=== PATIENT | male | born 1950 | race Caucasian/White ===

== ENCOUNTER 2020-02-05 08:37 | Outpatient (REF) | payer MEDICARE, SELFPAY ==
[2020-02-10 14:02] LABS: Testosterone, Free 16.1 pg/mL (35.0-155.0); Testosterone, Total 168 ng/dL (250-1100)
== END 2020-02-05 08:38 | disposition home or self-care (01) ==
LOC: HO.LAB 08:37
PROVIDERS: Visit Provider Internal Medicine
DX: N52.9 Male erectile dysfunction, unspecified (principal)
CPT/HCPCS: 84402; 84403

== ENCOUNTER 2020-12-06 12:52 | Outpatient (REF) | payer MEDICARE, SELFPAY ==
--- NOTE | ~2020-12-06 | US_ITS ---
EXAMINATION: US EXTRACRANIAL CAROTID DUPLEX, BILATERAL CLINICAL INFORMATION: Bilateral carotid artery stenoses. COMPARISON: 10/20/2019 TECHNIQUE: Real-time ultrasound and Doppler techniques (integrating B-mode 2-D vascular images, Doppler spectral analysis and color-flow Doppler imaging) were utilized to interrogate the extracranial carotid arteries, the vertebral arteries and proximal subclavian arteries bilaterally. The degree of stenosis is determined by criteria similar to NASCET. FINDINGS: Right Side: 1. There is a complex heterogeneous atherosclerotic plaque seen in the bifurcation/proximal ICA region. 2. The common carotid artery PSV proximally is 133 cm/s and distally 75 cm/s. 3. The proximal internal carotid artery velocities are 280 cm/s systolic and 59 cm/s diastolic. 4. The proximal external carotid artery PSV is 191 cm/s. 5. The vertebral artery shows antegrade flow. 6. The subclavian artery waveforms are normal. Left Side: 1. There is complex heterogeneous atherosclerotic plaque seen in the bifurcation/proximal ICA region. 2. The common carotid artery PSV proximally is 131 cm/s and distally 100 cm/s. 3. The proximal internal carotid artery velocities are 96 cm/s systolic and 21 cm/s diastolic. 4. The proximal external carotid artery PSV is 273 cm/s. 5. The vertebral artery shows antegrade flow. 6. The subclavian artery waveforms are normal. US/US carotid duplex BI IMPRESSION: 1. RIGHT: Moderate, hemodynamically significant stenosis of the proximal right internal carotid artery corresponding to a 50-79% stenosis by velocity criteria. 2. LEFT: Minimal, non-hemodynamically significant stenosis of the proximal left internal carotid artery corresponding to a 0-49% stenosis by velocity criteria. 3. A left ECA stenosis is present. 4. Compared to the prior study, there has been no significant change in disease categories.
== END 2020-12-06 12:53 | disposition home or self-care (01) ==
LOC: HO.US 12:52
PROVIDERS: PCP Internal Medicine; Visit Provider Surgery Vascular Surgery
DX: I65.23 Occlusion and stenosis of bilateral carotid arteries (principal)
CPT/HCPCS: 93880

== ENCOUNTER → 2020-12-27 09:57 | Outpatient (BNVA) | payer MEDICARE, SELFPAY | PROVIDERS: PCP Internal Medicine; Visit Provider Surgery Vascular Surgery | DX: I65.21 Occlusion and stenosis of right carotid artery (principal) | CPT/HCPCS: 99212 ==

== ENCOUNTER 2021-12-18 09:45 | Outpatient (REF) | payer MEDICARE, SELFPAY ==
--- NOTE | ~2021-12-18 | US_ITS ---
EXAMINATION: US EXTRACRANIAL CAROTID DUPLEX, BILATERAL CLINICAL INFORMATION: Right carotid artery stenosis COMPARISON: 12/06/2020 and 10/12/2019 TECHNIQUE: Real-time ultrasound and Doppler techniques (integrating B-mode 2-D vascular images, Doppler spectral analysis and color-flow Doppler imaging) were utilized to interrogate the extracranial carotid arteries, the vertebral arteries and proximal subclavian arteries bilaterally. The degree of stenosis is determined by criteria similar to NASCET. FINDINGS: Right Side: 1. There is moderate to severe irregular atherosclerotic plaque seen in the bifurcation/proximal ICA region. 2. The common carotid artery PSV proximally is 106 cm/s and distally 96 cm/s. 3. The proximal internal carotid artery velocities are 353 cm/s systolic and 64 cm/s diastolic. 4. The proximal external carotid artery PSV is 276 cm/s. 5. The vertebral artery shows antegrade flow. 6. The subclavian artery waveforms are normal. Left Side: 1. There is mild atherosclerotic plaque seen in the bifurcation/proximal ICA region. 2. The common carotid artery PSV proximally is 143 cm/s and distally 127 cm/s. 3. The proximal internal carotid artery velocities are 109 cm/s systolic and 20 cm/s diastolic. 4. The proximal external carotid artery PSV is 240 cm/s. 5. The vertebral artery shows antegrade flow. 6. The subclavian artery waveforms are normal. US/US carotid duplex BI IMPRESSION: 1. RIGHT: Moderate, hemodynamically significant stenosis of the proximal right internal carotid artery corresponding to a 50-79% stenosis by velocity criteria. 2. LEFT: Minimal, non-hemodynamically significant stenosis of the proximal left internal carotid artery corresponding to a 0-49% stenosis by velocity criteria. 3. There is no change in the category severity of disease when compared to the previous study dated 10/20/2019.
== END 2021-12-18 09:46 | disposition home or self-care (01) ==
LOC: HO.US 09:45
PROVIDERS: Visit Provider Surgery Vascular Surgery
DX: I65.21 Occlusion and stenosis of right carotid artery (principal)
CPT/HCPCS: 93880

== ENCOUNTER → 2021-12-21 10:05 | Outpatient (BNVA) | payer MEDICARE, SELFPAY | PROVIDERS: PCP Internal Medicine; Visit Provider Surgery Vascular Surgery | DX: I65.21 Occlusion and stenosis of right carotid artery (principal) | CPT/HCPCS: 99212 ==

== ENCOUNTER 2022-01-03 10:07 | Outpatient (REF) | payer MEDICARE, SELFPAY ==
[2022-01-03 11:37] LABS: Blood Urea Nitrogen 14 mg/dL (9-16)
== END 2022-01-03 10:08 | disposition home or self-care (01) ==
LOC: HO.WFDLDS 10:07
PROVIDERS: Visit Provider Surgery Vascular Surgery
DX: I65.21 Occlusion and stenosis of right carotid artery (principal)
CPT/HCPCS: 36415; 84520

== ENCOUNTER 2022-01-09 09:42 | Outpatient (REF) | payer OTHER, MEDICARE, SELFPAY ==
--- NOTE | ~2022-01-09 | CT_ITS ---
EXAMINATION: CT ANGIOGRAM NECK CLINICAL INFORMATION: Occlusion and stenosis of right carotid artery. COMPARISON: Ultrasound carotids 12/19/2021. TECHNIQUE: Test bolus series followed by intravenous administration 70 mL of Omnipaque 350. Helical imaging was performed in the axial plane from the mediastinum to the skull vertex. The degree of stenosis is based off NASCET criteria. The data was processed at the senior cytotechnologist workstation for generation of MIP images. Three-dimensional volume rendered reformatted images were also generated at an offline 3-D workstation. This CT examination was performed using dose optimization techniques as appropriate, variously including the following: *Automated exposure control *Adjustment of mA and/or kV according to patient size (this includes techniques or standardized protocols for targeted exams where dose is matched to indication/reason for exam; i.e. extremities or head) *Use of iterative reconstruction technique DLP: 292 mGy-cm. FINDINGS: There is a four-vessel aortic, and the left vertebral artery arises directly from the arch. There are moderate atheromatous calcifications at the origins of the great vessels of the neck. There is moderate stenosis at the origin of the right subclavian artery. The common carotid arteries have bilaterally. There are atheromatous calcifications at the carotid bifurcation bilaterally. On the right, there is approximately 70% stenosis, and on the left there is approximately 50% stenosis. Both internal carotid arteries are patent with relatively uniform caliber. As described above, the left vertebral artery arises directly off the arch. Just distal to the origin there are 2 left sided vertebral arteries, which have a confluence in the left vertebral foramen at C3-C4. The origin of the right vertebral artery appears normal. The distal cervical vertebral arteries are codominant and are patent throughout their cervical course Intracranially there are dense calcifications of the cavernous internal carotid arteries bilaterally without significant stenosis. Internal septations calcifications of the bilateral supraclinoid internal carotid arteries. The bilateral middle and anterior cerebral arteries are patent without evidence of stenosis, vascular malformation. There are 3 A2 segments of the anterior cerebral arteries. In the posterior circulation the left vertebral artery is slightly dominant. The basilar artery is patent. The posterior cerebral arteries are patent bilaterally. Nonvascular: There are emphysematous changes in the visualized upper lung reid bilaterally. There are small subpleural blebs at the lung apices bilaterally. There is a moderately prominent lymph node in the left esophageal region which measures 0.9 cm in short axis axially (image 110/139) and there is also an AP lymph node which measures approximately 1 cm (image 134/139).. The thyroid gland is normal in size. The mastoid air cells are well-aerated. There is mucoperiosteal thickening of the left ethmoid air cells. There is a periapical lucency around the root of the right mandibular 1st premolar tooth. There are severe spondylitic and facet arthropathic changes in the cervical spine. On the available images, there are no intracranial masses or areas of abnormal enhancement. The venous sinuses opacify normally. CT/CT angio neck IMPRESSION: 1. There are atheromatous calcifications at the origins of the great vessels of the neck. There is moderate stenosis at the origin of the right subclavian artery. 2. There is approximately 70% stenosis at the origin of the right internal carotid artery, and there is approximately 50% stenosis at the origin of the left internal carotid artery. 3. There are no intracranial masses or areas of abnormal enhancement. 4. The left vertebral artery arises directly off the aortic arch which is a normal variant, and there are 2 left-sided vertebral arteries which coalesce at the level of the left vertebral foramen at C3-C4. 5. There are mildly prominent nonspecific lymph nodes in the mediastinum. These could be further evaluated with a CT scan of the chest.
[2022-01-09] MEDS: iohexoL 350 MG/ML 100 ML INFUS..BTL IV (10:28)
[2022-01-09 10:47] LABS: Creatinine POC 0.6 mg/dL (0.5-1.4); GFR POC > 60
== END 2022-01-09 09:43 | disposition home or self-care (01) ==
LOC: HO.CT 09:42
PROVIDERS: Visit Provider Surgery Vascular Surgery
DX: I65.21 Occlusion and stenosis of right carotid artery (principal)
CPT/HCPCS: 70498; 82565; Q9967

== ENCOUNTER → 2022-01-15 08:51 | Outpatient (BNVA) | payer OTHER, MEDICARE, SELFPAY | PROVIDERS: PCP Internal Medicine; Visit Provider Surgery Vascular Surgery | DX: I65.21 Occlusion and stenosis of right carotid artery (principal) | CPT/HCPCS: 99212 ==

== ENCOUNTER → 2022-07-31 09:48 | Outpatient (BNVA) | payer OTHER, SELFPAY | PROVIDERS: PCP Internal Medicine; Visit Provider Surgery Vascular Surgery | DX: I65.21 Occlusion and stenosis of right carotid artery (principal) | CPT/HCPCS: 99212 ==

== ENCOUNTER 2022-08-16 09:20 | Outpatient (REF) | payer MEDICARE, OTHER, SELFPAY ==
[2022-08-16 11:15] LABS: MANUAL DIFF FLAG NO
[2022-08-16 11:30] LABS: Basophils Percent Auto 0.5 % (0-2); Eosinophils Absolute Auto 0.3 X10*3/uL (0.0-0.4); Eosinophils Percent Auto 3.4 % (0-4); Hematocrit 43.6 % (42.0-52.0); Hemoglobin 15.8 g/dl (14.0-18.0); Imm Gran Abs Auto 0.04 X10*3/uL (0.00-0.03); Imm Gran Pct Auto 0.5 % (0.0-0.4); Lymphocytes Absolute Auto 1.4 X10*3/uL (1.2-4.9); Lymphocytes Percent Auto 15.8 % (20-40); Mean Corpuscular HGB Conc 36.2 g/dl (31.0-36.0); Mean Corpuscular Hemoglobin 33.4 pg (27.0-33.0); Mean Corpuscular Volume 92.2 fL (80.0-98.0); Mean Platelet Volume 8.8 fL (9.4-12.4); Monocytes Percent Auto 11.8 % (2-11); Platelet Count 285 X10*3/uL (160-400); Red Blood Count 4.73 X10*6/uL (4.60-5.80); Red Cell Distribution Width 11.9 % (11.0-16.0); White Blood Count 8.8 X10*3/uL (4.8-10.8)
[2022-08-16 11:37] LABS: Appearance Urine Clear; Color Urine Yellow; Glucose Urine UA Negative (Negative); Leukocyte Esterase Urine Trace (Negative); Nitrite Urine Negative (Negative); PH 6.5 (5.0-9.0); Specific Gravity - Urine 1.015 (1.005-1.025); UMIC TRIGGER UA YES; Urine Blood Negative (Negative); Urine Ketones Trace mg/dL (Negative); Urine Protein Negative (Neg-Trace)
[2022-08-16 11:46] LABS: Bacteria Urine None Seen (None Seen); Granular Casts Urine Present; RBC Urine 0-2 /HPF (0-2); Squamous Epithelial Cell Urine 0-2 /HPF (0-2); WBC Urine 0-5 /HPF (0-5)
[2022-08-16 12:07] LABS: Alanine Aminotransferase 35 U/L (0-40); Albumin Level 4.4 g/dL (3.5-5.0); Alkaline Phosphatase 96 U/L (39-117); Anion Gap 15 (12-20); Aspartate Amino Transferase 30 U/L (5-37); Bilirubin Total 0.6 mg/dL (0.0-1.0); Blood Urea Nitrogen 17 mg/dL (9-16); Calcium 9.8 mg/dL (8.4-10.2); Carbon Dioxide 23 mmol/L (22-29); Chloride 103 mmol/L (96-108); Cholesterol 142 mg/dL; Estimated Glomerular Filt Rate > 60; Glucose Random 89 mg/dL (60-115); HDL Cholesterol 73 mg/dL; LDL Cholesterol Calculated 61 mg/dl; Potassium 4.5 mmol/L (3.3-5.1); Sodium 136 mmol/L (135-145); Total Protein 7.4 g/dL (6.5-8.0); Triglycerides 44 mg/dL
[2022-08-16 12:16] LABS: Folate 16.4 ng/mL (> or = 4.0); Free T4 (Free Thyroxine) 1.16 ng/dL (0.71-1.85); Prostate Specific Antigen Scr 1.52 ng/mL (<0.05-4.0); Thyroid Stimulating Hormone 0.83 uIU/mL (0.32-4.0); Vitamin B12 651 pg/mL (200-900)
[2022-08-21 21:04] LABS: Lyme Abs Screen <0.90 index
[2022-08-24 12:08] LABS: Testosterone, Total 207 ng/dL (250-1100)
== END 2022-08-16 09:21 | disposition home or self-care (01) ==
LOC: HO.WFDLDS 09:20
PROVIDERS: Visit Provider Internal Medicine
DX: Z12.5 Encounter for screening for malignant neoplasm of prostate (principal); F41.1 Generalized anxiety disorder; R53.83 Other fatigue; E78.00 Pure hypercholesterolemia, unspecified
CPT/HCPCS: 36415; 80053; 80061; 81001; 82607; 82746; 84153; 84403; 84439; 84443; 85025; 86617; 86618

== ENCOUNTER 2022-08-27 05:56 | Inpatient (IN) | payer MEDICARE, SELFPAY ==
[2022-08-21 12:10] VITALS: BP 169/80; PULSE 66; RESP 16; O2SAT 96; BMI 20.4
[2022-08-21 13:56] LABS: Prothrombin Time 11.9 SEC (10.0-13.1)
[2022-08-21 13:59] LABS: Partial Thromboplastin Time 31.9 SEC (26.0-36.4)
--- NOTE | 2022-08-24 12:00 | P.CONAN_ITS ---
Documented by User: Freida Cottrell NP 08/24/22 12:01 HPI - Anesthesia Eval Consult details Narrative: 72yo M for Right Carotid Endarterectomy Cardiac cleared [facility] Active Problems Active Problems: All Active Problems (Updated 08/21/22 @ 11:14 by Ezra Vargas MD) Allergic dermatitis (Acute) Feeling tired (Acute) Fever (Acute) Meralgia paresthetica of left side (Acute) Carpal tunnel syndrome of left wrist (Acute) Actinic keratosis (Acute) Stenosis of right carotid artery (Acute) Generalized anxiety disorder (Acute) Insomnia (Acute) GERD (gastroesophageal reflux disease) (Acute) Hypercholesterolemia (Acute) Hypogonadism (Acute) Erectile dysfunction (Acute) Hypertension (Acute) Past Medical History Medical History Erectile dysfunction GERD (gastroesophageal reflux disease) History of 2019 novel coronavirus disease (COVID-19) Hypercholesterolemia Hypertension Hypogonadism PTSD (post-traumatic stress disorder) Stenosis of right carotid artery Family History Family History Father CVD (cardiovascular disease) Mother Lung cancer Maternal Aunt Colon cancer Surgical History Surgical History History of ankle surgery History of appendectomy History of tonsillectomy Social History Social History Housing: House Are you a primary veterinarian laboratory animal care to a significant other at home: No Do you presently have visiting nurse or other home services: No Alcohol intake: current Alcohol intake frequency: a few times a week Patient Tobacco Use Status: Former Tobacco user Quit Date: 2006 Tobacco use type: Cigarette e-Cigarette/Vaping Use: Never Used Second Hand Smoke Exposure: No Use of substances other than those prescribed or required for medical reasons: No Substance Use Frequency: Occasionally Have you been hit, kicked, punched, or otherwise hurt by someone within the past year? If so, by whom?: No Are you DNR?: No Advance Directives: No Advance Directives Information Provided: Yes Advance Directives on File: No Recently lost weight without trying: Yes How much weight loss: 2-13 pounds Eating poorly because of decreased appetite: No Nutrition screen score: 3 Current occupational status: retired Cognitive needs: No Hearing needs: No Vision needs: Yes Meds Allergies Allergy/AdvReac Type Severity Reaction Status Date / Time lobster Allergy Severe Anaphylaxis Verified 08/21/22 12:09 amoxicillin Allergy Mild Itching Verified 08/21/22 16:00 hazelnut Allergy Unknown Unknown Verified 08/21/22 10:46 Home Medications Medication Instructions Recorded Confirmed Last Taken Type amlodipine 10 mg tablet 10 mg PO BEDTIME 01/26/20 08/21/22 Unknown History aspirin 81 mg tablet,delayed 81 mg PO DAILY 01/26/20 08/21/22 Unknown History release (Adult Aspirin Regimen) cetirizine 10 mg tablet (Zyrtec) 10 mg PO DAILY PRN Allergy Symptoms 08/21/22 08/21/22 Unknown History epinephrine 0.3 mg/0.3 mL 0.3 mg IM Q4H PRN Allergic Reaction 08/21/22 08/21/22 Unknown History injection, auto-injector (EpiPen) rosuvastatin 5 mg tablet 5 mg PO .DAILY@NOON 08/21/22 08/21/22 Unknown History Exam Exam Date and Time: August 24, 2022 1200 Height,Weight and Vital Signs: Height 5 ft 7 in Weight 58.967 kg Last Vital Signs Pulse 66 08/21/22 12:10 Resp 16 08/21/22 12:10 BP 169/80 H 08/21/22 12:10 Pulse Ox 96 08/21/22 12:10 O2 Del Method Room Air 08/21/22 12:10 Pertinent Lab Results Pertinent Lab Results: Laboratory Tests 08/21/22 08/21/22 12:40 12:41 PT 11.9 INR 1.0 APTT 31.9 Blood Type A Negative Antibody Screen NEGATIVE Laboratory Tests 08/16/22 08/16/22 09:20 09:20 WBC 8.8 Hgb 15.8 Hct 43.6 Plt Count 285 Sodium 136 Potassium 4.5 Chloride 103 Carbon Dioxide 23 BUN 17 H Creatinine 0.97 Narrative Narrative: EKG 07/2022 NSR @ 62 Moderate voltage criteria LVH, may be normal variant Assessment and Plan Assessment Anesthesia Assessment: Chart Reviewed Documented by User: Angie Scott MD 08/27/22 07:08 [facility] Past Medical History Medical History Erectile dysfunction GERD (gastroesophageal reflux disease) History of 2019 novel coronavirus disease (COVID-19) Hypercholesterolemia Hypertension Hypogonadism PTSD (post-traumatic stress disorder) Stenosis of right carotid artery Family History Family History Father CVD (cardiovascular disease) Mother Lung cancer Maternal Aunt Colon cancer Family history of problems with anesthesia: No Surgical History Surgical History History of ankle surgery History of appendectomy History of tonsillectomy History of Problems with Anesthesia: No Social History Social History Housing: House Are you a primary veterinarian laboratory animal care to a significant other at home: No Do you presently have visiting nurse or other home services: No Alcohol intake: current Alcohol intake frequency: a few times a week Patient Tobacco Use Status: Former Tobacco user Quit Date: 2006 Tobacco use type: Cigarette e-Cigarette/Vaping Use: Never Used Second Hand Smoke Exposure: No Use of substances other than those prescribed or required for medical reasons: No Substance Use Frequency: Occasionally Have you been hit, kicked, punched, or otherwise hurt by someone within the past year? If so, by whom?: No Are you DNR?: No Advance Directives: No Advance Directives Information Provided: Yes Advance Directives on File: No Recently lost weight without trying: Yes How much weight loss: 2-13 pounds Eating poorly because of decreased appetite: No Nutrition screen score: 3 Current occupational status: retired Cognitive needs: No Hearing needs: No Vision needs: Yes Meds Allergies Allergy/AdvReac Type Severity Reaction Status Date / Time lobster Allergy Severe Anaphylaxis Verified 08/21/22 12:09 amoxicillin Allergy Mild Itching Verified 08/21/22 16:00 hazelnut Allergy Unknown Unknown Verified 08/21/22 10:46 Home Medications Medication Instructions Recorded Confirmed Last Taken Type amlodipine 10 mg tablet 10 mg PO BEDTIME 01/26/20 08/21/22 Unknown History aspirin 81 mg tablet,delayed 81 mg PO DAILY 01/26/20 08/21/22 Unknown History release (Adult Aspirin Regimen) cetirizine 10 mg tablet (Zyrtec) 10 mg PO DAILY PRN Allergy Symptoms 08/21/22 08/21/22 Unknown History epinephrine 0.3 mg/0.3 mL 0.3 mg IM Q4H PRN Allergic Reaction 08/21/22 08/21/22 Unknown History injection, auto-injector (EpiPen) rosuvastatin 5 mg tablet 5 mg PO .DAILY@NOON 08/21/22 08/21/22 Unknown History Exam Airway Mallampati Class: II TM Dist: >3cm Neck ROM: Full Denture: Lower (at home) Heart: rrr Lungs: cta Assessment and Plan Assessment Anesthesia Assessment: Anesthesia Plan Discussed and Chart Reviewed Final Anesthetic Review Family History of Problems with Anesthesia: No History of Problems with Anesthesia: No NPO: Yes ASA Class: III Final Preanesthetic Review: No Changes in Pt Med Stat, Meds/Allgs Chart Reviewed and Consent Obtained/Reviewed Patient Risk: Intermediate Procedure Risk: Intermediate Anesthetic Plan Anesthetic Plan: GA Disposition: Standard PACU
[2022-08-27] VITALS (20 sets, daily range): BP systolic 103–138; BP diastolic 40–70; PULSE 69–95; RESP 11–22; TEMP 36.4–37.3; O2SAT 92–97; BMI 22.4
--- OUTSIDE RECORDS SUMMARY | 2022-08-27 05:58 | XMS_ITS | Continuity of Care Document ---
Author Name Unknown Organization [facility] Address [address] [place] [address]- Care Team Providers Care Information Security Name Role Phone Not on Staff, PCP Primary Care Physician Unavail able [place] [facility] [place]/20 [facility] [address] [place] [address]- Attending Physician: Raudel Parker Admitting Physician: Raudel Parker Referring Physician: AdmtrRaudel Allergies, Adverse Reactions, Alerts Substance Reaction Severity Status Lobster Active Medications Amlodipine By Mouth, Daily, 0 Refills, Maintenance, 02/20/20 12:48:00 EST, Partial fill upon patient request Start Date: 02/20/20 Status: Ordered aspirin 81 mg oral delayed release tablet 81 mg, 1, tablet, By Mouth, Daily, # 30 tablet, Refills 0, Maintenance, 02/20/20 12:44:00 EST, Partial fill upon patient request Start Date: 02/20/20 Status: Ordered Lunesta By Mouth, Daily at bedtime, 0 Refills, Maintenance, 02/20/20 12:43:00 EST, Partial fill upon patient request Start Date: 02/20/20 Status: Ordered
[2022-08-27] MEDS: Lactated Ringers 1,000 ML 100 ML IVCONT (06:32)
[2022-08-27 06:54] LABS: Hematocrit 42.5 % (42.0-52.0); Mean Corpuscular HGB Conc 35.3 g/dl (31.0-36.0); Mean Corpuscular Hemoglobin 32.5 pg (27.0-33.0); Mean Corpuscular Volume 92.2 fL (80.0-98.0); Mean Platelet Volume 8.2 fL (9.4-12.4); Platelet Count 334 X10*3/uL (160-400); Red Blood Count 4.61 X10*6/uL (4.60-5.80); White Blood Count 8.7 X10*3/uL (4.8-10.8)
[2022-08-27 06:59] LABS: Prothrombin Time 10.9 SEC (10.0-13.1)
[2022-08-27 07:02] LABS: Partial Thromboplastin Time 30.2 SEC (26.0-36.4)
--- NOTE | 2022-08-27 07:07 | PHA.MEDREC ---
Pharmacy Consult ? Medication Reconciliation Pharmacy has completed the medication reconciliation. Reviewed med rec done by nursing
[2022-08-27 07:09] LABS: Anion Gap 12 (12-20); Blood Urea Nitrogen 16 mg/dL (9-16); Calcium 9.3 mg/dL (8.4-10.2); Carbon Dioxide 24 mmol/L (22-29); Chloride 107 mmol/L (96-108); Creatinine Clr Calc Pharmacy 66.2; Estimated Glomerular Filt Rate > 60; Glucose Random 92 mg/dL (60-115); Potassium 4.5 mmol/L (3.3-5.1); Sodium 138 mmol/L (135-145)
--- NOTE | 2022-08-27 07:37 | MHC.SHP ---
Pre-Procedural Eval Section A Date of Service: 08/27/22 The patient is an INPATIENT: No Changes since office visit: Yes Patient answered all questions The History & Physical has been completed within 30 days and I have reviewed it.: Yes Section B Chief Complaint: Postop Allergies: Allergies Allergy/AdvReac Type Severity Reaction Status Date / Time lobster Allergy Severe Anaphylaxis Verified 08/21/22 12:09 amoxicillin Allergy Mild Itching Verified 08/21/22 16:00 hazelnut Allergy Unknown Unknown Verified 08/21/22 10:46 Plan I have reviewed the history and physical and performed a pertinent physical examination on my patient. No changes have occurred unless specified. Time Spent With Patient Time: Total time managing care of this patient today ____ minutes.
--- NOTE | 2022-08-27 10:51 | W.PM.OPN ---
Operative Note Operative Note Date of Service: 08/27/22 Narrative: Operative note by [facility] Preoperative diagnosis:1. Right Carotid stenosis Postoperative diagnosis: Same Procedure: Right Carotid endarterectomy with patch angioplasty Surgeon:James Hutton M.D. Disability Hearing Officer: Dr. Aldrich Anesthesia: General Specimens: 1 Drains: None Estimated blood loss: 100 mL Indications: Pleasant 72-year-old gentleman who upon workup was discovered to have right carotid stenosis. This was confirmed on ultrasound and CT angiogram. He now presents for operative intervention. The patient has signed the informed consent after reviewing risks, complications, benefits, and alternatives previously discussed with the patient. The patient was given the opportunity to ask any additional questions or voice any concerns. All questions were answered to the patient's satisfaction. Procedure in detail: Patient was taken to the operating room and placed in a supine position and prepped and draped in sterile manner with ChloraPrep. Longitudinal incision was made along the right anterior border of the sternocleidomastoid carried down through the subcutaneous fat and fascia. Hemostasis was obtained with electrocautery. The platysma muscle was then divided. The carotid sheath was identified in open. The vagus nerve, Ancef cervicalis, and hypoglossal nerves were identified and avoided. The common internal and external carotids were then freed from the surrounding tissue. At this point, 5000 units of heparin was administered and allowed to circulate for 5 minutes time to take effect. The internal, common, external carotids were clamped in that order. Once this was accomplished, we proceeded with the procedure. The carotid bulb was opened with an 11 blade and extended with Myers scissors through the very tight lesion into normal internal carotid artery. This was then extended down into the common carotid artery. We then placed a Olmedo shunt. Then the plaque was sharply excised proximally and an eversion endarterectomy was performed successfully at the external. The plaque tapered nicely on to the internal and no tacking sutures were necessary. Heparinized saline was injected and no evidence of flapping or other debris was noted. The remaining carotid was examined, which showed no debris or flaps present. At this point a XenoSure patch was brought on to the field. This was anastomosed to the artery using a 6 0 Prolene in a running fashion. Once approximately 4/5 of the patch was sewn in the shunt was then removed. Prior to the last stitch the internal carotid was back bled through this. Heparinized saline was instilled into the carotid. The last stitch was tied. Hemostasis was excellent. The internal carotid was gently occluded while while of the external and internal were open in that order. Finally the internal was then opened and flow was restored to the entire system. Hemostasis was achieved with interrupted 7-0 Prolene sutures. The wound was irrigated thoroughly. Deep layer was reapproximated using a 2-0 poly Sorb and finally the superficial layer with a 3-0 Polysorb. The skin was closed in a subcuticular manner. The patient awoke and neurologic status was checked and appeared to be intact. Sponge, needle and instrument counts were correct. The patient tolerated the procedure well. Returned to recovery with stable vitals. This note is constructed using voice recognition software. While every effort has been made to ensure accuracy, piper helper errors may have been included. Thank you for allowing me to participate in the care of your patient. Yours sincerely, James Hutton MD, FACS, R.P.V.I.
[2022-08-27] MEDS: Lactated Ringers 1,000 ML 999 ML IV (12:00)
--- NOTE | 2022-08-27 12:05 | PM.CCHP ---
History of Present Illness Date of Service: 08/27/22 Chief Complaint: Status post elective carotid endarterectomy 72-year-old gentleman with underlying hypertension and peripheral vascular disease now postop day 0 after an elective right carotid endarterectomy being monitored in the intensive care unit. Review of Systems Constitutional: Constitutional: Denies daytime sleepiness, Denies excessive sweating, Denies fatigue, Denies fever(s), Denies lethargy, Denies malaise, Denies night sweats, Denies snoring and Denies weight loss Eyes: Eyes: Denies blurry vision and Denies itchy eyes ENT: Denies nasal congestion, Denies post nasal drip, Denies sinus pain, Denies sinus pressure and Denies other ( Thrush) Cardiovascular: Cardiovascular: Denies chest pain, Denies pedal edema, Denies dyspnea, Denies orthopnea and Denies paroxysmal nocturnal dyspnea Respiratory: Respiratory: Denies cough, Denies hemoptysis, Denies excessive phlegm production, Denies dyspnea, Denies snoring and Denies wheezing Gastrointestinal: Gastrointestinal: Denies abdominal pain and Denies heartburn Musculoskeletal: Musculoskeletal: Denies myalgias, Denies arthralgias and Denies joint swelling Integumentary/Breasts: Skin/Breast: Denies rash Neurologic: Denies memory loss and Denies seizure-like activity Psychiatric: Psychiatric: Denies abnormal sleep pattern, Denies anxiety and Denies memory loss Endocrine: Endocrine: Denies excessive sweating, Denies fatigue and Denies heat intolerance Hematologic/Lymphatic: Hematologic/Lymphatic: Denies easy bruising Allergic/Immunologic: Allergic/Immunologic: Denies itchy eyes, Denies seasonal rhinorrhea and Denies wheezing PMFSH Past Medical History Medical History Erectile dysfunction GERD (gastroesophageal reflux disease) History of 2019 novel coronavirus disease (COVID-19) Hypercholesterolemia Hypertension Hypogonadism PTSD (post-traumatic stress disorder) Stenosis of right carotid artery Family History Family History Father CVD (cardiovascular disease) Mother Lung cancer Maternal Aunt Colon cancer Surgical History Surgical History History of ankle surgery History of appendectomy History of tonsillectomy Social History Social History Housing: House Are you a primary multi care technician to a significant other at home: No Do you presently have visiting nurse or other home services: No Alcohol intake: current Alcohol intake frequency: a few times a week Patient Tobacco Use Status: Former Tobacco user Quit Date: 2006 Tobacco use type: Cigarette e-Cigarette/Vaping Use: Never Used Second Hand Smoke Exposure: No Use of substances other than those prescribed or required for medical reasons: No Substance Use Frequency: Occasionally Have you been hit, kicked, punched, or otherwise hurt by someone within the past year? If so, by whom?: No Are you DNR?: No Advance Directives: No Advance Directives Information Provided: Yes Advance Directives on File: No Recently lost weight without trying: Yes How much weight loss: 2-13 pounds Eating poorly because of decreased appetite: No Nutrition screen score: 3 Current occupational status: retired Cognitive needs: No Hearing needs: No Vision needs: Yes Meds Allergies Allergy/AdvReac Type Severity Reaction Status Date / Time lobster Allergy Severe Anaphylaxis Verified 08/21/22 12:09 amoxicillin Allergy Mild Itching Verified 08/21/22 16:00 hazelnut Allergy Unknown Unknown Verified 08/21/22 10:46 Active Medications: Current Medications Acetaminophen (Acetaminophen 325 Mg Tablet) 650 mg PO Q6H PRN PRN Reason: Pain, Mild (Pain Scale 1-3) Alprazolam (Alprazolam 0.25 Mg Tablet) 0.25 mg PO BEDTIME PRN PRN Reason: anxiety Amlodipine Besylate (Amlodipine Besylate 10 Mg Tablet) 10 mg PO BEDTIME VIOLET; Protocol Aspirin (Aspirin Enteric Coated 81 Mg Tablet.Dr) 81 mg PO DAILY VIOLET Atorvastatin Calcium (Atorvastatin Calcium 20 Mg Tablet) 20 mg PO DAILY@1200 VIOLET Hydroxyzine HCl (Hydroxyzine Hcl 25 Mg Tablet) 25 mg PO BEDTIME VIOLET Lactated Ringer's (Lr) 1,000 mls @ 100 mls/hr IVCONT .Q10H VIOLET Last Admin: 08/27/22 06:32 Dose: 100 mls/hr Sodium Chloride (Ns) 1,000 mls @ 80 mls/hr IVCONT .[id number] [facility] Cefazolin Sodium/Dextrose (Ancef) 2 gm in 50 mls @ 100 mls/hr IV POSTOP ONE Stop: 08/27/22 14:29 Morphine Sulfate (Morphine Sulfate 2 Mg/Ml Cartridge) 2 mg IVPUSH Q4H PRN; Protocol PRN Reason: Pain, Severe (Pain Scale 7-10) Oxycodone HCl (Oxycodone Hcl Immed Release 5 Mg Tablet) 5 mg PO Q4H PRN PRN Reason: Pain, Moderate(Pain Scale 4-6) Sodium Chloride (0.9 % Sodium Chloride Flush 3 Ml Syringe) [address] [facility] Home Medications Medication Instructions Recorded Confirmed Last Taken Type amlodipine 10 mg tablet 10 mg PO BEDTIME 01/26/20 08/21/22 Unknown History aspirin 81 mg tablet,delayed 81 mg PO DAILY 01/26/20 08/21/22 Unknown History release (Adult Aspirin Regimen) cetirizine 10 mg tablet (Zyrtec) 10 mg PO DAILY PRN Allergy Symptoms 08/21/22 08/21/22 Unknown History epinephrine 0.3 mg/0.3 mL 0.3 mg IM Q4H PRN Allergic Reaction 08/21/22 08/21/22 Unknown History injection, auto-injector (EpiPen) rosuvastatin 5 mg tablet 5 mg PO .DAILY@NOON 08/21/22 08/21/22 Unknown History Physical Exam Vital Signs: Vital Signs: Last Vital Signs Temp 99.2 F 08/27/22 11:20 Pulse 86 08/27/22 11:20 Resp 14 08/27/22 11:20 BP 105/44 L 08/27/22 11:20 Pulse Ox 96 08/27/22 11:20 O2 Del Method Nasal Cannula wit h Capnography 08/27/22 11:20 O2 Flow Rate 2 08/27/22 11:20 BMI result Body Mass Index 20.4 Const: General: no acute distress and alert HEENT: Head: Yes atraumatic Eyes: General: appearance normal, both eyes and all related structures Sclerae: sclerae normal EOM: EOMs intact bilaterally Neck: Neck: Yes supple and Yes other (Right carotid endarterectomy surgical site without hematoma) Lymphatic: no lymphadenopathy noted Resp: Effort & Inspection: normal respiratory effort and no use of accessory muscles Auscultation: clear to auscultation bilaterally Cardio: Rate: regular rate Rhythm: regular rhythm Heart sounds: no gallops, no murmurs and no rubs GI: Palpation (GI): Soft to palpation and Other GI palpation findings present ( nontender) Skin: General skin exam: other ( warm) Rashes: no rashes Extrem: General: No clubbing, No cyanosis and No edema Results Labs 08/27/22 06:43 08/27/22 06:43 Labs: Laboratory Results - last 24 hr 08/27/22 08/27/22 08/27/22 06:43 06:43 06:43 MCV 92.2 MCH 32.5 MCHC 35.3 RDW 12.0 Plt Count 334 MPV 8.2 L Absolute Nucleated RBC 0.000 Nucleated RBC % (auto) 0.0 PT 10.9 INR 1.0 APTT 30.2 Anion Gap 12 Estim Creat Clear Calc 66.2 Estimated GFR > 60 Random Glucose 92 Calcium 9.3 Assessment and Plan (1) Stenosis of right carotid artery: Status: Acute (2) Status post carotid endarterectomy: Status: Acute (3) Hypertension: Qualifiers: Hypertension type: essential hypertension Qualified Code(s): I10 - Essential (primary) hypertension Status: Acute Plan Assessment: 72-year-old gentleman postoperative day 0 after an elective right carotid endarterectomy being monitored in the intensive care unit. Plan: Neuro: No acute issues. Cardiac: Status post elective right carotid endarterectomy earlier today. Vascular surgery service care appreciated. Maintain systolic blood pressure under 160. Pulmonary: No acute issues. Renal: No acute issues. Endo: No acute issues. GI: No acute issues. ID: No acute issues Heme/Onc: No acute issues. Psych: No acute issues. Miscellaneous: No acute issues. Prophylaxis: Per vascular surgery Diet: Per vascular surgery Time Spent With Patient Time: Total time managing care of this patient today ____ minutes.
[2022-08-27] MEDS: 0.9 % Sodium Chloride 1,000 ML 80 ML IVCONT ×2 (13:05→23:32)
[2022-08-27] MEDS: Atorvastatin Calcium 20 MG TABLET PO (13:08)
[2022-08-27] MEDS: Acetaminophen 325 MG TABLET 650 MG PO ×2 (13:08→19:26)
[2022-08-27] MEDS: ceFAZolin Sodium/Dextrose,Iso 2 GM/50 ML PIGGYBACK IV (13:12)
[2022-08-27] MEDS: 0.9 % Sodium Chloride Flush 3 ML SYRINGE IVFLUSH ×2 (16:14→21:52)
--- NOTE | 2022-08-27 18:15 | PC.NURSE ---
Addendum entered by David Winn RN 08/27/22 18:39: Upon arrival to ICU, patient's BP was low: 97/38, MAP 57 per Brenda. Had LR at 100 cc/hour order on hold, MD notified, new order for 1 L LR bolus, administered with good effect. No further low blood pressures, now contiuing on NS at 80 cc/hour. Was notified that Covid test from 05:55 had not been collected. MD notified, no need to check covid test post-op at this time in absence of symptoms per MD. Original Note: Assumed care at 11:30. Patient alert and oriented x4, POD #0 s/p right carotid endarterectomy. Neuros unremarkable. Patient endorses drinking 2 beers a day, last drink 08/26. CIWA added to plan of care, scoring 1-2. Patient with left radial brenda, BP correlated with automated BP measurement. Patient declined lunch, had 100% dinner. No BM this shift, declined hygienic care. [facility] for fluid measurement and related to bed rest, 1000 ccs clear yellow urine this shift.
[2022-08-27] MEDS: ALPRAZolam 0.25 MG TABLET PO (21:52)
[2022-08-28] VITALS (13 sets, daily range): BP systolic 116–155; BP diastolic 46–66; PULSE 63–71; RESP 10–20; TEMP 36.4–36.9; O2SAT 92–97; BMI 26.4
[2022-08-28] MEDS: Acetaminophen 325 MG TABLET 650 MG PO (03:15)
[2022-08-28] MEDS: oxyCODONE HCl Immed Release 5 MG TABLET PO (03:15)
[2022-08-28 05:12] LABS: MANUAL DIFF FLAG NO
[2022-08-28 05:13] LABS: Basophils Percent Auto 0.2 % (0-2); Eosinophils Percent Auto 0.1 % (0-4); Hematocrit 36.9 % (42.0-52.0); Hemoglobin 12.8 g/dl (14.0-18.0); Imm Gran Abs Auto 0.06 X10*3/uL (0.00-0.03); Imm Gran Pct Auto 0.6 % (0.0-0.4); Lymphocytes Absolute Auto 1.2 X10*3/uL (1.2-4.9); Lymphocytes Percent Auto 11.5 % (20-40); Mean Corpuscular HGB Conc 34.7 g/dl (31.0-36.0); Mean Corpuscular Hemoglobin 32.5 pg (27.0-33.0); Mean Corpuscular Volume 93.7 fL (80.0-98.0); Mean Platelet Volume 8.4 fL (9.4-12.4); Monocytes Percent Auto 9.4 % (2-11); Neutrophils Absolute Auto 8.1 x10*3/uL (2.0-8.3); Neutrophils Percent Auto 78.2 % (45-73); Platelet Count 302 X10*3/uL (160-400); Red Blood Count 3.94 X10*6/uL (4.60-5.80); White Blood Count 10.3 X10*3/uL (4.8-10.8)
[2022-08-28 05:26] LABS: ABG Base Excess 2.7 mmol/L; ABG HCO3 26 mmol/L (22-26); ABG pCO2 36 mmHg (32-45); ABG pH 7.46 (7.35-7.45); ABG pO2 83 mmHg (83-108)
[2022-08-28 05:29] LABS: ABG Refer to POC result
[2022-08-28 05:33] LABS: Albumin Level 3.6 g/dL (3.5-5.0); Anion Gap 12 (12-20); Blood Urea Nitrogen 10 mg/dL (9-16); Calcium 8.8 mg/dL (8.4-10.2); Carbon Dioxide 23 mmol/L (22-29); Chloride 105 mmol/L (96-108); Creatinine Clr Calc Pharmacy 83.2; Estimated Glomerular Filt Rate > 60; Glucose Random 120 mg/dL (60-115); Phosphorus 3.7 mg/dL (2.7-4.5); Potassium 4.1 mmol/L (3.3-5.1); Sodium 136 mmol/L (135-145)
--- NOTE | 2022-08-28 06:34 | PC.NURSE ---
CARE ASSUMED 23:15...ALERT..ORIENTED X3..SPEECH CLEAR...TONGUE MID-LINE..RIGHT NECK DRESSING DRY/INTACT..RESPIRATIONS EASY ON ROOM AIR...BP STABLE VIA LEFT RADIAL A-LINE..A-LINE CORRELATES WITH RIGHT ARM BP...NSR...ISOLATED NON-SUSTAINED RUN SVT X10 SECONDS...NEUMANN DRAINING LARGE AMOUNTS YELLOW URINE...CONTINUES NS @ 80 CC/HR...TYLENOL AND OXYCODONE X1 FOR C/O SURGICAL SITE PAIN WITH EFFECT...RESTFUL..REPOSITIONS SELF IN BED AD-OFELIA
[2022-08-28] MEDS: Aspirin Enteric Coated 81 MG TABLET.DR PO (08:20)
[2022-08-28] MEDS: 0.9 % Sodium Chloride Flush 3 ML SYRINGE IVFLUSH (08:20)
--- NOTE | 2022-08-28 08:33 | MHC.CM.PN ---
Pt in ICU following vascular surgery: independent at home w/spouse: no services or DME needs: Spouse to transport pt to home: HCP copy at Katelyn Caruso's office: Call placed - requested copy faxed to CM office for EMR. CM to follow for any changes in d/c planning.
[2022-08-28] MEDS: Atorvastatin Calcium 20 MG TABLET PO (12:19)
--- NOTE | 2022-08-28 13:11 | P.DS_ITS ---
DS: Providers Provider Date of Service: 08/28/22 Date of admission: 08/27/22 05:56 Primary care physician: Ezra Vargas MD DS: Diagnosis Discharge Diagnosis (1) Stenosis of right carotid artery: Status: Acute (2) Status post carotid endarterectomy: Status: Acute (3) Hypertension: Status: Acute DS: Summary Hospital Course Hospital Course: Pleasant 72-year-old gentleman status post right carotid endarterectomy. He had undergone right carotid endarterectomy on 07/27/2022. No postoperative issues. He was observed overnight in the ICU. Postop day 1 lines were removed and he wa s tolerating a diet. He was neurologically intact. He was subsequently discharged. Condition upon discharge stable P Status at Discharge Functional status at discharge: independent ambulation Overall status at discharge: patient is back to baseline Time Spent with Patient Time attestation: Total time managing care of this patient today ____ minutes. Discharge coordination time: Greater than 30 minutes Quality: Safe Use of Opioids Does Pt have an Active Cancer Diagnosis on the Problem List?: No Quality: Stroke Does the patient have a stroke diagnosis?: No Physical Exam Vital Signs: Vital Signs: Last Vital Signs Temp 98.5 F 08/28/22 12:00 Pulse 71 08/28/22 12:00 Resp 16 08/28/22 12:00 BP 134/59 L 08/28/22 12:00 Pulse Ox 93 08/28/22 12:00 O2 Del Method Room Air 08/28/22 12:00 O2 Flow Rate 2 08/27/22 11:20 BMI result Body Mass Index 26.4 Const: General: cooperative, healthy appearing and no acute distress Orien tation/consciousness: oriented to person, oriented to place and oriented to time HEENT: Head: Yes normal to inspection Neck: Carotids: no bruits Chest: Chest palpation & inspection: normal inspection of the chest Resp: Effort & Inspection: normal respiratory effort and able to speak in complete sentences Auscultation: clear to auscultation bilaterally Cardio: Rate: regular rate Heart sounds: S1 normal heart sound present and S2 normal heart sound present GI: Inspection: Yes normal to inspection Skin: Other: Neck incision healing well General skin exam: no rashes or lesions noted Wounds: no wounds Neuro: General: oriented to person, oriented to place, oriented to time and CN's II-XI intact bilaterally Extrem: General: Yes normal to inspection, Yes full ROM and Yes no clubbing, cyanosis or edema Psych: Appearance: grossly normal and well kempt Speech and movement: Normal speech and movement present Affect: normal affect DS: Data Data Completed and Pending Pending studies at discharge: Pending at discharge 08/27/22 09:45 Surgical [PTH] Routine Labs on day of discharge: Laboratory Results - last 24 hr 08/28/22 08/28/22 08/28/22 04:55 04:55 05:20 WBC 10.3 RBC 3.94 L Hgb 12.8 L Hct 36.9 L MCV 93.7 MCH 32.5 MCHC 34.7 RDW 12.0 Plt Count 302 MPV 8.4 L Immature Gran % (Auto) 0.6 H Neut % (Auto) 78.2 H Lymph % (Auto) 11.5 L [place] % (Auto) 9.4 Eos % (Auto) 0.1 Baso % (Auto) 0.2 Lymph # (Auto) 1.2 [place] # (Auto) 1.0 Eos # (Auto) 0.0 Baso # (Auto) 0.0 Abs Immat Gran (auto) 0.06 H Absolute Neuts (auto) 8.1 Absolute Nucleated RBC 0.000 Nucleated RBC % (auto) 0.0 O2 Saturation 97.0 ABG pH at Pt Temp 7.46 H ABG pCO2 at Pt Temp 36 ABG pO2 at Pt Temp 83 ABG HCO3 26 ABG Base Excess (Actual) 2.7 Sodium 136 Potassium 4.1 Chloride 105 Carbon Dioxide 23 Anion Gap 12 BUN 10 Creatinine 0.75 Estim Creat Clear Calc 83.2 Estimated GFR > 60 Random Glucose 120 H Calcium 8.8 Phosphorus 3.7 Magnesium 2.0 Albumin 3.6 Discharge Plan Discharge Anticipated Discharge Date/Time: 08/28/22 13:01 Patient Disposition: Home, Self-Care Discharge Diagnosis: Status post right carotid endarterectomy Referrals: Po,Ezra Falcon MD [Primary Care Provider] - 1 Week Discharge Medications: New oxycodone-acetaminophen [Percocet] 5-325 mg tablet 1 tab PO Q8H PRN (Reason: pain) Qty: 10 0RF Rx Instructions: Partial Fill upon patient request. Continued eszopiclone 3 mg tablet 3 mg PO BEDTIME 90 Days Qty: 90 2RF alprazolam 0.25 mg tablet 0.25 mg PO BEDTIME PRN (Reason: anxiety) 90 Days Qty: 60 1RF rosuvastatin 5 mg tablet 5 mg PO .DAILY@NOON epinephrine [EpiPen] 0.3 mg/0.3 mL Auto-Injector 0.3 mg IM Q4H PRN (Reason: Allergic Reaction) amlodipine 10 mg tablet 10 mg PO BEDTIME aspirin [Adult Aspirin Regimen] 81 mg tablet,delayed release (DR/EC) 81 mg PO DAILY hydroxyzine HCl 25 mg tablet 25 mg PO BEDTIME Qty: 30 0RF cetirizine [Zyrtec] 10 mg tablet 10 mg PO DAILY PRN (Reason: Allergy Symptoms) dicyclomine 10 mg capsule 10 mg PO TID PRN (Reason: stomach upset) 90 Days Qty: 90 0RF Discharge Orders: Discharge Order (Routine); Ordered 08/28/22 Ordered By: James Hutton Diet: Advance to usual diet Activity on Discharge: As tolerated Stand Alone Forms: Patient Portal Discharge page Care Plan Goals: Surveillance follow-up of carotid Health Concerns: Carotid stenosis Plan of Treatment: Postop follow-up Assessment: Right carotid stenosis Patient Instructions: [facility]ana Catheter Removal (DC), Pain Management After Surgery (DC)
--- NOTE | 2022-08-28 13:42 | HO.POSTANES ---
Post Anesthesia Evaluation Post Anesthesia Evaluation Date of Service: 08/28/22 Vital Signs: Vital Signs Temp Pulse Resp BP Pulse Ox O2 Del Method 08/28/22 12:00 98.5 F 71 16 134/59 L 93 Room Air 08/28/22 11:00 65 14 119/54 L 94 Room Air 08/28/22 10:00 63 14 137/57 L 92 Room Air 08/28/22 09:00 69 20 148/51 H 95 Room Air 08/28/22 08:00 98.5 F 69 16 155/54 H 93 Room Air 08/28/22 07:00 69 17 153/61 H 95 Room Air 08/28/22 06:00 66 18 143/53 H 95 Room Air 08/28/22 04:00 70 16 126/50 L 94 Room Air 08/28/22 03:00 97.5 F 66 18 148/66 H 97 Room Air 08/28/22 05:00 63 10 L 142/53 H 94 Room Air 08/28/22 04:00 63 13 127/49 L 92 Room Air 08/28/22 01:55 67 15 136/53 L 94 Room Air Anesthesia: General Endotracheal-GETA Mental Status: Awake Pain Control: Satisfactory Nausea/Vomiting: None Hydration: Adequate Anesthesia-Related Issues: No Anes. Related Issues
--- NOTE | 2022-08-28 16:16 | MHC.CM.PN ---
Pt to d/c to home today w/spouse and no DME or additional services.
== END 2022-08-28 14:05 | disposition home or self-care (01) | DRG 39 ==
LOC: HO.SSSA 05:56 → HO.ICU 11:07
PROVIDERS: Anesthesiology; Registered Nurse Community Health; Admitting Provider Surgery Vascular Surgery; PCP Internal Medicine; Visit Provider Internal Medicine Pulmonary Disease
PROC: 037K0ZZ Dilation of Right Internal Carotid Artery, Open Approach (ICD-10-PCS; CPT 35301; principal; 2022-08-27 07:30)
DX: I65.21 Occlusion and stenosis of right carotid artery (principal); E78.00 Pure hypercholesterolemia, unspecified; I10 Essential (primary) hypertension; F43.10 Post-traumatic stress disorder, unspecified; Z87.891 Personal history of nicotine dependence; Z79.82 Long term (current) use of aspirin; Z79.899 Other long term (current) drug therapy
CPT/HCPCS: 36415; 80048; 82040; 82803; 83735; 84100; 85025; 85027; 85610; 85730; 86850; 86900; 86901; 88304; 88311; C1758; C1768; J0690; J1643; J2250; J2370; J2795; J3010

== ENCOUNTER → 2022-09-17 10:57 | Outpatient (BNVA) | payer OTHER, SELFPAY | PROVIDERS: PCP Internal Medicine; Visit Provider Surgery Vascular Surgery | DX: I65.21 Occlusion and stenosis of right carotid artery (principal); Z98.890 Other specified postprocedural states | CPT/HCPCS: 99212 ==

== ENCOUNTER 2022-12-13 09:49 | Outpatient (REF) | payer OTHER, MEDICARE, SELFPAY ==
--- NOTE | ~2022-12-13 | US_ITS ---
EXAMINATION: US EXTRACRANIAL CAROTID DUPLEX, BILATERAL CLINICAL INFORMATION: Endarterectomy right side. Follow-up carotid artery disease. COMPARISON: Carotid ultrasound 12/18/2021. TECHNIQUE: Real-time ultrasound and Doppler techniques (integrating B-mode 2-D vascular images, Doppler spectral analysis and color-flow Doppler imaging) were utilized to interrogate the extracranial carotid arteries, the vertebral arteries and proximal subclavian arteries bilaterally. The degree of stenosis is determined by criteria similar to NASCET. FINDINGS: Right Side: 1. There is mild atherosclerotic plaque seen in the bifurcation/proximal ICA region. 2. The common carotid artery PSV proximally is 99 cm/s and distally 96 cm/s. 3. The proximal internal carotid artery velocities are 69 cm/s systolic and 11 cm/s diastolic. 4. The proximal external carotid artery PSV is 183 cm/s. 5. The vertebral artery shows antegrade flow. 6. The subclavian artery waveforms are normal. Left Side: 1. There is mild atherosclerotic plaque seen in the bifurcation/proximal ICA region. 2. The common carotid artery PSV proximally is 107 cm/s and distally 85 cm/s. 3. The proximal internal carotid artery velocities are 96 cm/s systolic and 19 cm/s diastolic. 4. The proximal external carotid artery PSV is 251 cm/s. 5. The vertebral artery shows antegrade flow. 6. The subclavian artery waveforms are normal. US/US carotid duplex BI IMPRESSION: 1. RIGHT: Minimal, non-hemodynamically significant stenosis of the proximal right internal carotid artery corresponding to a 0-49% stenosis by velocity criteria. 2. LEFT: Minimal, non-hemodynamically significant stenosis of the proximal left internal carotid artery corresponding to a 0-49% stenosis by velocity criteria. 3. Disease category is improved on the right and stable on the left compared to 12/18/2021.
== END 2022-12-13 09:50 | disposition home or self-care (01) ==
LOC: HO.US 09:49
PROVIDERS: PCP Internal Medicine; Visit Provider Surgery Vascular Surgery
DX: I25.10 Atherosclerotic heart disease of native coronary artery without angina pectoris (principal); I65.23 Occlusion and stenosis of bilateral carotid arteries; Z98.890 Other specified postprocedural states
CPT/HCPCS: 93880

== ENCOUNTER 2022-12-19 10:54 | Outpatient (AMB) | payer MEDICARE, SELFPAY ==
[2022-12-19 10:57] VITALS: BP 144/62; PULSE 65; O2SAT 98; BMI 21.3
--- NOTE | 2022-12-19 10:57 | MHC.PC.OV ---
Vital Signs 12/19/22 10:57 Height 5 ft 7 in Weight 136 lb BMI 21.3 BP 144/62 H Blood Pressure Location Lt brachial Position Sitting Pulse 65 Pulse Source Pulse Oximeter Pulse Oximetry (%) 98 Oxygen Delivery Method Room Air Intake Visit Reasons: 4 month f/u (before leaves to [place]) Engineer Technical Staff: Not Required per policy Accompanied by: Self / Same As Patient Allergies lobster Allergy (Severe, Verified 12/19/22 10:58) Anaphylaxis amoxicillin Allergy (Mild, Verified 12/19/22 10:58) Itching Seasonal Allergies Allergy (Mild, Verified 12/19/22 10:58) Itchy Eyes hazelnut Allergy (Unknown, Verified 12/19/22 10:58) Unknown Tobacco use date assessed: 09/12/22 Fall risk assessment: No Falls in past year Last assessed Fall Risk: 12/19/22 Dental Screening Dental Screen Date: 12/19/22 Did you have a dental visit in the last 12 months?: Yes Did you have a dental problem in the last 6 months where you did not have access to dental care?: No Was dental information given to patient?: Patient has dentist HPI 4 month f/u (before leaves to [place]) HPI Details 72-year-old male with GERD hypercholesterolemia hypertension generalized anxiety disorder right carotid stenosis coming in for follow-up. July last seen had carotid endarterectomy on the right 08/27/2022 e procedure . Patient had a repeat carotid ultrasound November 2022 right-sided minimally none him with an amylase agreement stenosis 024 9% left minimally non hemodynamically significant stenosis 0-49% review of the notes patient was seen by computer systems security administrator December 07 for dermatitis and was given steroid cream. dermatology biopsy done - rash on the back and chest- -n was told histamin- and wants endo- - patient has had this for 5months intemttent [facility] Medical History History of 2019 novel coronavirus disease (COVID-19) GERD (gastroesophageal reflux disease) PTSD (post-traumatic stress disorder) Stenosis of right carotid artery Hypercholesterolemia Hypogonadism Erectile dysfunction Hypertension Surgical History History of ankle surgery History of appendectomy History of tonsillectomy Family History Father CVD (cardiovascular disease) Mother Lung cancer Maternal Aunt Colon cancer Social History Household Members: Spouse Housing: Other Housing Other:: [employer] trailer Are you a primary wound care nurse to a significant other at home: No Do you presently have visiting nurse or other home services: No Alcohol intake: current Alcohol intake frequency: a few times a week Patient Tobacco Use Status: Former Tobacco user Quit Date: 2006 Tobacco use type: Cigarette Cigarettes Per Day: 5 Years Smoked: 25 e-Cigarette/Vaping Use: Never Used Second Hand Smoke Exposure: No Substance Use Type: Marijuana and Caffiene Current occupational status: retired Cognitive needs: No Hearing needs: No Vision needs: Yes Questionnaire PHQ-9 Over the last 2 weeks, how often have you been bothered by any of the following problems? 1. Little interest or pleasure in doing things: not at all 2. Feeling down, depressed, or hopeless: not at all 3. Trouble falling or staying asleep, or sleeping too much: not at all 4. Feeling tired or having little energy: not at all 5. Poor appetite or overeating: not at all 6. Feeling bad about yourself - or that you are a failure or have let yourself or your family down: not at all 7. Trouble concentrating on things, such as reading the newspaper or watching television: not at all 8. Moving or speaking so slowly that other people could have noticed. Or the opposite - being so fidgety or restless that you have been moving around a lot more than usual: not at all 9. Thoughts that you would be better off or of hurting yourself in some way: not at all Total score: 0 Depression Screening Interpretation: Negative Source: Developed by Drs. Zacarias Muñoz, Jeannie Peñaloza, Thomas Arizmendi and colleagues, with an educational madyson from [employer]. Thrive Questionnaire Date Thrive assessed: 08/13/22 AUDIT C Alcohol Use Questionnaire (AUDIT-C) 1. How often do you have a drink containing alcohol?: 4 or more times a week 2. How many drinks containing alcohol do you have on a typical day when you are drinking?: 1 or 2 3. How often do you have six or more drinks on one occasion?: Never Total Score: 4 Score Reviewed/Action Taken: Yes FELICIA-7 AMB Questionnaire FELICIA-7 Date FELICIA - 7 assessed: 08/13/22 Source: Developed by Drs. Zacarias Muñoz, Jeannie Peñaloza, Thomas Arizmendi and colleagues, with an educational madyson from [employer]. Physical exam (Primary Care) Vital Signs: Last Vital Signs Pulse 65 12/19/22 10:57 BP 144/62 H 12/19/22 10:57 Pulse Ox 98 12/19/22 10:57 Oxygen Delivery Method Room Air 12/19/22 10:57 BMI result Body Mass Index 21.3 Tobacco/Smoking Status: Tobacco use Status Tobacco use date assessed 09/12/22 12/19/22 10:59 Patient Tobacco Use Status Former Tobacco user 12/19/22 10:59 Tobacco use type Cigarette 12/19/22 10:59 e-Cigarette/Vaping Use Never Used 12/19/22 10:59 PHQ-9: PHQ-9 Score PHQ-9: Total score 0 12/19/22 10:59 Depression Screening Interpretation: Negative Thrive Assessment: Date of Thrive Assessment Date Thrive assessed 08/13/22 12/19/22 10:59 Const General: alert; No acute distress Eyes Conjunctivae: conjunctivae normal Resp Auscultation: clear to auscultation bilaterally Cardio Rate: regular rate Rhythm: regular rhythm GI Inspection: Yes normal to inspection Extrem General: Yes normal to inspection and No edema Assessment and Plan Assessment & Plan (1) Status post carotid endarterectomy: Comment: 08/27/2022 Code(s): Z98.890 - Other specified postprocedural states Plan: Patient is followed up by a vascular surgeon and recent carotid ultrasound non hemodynamically significant stenosis (2) Hypertension: Code(s): I10 - Essential (primary) hypertension Qualifiers: Hypertension type: essential hypertension Qualified Code(s): I10 - Essential (primary) hypertension Plan: Continue with blood pressure medication. Decrease salt intake and exercise patient is on amlodipine 10 mg once a day (3) Hypercholesterolemia: Code(s): E78.00 - Pure hypercholesterolemia, unspecified Plan: Avoid fried foods, chicken skin, eggs, butter margarine, pastries and meat. Be it pork or beef they have a lot of cholesterol LDL goal of less than 130 and triglyceride of less than 150 patient is on rosuvastatin July 2022 last blood work (4) GERD (gastroesophageal reflux disease): Code(s): K21.9 - Gastro-esophageal reflux disease without esophagitis Qualifiers: Esophagitis presence: without esophagitis Qualified Code(s): K21.9 - Gastro-esophageal reflux disease without esophagitis Plan: Avoid the foods that causes that usually spicy foods, tomato products, juices, coffee, soda and foods that your sensitive to. After eating do not lie down, allow 3-4 hours before in lie down. And keep the head of bed above 30 degrees to avoid the acid from going up. (5) Generalized anxiety disorder: Comment: [facility] (11/2021) Code(s): F41.1 - Generalized anxiety disorder Plan: Continue with anxiety medication. (6) Allergic contact dermatitis: Code(s): L23.9 - Allergic contact dermatitis, unspecified cause Plan: seeing [facility] and work begun. discussed about Exegy med - overthe counter Orders: Orders Comprehensive Met. Panel 6 Months K2. - Gastro-esophageal reflux disease without esophagitis Vitamin B12 and Folate 6 Months K21. - Gastro-esophageal reflux disease without esophagitis Complete Blood Count Auto Diff 6 Months K21. - Gastro-esophageal reflux disease without esophagitis Ferritin 6 Months K21. - Gastro-esophageal reflux disease without esophagitis IRON PROFILE 6 Months K21. - Gastro-esophageal reflux disease without esophagitis Reticulocyte Count 6 Months K21. - Gastro-esophageal reflux disease without esophagitis Thyroid Stimulating Hormone 6 Months K21. - Gastro-esophageal reflux disease without esophagitis Free T4 (Free Thyroxine) 6 Months K21.9 - Gastro-esophageal reflux disease without esophagitis Lipid Panel 6 Months E78.00 - Pure hypercholesterolemia, unspecified, K21.9 - Gastro-esophageal reflux disease without esophagitis Medications: Discontinued prednisone Take 4 tablets for 3 days then, Take 3 tablets for 3 days then, Take 2 tablets 3 days then, Take 1 tablet 3 days and stop Discontinued Reason: Ancillary Entered New Order 10 mg PO DAILY 30 tabs 0RF L23.9 - Allergic contact dermatitis, unspecified cause Coding Level of Care Code Est Pt Level 4 (70567) Diagnoses Status post carotid endarterectomy Z98.890 Essential hypertension I10 Hypertension type: essential hypertension Hypercholesterolemia E78.00 Gastroesophageal reflux disease without esophagitis K21.9 Esophagitis presence: without esophagitis Generalized anxiety disorder F41.1 Allergic contact dermatitis L23.9
== END 2022-12-19 11:56 | disposition home or self-care (01) ==
PROVIDERS: Visit Provider Internal Medicine
DX: Z98.890 Other specified postprocedural states (principal); I10 Essential (primary) hypertension; E78.00 Pure hypercholesterolemia, unspecified; K21.9 Gastro-esophageal reflux disease without esophagitis; F41.1 Generalized anxiety disorder; L23.9 Allergic contact dermatitis, unspecified cause
CPT/HCPCS: 99214

== ENCOUNTER 2022-12-25 10:01 | Outpatient (AMB) | payer OTHER, SELFPAY ==
[2022-12-25 10:01] VITALS: BP 138/70; BMI 21.3
--- NOTE | 2022-12-25 10:01 | MHC.OFFVIS ---
Intake Vital Signs 12/25/22 10:01 12/25/22 10:07 Height 5 ft 7 in Weight 136 lb BMI 21.3 BP 138/70 120/70 Blood Pressure Location Rt brachial Lt brachial Position Sitting Sitting Intake Visit Reasons: 3 mo follow up carotid 12/13/22 Intake Note: 3 mo follow up carotid artery US 12/13/22 s/p Right CEA 08/27/22. No blurred vision or loss of balance Accompanied by: Self / Same As Patient Allergies lobster Allergy (Severe, Verified 12/25/22 10:08) Anaphylaxis amoxicillin Allergy (Mild, Verified 12/25/22 10:08) Itching Seasonal Allergies Allergy (Mild, Verified 12/25/22 10:08) Itchy Eyes hazelnut Allergy (Unknown, Verified 12/25/22 10:08) Unknown HPI 3 mo follow up carotid 12/13/22 HPI Details Very pleasant 72-year-old gentleman presents for follow-up regarding right carotid endarterectomy. Has had no interval issues. He had a tooth and extraction which appear to go fairly well. He now presents for routine surveillance follow-up. [facility] Medical History History of 2019 novel coronavirus disease (COVID-19) GERD (gastroesophageal reflux disease) PTSD (post-traumatic stress disorder) Stenosis of right carotid artery Hypercholesterolemia Hypogonadism Erectile dysfunction Hypertension Surgical History (Updated 12/25/22 @ 10:10 by ISAURA Tracey) H/O carotid endarterectomy (08/27/22) History of ankle surgery History of appendectomy History of tonsillectomy Family History Father CVD (cardiovascular disease) Mother Lung cancer Maternal Aunt Colon cancer Social History Household Members: Spouse Housing: Other Housing Other:: [employer] trailer Are you a primary childcare provider to a significant other at home: No Do you presently have visiting nurse or other home services: No Alcohol intake: current Alcohol intake frequency: a few times a week Patient Tobacco Use Status: Former Tobacco user Quit Date: 2006 Tobacco use type: Cigarette Cigarettes Per Day: 5 Years Smoked: 25 e-Cigarette/Vaping Use: Never Used Second Hand Smoke Exposure: No Substance Use Type: Marijuana and Caffiene Current occupational status: retired Cognitive needs: No Hearing needs: No Vision needs: Yes Review of Systems Const All systems reviewed & are unremarkable except as noted in HPI and below Reports no additional complaints ENT Reports Normal hearing present Card Denies chest pain, Denies chest pain at rest, Denies chest pain with activity and Denies pedal edema Resp Denies cough GI Denies abdominal pain Musc Denies abnormal gait, Denies muscle cramps and Denies radiating pain into limb Skin/Breast Denies skin ulcer and Denies wounds Neuro Reports Normal hearing present and Denies abnormal gait Psych Reports no additional complaints Physical Exam Vital Signs: Last Vital Signs BP 120/70 12/25/22 10:07 BMI result Body Mass Index 21.3 Const General: cooperative, healthy appearing and comfortable Orientation/consciousness: oriented to person, oriented to place and oriented to time HEENT Head: Yes normal to inspection Neck Neck: Yes normal visual inspection Carotids: no bruits Chest Chest palpation & inspection: normal inspection of the chest Resp Effort & Inspection: normal respiratory effort and able to speak in complete sentences Auscultation: clear to auscultation bilaterally, no crackles, no rales, no rhonchi and no wheezes Cardio Rate: regular rate Rhythm: regular rhythm Heart sounds: S1 normal heart sound present and S2 normal heart sound present Bruits: no carotid bruits Peripheral pulses: Peripheral pulses 2+ throughout GI Inspection: Yes normal to inspection Skin Wounds: no wounds Hair: normal Neuro General: oriented to person, oriented to place and oriented to time Cranial nerves: Yes CN's II-XII intact bilaterally and Yes Normal hearing present Cognition (Neuro): normal cognition Motor exam (neuro): 5/5 motor strength present throughout Extrem Other: venous exam: No significant superficial varicosities or spider telangiectasias, minimal edema General: No clubbing, No cyanosis and No edema Psych Appearance: grossly normal Mental Status: mental status grossly normal Speech and movement: Normal speech and movement present Results Reviewed Results Reviewed: Carotid ultrasound dated 12/13/2022 demonstrates right-sided 0-49% and left-sided 0-49%. Written report and images were reviewed. Assessment & Plan Assessment & Plan (1) Stenosis of right carotid artery: Comment: 08/27/2022 - right carotid endarterectomy Code(s): I65.21 - Occlusion and stenosis of right carotid artery Plan: In short patient has asymptomatic carotid disease. We have reviewed signs and symptoms of a stroke. We also discussed risk factor modification inclusive a healthy diet low in cholesterol. The patient will follow up with us with surveillance ultrasound of the carotids 6 months. Should there be any changes or signs or symptoms of a stroke we will be happy to see them back sooner. Thank you for allowing us to participate in this patient's care. If there are any questions or concerns please do not hesitate to contact us. Orders: Orders US carotid duplex BI 6 Months I65.21 - Occlusion and stenosis of right carotid artery Coding Level of Care Code Est Pt Level 4 (83508) Diagnoses Stenosis of right carotid artery I65.21
[2022-12-25 10:07] VITALS: BP 120/70
== END 2022-12-25 10:28 | disposition home or self-care (01) ==
PROVIDERS: PCP Internal Medicine; Visit Provider Surgery Vascular Surgery
DX: I65.21 Occlusion and stenosis of right carotid artery (principal); Z98.62 Peripheral vascular angioplasty status
CPT/HCPCS: 99213

== ENCOUNTER → 2022-12-25 10:01 | Outpatient (BNVA) | payer OTHER, SELFPAY | PROVIDERS: PCP Internal Medicine; Visit Provider Surgery Vascular Surgery | DX: I65.21 Occlusion and stenosis of right carotid artery (principal) | CPT/HCPCS: 99212 ==

== ENCOUNTER 2023-08-09 08:41 | Outpatient (REF) | payer OTHER, SELFPAY ==
[2023-08-09 11:40] LABS: MANUAL DIFF FLAG NO
[2023-08-09 12:00] LABS: Basophils Absolute Auto 0.1 X10*3/uL (0.0-0.2); Basophils Percent Auto 0.9 % (0-2); Eosinophils Absolute Auto 0.2 X10*3/uL (0.0-0.4); Eosinophils Percent Auto 3.9 % (0-4); Hematocrit 44.2 % (42.0-52.0); Hemoglobin 15.6 g/dl (14.0-18.0); Imm Gran Abs Auto 0.01 X10*3/uL (0.00-0.03); Imm Gran Pct Auto 0.2 % (0.0-0.4); Immature Retic Fraction 8.6 % (2.3-13.4); Lymphocytes Absolute Auto 1.3 X10*3/uL (1.2-4.9); Lymphocytes Percent Auto 22.3 % (20-40); Mean Corpuscular HGB Conc 35.3 g/dl (31.0-36.0); Mean Corpuscular Hemoglobin 33.3 pg (27.0-33.0); Mean Corpuscular Volume 94.4 fL (80.0-98.0); Mean Platelet Volume 9.2 fL (9.4-12.4); Monocytes Absolute Auto 0.7 X10*3/uL (0.1-1.2); Neutrophils Absolute Auto 3.3 x10*3/uL (2.0-8.3); Neutrophils Percent Auto 59.7 % (45-73); Platelet Count 251 X10*3/uL (160-400); Red Blood Count 4.68 X10*6/uL (4.60-5.80); Red Cell Distribution Width 11.9 % (11.0-16.0); Retic HGB Equivalent 36.4 pg (30.0-35.0); Reticulocytes Absolute 0.045 X10*6/uL (0.026-0.095); White Blood Count 5.6 X10*3/uL (4.8-10.8)
[2023-08-09 12:42] LABS: Alanine Aminotransferase 21 U/L (0-40); Albumin Level 4.7 g/dL (3.5-5.0); Alkaline Phosphatase 76 U/L (39-117); Anion Gap 16 (12-20); Aspartate Amino Transferase 29 U/L (5-37); Bilirubin Total 0.8 mg/dL (0.0-1.0); Blood Urea Nitrogen 17 mg/dL (9-16); Calcium 9.8 mg/dL (8.4-10.2); Carbon Dioxide 21 mmol/L (22-29); Chloride 102 mmol/L (96-108); Cholesterol 145 mg/dL (<200); Estimated Glomerular Filt Rate > 60; Glucose Random 80 mg/dL (60-115); HDL Cholesterol 85 mg/dL (>40); Iron 68 mcg/dL (45-160); LDL Cholesterol Calculated 52 mg/dL (<100); Percent Iron Saturation 26 % (15-50); Potassium 4.1 mmol/L (3.3-5.1); Sodium 135 mmol/L (135-145); Total Iron Binding Capacity 261 mcg/dL (228-428); Total Protein 7.7 g/dL (6.5-8.0); Triglycerides 40 mg/dL (<150); Unsaturated Iron Binding 193 ug/dL
[2023-08-09 12:46] LABS: Ferritin 268 ng/mL (20-250); Free T4 (Free Thyroxine) 1.16 ng/dL (0.71-1.85)
[2023-08-09 12:55] LABS: Folate 14.3 ng/mL (> or = 4.0); Vitamin B12 565 pg/mL (200-900)
== END 2023-08-09 08:42 | disposition home or self-care (01) ==
LOC: HO.WFDLDS 08:41
PROVIDERS: Visit Provider Internal Medicine
DX: K21.9 Gastro-esophageal reflux disease without esophagitis (principal); E78.00 Pure hypercholesterolemia, unspecified
CPT/HCPCS: 36415; 80053; 80061; 82607; 82728; 82746; 83540; 84439; 84443; 85025; 85045

== ENCOUNTER 2023-08-12 10:45 | Outpatient (REF) | payer OTHER, SELFPAY ==
--- NOTE | ~2023-08-12 | US_ITS ---
EXAMINATION: US EXTRACRANIAL CAROTID DUPLEX, BILATERAL CLINICAL INFORMATION: Occlusion and stenosis of right carotid artery. Right carotid endarterectomy August 2022 COMPARISON: Ultrasound 12/13/2022 TECHNIQUE: Real-time ultrasound and Doppler techniques (integrating B-mode 2-D vascular images, Doppler spectral analysis and color-flow Doppler imaging) were utilized to interrogate the extracranial carotid arteries, the vertebral arteries and proximal subclavian arteries bilaterally. The degree of stenosis is determined by criteria similar to NASCET. FINDINGS: Right Side: 1. There is mild atherosclerotic plaque seen in the bifurcation/proximal ICA region. 2. The common carotid artery PSV proximally is 105 cm/s and distally 137 cm/s. 3. The proximal internal carotid artery velocities are 100 cm/s systolic and 21 2 cm/s diastolic. 4. The proximal external carotid artery PSV is 160 cm/s. 5. The vertebral artery shows antegrade flow. 6. The subclavian artery waveforms are normal. Left Side: 1. There is mild atherosclerotic plaque seen in the bifurcation/proximal ICA region. 2. The common carotid artery PSV proximally is 127 cm/s and distally 104 cm/s. 3. The proximal internal carotid artery velocities are 123 cm/s systolic and 16.5 cm/s diastolic. 4. The proximal external carotid artery PSV is 356 cm/s. 5. The vertebral artery shows antegrade flow. 6. The subclavian artery waveforms are normal. US/US carotid duplex BI IMPRESSION: 1. RIGHT: Minimal, non-hemodynamically significant stenosis of the proximal right internal carotid artery corresponding to a 0-49% stenosis by velocity criteria. 2. LEFT: Minimal, non-hemodynamically significant stenosis of the proximal left internal carotid artery corresponding to a 0-49% stenosis by velocity criteria. 3. There is no change in the category severity of disease when compared to the previous study dated 12/13/2022. 4. Stenosis of the left external carotid artery.
== END 2023-08-12 10:46 | disposition home or self-care (01) ==
LOC: HO.US 10:45
PROVIDERS: PCP Internal Medicine; Visit Provider Surgery Vascular Surgery
DX: I65.21 Occlusion and stenosis of right carotid artery (principal)
CPT/HCPCS: 93880

== ENCOUNTER 2023-08-12 12:23 | Outpatient (AMB) | payer MEDICARE, SELFPAY ==
[2023-08-12 11:45] VITALS: BP 158/72; PULSE 71; O2SAT 97; BMI 21.5
--- NOTE | 2023-08-12 11:45 | A.OFFPC_ITS ---
Vital Signs 08/12/23 11:45 Height 5 ft 7 in Blood Pressure Location Lt brachial Position Sitting Pulse Source Pulse Oximeter Oxygen Delivery Method Room Air Intake Visit Reasons: AWV Counterintelligence Analyst Required: No Allergies lobster Allergy (Severe, Verified 08/12/23 11:46) Anaphylaxis amoxicillin Allergy (Mild, Verified 08/12/23 11:46) Itching Seasonal Allergies Allergy (Mild, Verified 08/12/23 11:46) Itchy Eyes hazelnut Allergy (Unknown, Verified 08/12/23 11:46) Unknown Tobacco use date assessed: 08/12/23 Fall risk assessment: No Falls in past year Last assessed Fall Risk: 08/12/23 Dental Screening Dental Screen Date: 08/12/23 [facility] Medical History History of 2019 novel coronavirus disease (COVID-19) GERD (gastroesophageal reflux disease) PTSD (post-traumatic stress disorder) Stenosis of right carotid artery Hypercholesterolemia Hypogonadism Erectile dysfunction Hypertension Surgical History (Updated 12/25/22 @ 10:10 by ISAURA Tracey) H/O carotid endarterectomy (08/27/22) History of ankle surgery History of appendectomy History of tonsillectomy Family History Father CVD (cardiovascular disease) Mother Lung cancer Maternal Aunt Colon cancer Social History Household Members: Spouse Housing: Other Housing Other:: [facility] Are you a primary director day care center to a significant other at home: No Do you presently have visiting nurse or other home services: No Alcohol intake: current Alcohol intake frequency: a few times a week Comment: aware of trip hazard Patient Tobacco Use Status: Former Tobacco user Quit Date: 2006 Tobacco use type: Cigarette Cigarettes Per Day: 5 Years Smoked: 25 Packs per year/per ci.25 e-Cigarette/Vaping Use: Never Used Second Hand Smoke Exposure: No Substance Use Type: Marijuana and Caffiene Current occupational status: retired Cognitive needs: No Hearing needs: No Vision needs: Yes Questionnaire Thrive Questionnaire Date Thrive assessed: 08/12/23 AUDIT C Alcohol Use Questionnaire (AUDIT-C) 1. How often do you have a drink containing alcohol?: 4 or more times a week 2. How many drinks containing alcohol do you have on a typical day when you are drinking?: 1 or 2 3. How often do you have six or more drinks on one occasion?: Never Total Score: 4 Score Reviewed/Action Taken: Yes FELICIA-7 AMB Questionnaire FELICIA-7 Date FELICIA - 7 assessed: 08/13/22 Source: Developed by Drs. Zacarias Muñoz, Jeannie Peñaloza, Thomas Arizmendi and colleagues, with an educational madyson from [email or web address]. Physical exam (Primary Care) Vital Signs: Oxygen Delivery Method Room Air 08/12/23 11:45 Tobacco/Smoking Status: Tobacco use Status Tobacco use date assessed 08/12/23 08/12/23 11:47 Patient Tobacco Use Status Former Tobacco user 08/12/23 11:47 Tobacco use type Cigarette 08/12/23 11:47 e-Cigarette/Vaping Use Never Used 08/12/23 11:47 Thrive Assessment: Date of Thrive Assessment Date Thrive assessed 08/12/23 08/12/23 11:47 Coding
--- NOTE | 2023-08-12 12:35 | AM.OFFVISMDC ---
Intake Vital Signs 08/12/23 11:45 Height 5 ft 7 in Weight 137 lb BMI 21.5 BP 158/72 H Blood Pressure Location Lt brachial Position Sitting Pulse 71 Pulse Source Pulse Oximeter Pulse Oximetry (%) 97 Oxygen Delivery Method Room Air Intake Visit Reasons: AWV Allergies lobster Allergy (Severe, Verified 08/12/23 11:46) Anaphylaxis amoxicillin Allergy (Mild, Verified 08/12/23 11:46) Itching Seasonal Allergies Allergy (Mild, Verified 08/12/23 11:46) Itchy Eyes hazelnut Allergy (Unknown, Verified 08/12/23 11:46) Unknown Medication List - Last Reconciled 08/12/23 by Ezra Vargas MD alprazolam 0.25 mg PO BEDTIME PRN 90 days amlodipine 10 mg PO BEDTIME aspirin (Adult Aspirin Regimen) 81 mg PO DAILY atorvastatin 10 mg PO DAILY cetirizine (Zyrtec) 10 mg PO DAILY PRN dicyclomine 10 mg PO TID PRN 90 days epinephrine (EpiPen) 0.3 mg IM Q4H PRN eszopiclone 3 mg PO BEDTIME 90 days hydroxyzine HCl 25 mg PO BEDTIME HPI AWV HPI Details 73-year-old male with a history of hypertension hypercholesterolemia GERD generalized anxiety disorder status post carotid endarterectomy coming in for annual well visit last seen in November 2022. Patient's last colonoscopy was done in July 2016. Patient is due. Patient was treated scabies and was given triamcinolone cream also. Patient follows up with vascular surgeon in December 2022 ultrasound recently done results pending.. BP has been good at home [facility] Medical History (Updated 08/12/23 @ 12:54 by Ezra Vargas MD) History of 2019 novel coronavirus disease (COVID-19) GERD (gastroesophageal reflux disease) PTSD (post-traumatic stress disorder) Stenosis of right carotid artery Hypercholesterolemia Hypogonadism Erectile dysfunction Hypertension Surgical History (Updated 12/25/22 @ 10:10 by ISAURA Tracey) H/O carotid endarterectomy (08/27/22) History of ankle surgery History of appendectomy History of tonsillectomy Family History Father CVD (cardiovascular disease) Mother Lung cancer Maternal Aunt Colon cancer Social History (Updated 08/12/23 @ 12:50 by Ezra Vargas MD) Household Members: Spouse Housing: Other Housing Other:: Park model trailer Are you a primary live in caregiver to a significant other at home: No Do you presently have visiting nurse or other home services: No Alcohol intake: current Alcohol intake frequency: a few times a week Comment: aware of trip hazard 1-2 beer a day Patient Tobacco Use Status: Former Tobacco user Quit Date: 2006 Tobacco use type: Cigarette Cigarettes Per Day: 5 Years Smoked: 25 - quit 01/2007 e-Cigarette/Vaping Use: Never Used Second Hand Smoke Exposure: No Substance Use Type: Marijuana and Caffiene Current occupational status: retired Cognitive needs: No Hearing needs: No Vision needs: Yes Questionnaire Medicare Wellness Checkup [age] What gender do you identify with?: male During the past 4 weeks, how much have you been bothered by emotional problems such as feeling anxious, depressed, irritable, sad or downhearted, and blue?: moderately During the past 4 weeks, has your physical & emotional health limited your social activities with family, friends, neighbors, or groups?: not at all During the past 4 weeks, how much bodily pain have you generally had?: very mild pain During the past 4 weeks, was someone available to help you if you needed & wanted help?: yes, as much as I wanted During the past 4 weeks, what was the hardest physical activity you could do for at least 2 minutes?: moderate Can you get to places out of walking distance without help? (For eg., can you travel alone on buses, taxis or drive your car?): Yes Can you go shopping for groceries or clothes without someone's help?: Yes Can you prepare your own meals?: Yes Can you do your housework without help?: Yes Because of any health problems, do you need the help of another person with your personal care needs such as eating, bathing, dressing or getting around the house?: No Can you handle your own money without help?: Yes During the past 4 weeks, how would you rate your health in general?: very good During the past 4 weeks how have things been going for you?: good & bad parts about equal Are you having difficulties driving your car?: no Do you always fasten your seat belt when you are in a car?: yes, usually During past 4 weeks, have you been bothered by the following: never: Falling or dizzy when standing up, Trouble eating well?, Teeth or denture problems?, Problems using the telephone? and Tiredness or fatigue? Have you fallen 2 or more times in the past year?: No Are you afraid of falling?: No Are you a smoker?: no During the past 4 weeks, how many drinks of wine, beer, or other alcoholic beverages did you have?: 2-5 drinks per week Do you exercise for about 20 minutes 3 or more times a week?: yes, most of the time Have you been given information to help with the following?: no: Hazards in your house that might hurt you? and no: Keeping track of your medications? How often do you have trouble taking medicines the way you have been told to take them?: I always take medicine as prescribed How confident are you that you can control & manage most of your health problems?: very confident What is your race?: White PHQ-9 Over the last 2 weeks, how often have you been bothered by any of the following problems? 1. Little interest or pleasure in doing things: not at all 2. Feeling down, depressed, or hopeless: not at all 3. Trouble falling or staying asleep, or sleeping too much: not at all 4. Feeling tired or having little energy: not at all 5. Poor appetite or overeating: not at all 6. Feeling bad about yourself - or that you are a failure or have let yourself or your family down: not at all 7. Trouble concentrating on things, such as reading the newspaper or watching television: not at all 8. Moving or speaking so slowly that other people could have noticed. Or the opposite - being so fidgety or restless that you have been moving around a lot more than usual: not at all 9. Thoughts that you would be better off or of hurting yourself in some way: not at all Total score: 0 Depression Screening Interpretation: Negative Depression Screening Done: Yes 10178 - PHQ-9 Billing: Yes Source: Developed by Drs. Zacarias Muñoz, Jeannie Peñaloza, Thomas Arizmendi and colleagues, with an educational madyson from [employer] Review of Systems Const Denies poor appetite and Denies weakness Eyes Denies no additional complaints ENT Reports Normal hearing present, Denies dizziness, Denies nasal congestion, Denies tinnitus and Denies sore throat Card Denies chest pain, Denies syncope, Denies rapid heart rate and Denies dyspnea Resp Denies cough and Denies dyspnea GI Denies change in stool character, Reports constipation, Denies diarrhea, Denies nausea and Denies vomiting Denies dysuria and Denies urinary frequency Neuro Reports Normal hearing present, Denies confusion, Denies dizziness, Denies syncope and Denies weakness Psych Denies confusion Physical Exam Vital Signs: Last Vital Signs Pulse 71 08/12/23 11:45 BP 158/72 H 08/12/23 11:45 Pulse Ox 97 08/12/23 11:45 Oxygen Delivery Method Room Air 08/12/23 11:45 BMI result Body Mass Index 21.5 Const General: No confusion Orientation/consciousness: No confusion HEENT Head: Yes normocephalic Ears: external ears normal and TM's normal bilaterally Face and sinus: Yes normal facial exam Mouth: moist mucous membranes Throat: Yes tonsils normal Eyes Conjunctivae: conjunctivae normal Pupils: Equal, round and reactive pupils present and Pupil accommodation reflex normal Direct Ophthalmoscopy: normal light reflex Neck Neck: No lymphadenopathy Thyroid: Thyroid normal Chest Chest palpation & inspection: normal inspection of the chest Resp Effort & Inspection: normal respiratory effort and no audible wheezes Auscultation: clear to auscultation bilaterally, no crackles, no wheezes and lung sounds not diminished Cardio Rate: regular rate Rhythm: regular rhythm Peripheral pulses: radial pulses present and dorsalis pedis present GI Palpation (GI): no masses Auscultation: normal bowel sounds and normoactive bowel sounds Rectal Exam - Male: Yes deferred Skin General skin exam: no rashes or lesions noted Rashes: no rashes Neuro General: No confusion Cranial nerves: Yes Equal, round and reactive pupils present and Yes Normal hearing present Cognition (Neuro): normal cognition Gait exam (Neuro): Normal gait present Motor exam (neuro): 5/5 motor strength present throughout Deep tendon reflexes (DTR's): Right brachioradialis reflex intensity grade: 2+, Left brachioradialis reflex intensity grade: 2+, Right patellar reflex intensity grade: 2+ and Left patellar reflex intensity grade: 2+ Extrem General: No edema Immunizations pneumoc 20-neo conj-dip cr(PF) 0.5 mL IM syringe Performing Provider: Ezra Vargas MD [facility] Administered by: ISAURA Cota on 08/12/23 13:06 Dose Route Admin Location Dispensed Lot Number Expiration Date NDC Process Architect 0.5 mL IM Left Deltoid 0.5 mL [id number] 07/23/24 WYETH/PFIZER VIS Given Date VIS Provided VIS Publication Date 08/12/23 Single Vaccine 21 Eligibility Eligibility Date Funding Source Not VFC Eligible 08/12/23 Private Assessment & Plan Assessment & Plan (1) Medicare annual wellness visit, subsequent: Code(s): Z00.00 - Encounter for general adult medical examination without abnormal findings Plan: Patient is advised to eat healthy, keep well hydrated, keep active and have adequate sleep. (2) Colon cancer screening: Code(s): Z12.11 - Encounter for screening for malignant neoplasm of colon Plan: Reminded about colonoscopy (3) Stenosis of right carotid artery: Comment: 08/27/2022 - right carotid endarterectomy Code(s): I65.21 - Occlusion and stenosis of right carotid artery Plan: Patient follows up with the vascular surgeon and ultrasound was recently done results are pending. (4) Hypertension: Code(s): I10 - Essential (primary) hypertension Qualifiers: Hypertension type: essential hypertension Qualified Code(s): I10 - Essential (primary) hypertension Plan: Continue with blood pressure medication. Decrease salt intake and exercise on amlodipine 10 mg once a day (5) Hypercholesterolemia: Code(s): E78.00 - Pure hypercholesterolemia, unspecified Plan: Avoid fried foods, chicken skin, eggs, butter margarine, pastries and meat. Be it pork or beef they have a lot of cholesterol atorvastatin 10 mg once a day LDL goal of less than 70 and triglyceride of less than 150. (6) GERD (gastroesophageal reflux disease): Code(s): K21.9 - Gastro-esophageal reflux disease without esophagitis Qualifiers: Esophagitis presence: without esophagitis Qualified Code(s): K21.9 - Gastro-esophageal reflux disease without esophagitis Plan: Avoid the foods that causes that usually spicy foods, tomato products, juices, coffee, soda and foods that your sensitive to. After eating do not lie down, allow 3-4 hours before in lie down. And keep the head of bed above 30 degrees to avoid the acid from going up. (7) Numbness of left hand: Code(s): R20.0 - Anesthesia of skin Plan: advised wrist brace first and if getting worse need EMG, NCV Orders: Orders Pneumococcal 20 Immunization Today Z23 - Encounter for immunization Referrals Gastroenterology Referral Z12.11 - Encounter for screening for malignant neoplasm of colon Medications: New epinephrine (EpiPen 2-Ortiz) 0.3 mg (0.3 mL) IM Q4H PRN 2 ea 0RF anaphylaxis pneumoc 20-neo conj-dip cr(PF) 0.5 mL IM ONCE 0.5 mL 0RF Z23 - Encounter for immunization sildenafil (Viagra) administer 30 minutes to 4 hours before activity 50 mg PO DAILY PRN 14 tabs 3RF sexual activity Refilled alprazolam 0.25 mg PO BEDTIME PRN 60 tabs 1RF anxiety 90 days F41.1 - Generalized anxiety disorder dicyclomine 10 mg PO TID PRN 90 caps 0RF stomach upset 90 days hydroxyzine HCl 25 mg PO BEDTIME 30 tabs 0RF L23.9 - Allergic contact dermatitis, unspecified cause Quality Reporting (2019) Depression/Bipolar (159/160/161/177) PHQ-9: Total score: 0 Coding Level of Care Code Medicare Subsequent (G0439) Diagnoses Medicare annual wellness visit, subsequent Z00.00 Colon cancer screening Z12.11 Stenosis of right carotid artery I65.21 Essential hypertension I10 Hypertension type: essential hypertension Hypercholesterolemia E78.00 Gastroesophageal reflux disease without esophagitis K21.9 Esophagitis presence: without esophagitis Numbness of left hand R20.0
== END 2023-08-12 13:15 | disposition home or self-care (01) ==
PROVIDERS: PCP Internal Medicine; Visit Provider Internal Medicine
DX: Z00.00 Encounter for general adult medical examination without abnormal findings (principal); Z12.11 Encounter for screening for malignant neoplasm of colon; I65.21 Occlusion and stenosis of right carotid artery; I10 Essential (primary) hypertension; E78.00 Pure hypercholesterolemia, unspecified; K21.9 Gastro-esophageal reflux disease without esophagitis; R20.0 Anesthesia of skin; Z23 Encounter for immunization
CPT/HCPCS: 90471; 90677; G0439

== ENCOUNTER 2023-08-15 10:52 | Outpatient (AMB) | payer OTHER, SELFPAY ==
[2023-08-15 11:01] VITALS: BMI 21.3
--- NOTE | 2023-08-15 11:01 | A.OFFVIS_ITS ---
Vital Signs 08/15/23 11:01 Height 5 ft 7 in Weight 136 lb BMI 21.3 Intake Visit Reasons: 6 mo F/U carotid US 08/12/2023 Intake Note: 6 mo carotid US 08/12/23, hHx of Right CEA 08/27/2022. Pt states no blurred, loss of balance. States he has some LE swelling, very minimal. Accompanied by: Self / Same As Patient Allergies lobster Allergy (Severe, Verified 08/15/23 11:07) Anaphylaxis amoxicillin Allergy (Mild, Verified 08/15/23 11:07) Itching Seasonal Allergies Allergy (Mild, Verified 08/15/23 11:07) Itchy Eyes hazelnut Allergy (Unknown, Verified 08/15/23 11:07) Unknown HPI HPI 6 mo F/U carotid 08/12/2023: Details: Very pleasant 73-year-old gentleman presents for routine carotid surveillance follow-up. He is doing extremely well. He remains active in his golfing on a regular basis. Most recently returned from a trip for [place] up for golfing. He is being maintained on an aspirin and statin. He remains asymptomatic from a carotid standpoint. [facility] Medical History History of 2019 novel coronavirus disease (COVID-19) GERD (gastroesophageal reflux disease) PTSD (post-traumatic stress disorder) Stenosis of right carotid artery Hypercholesterolemia Hypogonadism Erectile dysfunction Hypertension Surgical History H/O carotid endarterectomy (08/27/22) History of ankle surgery History of appendectomy History of tonsillectomy Family History Father CVD (cardiovascular disease) Mother Lung cancer Maternal Aunt Colon cancer Social History Household Members: Spouse Housing: Other Housing Other:: [email or web address] trailer Are you a primary multi care technician to a significant other at home: No Do you presently have visiting nurse or other home services: No Alcohol intake: current Alcohol intake frequency: a few times a week Comment: aware of trip hazard 1-2 beer a day Patient Tobacco Use Status: Former Tobacco user Quit Date: 2006 Tobacco use type: Cigarette Cigarettes Per Day: 5 Years Smoked: 25 - quit 01/2007 e-Cigarette/Vaping Use: Never Used Second Hand Smoke Exposure: No Substance Use Type: Marijuana and Caffiene Current occupational status: retired Cognitive needs: No Hearing needs: No Vision needs: Yes Review of Systems Const All systems reviewed & are unremarkable except as noted in HPI and below Reports no additional complaints ENT Reports Normal hearing present Card Denies chest pain, Denies chest pain at rest, Denies chest pain with activity and Denies pedal edema Resp Denies cough GI Denies abdominal pain Musc Denies abnormal gait, Denies muscle cramps and Denies radiating pain into limb Skin/Breast Denies skin ulcer and Denies wounds Neuro Reports Normal hearing present and Denies abnormal gait Psych Reports no additional complaints Physical Exam Vital Signs: BMI result Body Mass Index 21.3 Const General: cooperative, healthy appearing and comfortable Orientation/consciousness: oriented to person, oriented to place and oriented to time HEENT Head: Yes normal to inspection Neck Neck: Yes normal visual inspection Carotids: no bruits Chest Chest palpation & inspection: normal inspection of the chest Resp Effort & Inspection: normal respiratory effort and able to speak in complete sentences Auscultation: clear to auscultation bilaterally, no crackles, no rales, no rhonchi and no wheezes Cardio Rate: regular rate Rhythm: regular rhythm Heart sounds: S1 normal heart sound present and S2 normal heart sound present Bruits: no carotid bruits Peripheral pulses: Peripheral pulses 2+ throughout GI Inspection: Yes normal to inspection Skin Wounds: no wounds Hair: normal Neuro General: oriented to person, oriented to place and oriented to time Cranial nerves: Yes CN's II-XII intact bilaterally and Yes Normal hearing present Cognition (Neuro): normal cognition Motor exam (neuro): 5/5 motor strength present throughout Extrem Other: venous exam: No significant superficial varicosities or spider telangiectasias, minimal edema General: No clubbing, No cyanosis and No edema Psych Appearance: grossly normal Mental Status: mental status grossly normal Speech and movement: Normal speech and movement present Results Reviewed Results Reviewed: Carotid ultrasound testing dated 08/12/2023 demonstrates bilateral 0-49% stenosis. Written report and images were reviewed. Assessment & Plan Assessment & Plan (1) Stenosis of right carotid artery: Comment: 08/27/2022 - right carotid endarterectomy Code(s): I65.21 - Occlusion and stenosis of right carotid artery Category: Medical Plan: In short patient has asymptomatic carotid disease. We have reviewed signs and symptoms of a stroke. We also discussed risk factor modification inclusive a healthy diet low in cholesterol. The patient will follow up with us with surveillance ultrasound of the carotids 1 year. Should there be any changes or signs or symptoms of a stroke we will be happy to see them back sooner. Thank you for allowing us to participate in this patient's care. If there are any questions or concerns please do not hesitate to contact us. Orders: Orders US carotid duplex BI 1 Year I65.21 - Occlusion and stenosis of right carotid artery Coding Level of Care Code Est Pt Level 4 (04576) Diagnoses Stenosis of right carotid artery I65.21
== END 2023-08-15 11:30 | disposition home or self-care (01) ==
PROVIDERS: PCP Internal Medicine; Visit Provider Surgery Vascular Surgery
DX: I65.21 Occlusion and stenosis of right carotid artery (principal)
CPT/HCPCS: 99213

== ENCOUNTER → 2023-08-15 10:52 | Outpatient (BNVA) | payer OTHER, SELFPAY | PROVIDERS: PCP Internal Medicine; Visit Provider Surgery Vascular Surgery | DX: I65.21 Occlusion and stenosis of right carotid artery (principal) | CPT/HCPCS: 99212 ==

== ENCOUNTER 2023-12-30 16:41 | Outpatient (AMB) | payer MEDICARE, SELFPAY ==
--- NOTE | 2023-12-30 16:53 | A.OFFPC_ITS ---
Vital Signs 12/30/23 16:55 Height 5 ft 7 in Weight 141 lb 8 oz BMI 22.2 BP 130/60 Blood Pressure Location Lt brachial Position Sitting Pulse 72 Pulse Source Pulse Oximeter Pulse Oximetry (%) 94 Oxygen Delivery Method Room Air Intake Visit Reasons: Hypertension Intake Note: Patient is here to follow up on HTN. 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: Not Required per policy Accompanied by: Self / Same As Patient Allergies lobster Allergy (Severe, Verified 12/30/23 16:55) Anaphylaxis amoxicillin Allergy (Mild, Verified 12/30/23 16:55) Itching Seasonal Allergies Allergy (Mild, Verified 12/30/23 16:55) Itchy Eyes hazelnut Allergy (Unknown, Verified 12/30/23 16:55) Unknown Tobacco use date assessed: 12/30/23 Fall risk assessment: No Falls in past year Last assessed Fall Risk: 12/30/23 Dental Screening Dental Screen Date: 12/30/23 Did you have a dental visit in the last 12 months?: No Did you have a dental problem in the last 6 months where you did not have access to dental care?: No Was dental information given to patient?: Patient has dentist HPI Hypertension HPI Details 73-year-old male with right carotid sten osis hypertension hypercholesterolemia GERD last seen in 08/12/2023 for annual wellness. Patient's Cologuard is up-to-date 11/12/2023. Patient was seen by the vascular in July for the carotid ultrasound asymptomatic carotid disease surveillance ultrasound in 1 year last ultrasound was done in July 0-49% stenosis. [facility] Medical History History of 2019 novel coronavirus disease (COVID-19) GERD (gastroesophageal reflux disease) PTSD (post-traumatic stress disorder) Stenosis of right carotid artery Hypercholesterolemia Hypogonadism Erectile dysfunction Hypertension Surgical History H/O carotid endarterectomy (08/27/22) History of ankle surgery History of appendectomy History of tonsillectomy Family History (Updated 12/30/23 @ 16:54 by ISAURA Miller) Father CVD (cardiovascular disease) Mother Lung cancer Maternal Aunt Colon cancer Social History Household Members: Spouse Housing: Other Housing Other:: Park model trailer Are you a primary care companion to a significant other at home: No Do you presently have visiting nurse or other home services: No Alcohol intake: current Alcohol intake frequency: a few times a week Comment: aware of trip hazard 1-2 beer a day Patient Tobacco Use Status: Former Tobacco user Tobacco use type: Cigarette Cigarettes Per Day: 5 Years Smoked: 25 - quit 01/2007 e-Cigarette/Vaping Use: Never Used Second Hand Smoke Exposure: No Substance Use Type: Marijuana and Caffiene service: No Current occupational status: retired Cognitive needs: No Hearing needs: No Vision needs: Yes (Glasses) Questionnaire Thrive Questionnaire Date Thrive assessed: 12/30/23 I am a: Patient What is your living situation today?: I have a steady place to live Within the past 12 months, did the food you bought not last and you didn't have the money to get more?: Never true Within the past 12 months, did you worry whether your food would run out before you got money to buy more?: Never true Do you have trouble paying for medicines?: No Do you have trouble getting transportation to medical appointments?: No Do you have trouble paying your heating and electricity bill?: No Do you have trouble taking care of your child, family member or friend?: No Do you have trouble with day-to-day activities such as bathing, preparing meals, shopping, managing finances, etc.?: No Are you currently unemployed and looking for a job?: No Are you interested in more education?: No Currently or been in a relationship where the following occur: No concerns reported THRIVE Score: 0 AUDIT C Alcohol Use Questionnaire (AUDIT-C) 1. How often do you have a drink containing alcohol?: 4 or more times a week 2. How many drinks containing alcohol do you have on a typical day when you are drinking?: 1 or 2 Total Score: 4 FELICIA-7 AMB Questionnaire FELICIA-7 Date FELICIA - 7 assessed: 12/30/23 Feeling nervous, anxious, or on edge: 0 = Not at all Not being able to stop or control worryin = Not at all Worrying too much about different things: 0 = Not at all Trouble relaxin = Not at all Being so restless that it is hard to sit still: 0 = Not at all Becoming easily annoyed or irritable: 0 = Not at all Feeling afraid as if something awful might happen: 0 = Not at all Total FELICIA-7 score (0-4 normal; 5-9 mild; 10-14 moderate; 15-21 severe): 0 Source: Developed by Drs. Zacarias Muñoz, Jeannie Peñaloza, Thomas Arizmendi and colleagues, with an educational madyson from [employer]. Physical exam (Primary Care) Vital Signs: Last Vital Signs Pulse 72 12/30/23 16:55 BP 130/60 12/30/23 16:55 Pulse Ox 94 12/30/23 16:55 Oxygen Delivery Method Room Air 12/30/23 16:55 BMI result Body Mass Index 22.2 Tobacco/Smoking Status: Tobacco use Status Tobacco use date assessed 12/30/23 12/30/23 17:00 Patient Tobacco Use Status Former Tobacco user 12/30/23 17:00 Tobacco use type Cigarette 12/30/23 17:00 e-Cigarette/Vaping Use Never Used 12/30/23 17:00 Thrive Assessment: Date of Thrive Assessment Date Thrive assessed 12/30/23 12/30/23 17:00 Currently or been in a relationship where the following occur: No concerns reported Const General: alert; No acute distress Eyes Conjunctivae: conjunctivae normal Resp Auscultation: clear to auscultation bilaterally Cardio Rate: regular rate Rhythm: regular rhythm GI Inspection: Yes normal to inspection Extrem General: Yes normal to inspection and No edema Office Procedures Flu Questionnaire Does the patient have a severe egg allergy?: No Does the patient have severe life threatening allergies?: No Does the patient have a fever or illness today?: No Has the patient ever had Guillain-[place] Syndrome?: No Has the patient ever had any past reaction to a flu shot?: No Immunizations Fluarix Triv [id number] (PF) 45 mcg (15 mcg x 3)/0.5 mL IM syringe Performing Provider: Ezra Vargas MD [facility] Administered by: UMANG Bonilla on 12/30/23 17:06 Dose Route Admin Location Dispensed Lot Number Expiration Date [facility] Extractor Operator Solvent Process 0.5 mL IM Left Deltoid 0.5 mL [id number] 09/21/24 [id number] [employer] VIS Given Date VIS Provided VIS Publication Date 12/30/23 Single Vaccine 20 Eligibility Eligibility Date Funding Source Not [facility] Eligible 12/30/23 Private Coding Level of Care Code Est Pt Level 4 (04219) Diagnoses Status post carotid endarterectomy Z98.890 Hypercholesterolemia E78.00 Essential hypertension I10 Hypertension type: essential hypertension Gastroesophageal reflux disease without esophagitis K21.9 Esophagitis presence: without esophagitis Assessment & Plan Assessment & Plan (1) Status post carotid endarterectomy: Comment: 08/27/2022 Code(s): Z98.890 - Other specified postprocedural states Category: Surgical Plan: Patient is being followed up by vascular and july 2023 last ultrasound doing good continuing to monitor. (2) Hypercholesterolemia: Code(s): E78.00 - Pure hypercholesterolemia, unspecified Category: Medical Plan: Avoid fried foods, chicken skin, eggs, butter margarine, pastries and meat. Be it pork or beef they have a lot of cholesterol LDL goal of less than 70 and triglyceride of less than 150 on atorvastatin 10 mg once a day (3) Hypertension: Code(s): I10 - Essential (primary) hypertension Category: Medical Qualifiers: Hypertension type: essential hypertension Qualified Code(s): I10 - Essential (primary) hypertension Plan: Continue with blood pressure medication. Decrease salt intake and exercise on amlodipine 10 mg once a day (4) GERD (gastroesophageal reflux disease): Code(s): K21.9 - Gastro-esophageal reflux disease without esophagitis Category: Medical Qualifiers: Esophagitis presence: without esophagitis Qualified Code(s): K21.9 - Gastro-esophageal reflux disease without esophagitis Plan: Avoid the foods that causes that usually spicy foods, tomato products, juices, coffee, soda and foods that your sensitive to. After eating do not lie down, allow 3-4 hours before in lie down. And keep the head of bed above 30 degrees to avoid the acid from going up. Orders: Orders Influenza [id number] Immunization Today Z23 - Encounter for immunization Medications: Refilled dicyclomine 10 mg PO TID 90 days PRN 90 caps 0RF stomach upset
[2023-12-30 16:55] VITALS: BP 130/60; PULSE 72; O2SAT 94; BMI 22.2
== END 2023-12-30 17:44 | disposition home or self-care (01) ==
PROVIDERS: PCP Internal Medicine; Visit Provider Internal Medicine
DX: Z98.890 Other specified postprocedural states (principal); E78.00 Pure hypercholesterolemia, unspecified; I10 Essential (primary) hypertension; K21.9 Gastro-esophageal reflux disease without esophagitis; Z23 Encounter for immunization

== ENCOUNTER → 2023-12-30 16:41 | Outpatient (BNVA) | payer MEDICARE, SELFPAY | PROVIDERS: PCP Internal Medicine; Visit Provider Internal Medicine | DX: Z23 Encounter for immunization (principal); I10 Essential (primary) hypertension; K21.9 Gastro-esophageal reflux disease without esophagitis; E78.00 Pure hypercholesterolemia, unspecified; Z98.890 Other specified postprocedural states | CPT/HCPCS: 90471; 90656; 96127; 99212 ==

== ENCOUNTER 2024-08-11 10:18 | Outpatient (REF) | payer MEDICARE, SELFPAY ==
--- NOTE | ~2024-08-11 | US_ITS ---
EXAMINATION: US EXTRACRANIAL CAROTID DUPLEX, BILATERAL CLINICAL INFORMATION: Occlusion and stenosis, right carotid artery. Status post right endarterectomy, August 2022. COMPARISON: August 12, 2023. TECHNIQUE: Real-time ultrasound and Doppler techniques (integrating B-mode 2-D vascular images, Doppler spectral analysis and color-flow Doppler imaging) were utilized to interrogate the extracranial carotid arteries, the vertebral arteries and proximal subclavian arteries bilaterally. The degree of stenosis is determined by criteria similar to NASCET. FINDINGS: Right Side: 1. There is mild atherosclerotic plaque seen in the bifurcation/proximal ICA region. 2. The common carotid artery PSV proximally is 112 cm/s and distally 120 cm/s. 3. The proximal internal carotid artery velocities are 90 cm/s systolic and 16 cm/s diastolic. 4. The proximal external carotid artery PSV is 207 cm/s. 5. The vertebral artery shows antegrade flow. 6. The subclavian artery waveforms are triphasic.. Left Side: 1. There is mixed atherosclerotic plaque seen in the bifurcation/proximal ICA region. 2. The common carotid artery PSV proximally is 107 cm/s and distally 88 cm/s. 3. The proximal internal carotid artery velocities are 118 cm/s systolic and 21 cm/s diastolic. 4. The proximal external carotid artery PSV is 272 cm/s. 5. The vertebral artery shows antegrade flow. 6. The subclavian artery waveforms are triphasic.. US/US carotid duplex BI IMPRESSION: 1. RIGHT: Mild plaque representing 0-49% stenosis by ultrasound criteria. Elevated peak systolic velocities, right external carotid artery. 2. LEFT: Mild plaques representing 0-49 % stenosis by ultrasound criteria. Elevated peak systolic velocities, left external iliac artery. 3. There is no change in the category severity of disease when compared to the previous study dated August 12, 2023.. Electronically signed by: Emmanuel Nunez MD 08/11/2024 11:16 AM EDT
--- OUTSIDE RECORDS SUMMARY | 2024-08-11 11:29 | XMS_ITS | Encounter Summary ---
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 This section includes the names of all active insurance providers for the patient. Insurance Provider Type of Coverage Plan Name Start of Policy Coverage End of Policy Coverage Group Number Member ID Insurance Provider's Telephone Number Policy Galeano's Name Patient's Relationship to Policy Galeano [facility] (WNR) MEDICARE ADVANTAGE [place] PPOD VALUE DB DS Mar 25, 2017 [id number] LUBNAJu [place] PATIENT [facility] (WNR) MEDICARE ADVANTAGE [facility] (WNR) Mar 25, 2017 [id number] LUBNAJuMARIOLA PATIENT [facility] HIGH DEDUCTIBL E HEALTH PLAN [employer] Oct 01, 2014 PPO [id number] LUBNAJuMARIOLA PATIENT [employer] ION Oct 01, 2014 NO GROUP NUMBER [id number] LUBNAJuMARIOLA PATIENT [facility] MENTAL HE[facility] Oct 01, 2014 [id number] Ju CALVOMARIOLA PATIENT Selected Encounter This section includes the information on record at [place] for the Encounter. Date/Time Encounter Type Encounter Description Reason Provider Source Mar 26, 2024 07:00 AM PSYTX W PT 45 MINUTES [facility] - IND ICD-10-CM F43.12 Post-traumatic stress disorder, chronic ADDISON ALONZO E Encounter Template Text not used by [place] Assessments - Encounter Diagnoses This section includes the primary and secondary diagnoses documented for the Encounter. Date/Time Primary/Secondary Diagnosis Diagnosis Name Provider Source Mar 26, 2024 07:48 AM PRIMARY Post-traumatic stress disorder, chronic ADDISON ALONZO [facility] [place] [facility] Plan of Treatment: Future Appointments (+ 6 months) and Future Tests (+/- 45 days) The Plan of Treatment section includes future care activities for the patient from all [place] treatmentfacilities. This section includes future appointments and future orders which are active, pending or scheduled. Future Appointments This section includes appointments that were scheduled to occur 6 months from the date of the Encounter, up to a maximum of 20 appointments. The data comes from all [place] treatment facilities. Appointment Date/Time Appointment Type Appointme nt Facility Name Apr 16, 2024 07:00 AM AMBULATORY - PSYCHIATRY [facility] [place] [facility] May 07, 2024 07:00 AM AMBULATORY - PSYCHIATRY [facility] [place] [facility] Jun 18, 2024 07:00 AM AMBULATORY - PS[facility]CHIATRY [facility] [place] [facility] Jul 09, 2024 07:00 AM AMBULATORY - PSYCHIATRY [facility] [place] [facility] July 23, 2024 07:00 AM AMBULATORY - PSYCHIATRY [facility] [place] [facility] August 03, 2024 10:30 AM AMBULATORY - MEDICINE [facility] [place] [facility] August 13, 2024 07:00 AM AMBULATORY - PSYCHIATRY [facility] [place] [facility] Sep 01, 2024 10:30 AM AMBULATORY - NEUROLOGY [facility] Sep 02, 2024 08:30 AM AMBULATORY - PSYCHIATRY [facility] [place] [facility] Sep 03, 2024 11:00 AM AMBULATORY - MEDICINE [facility] [place] [facility] Active, Pending, and Scheduled Orders This section includes a listing of several types of active, pending, and scheduled orders, including clinic medications orders, diagnostic test orders, procedure orders and consult orders; where the start date of the order is 45 days before the date of the Encounter or 45 days after the date of theEncounter. The data comes from all [place] treatment facilities. Test Date/Time Test Type Test Details Facility Name Apr 15, 2024 10:49 AM Consult Order COMMUNITY CARE-NEUROLOGY Cons Card Dealer's Choice [facility] Social History: Smoking Status (Most current) and Tobacco Use (All prior to encounter date) This section includes the most current, and the historical, smoking and tobacco- related health factors from the [place] facility where the Encounter took place. Current Smoking Status This section includes the most current smoking, or tobacco-related health factor, from the [place] facility where the Encounter took place. Date/Time Current Smoking Status Comment [facility] Jun 13, 2023 07:00 AM VA-TOBACCO FORMER USER [facility] [place] [facility] Tobacco Use History This section includes a history of the smoking, or tobacco-related health factors, that were collected on or before the date of the Encounter. The data comes from the [place] facility where the Encounter took place. Date/Time Smoking Status/Tobac co Use Comment Facility Jun 13, 2023 07:00 AM VA-TOBACCO QUIT 15 YRS OR MORE [facility] [place] [facility] Jul 12, 2022 07:00 AM VA-TOBACCO FORMER USER [facility] [place] [facility] Jul 12, 2022 07:00 AM VA-TOBACCO QUIT 15 YRS OR MORE [facility] [place] [facility] August 03, 2021 07:00 AM VA-TOBACCO FORMER USER [facility] [place] [facility] August 03, 2021 07:00 AM VA-TOBACCO QUIT 5 TO < 15 YRS [facility] [place] [facility] August 03, 2020 07:00 AM VA-TOBACCO FORMER USER [facility] [place] [facility] August 03, 2020 07:00 AM VA-TOBACCO QUIT 15 YRS OR MORE [facility] [place] [facility] August 18, 2019 12:47 PM VA-TOBACCO FORMER USER [facility] [place] [facility] August 18, 2019 12:47 PM VA-TOBACCO QUIT 15 YRS OR MORE [facility] [place] [facility] Jul 08, 2018 11:08 AM VA-TOBACCO FORMER USER [facility] [place] [facility] Jul 08, 2018 11:08 AM VA-TOBACCO QUIT 15 YRS OR MORE [facility] [place] [facility] Jul 16, 2017 08:53 AM LIFETIME NON-TOBACCO USER [facility] [place] [facility] Jul 10, 2016 10:25 AM QUIT TOBACCO USE > 7 YEARS AGO [facility] [place] [facility] Mar 11, 2015 08:33 AM QUIT TOBACCO USE > 7 YEARS AGO [facility] [place] [facility] Jun 26, 2012 08:26 AM LIFETIME NON-TOBACCO USER [facility] [place] [facility] Aug 30, 2010 09:04 AM QUIT TOBACCO USE 1-7 YEARS AGO [facility] [place] [facility] August 19, 2009 08:25 AM QUIT TOBACCO USE 1-7 YEARS AGO 1 + years ago [facility] [place] [facility] Jul 01, 2008 03:42 PM QUIT TOBACCO USE IN PAST YEAR [facility] [place] [facility] Jul 01, 2008 02:29 PM QUIT TOBACCO USE IN PAST YEAR QUIT [address] [facility] [place] [facility] Mar 20, 2001 09:17 AM CURRENT SMOKER not able to quit [facility] [place] [facility] Encounter Notes: All associated encounter notes This section contains the clinical notes associated to the Encounter. Date/Time Encounter Note(s) Provider Source Mar 26, 2024 07:02 AM TELEHEALTH NOTE: LOCAL TITLE: [facility] VIDEO CONNECT PSYCHOLOGY NOTE STANDARD TITLE: TELEHEALTH NOTE DATE OF NOTE: MAR 26, 2024@07:02 ENTRY DATE: MAR 26, 2024@07:02:52 AUTHOR: ADDISON ALONZO COSIGNER: URGENCY: STATUS: COMPLETED A Video Connect (VVC) Standard Documentation VVC Clinician Resources Only: E911 (Emergency Call Relay Center): [phone] [facility] Line - ([phone]) press #1. [facility] Suicide Coordinator [phone], Ext. [phone]; Back-up Ext. [phone] Heading Matcher And Assembler of the Day(AOD), ROGERAleksandra Zhou [phone], Ext. [phone] Introduction: Visit is being conducted by [place] Video Connect. [place] identified with 2 identifiers: [X] Full Name [X] Date of [ ] VA ID Card Emergency Plan: confirmed and/or provided the following information in case of emergency or technology failure. PATIENT PHONE - PHONE NUMBER [CELLULAR] - Is patient phone number correct, if not, enter below: 's phone number: VELASQUEZ CALVO [address] [facility] [address] [place] [address] [place]'s present location and address for appointment: [id number] [place] [address] [address] [place] [address] [place]'s emergency contact name and phone number: Cally Leon [phone] [place] reported that location is private and safe: Yes Informed Consent: informed of the risks and benefits of Telehealth video care. [place] has the right to refuse video services. If refuses video visit, a [id number] visit will be scheduled. verbalized consent for this video visit: Yes [place] provided consent for any other persons present for visit: N/A If yes, who and relationship to patient: Secure visit: Visit was locked for security and privacy: Yes VISIT DURATION 45 minutes DIAGNOSES: PTSD, Chronic; Features of OCPD PRESENTING PROBLEMS: Sary presented on time and we resumed treatment as usual, covering updates to his neurology consult, upcoming trip to [place], and PTSD triggers. SESSION FOCUS: We reviewed a consult that this provider placed for neurology, but after some back and forth, Sary requests that it be completed in [place] while he is there. A traveling consult was completed today for that. If however that can't be completed before July, this provider will place a community care consult for [place], after July 2024 instead. We also reviewed how things have been going since our last session. Sary shared his plans to come up to visit his step daughter/granddaughter in the next week, for several days. We spoke about how he is feeling, given the tumultuous family situation that she is going through and how he is managing his anxiety/PTSD related to them staying in her house. There are some triggering elements about the situation which this provider discussed with him. [place] reportedly feels better about the beaver trapper now having submitted the protection order for her, against the ex-boyfriend. We spoke about the potential similarities between his original trauma and this situation, taking care to use coping skills. [place] shared more about their intended purpose for the trip and how he can manage his stress. He was also concerned about how he will manage his pain in the cold. Lastly, we discussed the idea of completing a referral for more PT so he can get back into his helpful stretching routines. He is considering trying that in [place] through the [facility] while he is there. ASSESSMENT: BRIEF ASSESSMENT OF MENTAL STATUS: 1. Appearance (grooming, attire, apparent age) within normal limits: Yes, casually dressed, pleasant and polite 2. Thought content was organized and goal directed: Yes 3. Speech was coherent and unimpaired: Yes 4. Affect was appropriate and unremarkable: full 5. Demeanor was calm, with no signs of agitation or restlessness: Yes 6. Sleep was largely unimpaired and restful: No-insomnia 7. No evidence of psychosis (hallucinations or delusions): Yes 8. Mood was normal: anxious with certain content Other Observations: RISK ASSESSMENT: Denies current suicidal/homicidal ideation FREQUENCY: every 3 weeks C @ 7am Leave for [place] in July 2024 /deborah/ Addison Alonzo PsyD Staff Psychologist Signed: 03/26/2024 07:53 ADDISON ALONZO [facility]
--- OUTSIDE RECORDS SUMMARY | 2024-08-11 11:29 | XMS_ITS | Encounter Summary ---
Author Name [facility] [place] [facility] [place] Address [address] [place] [address] Care Team Providers Care Equipment Manager Name Role Phone PAULETTE MIRZA Primary Care Provider Unavaila [facility] Insurance Providers: All historical and current Section Date Range: From patient's date of to the date document was created. This section includes the names of all active insurance providers for the patient. Insurance Provider Type of Coverage Plan Name Start of Policy Coverage End of Policy Coverage Group Number Member ID Insurance Provider's Telephone Number Policy Galeano's Name Patient's Relationship to Policy Galeano [facility] (WNR) MEDICARE ADVANTAGE MD PPOD VALUE DB DS Mar 25, 2017 [id number] [phone] LUBNAJuMARIOLA PATIENT [facility] (WNR) MEDICARE ADVANTAGE [facility] (WNR) Mar 25, 2017 [id number] [phone] LUBNAJu PATIENT [facility] HIGH DEDUCTIBL E HEALTH PLAN [employer] HD[employer] Oct 01, 2014 PPO [id number] LUBNAJu PATIENT [employer] PRESCRIPT ION Oct 01, 2014 NO GROUP NUMBER [id number] CALVOJu CORRALES PATIENT [facility] Oct 01, 2014 [id number] [phone] Ju CALVO PATIENT Selected Encounter This section includes the information on record at [place] for the Encounter. Date/Time Encounter Type Encounter Description Reason Provider Source Nov 01, 2023 01:13 PM OFFICE O/P EST LOW 20 MIN DERMATOLOGY ICD-10-CM L30.8 Other specified dermatitis TICO SHRESTHA Brenden Encounter Template Text not used by [place] Assessments - Encounter Diagnoses This section includes the primary and secondary diagnoses documented for the Encounter. Date/Time Primary/Secondary Diagnosis Diagnosis Name Provider Source Nov 01, 2023 01:22 PM PRIMARY Other specified dermatitis TICO SHRESTHA [facility] Plan of Treatment: Future Appointments (+ 6 months) and Future Tests (+/- 45 days) The Plan of Treatment section includes future care activities for the patient from all [place] treatmentfacilities. This section includes future appointments and future orders which are active, pending or scheduled. Future Appointments This section includes appointments that were scheduled to occur 6 months from the date of the Encounter, up to a maximum of 20 appointments. The data comes from all [place] treatment facilities. Appointment Date/Time Appointment Type Appointme nt Facility Name Nov 21, 2023 07:00 AM AMBULATORY [place]ATRY [place] [facility] [place] [facility] Dec 05, 2023 10:00 AM AMBULATORY - [place]HAB MEDICIN [place] [facility] [place] [facility] Dec 12, 2023 07:00 AM AMBULATORY - [place]IATRY [place] [facility] [place] [facility] Jan 02, 2024 07:00 AM AMBULATORY - [place]IATRY [place] [facility] [place] [facility] Jan 23, 2024 07:00 AM AMBULATORY - [place]IATRY [place] [facility] [place] [facility] Feb 13, 2024 07:00 AM AMBULATORY - [place]IATRY [place] [facility] [place] [facility] Mar 05, 2024 07:00 AM AMBULATORY - [place]IATRY [place] [facility] [place] [facility] Mar 26, 2024 07:00 AM AMBULATORY - PS[place]CHIATRY [place] [facility] [place] [facility] Apr 16, 2024 07:00 AM AMBULATORY - [place]IATRY [place] [facility] [place] [facility] Active, Pending, and Scheduled Orders This section includes a listing of several types of active, pending, and scheduled orders, including clinic medications orders, diagnostic test orders, procedure orders and consult orders; where the start date of the order is 45 days before the date of the Encounter or 45 days after the date of theEncounter. The data comes from all [place] treatment facilities. Test Date/Time Test Type Test Details Facility Name Nov 04, 2023 03:12 PM Consult Order DERMATOLOG Y/NH[facility] (OUTPT) Cons Lan Specialist's Choice [place] [facility] [place] [facility] Encounter Notes: All associated encounter notes This section contains the clinical notes associated to the Encounter. Date/Time Encounter Note(s) Provider Source Nov 01, 2023 01:13 PM TELEIMAGING REPORT : LOCAL TITLE: CONSULT-TELEDERMATOLOGY IMAGING REPORT STANDARD TITLE: TELEIMAGING REPORT DATE OF NOTE: NOV 01, 2023@13:13 ENTRY DATE: NOV 01, 2023@13:13:56 AUTHOR: TICO SHRESTHA COSIGNER: URGENCY: STATUS: COMPLETED HISTORY: 73-year-old male presents for evaluation of a dermatitis on his back. This started in July 2022 after he was given an antibiotic for tooth ache. The strep throat, and it worsened later that year when he was given another antibiotic to deal with a tooth ache. He describes a cyclic presentation of this rash: Every morning, his back starts to itch and develops into a red patch. He takes a sleeping pill every evening so that the itch does not keep him from sleeping. The consult states that he has been seen by a automatic casting machine operator and has tried 3 or 4 different types of steroid creams, but review of his CPRS records do not reflect this. Perhaps it was a private sector automatic casting machine operator. OVERALL CONSULT/IMAGE QUALITY: Fully satisfactory EXAM: Photographs of the back show essentially normal skin with occasional patches of mild erythema and xerosis IMPRESSION BASED ON IMAGES AND INFORMATION REVIEWED: PROBLEM A: Diagnosis: Eczematous dermatitis versus drug reaction versus other. RECOMMENDATIONS FOR REFERRING PROVIDER: PROBLEM A: Medication: Triamcinolone 0.1% cream twice daily, applied to damp skin Skin Care recommendations: Patient education should be given regarding removing anything that contains dyes or perfumes from his laundry or shower regimen. Recommend Dove unscented bar soap, and All Free and Clear in the laundry. Other recommendations: Eliminate fabric softeners and dryer sheets for the time being Additional Information: If the above is ineffective, recommend that he see dermatology for bxit-sy-vmpi evaluation, possible punch biopsy. RECOMMENDED FOLLOW-UP: Consult to Dermatology clinic for follow up JEB: Routine Cumulative time of review and management: 5 minutes or more /deborah/ Tico Shrestha PA-C Dermatology Signed: 11/01/2023 13:22 TICO SHRESTHA [facility]
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
--- OUTSIDE RECORDS SUMMARY | 2024-08-11 11:29 | XMS_ITS | Encounter Summary ---
Author Name [facility] [place] [facility] [place] Address [address] [place] [address] Care Team Providers Care Teacher Specialist Name Role Phone PAULETTE MIRZA Primary Care Provider Unavaila ble Insurance Providers: All historical and current Section Date Range: From patient's date of to the date document was created. This section includes the names of all active insurance providers for the patient. Insurance Provider Type of Coverage Plan Name Start of Policy Coverage End of Policy Coverage Group Number Member ID Insurance Provider's Telephone Number Policy Galeano's Name Patient's Relationship to Policy Galeano [facility] (WNR) MEDICARE ADVANTAGE [place] PPOD VALUE DB DS Mar 25, 2017 [id number] [phone] LUBNAJuMARIOLA PATIENT [facility] (WNR) MEDICARE ADVANTAGE [facility] (WNR) Mar 25, 2017 [id number] [phone] LUBNAJu PATIENT [facility] HIGH DEDUCTIBL E HEALTH PLAN [employer] HD[employer] Oct 01, 2014 PPO [id number] LUBNAJu PATIENT [employer] PRESCRIPT ION Oct 01, 2014 NO GROUP NUMBER [id number] [phone] ACLVOJu CORRALES PATIENT [facility] Oct 01, 2014 [id number] [phone] Ju CALVO PATIENT Selected Encounter This section includes the information on record at [place] for the Encounter. Date/Time Encounter Type Encounter Description Reason Pro vider Source Apr 16, 2024 01:06 PM Outpatient Encounter COMMUNITY CARE CONSULT IHE Encounter Template Text not used by [place] Plan of Treatment: Future Appointments (+ 6 months) and Future Tests (+/- 45 days) The Plan of Treatment section includes future care activities for the patient [facility] [place] [facility] This section includes future appointments and future orders which are active, pending or scheduled. Future Appointments This section includes appointments that were scheduled to occur 6 months from the date of the Encounter, up to a maximum of 20 appointments. The data comes from all [facility]. Appointment Date/Time Appointment Type Appointme nt Facility Name May 07, 2024 07:00 AM AMBULATORY - PS[place]IATRY [place] [facility] [place] [facility] Jun 18, 2024 07:00 AM AMBULATORY - PSYCHIATRY [place] [facility] [place] [facility] Jul 09, 2024 07:00 AM AMBULATORY - PSYCHIATRY [place] [facility] [place] [facility] July 23, 2024 07:00 AM AMBULATORY - PSYCHIATRY [place] [facility] [place] [facility] August 03, 2024 10:30 AM AMBULATORY - MEDICINE [place] [facility] [place] [facility] August 13, 2024 07:00 AM AMBULATORY - PSYCHIATRY [place] [facility] [place] [facility] Sep 01, 2024 10:30 AM AMBULATORY - NEUROLOGY [facility] Sep 02, 2024 08:30 AM AMBULATORY - PSYCHIATRY [place] [facility] [place] [facility] Sep 03, 2024 11:00 AM AMBULATORY - MEDICINE [place] [facility] [place] [facility] Oct 02, 2024 11:00 AM AMBULATORY - MEDICINE [place] [facility] [place] [facility] Oct 06, 2024 10:00 AM [facility] [place] [facility] Active, Pending, and Scheduled Orders This section includes a listing of several types of active, pending, and scheduled orders, including clinic medications orders, diagnostic test orders, procedure orders and consult orders; where the start date of the order is 45 days before the date of the Encounter or 45 days after the date of theEncounter. The data comes from all [place] treatment facilities. Test Date/Time Test Type Test Details Facility Name Apr 15, 2024 10:49 AM Consult Order COMMUNITY CARE-NEUROLOGY Cons [facility] May 12, 2024 07:27 AM Consult Order NEUROLOGY CLINIC [facility] Cons [facility]aker [facility] [place] [facility] [place] [facility] Encounter Notes: All associated encounter notes This section contains the clinical notes associated to the Encounter. Date/Time Encounter Note(s) Provider Source Apr 16, 2024 01:06 PM NONVA NOTE: LOCAL TITLE: COMMUNITY CARE-CARE COORDINATION PLAN NOTE STANDARD TITLE: NONVA NOTE DATE OF NOTE: APR 16, 2024@13:06 ENTRY DATE: APR 16, 2024@13:06:46 AUTHOR: NANI CORCORAN EXP COSIGNER: URGENCY: STATUS: COMPLETED Community Care Consult: Neurology Consult No: [id number] [facility] Referral #: [id number] Chief Complaint: Tremor, unspecified(ICD-10-CM R25.1) Patient Admitted? Unknown Level of Care Coordination Moderate Care Coordination was determined from: Chart Review Facility Community Care Office Contact Care Coordination Point of Contact: team 2 Phone Number: [phone] Services: Basic Care Coordination Services Monitoring and coordination of Rehab/PT Services Direct communication to referring provider Care management, if appropriate Plan: Initial note - consult processed by VACC RN for auth to see community provider - pending [facility] for scheduling - Services as indicated above - REFDOCS available in [facility] - Pending [facility] contact and appointment. - [facility] care coordination communicated for [facility] staff to schedule. - Ongoing care and evaluation will be individualized based upon need and evaluation of recommendations of community provider. /deborah/ NANI CORCORAN RN REGISTERED NURSE Signed: 04/16/2024 13:08 NANI CORCORAN [facility]
--- OUTSIDE RECORDS SUMMARY | 2024-08-11 11:29 | XMS_ITS | Encounter Summary ---
Author Name [facility] [place] Address [address] [place] [id number] Care Team Providers Care Fuel Quality Tech Name Role Phone PAULETTE MIRZA Primary Care Provider Unavaila [facility] Insurance Providers: All historical and current [...] Galeano's Name Patient's Relationship to Policy Galeano [facility] (WNR) MEDICARE ADVANTAGE [place] PPOD VALUE DB DS Mar 25, 2017 [id number] Ju CALVO PATIENT [facility] (WNR) MEDICARE ADVANTAGE [facility] (WNR) Mar 25, 2017 [id number] LUBNAJu [place] PATIENT [facility] HIGH DEDUCTIBL E HEALTH PLAN [employer] Oct 01, 2014 PPO [id number] Ju CALVO PATIENT [employer] PRESCRIPT ION Oct 01, 2014 NO GROUP NUMBER [id number] Ju CALVO PATIENT [facility] Oct 01, 2014 [id number] [phone] Ju CALVO PATIENT Selected Encounter This section includes the information on record at [place] for the Encounter. Date/Time Encounter Type Encounter Description Reason Provider Source Oct 30, 2023 11:00 AM UNLISTED SPEC DERM SVC/PX DERMATOLOGY ICD-10-CM Z13.89 Encounter for screening for other disorder CLARA FIELDS [facility] Encounter Template Text not used by [place] Assessments - Encounter Diagnoses This section includes the primary and secondary diagnoses documented for the Encounter. Date/Time Primary/Secondary Diagnosis Diagnosis Name Provider Source Oct 30, 2023 11:34 AM PRIMARY Encounter for screening for other disorder CLARA FIELDS [place] [facility] [place] [facility] Plan of Treatment: Future Appointments (+ 6 months) and Future Tests (+/- 45 days) The Plan of Treatment section includes future care activities for the patient from all [place] treatmentfacilities. This section includes future appointments and future orders which are active, pending or scheduled. Future Appointments This section includes appointments that were scheduled to occur 6 months from the date of the Encounter, up to a maximum of 20 appointments. The data comes from all [place] treatment facilities. Appointment Date/Time Appointment Type Appointme nt Facility Name Oct 31, 2023 07:00 AM AMBULATORY - PS[place]IATRY [facility] [place] [facility] Nov 21, 2023 07:00 AM AMBULATORY - PSYCHIATRY [facility] [place] [facility] Dec 05, 2023 10:00 AM AMBULATORY - REHAB MEDICIN E [facility] [place] [facility] Dec 12, 2023 07:00 AM AMBULATORY - PSYCHIATRY [facility] [place] [facility] Jan 02, 2024 07:00 AM AMBULATORY - PSYCHIATRY [facility] [place] [facility] Jan 23, 2024 07:00 AM AMBULATORY - PSYCHIATRY [facility] [place] [facility] Feb 13, 2024 07:00 AM AMBULATORY - PSYCHIATRY [facility] [place] [facility] Mar 05, 2024 07:00 AM AMBULATORY - PSYCHIATRY [facility] [place] [facility] Mar 26, 2024 07:00 AM AMBULATORY - PSYCHIATRY [facility] [place] [facility] Apr 16, 2024 07:00 AM AMBULATORY - PSYCHIATRY [facility] [place] [facility] Active, Pending, and Scheduled Orders This section includes a listing of several types of active, pending, and scheduled orders, including clinic medications orders, diagnostic test orders, procedure orders and consult orders; where the start date of the order is 45 days before the date of the Encounter or 45 days after the date of theEncounter. The data comes from all [place] treatment facilities. Test Date/Time Test Type Test Details Facility Name Nov 04, 2023 03:12 PM Consult Order DERMATOLOG Y/[facility] (OUTPT) Cons [facility] Social History: Smoking Status (Most current) and Tobacco Use (All prior to encounter date) This section includes the most current, and the historical, smoking and tobacco- related health factors from the [place] facility where the Encounter took place. Current Smoking Status This section includes the most current smoking, or tobacco-related health factor, from the [place] facility where the Encounter took place. Date/Time Current Smoking Status Comment [facility] Jun 13, 2023 07:00 AM [facility] Tobacco Use History This section includes a history of the smoking, or tobacco-related health factors, that were collected on or before the date of the Encounter. The data comes from the [place] facility where the Encounter took place. Date/Time Smoking Status/Tobac co Use Comment Facility Jun 13, 2023 07:00 AM VA-TOBACCO QUIT 15 YRS OR MORE [facility] [place] [facility] Jul 12, 2022 07:00 AM VA-TOBACCO FORMER USER [place] [facility] [place] [facility] Jul 12, 2022 07:00 AM VA-TOBACCO QUIT 15 YRS OR MORE [facility] [place] [facility] August 03, 2021 07:00 AM VA-TOBACCO FORMER USER [place] [facility] [place] [facility] August 03, 2021 07:00 AM VA-TOBACCO QUIT 5 TO < 15 YRS [facility] [place] [facility] August 03, 2020 07:00 AM VA-TOBACCO FORMER USER [place] [facility] [place] [facility] August 03, 2020 07:00 AM VA-TOBACCO QUIT 15 YRS OR MORE [facility] [place] [facility] August 18, 2019 12:47 PM VA-TOBACCO FORMER USER [place] [facility] [place] [facility] August 18, 2019 12:47 PM VA-TOBACCO QUIT 15 YRS OR MORE [facility] [place] [facility] Jul 08, 2018 11:08 AM VA-TOBACCO FORMER USER [place] [facility] [place] [facility] Jul 08, 2018 11:08 AM VA-TOBACCO QUIT 15 YRS OR MORE [facility] [place] [facility] Jul 16, 2017 08:53 AM LIFETIME NON-TOBACCO USER [place] [facility] [place] [facility] Jul 10, 2016 10:25 AM QUIT TOBACCO USE > 7 YEARS AGO [facility] [place] [facility] Mar 11, 2015 08:33 AM QUIT TOBACCO USE > 7 YEARS AGO [facility] [place] [facility] Jun 26, 2012 08:26 AM LIFETIME NON-TOBACCO USER [place] [facility] [place] [facility] Aug 30, 2010 09:04 AM QUIT TOBACCO USE 1-7 YEARS AGO [facility] [place] [facility] August 19, 2009 08:25 AM QUIT TOBACCO USE 1-7 YEARS AGO 1 + years ago [facility] [place] [facility] Jul 01, 2008 03:42 PM QUIT TOBACCO USE IN PAST YEAR [facility] [place] [facility] Jul 01, 2008 02:29 PM QUIT TOBACCO USE IN PAST YEAR QUIT 2007 [facility] [place] [facility] Mar 20, 2001 09:17 AM CURRENT SMOKER not able to quit [place] [facility] [place] [facility] Encounter Notes: All associated encounter notes This section contains the clinical notes associated to the Encounter. Date/Time Encounter Note(s) Provider Source Nov 01, 2023 01:52 PM TELEHEALTH NOTE: LOCAL TITLE: PATIENT NOTIFICATION TELEHEALTH RESULTS STANDARD TITLE: TELEHEALTH NOTE DATE OF NOTE: NOV 01, 2023@13:52 ENTRY DATE: NOV 01, 2023@13:52:55 AUTHOR: CLARA FIELDS COSIGNER: URGENCY: STATUS: COMPLETED PATIENT NOTIFICATION TELEHEALTH RESULTS Has ADDENDA Provided below are the results from pts telederm imaging reading. Ordering Provider is responsible to give pt the results and prescribe any treatments, recommendations or consult to dermatology for a face to face etc. REMOTE RESULTS DELORIS Document from: [facility] Associated on: Nov 01, 2023@13:22:15 LOCAL TITLE: CONSULT-TELEDERMATOLOGY IMAGING REPORT STANDARD TITLE: TELEIMAGING REPORT DATE OF NOTE: NOV 01, 2023@13:13 ENTRY DATE: NOV 01, 2023@13:13:56 AUTHOR: TICO SHRESTHA EXP COSIGNER: URGENCY: STATUS: COMPLETED HISTORY: 73-year-old male [...] that he has been seen by a legal services professional and has tried 3 or 4 different types of steroid creams, but review of his CPRS records do not reflect this. Perhaps it was a private sector legal services professional. OVERALL CONSULT/IMAGE QUALITY: Fully satisfactory EXAM: Photographs [...] ineffective, recommend that he see dermatology for [id number] evaluation, possible punch biopsy. RECOMMENDED FOLLOW-UP: Consult to Dermatology clinic for follow up JEB: Routine Cumulative time of review and management: 5 minutes or more /deborah/ Tico Shrestha PA-C Dermatology Signed: 11/01/2023 13:22 * END OF REMOTE RESULTS * /mannie FIELDS TELEHEALTH CLINICAL TEAR DOWN MAN Signed: 11/01/2023 13:53 Receipt Acknowledged By: 11/04/2023 15:04 /mannie DUBOIS NP NURSE PRACTITIONER 11/04/2023 ADDENDUM STATUS: COMPLETED Called [facility], discussed recommenddations. Consult placed to derm. Will send lab letter so he has a copy of recommendations. Agrees to trial Triamcinolone /mannie DUBOIS NP NURSE PRACTITIONER Signed: 11/04/2023 15:04 CLARA FIELDS [place] [facility] [place] [facility] Oct 30, 2023 11:13 AM TELEHEALTH CONSULT : LOCAL TITLE: CONSULT REPORT/TELEDERMATOLOGY IMAGING REQUEST STANDARD TITLE: TELEHEALTH CONSULT DATE OF NOTE: OCT 30, 2023@11:13 ENTRY DATE: OCT 30, 2023@11:13:18 AUTHOR: CLARA FIELDS EXP COSIGNER: URGENCY: STATUS: COMPLETED Teledermatology Consult Request The patient was educated regarding the Teledermatology process at this encounter. Comment: Patient educated on telederm process and verbalizes understanding Patient DOES consent to have images taken, viewed, and interpreted using the Teledermatology process. This consult addresses: A new condition Images were acquired: In clinic HISTORY: Prior skin history: None reported Have you had a skin cancer before? None Reported Patient reports no family history of melanoma. Taking new med/supplements: Yes Name of medication(s): Last may diagnosed with strep throat treated with antibiotics the rash started right after. Rash worsened when he was put on another round of antibiotics for a toothache. Immunosuppression history: None reported Other significant history: Yes The rash starts off small in the morning and grows and turns into hive like and the itch gets so back pt takes a sleeping pill at night that help his sleep and the rash calms down. Every day it starts over again. Chief Complaint: Rash on back x 1 year, seen by Derm, cannot figure it out. Small scattered papules on back. Has been present since allergic rxnto amox 1 year ago.+ pruritic. PROBLEM A LOCATION(S): Trunk Back DURATION: July 2022 SYMPTOMS: Itch, Redness CHANGES: Color, Shape, Size TREATMENT: Yes Details: steroid creams 3/4 different types not helpful at all BIOPSY: No Performance Improvement Consultant's comments: Imaged per providers direction and facility protocol /deborah/ CLARA FIELDS TELEHEALTH CLINICAL TEAR DOWN MAN Signed: 10/30/2023 11:36 CLARA FIELDS [facility]
--- OUTSIDE RECORDS SUMMARY | 2024-08-11 11:30 | XMS_ITS | Encounter Summary ---
Author Name [facility] [place] [facility] [place] Address [address] [place] [id number] Care Team Providers Care Truck Operator Name Role Phone PAULETTE MIRZA [facility] Insurance Providers: All historical and current [...] Galeano's Name Patient's Relationship to Policy Galeano [facility] (WNR) MEDICARE ADVANTAGE ID PPOD VALUE DB DS Mar 25, 2017 [id number] LUBNAuJMARIOLA PATIENT [facility] (WNR) MEDICARE ADVANTAGE [facility] (WN) Mar 25, 2017 [id number] CALVOJu CORRALES PATIENT [facility] HIGH DEDUCTIBL E HEALTH PLAN [employer] HDHP Oct 01, 2014 PPO [id number] CALVOJu CORRALES PATIENT [employer] PRESCRIPT ION Oct 01, 2014 NO GROUP NUMBER [id number] CALVOJu CORRALES PATIENT [facility] Oct 01, 2014 [id number] Ju CALVO PATIENT Selected Encounter This section includes the information on record at [place] for the Encounter. Date/Time Encounter Type Encounter Description Reason Provider Source August 03, 2024 10:18 AM OFF/OP EST JULY X REQ PHY/QHP PRIMARY CARE/MEDICINE ICD-10-CM Z71.89 Other specified counseling TRACI LY A IHE Encounter Template Text not used by [place] Assessments - Encounter Diagnoses This section includes the primary and secondary diagnoses documented for the Encounter. Date/Time Primary/Secondary Diagnosis Diagnosis Name Provider Source August 03, 2024 10:30 AM PRIMARY Other specified counseling TRACI LY A [facility] [place] [place] [facility] Plan of Treatment: Future Appointments (+ 6 months) and Future Tests (+/- 45 days) The Plan of Treatment section includes future care activities for the patient from all [place] treatmentfacilities. This section includes future appointments and future orders which are active, pending or scheduled. Future Appointments This section includes appointments that were scheduled to occur 6 months from the date of the Encounter, up to a maximum of 20 appointments. The data comes from all [place] treatment facilities. Appointment Date/Time Appointment Type Appointme nt Facility Name August 13, 2024 07:00 AM AMBULATORY - PSYCHIATRY [place] [facility] [place] [facility] Sep 01, 2024 10:30 AM AMBULATORY - NEUROLOGY [facility] Sep 02, 2024 08:30 AM AMBULATORY - PSYCHIATRY [place] [facility] [place] [facility] Sep 03, 2024 11:00 AM AMBULATORY - MEDICINE [place] [facility] [place] [facility] Oct 02, 2024 11:00 AM AMBULATORY - MEDICINE [place] [facility] [place] [facility] Oct 06, 2024 10:00 AM AMBULATORY - PSYCHIATRY [place] [facility] [place] [facility] Oct 29, 2024 07:00 AM AMBULATORY - PSYCHIATRY [place] [facility] [place] [facility] Nov 19, 2024 07:00 AM AMBULATORY - PSYCHIATRY [place] [facility] [place] [facility] Dec 10, 2024 07:00 AM AMBULATORY - PSYCHIATRY [place] [facility] [place] [facility] Jan 11, 2025 10:00 AM AMBULATORY - NONE Prabhjot [facility] Active, Pending, and Scheduled Orders This section includes a listing of several types of active, pending, and scheduled orders, including clinic medications orders, diagnostic test orders, procedure orders and consult orders; where the start date of the order is 45 days before the date of the Encounter or 45 days after the date of theEncounter. The data comes from all [place] treatment facilities. Test Date/Time Test Type Test Details Facility Name August 03, 2024 10:35 AM Consult Order [facility] Cons Technical Training Instructor's Choice [place] [facility] [place] [facility] Vital Signs: All taken on the encounter date This section contains inpatient and outpatient Vital Signs collected on the date of the Encounter. Date/Time Temperature Pulse Blood Pressure Respiratory Rate SP02 Pain Height Weight Body Mass Index Source August 03, 2024 10:18 AM 97.9 63 138/62 16 2 [place] [facility] [place] [facility] Social History: Smoking Status (Most current) and Tobacco Use (All prior to encounter date) This section includes the most current, and the historical, smoking and tobacco- related health factors from the [place] facility where the Encounter took place. Current Smoking Status This section includes the most current smoking, or tobacco-related health factor, from the [place] facility where the Encounter took place. Date/Time Current Smoking Status Comment [facility] it Jun 18, 2024 07:00 AM VA-TOBACCO NEVER U SED OTHER TYPE [place] [facility] [place] [facility] Tobacco Use History This section includes a history of the smoking, or tobacco-related health factors, that were collected on or before the date of the Encounter. The data comes from the [place] facility where the Encounter took place. Date/Time Smoking Status/Tobac co Use Comment Facility Jun 18, 2024 07:00 AM VA-TOBACCO USE FORMER CIGARETTES [place] [facility] [place] [facility] Jun 13, 2023 07:00 AM VA-TOBACCO FORMER USER [place] [facility] [place] [facility] Jun 13, 2023 07:00 AM VA-TOBACCO QUIT 15 YRS OR MORE [place] [facility] [place] [facility] Jul 12, 2022 07:00 AM VA-TOBACCO FORMER USER [place] [facility] [place] [facility] Jul 12, 2022 07:00 AM VA-TOBACCO QUIT 15 YRS OR MORE [facility] August 03, 2021 07:00 AM VA-TOBACCO FORMER USER [place] [facility] [place] [facility] August 03, 2021 07:00 AM VA-TOBACCO QUIT 5 TO < 15 YRS [place] [facility] [place] [facility] August 03, 2020 07:00 AM VA-TOBACCO FORMER USER [place] [facility] [place] [facility] August 03, 2020 07:00 AM VA-TOBACCO QUIT 15 YRS OR MORE [facility] [place] [facility] August 18, 2019 12:47 PM VA-TOBACCO FORMER USER [facility] [place] [facility] August 18, 2019 12:47 PM VA-TOBACCO QUIT 15 YRS OR MORE [facility] [place] [facility] Jul 08, 2018 11:08 AM VA-TOBACCO FORMER USER [facility] [place] [facility] Jul 08, 2018 11:08 AM VA-TOBACCO QUIT 15 YRS OR MORE [facility] [place] [facility] Jul 16, 2017 08:53 AM LIFETIME NON-TOBACCO USER [facility] [place] [facility] Jul 10, 2016 10:25 AM QUIT TOBACCO USE > 7 YEARS AGO [facility] [place] [facility] Mar 11, 2015 08:33 AM QUIT TOBACCO USE > 7 YEARS AGO [facility] [place] [facility] Jun 26, 2012 08:26 AM LIFETIME NON-TOBACCO USER [facility] [place] [facility] Aug 30, 2010 09:04 AM QUIT TOBACCO USE 1-7 YEARS AGO [facility] [place] [facility] August 19, 2009 08:25 AM QUIT TOBACCO USE 1-7 YEARS AGO 1 + years ago [facility] [place] [facility] Jul 01, 2008 03:42 PM QUIT TOBACCO USE IN PAST YEAR [place] [facility] [place] [facility] Jul 01, 2008 02:29 PM QUIT TOBACCO USE IN PAST YEAR QUIT 2007 [place] [facility] [place] [facility] Mar 20, 2001 09:17 AM CURRENT SMOKER not able to quit [place] [facility] [place] [facility] Radiology Reports: +/- 30 days of the encounter Radiology Reports For cases when an order for radiology services may have been completed prior to the date of the Encounter, the report list includes the Radiology Reports that were completed up to 30 days before dateof the Encounter. For cases when an order for radiology services may have been completed after the date of the Encounter, the report list also includes the Radiology Reports that were completed up to30 days after date of the Encounter. The data comes from all [place] treatment facilities. Date/Time Radiology Report Provider Source August 03, 2024 10:49 AM HAND 3 OR MORE VIEWS(LEFT): VELASQUEZ CALVO [id number] -[id number] M Ex Date: AUGUST 03, 2024@10:49 Req Phys: MAGALI HUMPHREY Pat Loc: [facility] SICK CALL PA (Req'g Loc) Img Loc: [facility]/BUILDING 1 Service: [place] [id number] (Case 23 COMPLETE) HAND 3 OR MORE VIEWS(LEFT) (RAD Detailed) CPT:82620 Reason for Study: Left hand pain Clinical History: Duputren's early onset Report Status: Verified Date Reported: AUGUST 03, 2024 Date Verified: AUGUST 03, 2024 Power Crane Operator E-Sig:/ES/LONG WILLINGHAM JR Report: Study: AP, lateral and oblique views of the left hand. Comparison: None. Findings: Small punctate ovoid calcification medial to the left fourth DIP joint space and also smaller similar appearing calcification medial to the left third DIP joint space could represent dystrophic calcification. Trace vascular calcification seen at the wrist. No significant soft tissue swelling or radiopaque foreign body is identified. Mild to moderate degenerative osteoarthritic changes present to the first CMC joint space. Mild degenerative osteoarthritic changes again seen to the radiocarpal joint space. Mild narrowing is seen to the second and third MCP joints as well, with maintenance of the remaining left hand joint spaces. No acute bony abnormality is seen. Flexion contracture deformity of the left fifth finger. Impression: No acute bony abnormality, as described above. Primary Diagnostic Code: No immediate attention required Primary Interpreting Staff: LONG WILLINGHAM JR, Radiologist (Power Crane Operator) /LONG DAVIS JR [facility] Encounter Notes: All associated encounter notes This section contains the clinical notes associated to the Encounter. Date/Time Encounter Note(s) Provider Source August 03, 2024 10:18 AM PRIMARY CARE OUTPATIENT NOTE: LOCAL TITLE: AMBULATORY/OUTPATIENT CARE NOTE STANDARD TITLE: PRIMARY CARE OUTPATIENT NOTE DATE OF NOTE: AUGUST 03, 2024@10:18 ENTRY DATE: AUGUST 03, 2024@10:18:11 AUTHOR: LASHON LY COSIGNER: URGENCY: STATUS: COMPLETED F: Walk In D/A: Vet presents to primary care with complaint of left hand/finger pain for the past 3 weeks. Vet reports pain to hand with grasping/gripping and other movements. States pain on pad of hand just below fingers, slight swelling. with certain grasping movements he feels sharp 3/10 px there that extends down middle finger. Vet also reports numbness to all fingers, not thumb. Vet reports pain resolves with rest. Vet with history of Arthritis in right hand, he is right hand dominant. On exam slight swelling just under fingers on left hand, not tender to touch. ROM intact, PMS intact. R: Vet to see [place] provider today /deborah/ LASHON LY MSN, RN, CNL Primary Care RN Signed: 08/03/2024 10:30 LASHON LY [place] [facility]
--- OUTSIDE RECORDS SUMMARY | 2024-08-11 11:30 | XMS_ITS | Encounter Summary ---
Author Name [facility] [place] Organization [place] Address [address] [place] [address] Care Team Providers Care Dining Room Host/Hostess Name Role Phone PAULETTE MIRZA Primary Care Provider Unavaila [facility] Insurance Providers: All historical and current Section Date Range: From patient's date of to the date document was created. This section includes the names of all active insurance providers for the patient. Insurance Provider Type of Coverage Plan Name Start of Policy Coverage End of Policy Coverage Group Number Member ID Insurance Provider's Telephone Number Policy Galenao's Name Patient's Relationship to Policy Galeano [facility] (WNR) MEDICARE ADVANTAGE [place] PPOD VALUE DB DS Mar 25, 2017 [id number] [phone] LUBNAJu STALLWORTH PATIENT [facility] (WNR) MEDICARE ADVANTAGE [facility] (WNR) Mar 25, 2017 [id number] LUBNAJuMARIOLA PATIENT [facility] HIGH DEDUCTIBL E HEALTH PLAN [employer] HDHP Oct 01, 2014 PPO [id number] LUBNAJuMARIOLA PATIENT [employer] PRESCRIPT ION Oct 01, 2014 NO GROUP NUMBER [id number] LUBNAJuMARIOLA PATIENT [facility] Oct 01, 2014 [id number] Ju CALVO PATIENT Selected Encounter This section includes the information on record at [place] for the Encounter. Date/Time Encounter Type Encounter Description Reason Provider Source Jul 09, 2024 07:00 AM PSYTX W PT 45 MINUTES [facility] - IND ICD-10-CM F43.12 Post-traumatic stress disorder, chronic CONI ALONZO E Encounter Template Text not used by [place] Assessments - Encounter Diagnoses This section includes the primary and secondary diagnoses documented for the Encounter. Date/Time Primary/Secondary Diagnosis Diagnosis Name Provider Source Jul 09, 2024 07:47 AM PRIMARY Post-traumatic stress disorder, chronic CONI ALONZO [place] [facility] [place] [facility] Jul 09, 2024 07:47 AM SECONDARY Essential tremor CONI ALONZO [place] [facility] [place] [facility] Plan of Treatment: Future Appointments (+ 6 months) and Future Tests (+/- 45 days) The Plan of Treatment section includes future care activities for the patient from all [place] [facility]. This section includes future appointments and future orders which are active, pending or scheduled. Future Appointments This section includes appointments that were scheduled to occur 6 months from the date of the Encounter, up to a maximum of 20 appointments. The data comes from all [place] treatment facilities. Appointment Date/Time Appointment Type Appointme nt Facility Name July 23, 2024 07:00 AM AMBULATORY - PSYCHIATRY [place] [facility] [place] [facility] August 03, 2024 10:30 AM AMBULATORY - MEDICINE PA C [facility] [place] [facility] August 13, 2024 07:00 AM AMBULATORY - PSYCHIATRY [place] [facility] [place] [facility] Sep 01, 2024 10:30 AM AMBULATORY - NEUROLOGY [facility] Sep 02, 2024 08:30 AM AMBULATORY - PSYCHIATRY [place] [facility] [place] [facility] Sep 03, 2024 11:00 AM AMBULATORY - MEDICINE [place] C [facility] [place] [facility] Oct 02, 2024 11:00 AM AMBULATORY - MEDICINE [place] [facility] [place] [facility] Oct 06, 2024 10:00 AM AMBULATORY - PSYCHIATRY [place] [facility] [place] [facility] Oct 29, 2024 07:00 AM AMBULATORY - PSYCHIATRY [place] [facility] [place] [facility] Nov 19, 2024 07:00 AM AMBULATORY - PSYCHIATRY [place] [facility] [place] [facility] Dec 10, 2024 07:00 AM [facility] [place] [facility] Active, Pending, and Scheduled Orders [...] AM Consult Order [facility] Cons Program Manager Rn's [facility] [place] [facility] Social History: Smoking Status (Most [...] took place. Date/Time Current Smoking Status Comment [facility] ailyn Jun 18, 2024 07:00 AM VA-TOBACCO NEVER U SED OTHER TYPE [facility] Tobacco Use History This section includes a history of the smoking, or tobacco-related health factors, that were collected on or before the date of the Encounter. The data comes from the [place] facility where the Encounter took place. Date/Time Smoking Status/Tobac co Use Comment Facility Jun 18, 2024 07:00 AM VA-TOBACCO USE FORMER CIGARETTES [place] [facility] [place] [facility] Jun 13, 2023 07:00 AM VA-TOBACCO FORMER USER [place] [facility] [place] [facility] Jun 13, 2023 07:00 AM VA-TOBACCO QUIT 15 YRS OR MORE [place] [facility] [place] [facility] Jul 12, 2022 07:00 AM VA-TOBACCO FORMER USER [place] [facility] [place] [facility] Jul 12, 2022 07:00 AM VA-TOBACCO QUIT 15 YRS OR MORE [place] [facility] [place] [facility] August 03, 2021 07:00 AM VA-TOBACCO FORMER USER [place] [facility] [place] [facility] August 03, 2021 07:00 AM VA-TOBACCO QUIT 5 TO < 15 YRS [facility] [place] [facility] August 03, 2020 07:00 AM VA-TOBACCO FORMER USER [facility] [place] [facility] August 03, 2020 07:00 AM VA-TOBACCO QUIT 15 YRS OR MORE [place] [facility] [place] [facility] August 18, 2019 12:47 PM VA-TOBACCO FORMER USER [facility] [place] [facility] August 18, 2019 12:47 PM VA-TOBACCO QUIT 15 YRS OR MORE [place] [facility] [place] [facility] Jul 08, 2018 11:08 AM VA-TOBACCO FORMER USER [place] [facility] [place] [facility] Jul 08, 2018 11:08 AM VA-TOBACCO QUIT 15 YRS OR MORE [place] [facility] [place] [facility] Jul 16, 2017 08:53 AM LIFETIME NON-TOBACCO USER [place] [facility] [place] [facility] Jul 10, 2016 10:25 AM QUIT TOBACCO USE > 7 YEARS AGO [place] [facility] [place] [facility] Mar 11, 2015 08:33 AM QUIT TOBACCO USE > 7 YEARS AGO [facility] [place] [facility] Jun 26, 2012 08:26 AM LIFETIME NON-TOBACCO USER [place] [facility] [place] [facility] Aug 30, 2010 09:04 AM QUIT TOBACCO USE 1-7 YEARS AGO [facility] [place] [facility] August 19, 2009 08:25 AM QUIT TOBACCO USE 1-7 YEARS AGO 1 + years ago [place] [facility] [place] [facility] Jul 01, 2008 03:42 PM QUIT TOBACCO USE IN PAST YEAR [facility] [place] [facility] Jul 01, 2008 02:29 PM QUIT TOBACCO USE IN PAST YEAR QUIT 2007 [place] [facility] [place] [facility] Mar 20, 2001 09:17 AM CURRENT SMOKER not able to quit [place] [facility] [place] [facility] Radiology Reports: +/- 30 days of the [...] the Encounter. The data comes from all [place] treatment facilities. Date/Time Radiology Report Provider Source August 03, 2024 10:49 AM HAND 3 OR MORE VIEWS(LEFT): VELASQUEZ CALVO [id number] -[id number] M Exm Date: AUGUST 03, 2024@10:49 Req Phys: MAGALI HUMPHREY Pat Loc: [facility] SICK CALL [place] (Req'g Loc) Img Loc: [facility]/BUILDING 1 Service: Unknown [facility] [address] (Case 23 COMPLETE) HAND 3 OR MORE VIEWS(LEFT) (RAD Detailed) CPT:58102 Reason for Study: Left hand pain Clinical History: Duputren's early onset Report Status: Verified Date Reported: AUGUST 03, 2024 Date Verified: AUGUST 03, 2024 Cow Washer E-Sig:/ES/LONG WILLINGHAM JR Report: Study: AP, lateral [...] Primary Interpreting Staff: LONG WILLINGHAM JR, Radiologist (Cow Washer) /LONG DAVIS JR [facility] Encounter Notes: All associated encounter notes This section contains the clinical notes associated to the Encounter. Date/Time Encounter Note(s) Provider Source Jul 09, 2024 06:45 AM TELEHEALTH NOTE: LOCAL TITLE: PA VIDEO CONNECT PSYCHOLOGY NOTE STANDARD TITLE: TELEHEALTH NOTE DATE OF NOTE: JUL 09, 2024@06:45 ENTRY DATE: JUL 09, 2024@06:45:21 AUTHOR: CONI ALONZO COSIGNER: URGENCY: STATUS: COMPLETED A Video Connect (VVC) Standard Documentation VVC Clinician Resources Only: E911 (Emergency Call Relay Center): [phone] National Veterans Crisis Line - (3-971-968-TALK) press #1. [facility] Suicide Coordinator [phone], Ext. [phone]; Back-up Ext. [phone] Public Health Microbiologist of the Day(AOD), Aleksandra ESPARZA [phone], Ext. [phone] Introduction: Visit is being conducted by [place] Video Connect. [place] identified with 2 identifiers: [X] Full Name [X] Date of [ ] VA ID Card Emergency Plan: confirmed and/or provided the following information in case of emergency or technology failure. PATIENT PHONE - PHONE NUMBER [CELLULAR] - Is patient phone number correct, if not, enter below: 's phone number: VELASQUEZ CALVO [phone] [place] [address] 's present location and address for appointment: [address] [place] [address] 's emergency contact name and phone number: Irene Leon [phone] reported that location is private and safe: Yes Informed Consent: informed of the risks and benefits of Telehealth video care. [place] has the right to refuse video services. If refuses video visit, a [id number] visit will be scheduled. verbalized consent for this video visit: Yes [place] provided consent for any other persons present for visit: N/A If yes, who and relationship to patient: Secure visit: Visit was locked for security and privacy: Yes VISIT DURATION 45 minutes DIAGNOSES: PTSD, Chronic; Features of OCPD Essential Tremor PRESENTING PROBLEMS: has some initial difficulty logging on and we resumed treatment as usual, covering updates to a recent family loss and more. SESSION FOCUS: reported on updates to recent of his son-in-law due to alcoholism, after a tumultuous series of events involving the son's drinking and discord with Sary's step daughter. We reviewed how he and others involved are grieving this complicated loss. He reported that I was more bothered at first, but my is haunted more by it in the morning. He described that his daughter and granddaughter are haunted by it as well. Sary was able to discuss more about they mean by haunted , which involved the fact that all of his stuff is all over the house and she hasn't gotten rid of it . spoke about that this will bother him to see when they come back to [place] in July. After discussing his distress around what they will face regarding the aforementioned situation, we discussed how he is feeling about his annual trip back to [place]. Sary seems to be getting better at striking a balance between stress of it all and trying to manage his relaxation. Though he does usually lean towards anxiety related to PTSD. We ended with a discussion about various medical and mental health related updates and points. Sary shared some minor concern about his memory lately. Given that he has a neurology appointment for his tremor on 09/01 in [place], [place] it was recommended that he ask about this as well. Alternatively when he comes to see this provider in person for the 10/06 appointment, a MOCA can be given. Psychoeducation about age related cog. decline was given and he was encouraged not to worry too much about it, as his complaints appear WNL. Discussion about healthy strategies of cardiovascular exercise and new learning/ cognitive tasks was had as well for perseveration of functioning. ASSESSMENT: BRIEF ASSESSMENT OF MENTAL STATUS: 1. [...] current suicidal/homicidal ideation FREQUENCY: every 3 weeks [facility] @ 7am Leave for [place] in July 2024 /edborah/ Coni Alonzo PsyD Staff Psychologist Signed: 07/09/2024 07:48 CONI ALONZO [facility]
--- OUTSIDE RECORDS SUMMARY | 2024-08-11 11:30 | XMS_ITS | Encounter Summary ---
Author Name [facility] Organization [facility] Address [address] [place] [address] Care Team Providers Care Early Years Teacher Name Role Phone PAULETTE MIRZA Primary Care Provider [facility] Insurance Providers: All historical and current Section Date Range: From patient's date of to the date document was created. This section includes the names of all active insurance providers for the patient. Insurance Provider Type of Coverage Plan Name Start of Policy Coverage End of Policy Coverage Group Number Member ID Insurance Provider's Telephone Number Policy Galeano's Name Patient's Relationship to Policy Galeano [facility] (WNR) MEDICARE ADVANTAGE DE PPOD VALUE DB DS Mar 25, 2017 [id number] [phone] LUBNAJu [employer] PATIENT [facility] (WNR) MEDICARE ADVANTAGE [facility] (WNR) Mar 25, 2017 [id number] LUBNAJuMARIOLA PATIENT [facility] [employer] Oct 01, 2014 PPO [id number] LUBNAJuMARIOLA PATIENT [employer] PRESCRIPT ION Oct 01, 2014 NO GROUP NUMBER [id number] LUBNAJuMARIOLA PATIENT [facility] Oct 01, 2014 [id number] [phone] Ju CALVOMARIOLA PATIENT Selected Encounter This section includes the information on record at MD for the Encounter. Date/Time Encounter Type Encounter Description Reason Provider Source Nov 21, 2023 07:00 AM PSYTX W PT 45 [facility]ES [facility] - IND ICD-10-CM F43.12 Post-traumatic stress disorder, chronic ADDISON ALONZO E Encounter Template Text not used by MD Assessments - Encounter Diagnoses This section includes the primary and secondary diagnoses documented for the Encounter. Date/Time Primary/Secondary Diagnosis Diagnosis Name Provider Source Nov 21, 2023 07:54 AM PRIMARY Post-traumatic stress disorder, chronic ADDISON ALONZO [facility] [place] [facility] Plan of Treatment: Future Appointments (+ 6 months) and Future Tests (+/- 45 days) The Plan of Treatment section includes future care activities for the patient from all MD treatmentfacilities. This section includes future appointments and future orders which are active, pending or scheduled. Future Appointments This section includes appointments that were scheduled to occur 6 months from the date of the Encounter, up to a maximum of 20 appointments. The data comes from all MD treatment facilities. Appointment Date/Time Appointment Type Appointme nt Facility Name Dec 05, 2023 10:00 AM AMBULATORY - REHAB MEDICIN E MD [facility] [place] [facility] Dec 12, 2023 07:00 AM AMBULATORY - PSYCHIATRY MD [facility] [place] [facility] Jan 02, 2024 07:00 AM AMBULATORY - PSYCHIATRY [facility] [place] [facility] Jan 23, 2024 07:00 AM AMBULATORY - PSYCHIATRY [facility] [place] [facility] Feb 13, 2024 07:00 AM AMBULATORY - PSYCHIATRY [facility] [place] [facility] Mar 05, 2024 07:00 AM AMBULATORY - PSYCHIATRY MD [facility] [place] [facility] Mar 26, 2024 07:00 AM AMBULATORY - PSYCHIATRY MD [facility] [place] [facility] Apr 16, 2024 07:00 AM AMBULATORY - PSYCHIATRY MD [facility] [place] [facility] May 07, 2024 07:00 AM AMBULATORY - PSYCHIATRY [facility] [place] [facility] Active, Pending, and Scheduled Orders This section includes a listing of several types of active, pending, and scheduled orders, including clinic medications orders, diagnostic test orders, procedure orders and consult orders; where the start date of the order is 45 days before the date of the Encounter or 45 days after the date of theEncounter. The data comes from all MD treatment facilities. Test Date/Time Test Type Test Details Facility Name Nov 04, 2023 03:12 PM Consult Order DERMATOLOG Y/[facility] (OUTPT) Cons Professor Of Religious Studies's Choice MD [facility] [place] [facility] Social History: Smoking Status (Most current) and Tobacco Use (All prior to encounter date) This section includes the most current, and the historical, smoking and tobacco- related health factors from the MD facility where the Encounter took place. Current Smoking Status This section includes the most current smoking, or tobacco-related health factor, from the MD facility where the Encounter took place. Date/Time Current Smoking Status Comment [facility] Jun 13, 2023 07:00 AM [facility] [place] [facility] Tobacco Use History This section includes a history of the smoking, or tobacco-related health factors, that were collected on or before the date of the Encounter. The data comes from the MD facility where the Encounter took place. Date/Time Smoking Status/Tobac co Use Comment Facility Jun 13, 2023 07:00 AM VA-TOBACCO QUIT 15 YRS OR MORE [facility] [place] [facility] Jul 12, 2022 07:00 AM VA-TOBACCO FORMER USER MD [facility] [place] [facility] Jul 12, 2022 07:00 AM VA-TOBACCO QUIT 15 YRS OR MORE [facility] [place] [facility] August 03, 2021 07:00 AM VA-TOBACCO FORMER USER MD [facility] [place] [facility] August 03, 2021 07:00 AM VA-TOBACCO QUIT 5 TO < 15 YRS [facility] [place] [facility] August 03, 2020 07:00 AM VA-TOBACCO FORMER USER [facility] [place] [facility] August 03, 2020 07:00 AM VA-TOBACCO QUIT 15 YRS OR MORE [facility] [place] [facility] August 18, 2019 12:47 PM VA-TOBACCO FORMER USER MD [facility] [place] [facility] August 18, 2019 12:47 PM VA-TOBACCO QUIT 15 YRS OR MORE [facility] [place] [facility] Jul 08, 2018 11:08 AM VA-TOBACCO FORMER USER MD [facility] [place] [facility] Jul 08, 2018 11:08 AM VA-TOBACCO QUIT 15 YRS OR MORE [facility] [place] [facility] Jul 16, 2017 08:53 AM LIFETIME NON-TOBACCO USER [facility] [place] [facility] Jul 10, 2016 10:25 AM QUIT TOBACCO USE > 7 YEARS AGO MD [facility] [place] [facility] Mar 11, 2015 08:33 AM QUIT TOBACCO USE > 7 YEARS AGO MD [facility] [place] [facility] Jun 26, 2012 08:26 AM LIFETIME NON-TOBACCO USER MD [facility] [place] [facility] Aug 30, 2010 09:04 AM QUIT TOBACCO USE 1-7 YEARS AGO MD [facility] [place] [facility] August 19, 2009 08:25 AM QUIT TOBACCO USE 1-7 YEARS AGO 1 + years ago [facility] [place] [facility] Jul 01, 2008 03:42 PM QUIT TOBACCO USE IN PAST YEAR MD [facility] [place] [facility] Jul 01, 2008 02:29 PM QUIT TOBACCO USE IN PAST YEAR QUIT 2007 MD [facility] [place] [facility] Mar 20, 2001 09:17 AM CURRENT SMOKER not able to quit MD [facility] [place] [facility] Encounter Notes: All associated encounter notes This section contains the clinical notes associated to the Encounter. Date/Time Encounter Note(s) Provider Source Nov 21, 2023 06:45 AM TELEHEALTH NOTE: LOCAL TITLE: [facility] PSYCHOLOGY NOTE STANDARD TITLE: TELEHEALTH NOTE DATE OF NOTE: NOV 21, 2023@06:45 ENTRY DATE: NOV 21, 2023@06:45:27 AUTHOR: ADDISON ALONZO COSIGNER: URGENCY: STATUS: COMPLETED [facility] ([facility]) Standard Documentation VVC Clinician Resources Only: E911 (Emergency Call Relay Center): [phone] [facility] Line - ([phone]) press #1. CW Suicide Coordinator [phone], Ext. [phone]; Back-up Ext. [phone] Facs Teacher of the Day(AOD), Aleksandra ESPARZA [phone], Ext. [phone] Introduction: Visit is being conducted by [facility] Video Connect. identified with 2 identifiers: [X] Full Name [X] Date of [ ] VA ID Card Emergency Plan: confirmed and/or provided the following information in case of emergency or technology failure. PATIENT PHONE - PHONE NUMBER [CELLULAR] - Is patient phone number correct, if not, enter below: 's phone number: VELASQUEZ CALVO [address] [place] [address] 's present location and address for appointment: [address] [place] [address] 's emergency contact name and phone number: Cally Leon [phone] [place] reported that location is private and safe: Yes Informed Consent: informed of the risks and benefits of Telehealth video care. [place] has the right to refuse video services. If refuses video visit, a adue-ke-ojut visit will be scheduled. verbalized consent for this video visit: Yes provided consent for any other persons present for visit: N/A If yes, who and relationship to patient: Secure visit: Visit was locked for security and privacy: Yes VISIT DURATION 43 minutes DIAGNOSES: PTSD, Chronic; Features of OCP[facility] PRESENTING PROBLEMS: Sary presented on time to today's session and we resumed treatment as usual and in addition to reviewing psychosocial updates, we discussed his recent stress management progress. SESSION FOCUS: Sary shared, all we do is run around here . We discussed how this is because they have all of their medical providers in [place] so they end up attending to everything while they are here for the season. Relatedly, Sary reportedly was very sick with GI symptoms and fever, over the course of several days. Since then however he has reportedly started to recover. 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 expressed his feelings of frustration about the person not graduating. However [place] also recognized that he was able to help him make the right choice. They return to [place] on January 06. We discussed how they are doing with plans for travel. Most importantly, we discussed how he is doing with stress management and resisting the urge to link or be rigid. was encouraged to consider back up plan options in the event that his current travel plans get changed for unexpected reasons, so that he does not rigidly try to stick to the original goal. He agreed with this and knew of several hotel options that he could try if needed. ASSESSMENT: BRIEF ASSESSMENT OF MENTAL STATUS: 1. [...] FREQUENCY: every 3 weeks VVC @ 7am /deborah/ Addison Alonzo PsyD Staff Psychologist Signed: 11/21/2023 07:54 ADDISON ALONZO [facility]
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
--- OUTSIDE RECORDS SUMMARY | 2024-08-11 11:30 | XMS_ITS | Encounter Summary ---
Author Name [facility] [place] [facility] [place] [facility] [place] Address [address] [place] [address] Care Team Providers Care Steam Turbine Operator Name Role Phone PAULETTE MIRZA Primary Care Provider Unavaila [facility] Insurance Providers: All historical and current [...] Galeano's Name Patient's Relationship to Policy Galeano [facility] (WNR) MEDICARE ADVANTAGE OR PPOD VALUE DB DS Mar 25, 2017 [id number] LUBNAJu STALLWORTH PATIENT [facility] (WNR) MEDICARE ADVANTAGE [facility] (WNR) Mar 25, 2017 [id number] [phone] LUBNAJuMARIOLA PATIENT [facility] HIGH DEDUCTIBL E HEALTH PLAN [employer] HDHP Oct 01, 2014 PPO [id number] LUBNAJuMARIOLA PATIENT [employer] PRESCRIPT ION Oct 01, 2014 NO GROUP NUMBER [id number] LUBNAJuMARIOLA PATIENT [facility] Oct 01, 2014 [id number] Ju CALVOMARIOLA PATIENT Selected Encounter This section includes the information on record at [place] for the Encounter. Date/Time Encounter Type Encounter Description Reason Provider Source Oct 31, 2023 07:00 AM PSYTX W PT 45 MINUTES [facility] - IND ICD-10-CM F43.12 Post-traumatic stress disorder, chronic ADDISON ALONZO E Encounter Template Text not used by [place] Assessments - Encounter Diagnoses This section includes the primary and secondary diagnoses documented for the Encounter. Date/Time Primary/Secondary Diagnosis Diagnosis Name Provider Source Oct 31, 2023 07:45 AM PRIMARY Post-traumatic stress disorder, chronic ADDISON ALONZO [facility] Plan of Treatment: Future Appointments (+ 6 months) and Future Tests (+/- 45 days) The Plan of Treatment section includes future care activities for the patient from all [place] treatmentfacilities. This section includes future appointments and future orders which are active, pending or scheduled. Future Appointments This section includes appointments that were scheduled to occur 6 months from the date of the Encounter, up to a maximum of 20 appointments. The data comes from all [place] treatment facilities. Appointment Date/Time Appointment Type Appointme nt Facility Name Nov 21, 2023 07:00 AM AMBULATORY - PS[facility]CHIATRY [facility] Dec 05, 2023 10:00 AM AMBULATORY - [facility] MEDICIN [facility] Dec 12, 2023 07:00 AM AMBULATORY - PS[facility]CHIATRY [facility] Jan 02, 2024 07:00 AM AMBULATORY - PS[facility]CHIATRY [facility] Jan 23, 2024 07:00 AM AMBULATORY - PS[facility]CHIATRY [facility] Feb 13, 2024 07:00 AM AMBULATORY - PS[facility]CHIATRY [facility] Mar 05, 2024 07:00 AM AMBULATORY - PS[facility]CHIATRY [facility] Mar 26, 2024 07:00 AM AMBULATORY - PSYCHIATRY [facility] Apr 16, 2024 07:00 AM AMBULATORY - PS[facility]CHIATRY [facility] Active, Pending, and Scheduled Orders This section includes a listing of several types of active, pending, and scheduled orders, including clinic medications orders, diagnostic test orders, procedure orders and consult orders; where the start date of the order is 45 days before the date of the Encounter or 45 days after the date of theEncounter. The data comes from all [place] treatment facilities. Test Date/Time Test Type Test Details Facility Name Nov 04, 2023 03:12 PM Consult Order DERMATOLOG Y/NHM (OUTPT) Cons Scrap Preparer's Choice [facility] Social History: Smoking Status (Most current) and Tobacco Use (All prior to encounter date) This section includes the most current, and the historical, smoking and tobacco- related health factors from the [place] facility where the Encounter took place. Current Smoking Status This section includes the most current smoking, or tobacco-related health factor, from the [place] facility where the Encounter took place. Date/Time Current Smoking Status Comment [facility] Jun 13, 2023 07:00 AM VA-TOBACCO QUIT 15 YRS OR MORE [facility] Tobacco Use History This section includes a history of the smoking, or tobacco-related health factors, that were collected on or before the date of the Encounter. The data comes from the [place] facility where the Encounter took place. Date/Time Smoking Status/Tobac co Use Comment Facility Jun 13, 2023 07:00 AM VA-TOBACCO QUIT 15 YRS OR MORE [facility] Jul 12, 2022 07:00 AM VA-TOBACCO FORMER USER [facility] Jul 12, 2022 07:00 AM VA-TOBACCO QUIT 15 YRS OR MORE [facility] August 03, 2021 07:00 AM VA-TOBACCO FORMER USER [facility] August 03, 2021 07:00 AM VA-TOBACCO QUIT 5 TO < 15 YRS [facility] August 03, 2020 07:00 AM VA-TOBACCO FORMER USER [facility] August 03, 2020 07:00 AM VA-TOBACCO QUIT 15 YRS OR MORE [facility] August 18, 2019 12:47 PM VA-TOBACCO FORMER USER [facility] August 18, 2019 12:47 PM VA-TOBACCO QUIT 15 YRS OR MORE [facility] Jul 08, 2018 11:08 AM VA-TOBACCO FORMER USER [facility] Jul 08, 2018 11:08 AM VA-TOBACCO QUIT 15 YRS OR MORE [facility] Jul 16, 2017 08:53 AM LIFETIME NON-TOBACCO USER [facility] Jul 10, 2016 10:25 AM QUIT TOBACCO USE > 7 YEARS AGO [facility] Mar 11, 2015 08:33 AM QUIT TOBACCO USE > 7 YEARS AGO [facility] Jun 26, 2012 08:26 AM LIFETIME NON-TOBACCO USER [facility] Aug 30, 2010 09:04 AM QUIT TOBACCO USE 1-7 YEARS AGO [facility] August 19, 2009 08:25 AM QUIT TOBACCO USE 1-7 YEARS AGO 1 + years ago [facility] Jul 01, 2008 03:42 PM QUIT TOBACCO USE IN PAST YEAR [facility] Jul 01, 2008 02:29 PM QUIT TOBACCO USE IN PAST YEAR QUIT 2007 [facility] Mar 20, 2001 09:17 AM CURRENT SMOKER not able to quit [facility] Encounter Notes: All associated encounter notes This section contains the clinical notes associated to the Encounter. Date/Time Encounter Note(s) Provider Source Oct 31, 2023 06:51 AM TELEHEALTH NOTE: LOCAL TITLE: [facility] PSYCHOLOGY NOTE STANDARD TITLE: TELEHEALTH NOTE DATE OF NOTE: OCT 31, 2023@06:51 ENTRY DATE: OCT 31, 2023@06:51:23 AUTHOR: ADDISNO ALONZO COSIGNER: URGENCY: STATUS: COMPLETED [facility] Connect (VVC) Standard Documentation VVC Clinician Resources Only: E911 (Emergency Call Relay Center): [phone] [facility] Line - ([phone]) press #1. CW Suicide Coordinator [phone], Ext. [phone]; Back-up Ext. [phone] Tester Regulator of the Day(AOD), Aleksandra ESPARZA [phone], Ext. [phone] Introduction: Visit is being conducted by [place] [facility]. Warne identified with 2 identifiers: [X] Full Name [X] Date of [ ] VA ID Card Emergency Plan: confirmed and/or provided the following information in case of emergency or technology failure. PATIENT PHONE - PHONE NUMBER [CELLULAR] - Is patient phone number correct, if not, enter below: Warne's phone number: VELASQUEZ CALVO [address] [place] [address] Warne's present location and address for appointment: [address] [place] [address] 's emergency contact name and phone number: Cally Leon [phone] reported that location is private and safe: Yes Informed Consent: informed of the risks and benefits of Telehealth video care. Warne has the right to refuse video services. If refuses video visit, a [id number] visit will be scheduled. Warne verbalized consent for this video visit: Yes Warne provided consent for any other persons present for visit: N/A If yes, who and relationship to patient: Secure visit: Visit was locked for security and privacy: Yes VISIT DURATION 43 minutes DIAGNOSES: PTSD, Chronic; Features of OCPD PRESENTING PROBLEMS: presented on time to today's session and we resumed treatment as usual. SESSION FOCUS: Sary shared that he went for a hearing test yesterday and was informed that he will need hearing aids. We discussed his mixed emotions about this, though he is mostly optimistic about the potential benefit. 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 This led to a processing of how his rash has affected him over the past 1.5 years. Despite how depressing this reality is, he shared that I have hope still . He shared more about his trips to [place] and [facility]. Sary shared some recent stressors both at work and with his family. We spoke about how he is handling the stress around this. He elaborated that his step daughter's has continued to drink excessively and has just finally agreed to attend a 2 week rehabilitation program. Although he is happy that this finally happened, Warne expressed pessimism that it will work. 2 weeks is just not long enough. 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 We explored how Warne is handling this, particularly because the 's still reaching out to Abhilash via text. We processed how he can let go of responsibility around this, which he seems to be doing a good job with. ASSESSMENT: BRIEF ASSESSMENT OF MENTAL STATUS: 1. [...] FREQUENCY: every 3 weeks VVC @ 7am /es/ Addison Alonzo PsyD Staff Psychologist Signed: 10/31/2023 07:45 ADDISON ALONZO [facility]
--- OUTSIDE RECORDS SUMMARY | 2024-08-11 11:30 | XMS_ITS | Encounter Summary ---
Author Name [facility] [place] Address [address] [place] [address] Care Team Providers Care Sales Representative Aircraft Name Role Phone PAULETTE MIRZA Primary Care Provider Unavaila [facility] Insurance Providers: All historical and [...] Galeano's Name Patient's Relationship to Policy Galeano [facility] (WNR) MEDICARE ADVANTAGE CT PPOD VALUE DB DS Mar 25, 2017 [id number] LUBNAJu THOMPSONMARIOLA PATIENT [facility] (WNR) MEDICARE ADVANTAGE [facility] (WNR) Mar 25, 2017 [id number] LUBNAJu PATIENT [facility] HIGH DEDUCTIBL E HEALTH PLAN [employer] HDHP Oct 01, 2014 PPO [id number] LUBNAJu PATIENT [employer] PRESCRIPT ION Oct 01, 2014 NO GROUP NUMBER [id number] CALVOJu CORRALES PATIENT [facility] Oct 01, 2014 [id number] Ju CALVO PATIENT Selected Encounter This section includes the information on record at [place] for the Encounter. Date/Time Encounter Type Encounter Description Reason Provider Source Mar 26, 2024 12:01 PM CASE MANAGEMENT ADMIN PAT ACTIVTIES (ALESHANONCT) CARMENDEBORA Brenden Encounter Template Text not used by [place] Plan of Treatment: Future Appointments (+ 6 months) and Future Tests (+/- 45 days) The Plan of Treatment section includes future care activities for the patient from [facility] [place] [facility] This section includes future appointments and future orders which are active, pending or scheduled. Future Appointments This section includes appointments that were scheduled to occur 6 months from the date of the Encounter, up to a maximum of 20 appointments. The data comes from all [place] treatment [facility]. Appointment Date/Time Appointment Type Appointme nt Facility Name Apr 16, 2024 07:00 AM AMBULATORY - [facility]IATRY [place] [facility] [place] [facility] May 07, 2024 07:00 AM AMBULATORY - PSYCHIATRY [place] [facility] [place] [facility] Jun 18, 2024 07:00 AM AMBULATORY - PSYCHIATRY [place] [facility] [place] [facility] Jul 09, 2024 07:00 AM AMBULATORY - PSYCHIATRY [place] [facility] [place] [facility] July 23, 2024 07:00 AM AMBULATORY - PSYCHIATRY [place] [facility] [place] [facility] August 03, 2024 10:30 AM AMBULATORY - MEDICINE [place] [facility] [place] [facility] August 13, 2024 07:00 AM AMBULATORY - PSYCHIATRY [place] [facility] [place] [facility] Sep 01, 2024 10:30 AM AMBULATORY - NEUROLOGY [facility] Sep 02, 2024 08:30 AM AMBULATORY - PSYCHIATRY [place] [facility] [place] [facility] Sep 03, 2024 11:00 AM AMBULATORY - MEDICINE [place] [facility] [place] [facility] Active, Pending, and Scheduled Orders This section includes a listing of several types of active, pending, and scheduled orders, including clinic medications orders, diagnostic test orders, procedure orders and consult orders; where the start date of the order is 45 days before the date of the Encounter or 45 days after the date of theEncounter. The data comes from all [place] treatment [facility]. Test Date/Time Test Type Test Details Facility Name Apr 15, 2024 10:49 AM Consult Order COMMUNITY CARE-NEUROLOGY Cons Timber Harvester Operator's Choice [facility] Encounter Notes: All associated encounter notes This section contains the clinical notes associated to the Encounter. Date/Time Encounter Note(s) Provider Source Mar 26, 2024 12:01 PM CHEMICAL PROJECT ENGINEER NOTE: LOCAL TITLE: TRV COORDINATOR NOTE STANDARD TITLE: CHEMICAL PROJECT ENGINEER NOTE DATE OF NOTE: MAR 26, 2024@12:01 ENTRY DATE: MAR 26, 2024@12:01:57 AUTHOR: CALLY MORALES EXP COSIGNER: URGENCY: STATUS: COMPLETED IFC for neurology 's destination address: [address] [place] [address] [address] [place] [address] Gabriels's telephone number: [phone] Approximate date of departure: Dec Approximate date of return: July Name of Specialty Service: Please place separate TVC Consults for EACH Specialty Care/Consult request needing care coordination. Neurology Specific problem needing to be addressed by specialist: Bilateral Tremor /es/ CALLY MORALES RN Signed: 03/26/2024 12:03 CALLY MORALES [facility]
--- OUTSIDE RECORDS SUMMARY | 2024-08-11 11:30 | XMS_ITS | Encounter Summary ---
Author Name [facility] [place] Address [address] [place] [address] Care Team Providers Care Software Sales Executive Name Role Phone PAULETTE MIRZA Primary Care Provider Unavaila [facility] Insurance Providers: All historical and current [...] Galeano's Name Patient's Relationship to Policy Galeano [facility] (WNR) MEDICARE ADVANTAGE [place] PPOD VALUE DB DS Mar 25, 2017 [id number] LUBNAJu STALLWORTH PATIENT [facility] (WNR) MEDICARE ADVANTAGE [facility] (WNR) Mar 25, 2017 [id number] [phone] LUBNAJuMARIOLA PATIENT [facility] HIGH DEDUCTIBL E HEALTH PLAN [employer] HDHP Oct 01, 2014 PPO [id number] LUBNAJuMARIOLA PATIENT [employer] PRESCRIPT ION Oct 01, 2014 NO GROUP NUMBER [id number] LUBNAJuMARIOLA PATIENT [facility] Oct 01, 2014 [id number] CALVOJu BASIM PATIENT Selected Encounter This section includes the information on record at [place] for the Encounter. Date/Time Encounter Type Encounter Description Reason Provider Source Feb 13, 2024 07:00 AM PSYTX W PT 45 MINUTES [facility]ENTAL [facility] CLINIC - IND ICD-10-CM F43.12 Post-traumatic stress disorder, chronic CONI ALONZO E Encounter Template Text not used by [place] Assessments - Encounter Diagnoses This section includes the primary and secondary diagnoses documented for the Encounter. Date/Time Primary/Secondary Diagnosis Diagnosis Name Provider Source Feb 13, 2024 07:47 AM PRIMARY Post-traumatic stress disorder, chronic CONI ALON[facility] [place] [facility] Plan of Treatment: Future Appointments (+ 6 months) and Future Tests (+/- 45 days) The Plan of Treatment section includes future care activities for the patient from all [place] treatmentfacilities. This section includes future appointments and future orders which are active, pending or scheduled. Future Appointments This section includes appointments that were scheduled to occur 6 months from the date of the Encounter, up to a maximum of 20 appointments. The data comes from all [place] treatment facilities. Appointment Date/Time Appointment Type Appointme nt Facility Name Mar 05, 2024 07:00 AM AMBULATORY - PSYCHIATRY [facility] [place] [facility] Mar 26, 2024 07:00 AM AMBULATORY - PSYCHIATRY [facility] [place] [facility] Apr 16, 2024 07:00 AM AMBULATORY - PSYCHIATRY [facility] [place] [facility] May 07, 2024 07:00 AM AMBULATORY - PSYCHIATRY [facility] [place] [facility] Jun 18, 2024 07:00 AM AMBULATORY - PSYCHIATRY [facility] [place] [facility] Jul 09, 2024 07:00 AM AMBULATORY - PSYCHIATRY [facility] [place] [facility] July 23, 2024 07:00 AM AMBULATORY - PSYCHIATRY [facility] [place] [facility] August 03, 2024 10:30 AM AMBULATORY - MEDICINE [facility] [place] [facility] Social History: Smoking Status (Most current) and Tobacco Use (All prior to encounter date) This section includes the most current, and the historical, smoking and tobacco- related health factors from the [facility] facility where the Encounter took place. Current Smoking Status This section includes the most current smoking, or tobacco-related health factor, from the [place] facility where the Encounter took place. Date/Time Current Smoking Status Comment Yeimi robertson Jun 13, 2023 07:00 AM VA-TOBACCO FORMER USER [facility] [place] [facility] Tobacco Use History This section includes a history of the smoking, or tobacco-related health factors, that were collected on or before the date of the Encounter. The data comes from the [place] facility where the Encounter took place. Date/Time Smoking Status/Tobac co Use Comment Facility Jun 13, 2023 07:00 AM VA-TOBACCO QUIT 15 YRS OR MORE [facility] [place] [facility] Jul 12, 2022 07:00 AM VA-TOBACCO FORMER USER [facility] [place] [facility] Jul 12, 2022 07:00 AM VA-TOBACCO QUIT 15 YRS OR MORE [facility] [place] [facility] August 03, 2021 07:00 AM VA-TOBACCO FORMER USER [facility] [place] [facility] August 03, 2021 07:00 AM VA-TOBACCO QUIT 5 TO < 15 YRS [facility] [place] [facility] August 03, 2020 07:00 AM VA-TOBACCO FORMER USER [facility] [place] [facility] August 03, 2020 07:00 AM VA-TOBACCO QUIT 15 YRS OR MORE [facility] [place] [facility] August 18, 2019 12:47 PM VA-TOBACCO FORMER USER [facility] [place] [facility] August 18, 2019 12:47 PM VA-TOBACCO QUIT 15 YRS OR MORE [facility] [place] [facility] Jul 08, 2018 11:08 AM VA-TOBACCO FORMER USER [facility] [place] [facility] Jul 08, 2018 11:08 AM VA-TOBACCO QUIT 15 YRS OR MORE [facility] [place] [facility] Jul 16, 2017 08:53 AM LIFETIME NON-TOBACCO USER [facility] [place] [facility] Jul 10, 2016 10:25 AM QUIT TOBACCO USE > 7 YEARS AGO [facility] [place] [facility] Mar 11, 2015 08:33 AM QUIT TOBACCO USE > 7 YEARS AGO [facility] [place] [facility] Jun 26, 2012 08:26 AM LIFETIME NON-TOBACCO [facility] [place] [facility] Aug 30, 2010 09:04 AM QUIT TOBACCO USE 1-7 YEARS AGO [facility] [place] [facility] August 19, 2009 08:25 AM QUIT TOBACCO USE 1-7 YEARS AGO 1 + years ago [facility] [place] [facility] Jul 01, 2008 03:42 PM QUIT TOBACCO USE IN PAST YEAR [facility] [place] [facility] Jul 01, 2008 02:29 PM QUIT TOBACCO USE IN PAST YEAR QUIT 2007 [facility] [place] [facility] Mar 20, 2001 09:17 AM CURRENT SMOKER not able to quit [facility] [place] [facility] Encounter Notes: All associated encounter notes This section contains the clinical notes associated to the Encounter. Date/Time Encounter Note(s) Provider Source Feb 13, 2024 06:49 AM TELEHEALTH NOTE: LOCAL TITLE: [facility] VIDEO CONNECT PSYCHOLOGY NOTE STANDARD TITLE: TELEHEALTH NOTE DATE OF NOTE: FEB 13, 2024@06:49 ENTRY DATE: FEB 13, 2024@06:49:46 AUTHOR: CONI ALONZO COSIGNER: URGENCY: STATUS: COMPLETED [facility] Connect (VVC) Standard Documentation VVC Clinician Resources Only: E911 (Emergency Call Relay Center): [phone] [facility] Line - ([phone]) press #1. ISAIAS Suicide Coordinator [phone], Ext. [phone]; Back-up Ext. [phone] Etiquette Coach of the Day(AOD), Aleksandra ESPARZA [phone], Ext. [phone] Introduction: Visit is being conducted by [facility] [employer]. identified with 2 identifiers: [X] Full Name [X] Date of [ ] VA ID Card Emergency Plan: confirmed and/or provided the following information in case of emergency or technology failure. PATIENT PHONE - PHONE NUMBER [CELLULAR] - Is patient phone number correct, if not, enter below: 's phone number: VELASQUEZ CALVO [address] [place] [address] 's present location and address for appointment: [address] [place] [address] 's emergency contact name and phone number: Irene Leon [phone] [place] reported that location is private and safe: Yes Informed Consent: informed of the risks and benefits of Telehealth video care. has the right to refuse video services. If refuses video visit, a [id number] visit will be scheduled. verbalized consent for this video visit: Yes [place] provided consent for any other persons present for visit: N/A If yes, who and relationship to patient: Secure visit: Visit was locked for security and privacy: Yes VISIT DURATION 45 minutes DIAGNOSES: PTSD, Chronic; Features of OCPD PRESENTING PROBLEMS: Sary presented a few minutes late to today's session because he never got a VVC link. We resumed treatment as usual, working through psychosocial stressors and his ability to use mindfulness and relaxation skills. SESSION FOCUS: This provider checked in with him on various psychosocial stressors that have been going on for him recently. He reportedly picked up his at the airport yesterday, so he was relieved to have her back. He described how lonely it has been. He also reported that his neighbors have been drinking together often, and was proud to say that he has avoided joining them to consume excessive alcohol. Given his loneliness and lack of structure Sary was praised for his ability to not succumb to this temptation. Sary spoke proudly about his commitment to avoiding this, especially since he has a remote history of addiction. This led to some discussion of updates about his son-in-law's ongoing addiction problems. We discussed how he has been occupying his time over the last month. He has been trying to play golf and socialize a little. However [place] recognized that if he were to lose his partner he would likely isolate. He spoke about what he values about having her back and what they plan to do together. ASSESSMENT: BRIEF ASSESSMENT OF MENTAL STATUS: 1. [...] FREQUENCY: every 3 weeks VVC @ 7am Leave for [place] in July 2024 /deborah/ Coni Alonzo PsyD Staff Psychologist Signed: 02/13/2024 07:47 CONI ALONZO [facility] [place]
--- OUTSIDE RECORDS SUMMARY | 2024-08-11 11:30 | XMS_ITS | Encounter Summary ---
Author Name [facility] [place] Address [address] [place] [address] Care Team Providers Care Fluid Designer Name Role Phone PAULETTE MIRZA [facility] Insurance Providers: All historical and current [...] Galeano's Name Patient's Relationship to Policy Galeano [facility] (WNR) MEDICARE ADVANTAGE IN PPOD VALUE DB DS Mar 25, 2017 [id number] [phone] LUBNAuJ BASIM PATIENT [facility] (WNR) MEDICARE ADVANTAGE [facility] (WNR) Mar 25, 2017 [id number] CALVOJu PATIENT [facility] HIGH DEDUCTIBL E HEALTH PLAN [employer] HDHP Oct 01, 2014 PPO [id number] CALVOJu PATIENT [employer] PRESCRIPT ION Oct 01, 2014 NO GROUP NUMBER [id number] [phone] CALVOJu CORRALES PATIENT [facility] Oct 01, 2014 [id number] Ju CALVO PATIENT Selected Encounter This section includes the information on record at [place] for the Encounter. Date/Time Encounter Type Encounter Description Reason Provider Source Oct 30, 2023 10:00 AM HEARING AID EXAM BOTH EARS AUDIOLOGY ICD-10-CM H90.3 Sensorineural hearing loss, bilateral CAMINITI,EUGENIA E IHE Encounter Template Text not used by [facility] Assessments - Encounter Diagnoses This section includes the primary and secondary diagnoses documented for the Encounter. Date/Time Primary/Secondary Diagnosis Diagnosis Name Provider Source Oct 30, 2023 10:44 AM PRIMARY Sensorineural hearing loss, bilateral CAMINITI,EUGENIA E [facility] [place] [facility] Oct 30, 2023 10:44 AM SECONDARY Tinnitus, bilateral CAMINITI,EUGENIA E [facility] [place] [facility] Plan of Treatment: Future Appointments (+ 6 months) and Future Tests (+/- 45 days) The Plan of Treatment section includes future care activities for the patient from all [place] treatmentfacilities. This section includes future appointments and [...] AMBULATORY - PSYCHIATRY [facility] [place] [facility] Nov 21, 2023 07:00 AM AMBULATORY - PSYCHIATRY [facility] [place] [facility] Dec 05, 2023 10:00 AM AMBULATORY - REHAB MEDICIN E [facility] [place] [facility] Dec 12, 2023 07:00 AM AMBULATORY - PSYCHIATRY [facility] [place] [facility] Jan 02, 2024 07:00 AM AMBULATORY - PSYCHIATRY [facility] [place] [facility] Jan 23, 2024 07:00 AM AMBULATORY - PSYCHIATRY [facility] [place] [facility] Feb 13, 2024 07:00 AM AMBULATORY - PSYCHIATRY [facility] [place] [facility] Mar 05, 2024 07:00 AM AMBULATORY - PSYCHIATRY [facility] [place] [facility] Mar 26, 2024 07:00 AM AMBULATORY - PSYCHIATRY [facility] [place] [facility] Apr 16, 2024 07:00 AM [facility] Active, Pending, and Scheduled Orders This [...] PM Consult Order DERMATOLOG Y/NHM (OUTPT) Cons Ladle Liner Helper's Choice [facility] Social History: Smoking Status (Most current) [...] took place. Date/Time Current Smoking Status Comment [facility] it Jun 13, 2023 07:00 AM VA-TOBACCO FOR[facility] Tobacco Use History This section includes a history of the smoking, or tobacco-related health factors, that were collected on or before the date of the Encounter. The data comes from the [place] facility where the Encounter took place. Date/Time Smoking Status/Tobac co Use Comment Facility Jun 13, 2023 07:00 AM VA-TOBACCO QUIT 15 YRS OR MORE [place] [facility] [place] [facility] Jul 12, 2022 07:00 AM VA-TOBACCO FORMER USER [place] [facility] [place] [facility] Jul 12, 2022 07:00 AM VA-TOBACCO QUIT 15 YRS OR MORE [place] [facility] [place] [facility] August 03, 2021 07:00 AM VA-TOBACCO FORMER USER [place] [facility] [place] [facility] August 03, 2021 07:00 AM VA-TOBACCO QUIT 5 TO < 15 YRS [place] [facility] [place] [facility] August 03, 2020 07:00 AM VA-TOBACCO FORMER USER [place] [facility] [place] [facility] August 03, 2020 07:00 AM VA-TOBACCO QUIT 15 YRS OR MORE [place] [facility] [place] [facility] August 18, 2019 12:47 PM VA-TOBACCO FORMER USER [place] [facility] [place] [facility] August 18, 2019 12:47 PM VA-TOBACCO QUIT 15 YRS OR MORE [place] [facility] [place] [facility] Jul 08, 2018 11:08 AM VA-TOBACCO FORMER USER [place] [facility] [place] [facility] Jul 08, 2018 11:08 AM VA-TOBACCO QUIT 15 YRS OR MORE [place] [facility] [place] [facility] Jul 16, 2017 08:53 AM LIFETIME NON-TOBACCO USER [place] [facility] [place] [facility] Jul 10, 2016 10:25 AM QUIT TOBACCO USE > 7 YEARS AGO [place] [facility] [place] [facility] Mar 11, 2015 08:33 AM QUIT TOBACCO USE > 7 YEARS AGO [place] [facility] [place] [facility] Jun 26, 2012 08:26 AM LIFETIME NON-TOBACCO USER [place] [facility] [place] [facility] Aug 30, 2010 09:04 AM QUIT TOBACCO USE 1-7 YEARS AGO [place] [facility] [place] [facility] August 19, 2009 08:25 AM QUIT TOBACCO USE 1-7 YEARS AGO 1 + years ago [place] [facility] [place] [facility] Jul 01, 2008 03:42 PM QUIT TOBACCO USE IN PAST YEAR [place] [facility] [place] [facility] Jul 01, 2008 02:29 PM QUIT TOBACCO USE IN PAST YEAR QUIT 2007 [place] [facility] [place] [facility] Mar 20, 2001 09:17 AM CURRENT SMOKER not able to quit [place] [facility] [place] [facility] Encounter Notes: All associated encounter notes This section contains the clinical notes associated to the Encounter. Date/Time Encounter Note(s) Provider Source Oct 30, 2023 08:15 AM AUDIOLOGY E & M NO TE: LOCAL TITLE: AUDIOLOGY CLINIC STANDARD TITLE: AUDIOLOGY E & M NOTE DATE OF NOTE: OCT 30, 2023@08:15 ENTRY DATE: OCT 30, 2023@08:15:44 AUTHOR: EUGENIA ALDANA COSIGNER: URGENCY: STATUS: COMPLETED AUDIOLOGY CLINIC Has ADDENDA Gary was seen 10-30-23 for a hearing re-evaluation. Hearing was last evaluated in 2018. He has not used hearing aids before. He reports no otologic changes, noting longstanding tinnitus and denying vertigo. He states that hearing may have declined. Results are as follow: Otoscopy is WNL for both ears. Pure tone audiometric testing with headphones revealed normal hearing from 250-2000 Hz, sloping to a moderate sensorineural hearing loss bilaterally. Word recognition scores were good with 92% correct for each ear for recorded speech presented at 70 dB HL (40 EM). Normal tympanograms were obtained bilaterally. Results obtained today reflect decline in select thresholds for both ears in comparison to those from 2018. was counseled on today's test results. He is considered a candidate and eligible for hearing aids. Binaural rechargeable RICs with domes are recommended and agrees. He measured a 3, chose beige, and states he does not have a pacemaker. Fitting was scheduled for 12-05-23 at 10am, RTC placed. /deborah/ Campbell ROPER, [facility]-A STAFF MUSIC LEADER Signed: 10/30/2023 10:50 Receipt Acknowledged By: 10/30/2023 10:59 /deborah/ SHELLI HURTADO LEAD PROJECT ENGINEERING MANAGER 11/05/2023 ADDENDUM STATUS: COMPLETED Hearing aids received and certified, upcoming appointment scheduled on 12/05/2023. /deborah/ CAMERON LEONARD Audiology Health Despatching And Receiving Clerk Signed: 11/05/2023 07:52 EUGENIA ALDANA [facility]
--- OUTSIDE RECORDS SUMMARY | 2024-08-11 11:30 | XMS_ITS | Encounter Summary ---
Author Name [facility] [place] Address [address] [place] [address] Care Team Providers Care Mud Mill Tender Name Role Phone PAULETTE MIRZA Primary Care Provider Unavaila [facility] Insurance Providers: All historical and current [...] Galeano's Name Patient's Relationship to Policy Galeano [facility] (WNR) MEDICARE ADVANTAGE [place] PPOD VALUE DB DS Mar 25, 2017 [id number] LUBNAJu STALLWORTH PATIENT [facility] (WNR) MEDICARE ADVANTAGE [facility] (WNR) Mar 25, 2017 [id number] [phone] LUBNAJuMARIOLA PATIENT [facility] HIGH DEDUCTIBL E HEALTH PLAN [employer] Oct 01, 2014 PPO [id number] LUBNAJuMARIOLA PATIENT [employer] PRESCRIPT ION Oct 01, 2014 NO GROUP NUMBER [id number] LUBNAJuMARIOLA PATIENT [facility] Oct 01, 2014 [id number] Ju CALVO PATIENT Selected Encounter This section includes the information on record at [place] for the Encounter. Date/Time Encounter Type Encounter Description Reason Provider Source August 15, 2023 07:00 AM PSYTX W PT 45 MINUTES [facility] - IND ICD-10-CM F43.12 Post-traumatic stress disorder, chronic ADDISON ALONZO E Encounter Template Text not used by [place] Assessments - Encounter Diagnoses This section includes the primary and secondary diagnoses documented for the Encounter. Date/Time Primary/Secondary Diagnosis Diagnosis Name Provider Source August 15, 2023 07:45 AM PRIMARY Post-traumatic stress disorder, chronic ADDISON ALONZO [facility] [place] [facility] Plan of Treatment: Future Appointments (+ 6 months) and Future Tests (+/- 45 days) The Plan of Treatment section includes future care activities for the patient from all [place] treatmentfacilities. This section includes future appointments and future orders which are active, pending or scheduled. Future Appointments This section includes appointments that were scheduled to occur 6 months from the date of the Encounter, up to a maximum of 20 appointments. The data comes from all [place] treatment facilities. Appointment Date/Time Appointment Type Appointme nt Facility Name Oct 03, 2023 11:00 AM AMBULATORY - MEDICINE [facility] [place] [facility] Oct 30, 2023 10:00 AM AMBULATORY - REHAB MEDICIN E [facility] [place] [facility] Oct 30, 2023 11:00 AM AMBULATORY - NONE [facility] [place] [facility] Oct 31, 2023 07:00 AM AMBULATORY - PSYCHIATRY [facility] [place] [facility] Nov 21, 2023 07:00 AM AMBULATORY - PSYCHIATRY [facility] [place] [facility] Dec 05, 2023 10:00 AM AMBULATORY - REHAB MEDICIN E [facility] [place] [facility] Dec 12, 2023 07:00 AM AMBULATORY - PSYCHIATRY [facility] [place] [facility] Jan 02, 2024 07:00 AM AMBULATORY - PSYCHIATRY [facility] [place] [facility] Jan 23, 2024 07:00 AM AMBULATORY - PSYCHIATRY [facility] [place] [facility] Feb 13, 2024 07:00 AM AMBULATORY - PSYCHIATRY [facility] [place] [facility] Social History: Smoking Status (Most current) and Tobacco Use (All prior to encounter date) This section includes the most current, and the historical, smoking and tobacco- related health factors from the [place] facility where the Encounter took place. Current Smoking Status This section includes the most current smoking, or tobacco-related health factor, from the [place] facility where the Encounter took place. Date/Time Current Smoking Status Comment Facil it Jun 13, 2023 07:00 AM VA-TOBACCO FORMER USER [facility] [place] [facility] Tobacco Use History This section includes a history of the smoking, or tobacco-related health factors, that were collected on or before the date of the Encounter. The data comes from the [place] facility where the Encounter took place. Date/Time Smoking Status/Tobac co Use Comment Facility Jun 13, 2023 07:00 AM VA-TOBACCO QUIT 15 YRS OR MORE [facility] [place] [facility] Jul 12, 2022 07:00 AM VA-TOBACCO FORMER USER [facility] [place] [facility] Jul 12, 2022 07:00 AM VA-TOBACCO QUIT 15 YRS OR MORE [facility] [place] [facility] August 03, 2021 07:00 AM VA-TOBACCO FORMER USER [facility] [place] [facility] August 03, 2021 07:00 AM VA-TOBACCO QUIT 5 TO < 15 YRS [facility] [place] [facility] August 03, 2020 07:00 AM VA-TOBACCO FORMER USER [facility] [place] [facility] August 03, 2020 07:00 AM VA-TOBACCO QUIT 15 YRS OR MORE [facility] [place] [facility] August 18, 2019 12:47 PM VA-TOBACCO FORMER USER [facility] [place] [facility] August 18, 2019 12:47 PM VA-TOBACCO QUIT 15 YRS OR MORE [facility] [place] [facility] Jul 08, 2018 11:08 AM VA-TOBACCO FORMER USER [facility] [place] [facility] Jul 08, 2018 11:08 AM VA-TOBACCO QUIT 15 YRS OR MORE [facility] [place] [facility] Jul 16, 2017 08:53 AM LIFETIME NON-TOBACCO USER [facility] [place] [facility] Jul 10, 2016 10:25 AM QUIT TOBACCO USE > 7 YEARS AGO [facility] [place] [facility] Mar 11, 2015 08:33 AM QUIT TOBACCO USE > 7 YEARS AGO [facility] [place] [facility] Jun 26, 2012 08:26 AM LIFETIME NON-TOBACCO USER [facility] [place] [facility] Aug 30, 2010 09:04 AM QUIT TOBACCO USE 1-7 YEARS AGO [facility] [place] [facility] August 19, 2009 08:25 AM QUIT TOBACCO USE 1-7 YEARS AGO 1 + years ago [facility] [place] [facility] Jul 01, 2008 03:42 PM QUIT TOBACCO USE IN PAST YEAR [facility] [place] [facility] Jul 01, 2008 02:29 PM QUIT TOBACCO USE IN PAST YEAR QUIT 2007 [facility] [place] [facility] Mar 20, 2001 09:17 AM CURRENT SMOKER not able to quit [facility] Encounter Notes: All associated encounter notes This section contains the clinical notes associated to the Encounter. Date/Time Encounter Note(s) Provider Source August 15, 2023 06:50 AM TELEHEALTH NOTE: LOCAL TITLE: [place] VIDEO CONNECT PSYCHOLOGY NOTE STANDARD TITLE: TELEHEALTH NOTE DATE OF NOTE: AUGUST 15, 2023@06:50 ENTRY DATE: AUGUST 15, 2023@06:50:32 AUTHOR: ADDISON ALONZO COSIGNER: URGENCY: STATUS: COMPLETED [facility] Video Connect (VVC) Standard Documentation VVC Clinician Resources Only: E911 (Emergency Call Relay Center): [phone] [facility] Crisis Line - ([phone]) press #1. ISAIAS Suicide Coordinator [phone], Ext. [phone]; Back-up Ext. [phone] Senior Interaction Designer of the Day(AOD), Aleksandra ESPARZA [phone], Ext. [phone] Introduction: Visit is being conducted by [place] [employer]. identified with 2 identifiers: [X] Full Name [X] Date of [ ] VA ID Card Emergency Plan: confirmed and/or provided the following information in case of emergency or technology failure. PATIENT PHONE - PHONE NUMBER [CELLULAR] - Is patient phone number correct, if not, enter below: 's phone number: VELASQUEZ CALVO [address] [place] [address] 's present location and address for appointment: [address] [place] [address] [place]'s emergency contact name and phone number: Cally Leon [phone] [place] reported that location is private and safe: Yes Informed Consent: [place] informed of the risks and benefits of Telehealth video care. [place] has the right to refuse video services. If refuses video visit, a [id number] visit will be scheduled. [place] verbalized consent for this video visit: Yes [place] provided consent for any other persons present for visit: N/A If yes, who and relationship to patient: Secure visit: Visit was locked for security and privacy: Yes VISIT DURATION 40 minutes DIAGNOSES: PTSD, Chronic; Features of OCPD PRESENTING PROBLEMS: Sary presented on time to today's session from [place], where he recently re- located for the season from [place], and we resumed treatment as usual. 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 He recently had a scan of his carotid artery, and will be going back to review the results this week as well. He denied anxiety about it and reportedly is confident. They also had to put their 19 year old cat down two days ago. He didn't report much sadness initially, because she was so old and sickly. But at the same time , we discussed how long she was a part of the family. The led us to discussing other recent deaths. Sary elaborated that his golfing friend in [place] who , had just spoken to him 10 minutes before he collapsed. We spent some time processing this more and how that impacted him. Lastly, Sary spoke about his son in law who has continued excessively drinking. He has been let go of his job, in and out of rehabs, and now out of the house, all due to his drinking. This all took place in the couple of months. Sary spoke to his concern about his daughter and granddaughter who live with him. Empathy and support was provided to him and we spoke about how they can best support their granddaughter/daughter through this tough time. ASSESSMENT: BRIEF ASSESSMENT OF MENTAL STATUS: 1. [...] FREQUENCY: every 3 weeks VVC @ 7am Return in July to /deborah/ dAdison Alonzo PsyD Staff Psychologist Signed: 08/15/2023 07:45 ADDISON ALONZO [facility]
--- OUTSIDE RECORDS SUMMARY | 2024-08-11 11:30 | XMS_ITS | Encounter Summary ---
Author Name [facility] [place] [facility] [place] Address [address] [place] [address] Care Team Providers Care Experimental Mechanic [employer]board [employer] Name Role Phone PAULETTE MIRZA Primary Care [...] Galeano's Name Patient's Relationship to Policy Galeano [facility] (WNR) MEDICARE ADVANTAGE [place] PPOD VALUE DB DS Mar 25, 2017 [id number] [phone] LUBNAJu BASIM PATIENT [facility] (WNR) MEDICARE [facility] (WNR) Mar 25, 2017 [id number] LUBNAJuMARIOLA PATIENT [facility] HIGH DEDUCTIBL E HEALTH PLAN [employer] Oct 01, 2014 PPO [id number] LUBNAJuMARIOLA PATIENT [employer] PRESCRIPT ION Oct 01, 2014 NO GROUP NUMBER [id number] CALVOJu PATIENT [facility] Oct 01, 2014 [id number] CALVOJu CORRALES PATIENT Selected Encounter This section includes the information on record at [place] for the Encounter. Date/Time Encounter Type Encounter Description Reason Provider Source Apr 15, 2024 10:36 AM CASE MANAGEMENT ADMIN PAT ACTIVTIES (ALESHANONMERARI) ANGELO JOHNSON Encounter Template Text not used by [place] Plan of Treatment: Future Appointments (+ 6 months) and Future Tests (+/- 45 days) The Plan of Treatment section includes future care activities for the patient from all [place] [facility] This section includes future appointments and future orders which are active, pending or scheduled. Future Appointments This section includes appointments that were scheduled to occur 6 months from the date of the Encounter, up to a maximum of 20 appointments. The data comes from all [place] treatment facilities. Appointment Date/Time Appointment Type Appointme nt Facility Name Apr 16, 2024 07:00 AM AMBULATORY - PSYCHIATRY [facility] [place] [facility] May 07, 2024 07:00 AM AMBULATORY - PSYCHIATRY [facility] [place] [facility] Jun 18, 2024 07:00 AM AMBULATORY - PSYCHIATRY [facility] [place] [facility] Jul 09, 2024 07:00 AM AMBULATORY - PSYCHIATRY [facility] [place] [facility] July 23, 2024 07:00 AM AMBULATORY - PSYCHIATRY [facility] [place] [facility] August 03, 2024 10:30 AM AMBULATORY - MEDICINE [place] [facility] [place] [facility] August 13, 2024 07:00 AM AMBULATORY - PSYCHIATRY [facility] [place] [facility] Sep 01, 2024 10:30 AM AMBULATORY - NEUROLOGY [facility] Sep 02, 2024 08:30 AM AMBULATORY - PSYCHIATRY [facility] [place] [facility] Sep 03, 2024 11:00 AM AMBULATORY - MEDICINE [place] [facility] [place] [facility] Oct 02, 2024 11:00 AM AMBULATORY - MEDICINE [place] [facility] [place] [facility] Oct 06, 2024 10:00 AM AMBULATORY - PSYCHIATRY [place] [facility] [place] [facility] Active, Pending, and Scheduled Orders This section includes a listing of several types of active, pending, and scheduled orders, including clinic medications orders, diagnostic test orders, procedure orders and consult orders; where the start date of the order is 45 days before the date of the Encounter or 45 days after the date of theEncounter. The data comes from all [place] treatment facilities. Test Date/Time Test Type Test Details Facility Name Apr 15, 2024 10:49 AM Consult Order COMMUNITY CARE-NEUROLOGY Cons Stage Technician's [facility] May 12, 2024 07:27 AM Consult Order NEUROLOGY CLINIC IFC NEWT Cons Stage Technician's [facility] [place] [facility] Encounter Notes: All associated encounter notes This section contains the clinical notes associated to the Encounter. Date/Time Encounter Note(s) Provider Source Apr 15, 2024 10:36 AM PHARMACEUTICAL BOTANIST NOTE: LOCAL TITLE: TRV COORDINATOR NOTE STANDARD TITLE: PHARMACEUTICAL BOTANIST NOTE DATE OF NOTE: APR 15, 2024@10:36 ENTRY DATE: APR 15, 2024@10:37:52 AUTHOR: KAYLIE JOHNSON COSIGNER: URGENCY: STATUS: COMPLETED *Sending to [facility] Dr. Ramos to enter the new 516 for LCO CC. Sary ivanna due to drive time. ADDED COMMENT 04/14/24 15:14 NEIDA TAN AMANDA CCE-CC Eligibility Status: ELIGIBLE VCC- CC option: OPT-IN BVP-Basis for [place] Preference: [place] drive time CSC-Consult stop code: 315 CSN-Clinical service: Neurology SALES DEVELOPMENT DIRECTOR-Consult service type: Specialty Care SEV-CC Eligibility: Drive time CCE /deborah/ KAYLIE JOHNSON Registered Nurse Signed: 04/15/2024 10:41 Receipt Acknowledged By: 04/15/2024 10:50 /deborah/ DODIE RAMOS MD PRIMARY CARE PHYSICIAN, KAYLIE PRINCE [facility]
--- OUTSIDE RECORDS SUMMARY | 2024-08-11 11:30 | XMS_ITS | Encounter Summary ---
Author Name [facility] [place] Address [address] [place] [id number] Care Team Providers Care Optical Glass Silverer Name Role Phone PAULETTE MIRZA [facility] Insurance Providers: All historical and current [...] Galeano's Name Patient's Relationship to Policy Galeano [facility] (WNR) MEDICARE ADVANTAGE CT PPOD VALUE DB DS Mar 25, 2017 [id number] Ju CALVO PATIENT [facility] (WNR) MEDICARE ADVANTAGE [facility] (WNR) Mar 25, 2017 [id number] LUBNAJu BASIM PATIENT [facility] HIGH DEDUCTIBL E HEALTH PLAN [employer] HDHP Oct 01, 2014 PPO [id number] Ju CALVO PATIENT [employer] PRESCRIPT ION Oct 01, 2014 NO GROUP NUMBER [id number] Ju CALVO PATIENT [facility] Oct 01, 2014 [id number] [phone] LUBNAJu BASIM PATIENT Selected Encounter This section includes the information on record at [place] for the Encounter. Date/Time Encounter Type Encounter Description Reason Provider Source August 03, 2024 10:30 AM OFFICE O/P EST MOD 30 MIN PRIMARY CARE/MEDICINE ICD-10-CM M72.0 Palmar fascial fibromatosis [Dupuytren] MAGALI HUMPHREY [facility] Encounter Template Text not used by [place] Assessments - Encounter Diagnoses This section includes the primary and secondary diagnoses documented for the Encounter. Date/Time Primary/Secondary Diagnosis Diagnosis Name Provider Source August 03, 2024 10:37 AM PRIMARY Palmar fascial fibromatosis [Dupuytren] MAGALI HUMPHREY [place] [facility] [place] [facility] Plan of Treatment: Future Appointments (+ 6 months) and Future Tests (+/- 45 days) The Plan of Treatment section includes future care activities for the patient from all [place] treatmentfacilities. This section includes future appointments and future orders which are active, pending or scheduled. Future Appointments This section includes appointments that were scheduled to occur 6 months from the date of the Encounter, up to a maximum of 20 appointments. The data comes from all [place] treatment facilities. Appointment Date/Time Appointment Type Appointme nt Facility Name August 13, 2024 07:00 AM AMBULATORY - PSYCHIATRY [place] [facility] [place] [facility] Sep 01, 2024 10:30 AM AMBULATORY - NEUROLOGY [facility] Sep 02, 2024 08:30 AM AMBULATORY - PSYCHIATRY [place] [facility] [place] [facility] Sep 03, 2024 11:00 AM AMBULATORY - MEDICINE [place] [facility] Oct 02, 2024 11:00 AM AMBULATORY - MEDICINE [place] [facility] [place] [facility] Oct 06, 2024 10:00 AM AMBULATORY - PS[place]CHIATRY [place] [facility] [place] [facility] Oct 29, 2024 07:00 AM AMBULATORY - PSYCHIATRY [place] [facility] [place] [facility] Nov 19, 2024 07:00 AM AMBULATORY - PSYCHIATRY [place] [facility] [place] [facility] Dec 10, 2024 07:00 AM AMBULATORY - PSYCHIATRY [place] [facility] [place] [facility] Jan 11, 2025 10:00 AM AMBULATORY - NONE Prabhjot BARGER DE[facility] Active, Pending, and Scheduled Orders This section includes a listing of several types of active, pending, and scheduled orders, including clinic medications orders, diagnostic test orders, procedure orders and consult orders; where the start date of the order is 45 days before the date of the Encounter or 45 days after the date of theEncounter. The data comes from all [place] treatment facilities. Test Date/Time Test Type Test Details Facility Name August 03, 2024 10:35 AM Consult Order COMMUNITY CARE-ORTHO SURGICAL Cons [facility] [place] [facility] Vital Signs: All taken on the encounter date This section contains inpatient and outpatient Vital Signs collected on the date of the Encounter. Date/Time Temperature Pulse Blood Pressure Respiratory Rate SP02 Pain Height Weight Body Mass Index Source August 03, 2024 10:18 AM 97.9 63 138/62 16 2 [place] [facility] [place] [facility] Social History: Smoking Status (Most current) and Tobacco Use (All prior to encounter date) This section includes the most current, and the historical, smoking and tobacco- related health factors from the [place] facility where the Encounter took place. Current Smoking Status This section includes the most current smoking, or tobacco-related health factor, from the [place] facility where the Encounter took place. Date/Time Current Smoking Status Comment [facility] ailyn Jun 18, 2024 07:00 AM VA-TOBACCO USE FOR ANA CIGARETTES [facility] Tobacco Use History This section includes a history of the smoking, or tobacco-related health factors, that were collected on or before the date of the Encounter. The data comes from the [place] facility where the Encounter took place. Date/Time Smoking Status/Tobac co Use Comment Facility Jun 18, 2024 07:00 AM VA-TOBACCO USE FORMER CIGARETTES [place] [facility] [place] [facility] Jun 13, 2023 07:00 AM VA-TOBACCO FORMER USER [place] [facility] [place] [facility] Jun 13, 2023 07:00 AM VA-TOBACCO QUIT 15 YRS OR MORE [place] [facility] [place] [facility] Jul 12, 2022 07:00 AM VA-TOBACCO FORMER USER [place] [facility] [place] [facility] Jul 12, 2022 07:00 AM VA-TOBACCO QUIT 15 YRS OR MORE [place] [facility] [place] [facility] August 03, 2021 07:00 AM VA-TOBACCO FORMER USER [place] [facility] [place] [facility] August 03, 2021 07:00 AM VA-TOBACCO QUIT 5 TO < 15 YRS [place] [facility] [place] [facility] August 03, 2020 07:00 AM VA-TOBACCO FORMER USER [place] [facility] [place] [facility] August 03, 2020 07:00 AM VA-TOBACCO QUIT 15 YRS OR MORE [place] [facility] [place] [facility] August 18, 2019 12:47 PM VA-TOBACCO FORMER USER [place] [facility] [place] [facility] August 18, 2019 12:47 PM VA-TOBACCO QUIT 15 YRS OR MORE [place] [facility] [place] [facility] Jul 08, 2018 11:08 AM VA-TOBACCO FORMER USER [place] [facility] [place] [facility] Jul 08, 2018 11:08 AM VA-TOBACCO QUIT 15 YRS OR MORE [place] [facility] [place] [facility] Jul 16, 2017 08:53 AM LIFETIME NON-TOBACCO USER [place] [facility] [place] [facility] Jul 10, 2016 10:25 AM QUIT TOBACCO USE > 7 YEARS AGO [place] [facility] [place] [facility] Mar 11, 2015 08:33 AM QUIT TOBACCO USE > 7 YEARS AGO [place] [facility] [place] [facility] Jun 26, 2012 08:26 AM LIFETIME NON-TOBACCO USER [place] [facility] [place] [facility] Aug 30, 2010 09:04 AM QUIT TOBACCO USE 1-7 YEARS AGO [place] [facility] [place] [facility] August 19, 2009 08:25 AM QUIT TOBACCO USE 1-7 YEARS AGO 1 + years ago [facility] [place] [facility] Jul 01, 2008 03:42 PM QUIT TOBACCO USE IN PAST YEAR [place] [facility] [place] [facility] Jul 01, 2008 02:29 PM QUIT TOBACCO USE IN PAST YEAR QUIT 2007 [place] [facility] [facility] Mar 20, 2001 09:17 AM CURRENT SMOKER not able to quit [place] [facility] [place] [facility] Radiology Reports: +/- 30 days of [...] the Encounter. The data comes from all [place] treatment facilities. Date/Time Radiology Report Provider Source August 03, 2024 10:49 AM HAND 3 OR MORE VIEWS(LEFT): VELASQUEZ CALVO [id number] -[id number] M Ex Date: AUGUST 03, 2024@10:49 Req Phys: MAGALI HUMPHREY Pat Loc: [facility] SICK CALL PA (Req'g Loc) Img Loc: [facility]/BUILDING 1 Service: Unknown [place] [address] (Case 23 COMPLETE) HAND 3 OR MORE VIEWS(LEFT) (RAD Detailed) CPT:60728 Reason for Study: Left hand pain Clinical History: Duputren's early onset Report Status: Verified Date Reported: AUGUST 03, 2024 Date Verified: AUGUST 03, 2024 Canvas Repairer E-Sig:/ES/LONG WILLINGHAM JR Report: Study: AP, lateral [...] Primary Interpreting Staff: LONG WILLINGHAM JR, Radiologist (Canvas Repairer) /LONG DAVIS JR [facility] Encounter Notes: All associated encounter notes This section contains the clinical notes associated to the Encounter. Date/Time Encounter Note(s) Provider Source August 03, 2024 10:29 AM PHYSICIAN REAL ESTATE MARKETING COORDINATOR NOTE: LOCAL TITLE: PA NOTE STANDARD TITLE: PHYSICIAN REAL ESTATE MARKETING COORDINATOR NOTE DATE OF NOTE: AUGUST 03, 2024@10:29 ENTRY DATE: AUGUST 03, 2024@10:30:01 AUTHOR: MAGALI HUMPHREY EXP COSIGNER: URGENCY: STATUS: COMPLETED SICK CALL VISIT HPI: 74 year old male with below noted PMHx history presents with complaint of left hand palmar pain with some vague numbness/tingling of the finger tips without specific distribution pattern. endorses it was locking (the 3rd digit of the left hand) in a flexed position but he has been using hand machine stacker strength tool and this seems to have helped with the sticking. He is right hand dominant and he states the pain is messing up my golf game . No color changes. No temp changes. REVIEW OF SYSTEMS: A 12 point review of systems is negative except as noted in the HPI. Active Medical Problems: Active Problem Essential tremor G25.0 01/23/2019 CATHIE ARMIJO Allergy test positive Z91.018 01/23/2019 COLIN LAW Hyperlipidemia E78.49 05/14/2018 JAKUB BRYANT Adult screening status R69. 04/23/2018 JAKUB BRYANT History of hormone replacement R69. 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 02/26/2017 GAYATHRI AGUILAR Essential hypertension I10. 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 07/01/2008 PAULETTE FLORES Colonic polyp (SNOMED CT 13209643) 05/14/2017 GAYATHRI AGUILAR Meds: Active Outpatient Medications (including Supplies): AMLODIPINE BESYLATE 10MG TAB TAKE ONE TABLET BY MOUTH ONCE ACTIVE DAILY FOR BLOOD PRESSURE/HEART, DO NOT TAKE WITH GRAPEFRUIT JUICE ATORVASTATIN CALCIUM 20MG TAB TAKE ONE-HALF TABLET BY ACTIVE (S) MOUTH ONCE DAILY Indication: FOR HIGH CHOLESTEROL EPINEPHRINE (EQV-EPI-PEN) 0.3MG/0.3ML INJECT DIRECTED ACTIVE (S) INTRAMUSCULARLY NEEDED GO TO ER IMMEDIATELY AFTER USE--CALL 911 Indication: FOR LIFE THREATENING ALLERGIC REACTION TADALAFIL 20MG TAB TAKE ONE TABLET BY MOUTH ONCE DAILY ACTIVE (S) NEEDED TAKE 1 HOUR PRIOR TO SEXUAL ACTIVITY Non-VA CETIRIZINE HCL 10MG TAB 10MG BY MOUTH ONCE DAILY ACTIVE Non-VA ESZOPICLONE 3MG TAB 3MG BY MOUTH ACTIVE Non-VA MULTIVITAMIN W/MINERAL TAB BY MOUTH ACTIVE Non-VA OTHER CAP/TAB RUTIN 450 MG DAILY ACTIVE Non-VA TESTOSTERONE 2MG/24HRS PATCH 1 PATCH TO SKIN ACTIVE 9 Total Medications Allergies: LOBSTER, SILDENAFIL, AMOXICILLIN Date Vital Measurement Qualifiers 08/03/2024 10:18 Temp F (C) 97.9 (36.6) Pulse 63 Respir 16 BP 138/62 Pain 2 FOCUSED EXAMINATION GEN: WD, NAD, mild essential tremor noted Vascular: 2+ RP bilat Neuro: Sensation grossly intact MSK: A1 pully intact with painful extension of the 3rd digit of the left hand. Early fibromatosis noted at site palmar. No current locking mechanism. Imaging : Left Hand: pending MDM: No evidence of acute [place] or gross functional deficit at this time. Early Dupuytren's contracture. Ortho consult placed. X-ray ordered. Follow up PCP/Ortho as scheduled. RTC PRN. ASSESSMENT/PLAN Palmar Fascial Fibromatosis [Dupuytren] as above On this date of the encounter, I spent 30 minutes on some or all of the following: chart review, history, physical examination, treatment planning, education and counseling of the patient/family/transitional care nurse, placing orders, communicating with other health care providers and documentation in the electronic health record. [place] able to verbalize understanding of plan of care and agrees. >> MEDICATIONS Reviewed and reconciled with [place] /es/ MAGALI MCKEON MS,PA-C PHYSICIAN REAL ESTATE MARKETING COORDINATOR Signed: 08/03/2024 10:44 MAGALI HUMPHREY [place] [facility]
--- OUTSIDE RECORDS SUMMARY | 2024-08-11 11:30 | XMS_ITS | Encounter Summary ---
Author Name [facility] [place] Address [address] [place] [address] Care Team Providers Care Wound Nurse Name Role Phone PAULETTE MIRZA Primary Care Provider [facility] Insurance Providers: All historical [...] Galeano's Name Patient's Relationship to Policy Galeano [facility] (WNR) MEDICARE ADVANTAGE [place] PPOD VALUE DB DS Mar 25, 2017 [id number] LUBNAJu STALLWORTH PATIENT [facility] (WNR) MEDICARE ADVANTAGE [facility] (WNR) Mar 25, 2017 [id number] LUBNAJuMARIOLA PATIENT [facility] HIGH DEDUCTIBL E HEALTH PLAN [employer] Oct 01, 2014 PPO [id number] LUBNAJuMARIOLA PATIENT [employer] PRESCRIPT ION Oct 01, 2014 NO GROUP NUMBER [id number] LUBNAJuMARIOLA PATIENT [facility] Oct 01, 2014 [id number] Ju CALVO PATIENT Selected Encounter This section includes the information on record at [place] for the Encounter. Date/Time Encounter Type Encounter Description Reason Provider Source Mar 05, 2024 07:00 AM PSYTX W PT 45 MINUTES [facility]ENT[facility] - IND ICD-10-CM F43.12 Post-traumatic stress disorder, chronic CONI ALONZO E Encounter Template Text not used by [place] Assessments - Encounter Diagnoses This section includes the primary and secondary diagnoses documented for the Encounter. Date/Time Primary/Secondary Diagnosis Diagnosis Name Provider Source Mar 05, 2024 07:50 AM PRIMARY Post-traumatic stress disorder, chronic CONI ALONZO [place] [facility] [place] [facility] Mar 05, 2024 07:50 AM SECONDARY Essential tremor CONI ALONZO [place] [facility] [place] [facility] Plan of Treatment: Future Appointments [...] Appointment Type Appointme nt Facility Name Mar 26, 2024 07:00 AM AMBULATORY - PSYCHIATRY [place] [facility] [place] [facility] Apr 16, 2024 07:00 AM AMBULATORY - PSYCHIATRY [place] [facility] [place] [facility] May 07, 2024 07:00 AM AMBULATORY - PSYCHIATRY [place] [facility] [place] [facility] Jun 18, 2024 07:00 AM AMBULATORY - PSYCHIATRY [place] [facility] [place] [facility] Jul 09, 2024 07:00 AM AMBULATORY - PSYCHIATRY [place] [facility] [place] [facility] July 23, 2024 07:00 AM AMBULATORY - PSYCHIATRY [place] [facility] [place] [facility] August 03, 2024 10:30 AM AMBULATORY - MEDICINE [place] C [facility] [place] [facility] August 13, 2024 07:00 AM AMBULATORY - PSYCHIATRY [place] [facility] [place] [facility] Sep 01, 2024 10:30 AM AMBULATORY - NEUROLOGY [facility] Sep 02, 2024 08:30 AM AMBULATORY - PSYCHIATRY [place] [facility] [place] [facility] Sep 03, 2024 11:00 AM [facility]ULAT[facility] [place] [facility] Active, Pending, and Scheduled Orders [...] 10:49 AM Consult Order COMMUNITY CARE-NEUROLOGY Cons Spray Operator's Choice [facility] Social History: Smoking Status (Most current) and [...] robertson Jun 13, 2023 07:00 AM VA-TOBACCO QUIT 15 YRS OR MORE [place] [facility] Tobacco Use History This section includes a history of the smoking, or tobacco-related health factors, that were collected on or before the date of the Encounter. The data comes from the VA facility where the Encounter took place. Date/Time Smoking Status/Tobac co Use Comment Facility Jun 13, 2023 07:00 AM VA-TOBACCO QUIT 15 YRS OR MORE [place] [facility] [place] [facility] Jul 12, 2022 07:00 AM VA-TOBACCO FORMER USER [place] [facility] [place] [facility] Jul 12, 2022 07:00 AM VA-TOBACCO QUIT 15 YRS OR MORE [place] [facility] [place] [facility] August 03, 2021 07:00 AM VA-TOBACCO FORMER USER [place] [facility] [place] [facility] August 03, 2021 07:00 AM VA-TOBACCO QUIT 5 TO < 15 YRS [place] [facility] [place] [facility] August 03, 2020 07:00 AM VA-TOBACCO FORMER USER [place] [facility] [place] [facility] August 03, 2020 07:00 AM VA-TOBACCO QUIT 15 YRS OR MORE [place] [facility] [place] [facility] August 18, 2019 12:47 PM VA-TOBACCO FORMER USER [place] [facility] [place] [facility] August 18, 2019 12:47 PM VA-TOBACCO QUIT 15 YRS OR MORE [place] [facility] [place] [facility] Jul 08, 2018 11:08 AM VA-TOBACCO FORMER USER [place] [facility] [place] [facility] Jul 08, 2018 11:08 AM VA-TOBACCO QUIT 15 YRS OR MORE [place] [facility] [place] [facility] Jul 16, 2017 08:53 AM LIFETIME NON-TOBACCO USER [place] [facility] [place] [facility] Jul 10, 2016 10:25 AM QUIT TOBACCO USE > 7 YEARS AGO [place] [facility] [place] [facility] Mar 11, 2015 08:33 AM QUIT TOBACCO USE > 7 YEARS AGO [place] [facility] [place] [facility] Jun 26, 2012 08:26 AM LIFETIME NON-TOBACCO USER [place] [facility] [place] [facility] Aug 30, 2010 09:04 AM QUIT TOBACCO USE 1-7 YEARS AGO [place] [facility] [place] [facility] August 19, 2009 08:25 AM QUIT TOBACCO USE 1-7 YEARS AGO 1 + years ago [place] [facility] [place] [facility] Jul 01, 2008 03:42 PM QUIT TOBACCO USE IN PAST YEAR [place] [facility] [place] [facility] Jul 01, 2008 02:29 PM QUIT TOBACCO USE IN PAST YEAR QUIT 2007 [place] [facility] [place] [facility] Mar 20, 2001 09:17 AM CURRENT SMOKER not able to quit [place] [facility] [place] [facility] Encounter Notes: All associated encounter notes This section contains the clinical notes associated to the Encounter. Date/Time Encounter Note(s) Provider Source Mar 05, 2024 06:53 AM TELEHEALTH NOTE: LOCAL TITLE: [facility] V[facility] CONNECT PSYCHOLOGY NOTE STANDARD TITLE: TELEHEALTH NOTE DATE OF NOTE: MAR 05, 2024@06:53 ENTRY DATE: MAR 05, 2024@06:53:31 AUTHOR: CONI ALNOZO COSIGNER: URGENCY: STATUS: COMPLETED [facility] Connect (VVC) Standard Documentation VVC Clinician Resources Only: E911 (Emergency Call Relay Center): [phone] National Veterans Crisis Line - (6-231-942-TFJM) press #1. ROGERAbelardo Suicide Coordinator [phone], Ext. [phone]; Back-up Ext. [phone] Camp Program Director of the Day(AOD), ISAIASAleksandra [phone], Ext. [phone] Introduction: Visit is being conducted by [place] Video Connect. identified with 2 identifiers: [X] Full Name [X] Date of [ ] VA ID Card Emergency Plan: Dalton confirmed and/or provided the following information in case of emergency or technology failure. PATIENT PHONE - PHONE NUMBER [CELLULAR] - Is patient phone number correct, if not, enter below: Dalton's phone number: VELASQUEZ CALVO [address] [facility] [address] [place] [address] Dalton's present location and address for appointment: [address] [place] [address] [address] [place] [address] 's emergency contact name and phone number: Irene Leon [phone] reported that location is private and safe: Yes Informed Consent: informed of the risks and benefits of Telehealth video care. Dalton has the right to refuse video services. If refuses video visit, a [id number] visit will be scheduled. Dalton verbalized consent for this video visit: Yes Dalton provided consent for any other persons present for visit: N/A If yes, who and relationship to patient: Secure visit: Visit was locked for security and privacy: Yes VISIT DURATION 45 minutes DIAGNOSES: PTSD, Chronic; Features of OCPD essential tremor PRESENTING PROBLEMS: presented on time and we resumed treatment as usual. Consult was placed for neurology assessment, as explained in last paragraph below. SESSION FOCUS: has been reportedly missing their social connection, since the complex has been working on their pool for a while. So we spoke about other ways that they can find that outlet. We spent some time talking about people who that he knows who have decompensated later in life. He gave updates about his son-in-law's downfall and alcohol/legal problems. He also spoke about his own health related concerns, such as his alf rash that never really went away. We processed his ability to come to terms with this being a part of his life now. This acceptance only occurred after pursuing several professional opinions and treatment options. Sary shared that he declined the last suggestion of a monthly shot for the rest of my life and is instead trying to accept this as something to learn to life with. Alternatively, Sary requested to speak with a neurologist again about something that has worsened, his bilateral tremor in hands. He was referred to neurology 5 years ago, and findings were that its likely to be an essential tremor. Since then though, Dalton reports that it has worsened. He described that it is impacting his handwriting and overall dexterity. It happens with intention and while resting. When my hugs me she says, you're vibrating . This provider placed a consult to [facility] for neurology, since [facility] no longer has a neurologist. Sary was appreciative of this. He plans to return to [place] in mid-July, so the JEB was placed for around that timeframe. ASSESSMENT: BRIEF ASSESSMENT OF MENTAL STATUS: 1. [...] 3 weeks VVC @ 7am Leave for [place] in July 2024 /deborah/ Coni Alonzo PsyD Staff Psychologist Signed: 03/05/2024 07:51 [facility]
--- OUTSIDE RECORDS SUMMARY | 2024-08-11 11:30 | XMS_ITS | Encounter Summary ---
Author Name [facility] [place] [facility] Address [address] [place] [address] Care Team Providers Care Editor Farm [employer] Name Role Phone PAULETTE MIRZA Primary Care Provider Unavail[facility] Insurance Providers: All historical and [...] Galeano's Name Patient's Relationship to Policy Galeano [facility] (WNR) MEDICARE ADVANTAGE MA PPOD VALUE DB DS Mar 25, 2017 [id number] LUBNAJu BASIM PATIENT [facility] (WNR) MEDICARE [facility] (WNR) Mar 25, 2017 [id number] LUBNAJuMARIOLA PATIENT [facility] HIGH D[employer] E [employer] Oct 01, 2014 PPO [id number] LUBNAJuMARIOLA PATIENT [employer] PRES[employer] ION Oct 01, 2014 NO GROUP NUMBER [id number] CALVOJu PATIENT [facility] Oct 01, 2014 [id number] CALVOJu CORRALES PATIENT Selected Encounter This section includes the information on record at [place] for the Encounter. Date/Time Encounter Type Encounter Description Reason Provider Source Apr 14, 2024 03:10 PM CASE MANAGEMENT ADMIN PAT ACTIVTIES (ALESHANONMERARI) ANGELO JOHNSON Encounter Template Text not used by [place] Plan of Treatment: Future Appointments (+ 6 months) and Future Tests (+/- 45 days) The Plan of Treatment section includes future care activities for the [facility] [place] [facility] This section includes future appointments and future orders which are active, pending or scheduled. Future Appointments This section includes appointments that were scheduled to occur 6 months from the date of the Encounter, up to a maximum of 20 appointments. The data comes from all [place] treatment facilities. Appointment Date/Time Appointment Type Appointme nt Facility Name Apr 16, 2024 07:00 AM AM[place]ULAT[place] [facility] [place] [facility] May 07, 2024 07:00 AM [facility] [place] [facility] [place] [facility] Jun 18, 2024 07:00 AM [facility] [place] [facility] Jul 09, 2024 07:00 AM [facility]UL[facility] [place] [facility] July 23, 2024 07:00 AM [facility] [place] [facility] [place] [facility] August 03, 2024 10:30 AM [place] [facility] [place] [facility] August 13, 2024 07:00 AM [facility] [place] [facility] Sep 01, 2024 10:30 AM AM[facility]ULATORY - [facility]UROLOGY [facility] Sep 02, 2024 08:30 AM [place] [facility] [place] [facility] Sep 03, 2024 11:00 AM [place] [facility] [place] [facility] Oct 02, 2024 11:00 AM [place] [facility] [place] [facility] Oct 06, 2024 10:00 AM [place] [facility] [place] [facility] Active, Pending, and Scheduled Orders This section includes a listing of several types of active, pending, and scheduled orders, including clinic medications orders, diagnostic test orders, procedure orders and consult orders; where the start date of the order is 45 days before the date of the Encounter or 45 days after the date of theEncounter. The data comes from all [place] treatment facilities. Test Date/Time Test Type Test Details Facility Name Apr 15, 2024 10:49 AM Consult Order [facility]-NEUROLOGY [facility] [employer] [facility] May 12, 2024 07:27 AM Consult Order NEUROLOGY CLINIC [facility] [employer] [place] [facility] Encounter Notes: All associated encounter notes This section contains the clinical notes associated to the Encounter. Date/Time Encounter Note(s) Provider Source Apr 14, 2024 03:10 PM MANAGER DRILLING NOTE: LOCAL TITLE: TRV COORDINATOR NOTE STANDARD TITLE: MANAGER DRILLING NOTE DATE OF NOTE: APR 14, 2024@15:10 ENTRY DATE: APR 14, 2024@15:10:29 AUTHOR: KAYLIE JOHNSON COSIGNER: URGENCY: STATUS: COMPLETED Forwarding back to Neurology Services for determination of opting in to CC or scheduling within [facility]? TVC RN unable to process a TV[facility] consult until a DST is ran and is contacted. Teams communication with WILNER. /deborah/ KAYLIE JOHNSON Registered Nurse Signed: 04/14/2024 15:10 KAYLIE JOHNSON [facility]
--- OUTSIDE RECORDS SUMMARY | 2024-08-11 11:31 | XMS_ITS | Encounter Summary ---
Author Name [facility] [place] [facility] [place] [facility] [place] [facility] [place] Address [address] [place] [id number] Care Team Providers Care Galvanizer Name Role Phone PAULETTE MIRZA [facility] Providers: All historical and current [...] Galeano's Name Patient's Relationship to Policy Galeano [facility] (WNR) MEDICARE ADVANTAGE [place] PPOD VALUE DB DS Mar 25, 2017 [id number] Ju CALVO PATIENT [facility] (WNR) MEDICARE ADVANTAGE [facility] (WNR) Mar 25, 2017 [id number] [phone] [id number] BASIM PATIENT [facility] HIGH DEDUCTIBL E HEALTH PLAN [employer] Oct 01, 2014 PPO [id number] Ju CALVO PATIENT [employer] PRESCRIPT ION Oct 01, 2014 NO GROUP NUMBER [id number] Ju CALVO PATIENT [facility] Oct 01, 2014 [id number] [phone] Ju CALVO PATIENT Selected Encounter This section includes the information on record at [place] for the Encounter. Date/Time Encounter Type Encounter Description Reason Provider Source Oct 03, 2023 11:00 AM OFFICE O/P EST MOD 30 MIN COMP WMS HLTH GNDR DIVERSE PC ICD-10-CM I65.29 Occlusion and stenosis of unspecified carotid artery JAIR DUBOIS Brenden Encounter Template Text not used by [place] Assessments - Encounter Diagnoses This section includes the primary and secondary diagnoses documented for the Encounter. Date/Time Primary/Secondary Diagnosis Diagnosis Name Provider Source Oct 03, 2023 11:29 AM PRIMARY Occlusion and stenosis of unspecified carotid artery AKUA DUBOIS [facility] Oct 03, 2023 11:29 AM SECONDARY Disorder of the skin and subcutaneous tissue, unspecified AKUA DUBOISHRYN [facility] Oct 03, 2023 11:29 AM SECONDARY Essential (primary) hypertension AKUA DUBOISHRYN [facility] Oct 03, 2023 11:29 AM SECONDARY Hypo-osmolality and hyponatremia AKUA DUBOIS ERON [facility] Oct 03, 2023 11:29 AM SECONDARY Nicotine dependence, unspecified, in remission AKUA DUBOISHRYN [facility] Oct 03, 2023 11:29 AM SECONDARY Other hyperlipidemia AKUA DUBOIS [facility]ON [facility] Plan of Treatment: Future Appointments (+ 6 months) and Future Tests (+/- 45 days) The Plan of Treatment section includes future care activities for the patient from all [place] [facility]. This section includes future appointments and future orders which are active, pending or scheduled. Future Appointments This section includes appointments that were scheduled to occur 6 months from the date of the Encounter, up to a maximum of 20 appointments. The data comes from all [place] treatment facilities. Appointment Date/Time Appointment Type Appointme nt Facility Name Oct 30, 2023 10:00 AM AMBULATORY - REHAB MEDICIN E [facility] Oct 30, 2023 11:00 AM AMBULATORY - NONE [facility] Oct 31, 2023 07:00 AM AMBULATORY - PSYCHIATRY [facility] Nov 21, 2023 07:00 AM AMBULATORY - PSYCHIATRY [facility] Dec 05, 2023 10:00 AM AMBULATORY - REHAB MEDICIN E [facility] Dec 12, 2023 07:00 AM AMBULATORY - PSYCHIATRY [facility] Jan 02, 2024 07:00 AM AMBULATORY - PSYCHIATRY [facility] Jan 23, 2024 07:00 AM AMBULATORY - PS[facility]IATRY [facility] Feb 13, 2024 07:00 AM AMBULATORY - PS[facility]IATRY [facility] Mar 05, 2024 07:00 AM AMBULATORY - PSYCHIATRY [facility] Mar 26, 2024 07:00 AM [facility] Active, Pending, and Scheduled Orders This section includes a listing of several types of active, pending, and scheduled orders, including clinic medications orders, diagnostic test orders, procedure orders and consult orders; where the start date of the order is 45 days before the date of the Encounter or 45 days after the date of theEncounter. The data comes from all [place] treatment facilities. Test Date/Time Test Type Test Details Facility Name Nov 04, 2023 03:12 PM Consult Order DERMATOLOG Y/NHM (OUTPT) Cons Loft Rigger's Choice [facility] Lab Results: +/- 30 days of the encounter This section includes the Chemistry and Hematology Lab Results on record with [place] for the patient. Radiology Reports and Pathology Reports are provided separately, in subsequent sections. Lab Results This section contains the Chemistry/Hematology Results that were resulted 30 days before or 30 daysafter the date of the Encounter. Date/Time Source Result Type Result - Unit Interpretation Reference Range Specimen Type Comment Sep 30, 2023 11:17 AM [facility] LIPID PANEL, NON FASTING SERUM Specimen Type: SERUM No comment entered. Ordering Provider: PAULETTE MIRZA Report Released Date/Time: Sep 18, 2023 11:50 AM Reporting Lab: [facility] [address] [facility] [address] Performing Lab: [facility] [address] [facility] [address] CHOLESTEROL 136 mg/dL TRIGLYCERIDE 25 mg/dL 0-150 LDL calculated 56 mg/dL 0-129 CHOL/HDL 1.8 HDL CHOLESTEROL 75 mg/dL H 40-60 Sep 30, 2023 11:17 AM [facility] LIVER FUNCTION SERUM Specimen Type: SERUM No comment entered. Ordering Provider: PAULETTE MIRZA Report Released Date/Time: Sep 18, 2023 11:50 AM Reporting Lab: [facility] [address] [facility] [address] Performing Lab: [address] [address] PROTEIN,TOTAL 6.6 g/dL 6.0-8.3 ALBUMIN 4.0 g/dL 3.5-5.0 ALKALINE PHOSPHATASE 76 U/L 40-150 AST 33 U/L 5-34 ALT 23 U/L BILIRUBIN, TOTAL 0.6 mg/dL 0.2-1.2 Sep 30, 2023 11:17 AM [facility] BASIC METABOLIC PANEL (non-fasting) SERUM Spe cimen Type: SERUM No comment entered. Ordering Provider: PAULETTE MIRZA Report Released Date/Time: Sep 18, 2023 11:50 AM Reporting Lab: [facility] [address] [facility] [address] Performing Lab: [facility] [address] [facility] [address] UREA NITROGEN 17 mg/dL 7-25 GLUCOSE 100 mg/dL 65-100 SODIUM 132 mmol/L L 135-145 POTASSIUM 4.3 mmol/L 3.5-5.0 CHLORIDE 102 mmol/L 100-110 CO2 19 meq/L L 20-30 CREATININE, Serum 1.01 mg/dL 0.50-1.40 eGFR(CKD-EPI 2020) 78 mL/min >60 Sep 30, 2023 11:17 AM [facility] CBC BLOOD Specimen Type: BLOOD No comment entered. Ordering Provider: PAULETTE MIRZA Report Released Date/Time: Sep 18, 2023 11:50 AM Reporting Lab: [facility] [address] [facility] [address] Performing Lab: [facility] [address] [facility] [address] WBC 6.94 10*3/uL 4.50-11.00 RBC 4.39 10*6/uL 4.23-5.66 HGB 14.6 g/dL 12.8-17 HCT 40.7 39.2-50.4 MCV 92.7 fL 82-99 MCHC 35.9 g/dL H 30.8-35.1 PLT 268 10*3/uL 140-360 RDW-CV 11.9 L 12.0-16.0 MCH 33.3 pg H 26.2-32.6 Vital Signs: All taken on the encounter date This section contains inpatient and outpatient Vital Signs collected on the date of the Encounter. Date/Time Temperature Pulse Blood Pressure Respiratory Rate SP02 Pain Height Weight Body Mass Index Source Oct 03, 2023 11:03 AM 98.3 61 139/65 20 96 0 66 138 22 [facility] Social History: Smoking Status (Most current) and Tobacco Use (All prior to encounter date) This section includes the most current, and the historical, smoking and tobacco- related health factors from the [place] facility where the Encounter took place. Current Smoking Status This section includes the most current smoking, or tobacco-related health factor, from the [place] facility where the Encounter took place. Date/Time Current Smoking Status Comment Yeimi robertson Jun 13, 2023 07:00 AM VA-TOBACCO FORMER USER [facility] Tobacco Use History This section includes a history of the smoking, or tobacco-related health factors, that were collected on or before the date of the Encounter. The data comes from the [place] facility where the Encounter took place. Date/Time Smoking Status/Tobac co Use Comment Facility Jun 13, 2023 07:00 AM [place]-TOBACCO QUIT 15 YRS OR MORE [facility] Jul 12, 2022 07:00 AM VA-TOBACCO FORMER USER [facility] Jul 12, 2022 07:00 AM VA-TOBACCO QUIT 15 YRS OR MORE [facility] August 03, 2021 07:00 AM VA-TOBACCO FORMER USER [facility] August 03, 2021 07:00 AM VA-TOBACCO QUIT 5 TO < 15 YRS [facility] August 03, 2020 07:00 AM VA-TOBACCO FORMER USER [facility] August 03, 2020 07:00 AM VA-TOBACCO QUIT 15 YRS OR MORE [facility] August 18, 2019 12:47 PM VA-TOBACCO FORMER USER [facility] August 18, 2019 12:47 PM VA-TOBACCO QUIT 15 YRS OR MORE [facility] Jul 08, 2018 11:08 AM VA-TOBACCO FORMER USER [facility] Jul 08, 2018 11:08 AM VA-TOBACCO QUIT 15 YRS OR MORE [facility] Jul 16, 2017 08:53 AM LIFETIME NON-TOBACCO USER [facility] Jul 10, 2016 10:25 AM QUIT TOBACCO USE > 7 YEARS AGO [facility] Mar 11, 2015 08:33 AM QUIT TOBACCO USE > 7 YEARS AGO [facility] Jun 26, 2012 08:26 AM LIFETIME NON-TOBACCO USER [facility] Aug 30, 2010 09:04 AM QUIT TOBACCO USE 1-7 YEARS AGO [facility] August 19, 2009 08:25 AM QUIT TOBACCO USE 1-7 YEARS AGO 1 + years ago [facility] Jul 01, 2008 03:42 PM QUIT TOBACCO USE IN PAST YEAR [facility] Jul 01, 2008 02:29 PM QUIT TOBACCO USE IN PAST YEAR QUIT 2007 [facility] Mar 20, 2001 09:17 AM CURRENT SMOKER not able to quit [facility] Encounter Notes: All associated encounter notes This section contains the clinical notes associated to the Encounter. Date/Time Encounter Note(s) Provider Source Oct 03, 2023 11:05 AM PREVENTIVE MEDICINE NURSING NOTE: LOCAL TITLE: CLINICAL REMINDERS/NURSING STANDARD TITLE: PREVENTIVE MEDICINE NURSING NOTE DATE OF NOTE: OCT 03, 2023@11:05 ENTRY DATE: OCT 03, 2023@11:05:48 AUTHOR: HIRO DELGADO EXP COSIGNER: URGENCY: STATUS: COMPLETED Tobacco Pack Year History: Patient used cigarettes in the past, but quit and does not currently use them: Quit smoking GREATER THAN OR EQUAL to 15 years ago. Advance Directive Screen MH AD: Patient does not have a completed advance directive on file at any facility, [facility] or outside. S/he is not interested in completing one at this time. The patient received education about Advance Directives and written notification of his/her rights. Homelessness/Food Insecurity Screen: In the past 2 months, have you been living in stable housing that you own, rent, or stay in as part of a household? Yes - Living in stable housing. Are you worried or concerned that in the next 2 months you may NOT have stable housing that you own, rent, or stay in as part of a household? No - Not worried about housing near future [facility] [place] reports the following: Within the past 12 months, you worried whether your food would run out before you got money to buy more. Never true Within the past 12 months, the food you bought just didn't last and you didn't have money to get more. Never true /deborah/ Hiro Delgado [facility] [employer] Operator [employer] LIFE[employer],PRIMARY CARE Signed: 10/03/2023 11:07 HIRO DELGADO [facility] Oct 03, 2023 11:03 AM PRIMARY CARE NURSE PRACTITIONER OUTPATIENT NOTE: LOCAL TITLE: NURSE PRACTITIONER OUTPATIENT NOTE STANDARD TITLE: PRIMARY CARE NURSE PRACTITIONER OUTPATIENT NOTE DATE OF NOTE: OCT 03, 2023@11:03 ENTRY DATE: OCT 03, 2023@11:03:37 AUTHOR: SONNY DUBOIS EXP COSIGNER: URGENCY: STATUS: COMPLETED NURSE PRACTITIONER OUTPATIENT NOTE Has ADDENDA CC Presents today for routine follow up HPI This is a 73 y/o male with history of Active problems - Computerized Problem List is the source for the followin. Essential tremor 2. Allergy test positive Annie Nuts ( 03/2018) 3. Hyperlipidemia 4. Adult screening status AAA screen- Neg 04/16/2018 07:38 SERUM 0.90 5. History of hormone replacement TESTOSTERONE- per NON VA provider 6. Under care of multiple providers vascular surgeon - [facility] 7. Carotid artery stenosis R carotid stenosis 50-69 % on doppler . vascular referral done 05/27/17, Plavix and ASA requested to start -pharmacy [facility] 8. Tobacco dependence in remission 1ppd for 30 yrs . 04/2017 reports in remission now x 10 y 9. Backache 03/2017: Severe L4-5 and L5-S1 disc space narrowing and endplate changes. 10. Hip pain since early 2016 ,no trauma, normal xray ,right lower leg pain withit- r/o referred pain 11. Pain in lower limb since early 2016-lateral upper section of the right lower leg . x-ray 01-28-2017 calcificatins on the soft tissue . MRI of the right Tibia and fibula 02/10/2017 -normal 12. Essential hypertension 13. Posttraumatic stress disorder Assessed on 10/19/13 with CAPS for DSM-5 14. Allergic rhinitis 15. Erectile dysfunction (SNOMED CT 175259832) 16. Loss of weight 17. Inappropriate ADH Syndrome 18. Hyponatremia (SNOMED CT 71129574) 19. Chronic Low Back Pain 20. Insomnia 21. Personal History of Alcoholism -- in remission since 1998 22. Colonic polyp (SNOMED CT 42540802) -- by colonoscopy 03/01 at [facility], reportedly nl [facility] repeat July 2016-->normal,no polyps this time ,so repeat due in 7 yrs (July 2026) Denies any recent fever, chills, cough, chest pain, sob, dizziness. No recent UC visits or hospitalizations Follows with Thelma Po. Disucssed testosterone is very high. He will follow up with to discusss dosing. HLD lipids well controlled. Sodium, slightly low, at baseline. Vet s/p R endarterecomy 08/2022, just had f/u US 08/2023-- had surgery with Dr. Hutton at [place], now to f/u once per year. Stress : step son is an alcoholic, 47 yo, lost his job, left rehab. Offered [facility], follows with Dr. Alonzo , very happy with Dr. Alonzo's care Rash on back x 1 year, seen by Derm, cannot figure it out. Small scattered papules on back. Has been present since allergic rxn to amox 1 year ago.+ pruritic. ALLERGIES Lobster, Sildenafil, Amoxicillin MEDICATIONS: Active and Recently Outpatient Medications (excluding Supplies): Active Outpatient Medications Status 1) AMLODIPINE BESYLATE 10MG TAB TAKE ONE TABLET BY MOUTH ACTIVE ONCE DAILY FOR BLOOD PRESSURE/HEART, DO NOT TAKE WITH GRAPEFRUIT JUICE Inactive Outpatient Medications Status 1) ROSUVASTATIN CA 10MG TAB TAKE ONE-HALF TABLET BY MOUTH ONCE DAILY FOR CHOLESTEROL 2) TADALAFIL 20MG TAB TAKE ONE TABLET BY MOUTH ONCE DAILY NEEDED TAKE 1 HOUR PRIOR TO SEXUAL ACTIVITY Active Non-VA Medications Status 1) Non-VA CETIRIZINE HCL 10MG TAB 10MG BY MOUTH ONCE ACTIVE DAILY 2) Non-VA EPINEPHRINE (EQV-EPI-PEN) 0.3MG/0.3ML ACTIVE DIRECTED INTRAMUSCULARLY ONE TIME 3) Non-VA ESZOPICLONE 3MG TAB 3MG BY MOUTH ACTIVE 4) Non-VA MULTIVITAMIN W/MINERAL TAB BY MOUTH ACTIVE 5) Non-VA OTHER CAP/TAB RUTIN 450 MG DAILY ACTIVE 6) Non-VA TESTOSTERONE 2MG/24HRS PATCH 1 PATCH TO SKIN ACTIVE 9 Total MedicationsActive and Recently Outpatient Medications (excluding Supplies): Active Outpatient Medications Status 1) AMLODIPINE BESYLATE 10MG TAB TAKE ONE TABLET BY MOUTH ACTIVE ONCE DAILY FOR BLOOD PRESSURE/HEART, DO NOT TAKE WITH GRAPEFRUIT JUICE Inactive Outpatient Medications Status 1) ROSUVASTATIN CA 10MG TAB TAKE ONE-HALF TABLET BY MOUTH ONCE DAILY FOR CHOLESTEROL 2) TADALAFIL 20MG TAB TAKE ONE TABLET BY MOUTH ONCE DAILY NEEDED TAKE 1 HOUR PRIOR TO SEXUAL ACTIVITY Active Non-VA Medications Status 1) Non-VA CETIRIZINE HCL 10MG TAB 10MG BY MOUTH ONCE ACTIVE DAILY 2) Non-VA EPINEPHRINE (EQV-EPI-PEN) 0.3MG/0.3ML ACTIVE DIRECTED INTRAMUSCULARLY ONE TIME 3) Non-VA ESZOPICLONE 3MG TAB 3MG BY MOUTH ACTIVE 4) Non-VA MULTIVITAMIN W/MINERAL TAB BY MOUTH ACTIVE 5) Non-VA OTHER CAP/TAB RUTIN 450 MG DAILY ACTIVE 6) Non-VA TESTOSTERONE 2MG/24HRS PATCH 1 PATCH TO SKIN ACTIVE 9 Total Medications SOCIAL HISTORY Tobacco former Alcohol Drugs ROS SKIN: denies any rashes or suspicious lesions HEENT: denies vision problem, hearing loss, tinnitus, dysphagia, pharyngitis RESP denies SOB CV denies CP, LL Edema GI denies abd pain, hematochezia denies hematuria, nocturia ENDO denies increased thirst, hunger or urination M/S denies weakness or joint pain NEURO denies seizures, LOC HEME denies blood transfusions PE VITALS 98.3 F [36.8 C] (10/03/2023:03) 61 (10/03/2023:03) 20 (10/03/2023:03) 139/65 (10/03/2023:03) 0 (10/03/2023:) 66 in [167.6 cm] (10/03/2023:) 138 lb [62.60 kg] (10/03/2023:) BMI: 22.3 A/P 1. Carotid artery stenosis - recent carotid US per vet report, nonVA following annually with vascular 2. Essential hypertension -at goal, 120s/60s at home 3. Posttraumatic stress disorder - stable, following with Dr. Alonzo, offered support re:herman 4. Erectile dysfunction (SNOMED CT [id number]) - tadalafil helpful 5. Hyperlipidemia - recent rx change to atorvastatin 10mg,lipids very well controlled 6. Rash -- ongoing x 1 year after taking amoxicillin, [facility] Tobacco Pack Year History: Patient used cigarettes in the past, but quit and does not currently use them: Quit smoking GREATER THAN OR EQUAL to 15 years ago. 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 /caregiver doesn't know of concerns about [place] exposure to harmful substances while serving in the Armed Forces. Printed information was offered and contact information for local resources were provided if requested. [place]/caregiver has no health or medical concerns related to their concern of environmental exposure. No questions at this time /caregiver was informed of local points of contact. Contact information for local resources: Benefits/Claim for Disability Compensation Questions:National VBA [place] Healthcare Enrollment: [facility] [place] Eligibility direct dialed at [phone] Registry: [facility] Coordinator ext [phone] The following connections were provided to the [place]/caregiver: No connections needed at this time Medication Reconciliation: Outpatient: Has the patient been taking medications as documented in the EMLR? YES: The patient has been taking medications as documented in the EMLR. Essential Medication List for Review used to complete this medication reconciliation. INCLUDED IN THIS LIST: Alphabetical list of active outpatient prescriptions dispensed from this VA (local) and dispensed from another VA or DoD facility (remote) as well as inpatient orders (local, pending and active), local clinic medications, locally documented non-VA medications, and local prescriptions that have or been discontinued in the past 90 days. - All changes in medications, including all non-VA/Herbal/OTC medications were entered into CPRS. - If there were any medications the patient should no longer take, they were discontinued. - The patient/caregiver was instructed to update this list, discard old lists, and take this list to the next appointment, whether with a VA or non-VA provider. /deborah/ SONNY DUBOIS NP NURSE PRACTITIONER Signed: 10/03/2023 11:31 10/03/2023 ADDENDUM STATUS: COMPLETED General: NAD HEENT PERRLA, EOMIs, B/L intact TMs,no lymphadenopathy, no lesions/exudate of posteriorpharynx, tongue midline without lesions RESP clear to auscultation bilaterally CV RR S1 S2 (-) Pedal Edema GI BS + x 4, soft, nontender, nondistended, no rebound or guarding NEURO CN II-XII without focal deficit, gait steady without shuffle, MENTAL A&Ox3 Appropriate, Pleasant, Cooperative /deborah/ SONNY DUBOIS NP NURSE PRACTITIONER Signed: 10/03/2023 11:56 [facility]IS [facility]
--- OUTSIDE RECORDS SUMMARY | 2024-08-11 11:31 | XMS_ITS | Encounter Summary ---
Author Name [facility] [place] Address [address] [place] [address] Care Team Providers Care Park Maintainer Name Role Phone PAULETTE MIRZA Primary Care Provider [facility] Insurance Providers: All historical and [...] Galeano's Name Patient's Relationship to Policy Galeano [facility] (WNR) MEDICARE ADVANTAGE PR PPOD VALUE DB DS Mar 25, 2017 [id number] LUBNAJu STALLWORTH PATIENT [facility] (WNR) MEDICARE ADVANTAGE [facility] (WNR) Mar 25, 2017 [id number] [phone] LUBNAJuMARIOLA PATIENT [facility] HIGH DEDUCTIBL E HEALTH PLAN [employer] Oct 01, 2014 PPO [id number] LUBNAJuMARIOLA PATIENT [employer] PRESCRIPT ION Oct 01, 2014 NO GROUP NUMBER [id number] LUBNAJuMARIOLA PATIENT [facility] Oct 01, 2014 [id number] Ju CALVO PATIENT Selected Encounter This section includes the information on record at [place] for the Encounter. Date/Time Encounter Type Encounter Description Reason Provider Source Apr 16, 2024 07:00 AM PSYTX W PT 45 MINUTES [facility] - IND ICD-10-CM F43.12 Post-traumatic stress disorder, chronic ADDISON ALONZO E Encounter Template Text not used by [place] Assessments - Encounter Diagnoses This section includes the primary and secondary diagnoses documented for the Encounter. Date/Time Primary/Secondary Diagnosis Diagnosis Name Provider Source Apr 16, 2024 07:42 AM PRIMARY Post-traumatic stress disorder, chronic ADDISON ALONZO [facility] [place] [facility] Plan of Treatment: Future Appointments (+ 6 months) and Future Tests (+/- 45 days) The Plan of Treatment section includes future care activities for the patient from all [place] treatmentfacilities. This section includes future appointments and future orders which are active, pending or scheduled. Future Appointments This section includes appointments that were scheduled to occur 6 months from the date of the Encounter, up to a maximum of 20 appointments. The data comes from all [place] treatment facilities. Appointment Date/Time Appointment Type Appointme nt Facility Name May 07, 2024 07:00 AM AMBULATORY - PS[facility]CHIATRY [facility] [place] [facility] Jun 18, 2024 07:00 AM AMBULATORY - PS[facility]CHIATRY [facility] [place] [facility] Jul 09, 2024 07:00 AM AMBULATORY - PS[facility]CHIATRY [facility] [place] [facility] July 23, 2024 07:00 AM AMBULATORY - PSYCHIATRY [facility] [place] [facility] August 03, 2024 10:30 AM AMBULATORY - MEDICINE [facility] [place] [facility] August 13, 2024 07:00 AM AMBULATORY - PS[facility]CHIATRY [facility] [place] [facility] Sep 01, 2024 10:30 AM AMBULATORY - NEUROLOGY [facility] Sep 02, 2024 08:30 AM AMBULATORY - PSYCHIATRY [facility] [place] [facility] Sep 03, 2024 11:00 AM AMBULATORY - MEDICINE [facility] [place] [facility] Oct 02, 2024 11:00 AM AMBULATORY - MEDICINE [facility] [place] [facility] Oct 06, 2024 10:00 AM AMBULATORY - PSYCHIATRY [facility] [place] [facility] Active, Pending, and Scheduled Orders This section includes a listing of several types of active, pending, and scheduled orders, including clinic medications orders, diagnostic test orders, procedure orders and consult orders; where the start date of the order is 45 days before the date of the Encounter or 45 days after the date of theEncounter. The data comes from all [place] treatment facilities. Test Date/Time Test Type Test Details Facility Name Apr 15, 2024 10:49 AM Consult Order COMMUNITY CARE-NEUROLOGY Cons Geothermal System Installer's Choice [facility] May 12, 2024 07:27 AM Consult Order NEUROLOGY CLINIC [facility] Cons Geothermal System [facility] [place] [facility] Social History: Smoking Status (Most current) and Tobacco Use (All prior to encounter date) This section includes the most current, and the historical, smoking and tobacco- related health factors from the [facility] facility where the Encounter took place. Current Smoking Status This section includes the most current smoking, or tobacco-related health factor, from the [facility] facility where the Encounter took place. Date/Time Current Smoking Status Comment [facility] Jun 13, 2023 07:00 AM VA-TOBACCO FORMER USER [facility] [place] [facility] Tobacco Use History This section includes a history of the smoking, or tobacco-related health factors, that were collected on or before the date of the Encounter. The data comes from the [place] facility where the Encounter took place. Date/Time Smoking Status/Tobac co Use Comment Facility Jun 13, 2023 07:00 AM VA-TOBACCO QUIT 15 YRS OR MORE [facility] [place] [facility] Jul 12, 2022 07:00 AM VA-TOBACCO FORMER USER [facility] [place] [facility] Jul 12, 2022 07:00 AM VA-TOBACCO QUIT 15 YRS OR MORE [facility] [place] [facility] August 03, 2021 07:00 AM VA-TOBACCO FORMER USER [facility] [place] [facility] August 03, 2021 07:00 AM VA-TOBACCO QUIT 5 TO < 15 YRS [facility] [place] [facility] August 03, 2020 07:00 AM VA-TOBACCO FORMER USER [facility] [place] [facility] August 03, 2020 07:00 AM VA-TOBACCO QUIT 15 YRS OR MORE [facility] [place] [facility] August 18, 2019 12:47 PM VA-TOBACCO FORMER USER [facility] [place] [facility] August 18, 2019 12:47 PM VA-TOBACCO QUIT 15 YRS OR MORE [facility] [place] [facility] Jul 08, 2018 11:08 AM VA-TOBACCO FORMER USER [facility] [place] [facility] Jul 08, 2018 11:08 AM VA-TOBACCO QUIT 15 YRS OR MORE [facility] [place] [facility] Jul 16, 2017 08:53 AM LIFETIME NON-TOBACCO USER [facility] [place] [facility] Jul 10, 2016 10:25 AM QUIT TOBACCO USE > 7 YEARS AGO [facility] [place] [facility] Mar 11, 2015 08:33 AM QUIT TOBACCO USE > 7 YEARS AGO [facility] [place] [facility] Jun 26, 2012 08:26 AM LIFETIME NON-TOBACCO USER [facility] [place] [facility] Aug 30, 2010 09:04 AM QUIT TOBACCO USE 1-7 YEARS AGO [facility] [place] [facility] August 19, 2009 08:25 AM QUIT TOBACCO USE 1-7 YEARS AGO 1 + years ago [facility] [place] [facility] Jul 01, 2008 03:42 PM QUIT TOBACCO USE IN PAST YEAR [facility] [place] [facility] Jul 01, 2008 02:29 PM QUIT TOBACCO USE IN PAST YEAR QUIT 2007 [facility] [place] [facility] Mar 20, 2001 09:17 AM CURRENT SMOKER not able to quit [facility] [place] [facility] Encounter Notes: All associated encounter notes This section contains the clinical notes associated to the Encounter. Date/Time Encounter Note(s) Provider Source Apr 16, 2024 06:55 AM TELEHEALTH NOTE: LOCAL TITLE: [facility]CT PSYCHOLOGY NOTE STANDARD TITLE: TELEHEALTH NOTE DATE OF NOTE: APR 16, 2024@06:55 ENTRY DATE: APR 16, 2024@06:55:20 AUTHOR: ADDISON ALONZO COSIGNER: URGENCY: STATUS: COMPLETED A Video Connect (VVC) Standard Documentation VVC Clinician Resources Only: E911 (Emergency Call Relay Center): [phone] National Veterans Crisis Line - ([phone]-[phone]) press #1. ISAIAS Suicide Coordinator [phone], Ext. [phone]; Back-up Ext. [phone] Operations Architect of the Day(AOD), ISAIASAleksandra [phone], Ext. [phone] Introduction: Visit is being conducted by [place] [facility]. identified with 2 identifiers: [X] Full Name [X] Date of [ ] VA ID Card Emergency Plan: Lattimore confirmed and/or provided the following information in case of emergency or technology failure. PATIENT PHONE - PHONE NUMBER [CELLULAR] - Is patient phone number correct, if not, enter below: 's phone number: VELASQUEZ CALVO [phone] [place] [address] 's present location and address for appointment: [address] [place] [address] Lattimore's emergency contact name and phone number: Cally Leon [phone] Lattimore reported that location is private and safe: Yes Informed Consent: Lattimore informed of the risks and benefits of Telehealth video care. Lattimore has the right to refuse video services. If refuses video visit, a [id number] visit will be scheduled. Lattimore verbalized consent for this video visit: Yes Lattimore provided consent for any other persons present for visit: N/A If yes, who and relationship to patient: Secure visit: Visit was locked for security and privacy: Yes VISIT DURATION 45 minutes DIAGNOSES: PTSD, Chronic; Features of OCPD PRESENTING PROBLEMS: presented on time and we resumed treatment as usual, covering updates to his neurology consult, and other psychosocial stressors. SESSION FOCUS: Lattimore went to [place] recently to stay with step daughter and shared that it was very cold. They reportedly had a nice visit for the most part, taking a trip to [place] for their granddaughter's gymnastics competition. The court date for their son in law was not needed while they were there, but they provided moral support. I just don't see her pulling all this off by herself with maintaining and affording her house given that she has chosen to buy out her ex-. After reviewing his slow going neurology consult, we discussed his mood lately. The cold has put a damper his fun lately, given that he hasn't been able to go to the pool to socialize like they enjoy to. He has been trying to keep busy with the house and golfing. Rain and cold has limited these outdoor activities. He has started reading a little and we spoke about other indoor activities. He was given the PHQ-9 which demonstrated a very small uptick from his last several measures, but still was only within the mild depression category (score = 9). This is consistent with his subjective sense of his mood and he recognized the temporary seasonal influence as well. Overall reported that his mood is much better in the [place] climate. We ended with a discussion about his overall frigidity/restless nature and how mindfulness can help him slow down his mind. ASSESSMENT: BRIEF ASSESSMENT OF MENTAL STATUS: 1. [...] current suicidal/homicidal ideation FREQUENCY: every 3 weeks [facility] @ 7am Leave for [place] in July 2024 /deborah/ Addison Alonzo PsyD Staff Psychologist Signed: 04/16/2024 07:42 ADDISON ALONZO [facility]
--- OUTSIDE RECORDS SUMMARY | 2024-08-11 11:31 | XMS_ITS ---
Author Name [place] Address [address] [place] [address] Care Team Providers Care Ship'S Captain Name Role Phone PAULETTE MIRZA [facility] Insurance Providers: All historical and [...] Galeano's Name Patient's Relationship to Policy Galeano [facility] (WNR) MEDICARE ADVANTAGE [place] PPOD VALUE DB DS Mar 25, 2017 [id number] LUBNAJu BASIM PATIENT [facility] (WNR) MEDICARE ADVANTAGE [facility] (WNR) Mar 25, 2017 [id number] LUBNAJu PATIENT [facility] HIGH DEDUCTIBL E HEALTH PLAN [employer] Oct 01, 2014 PPO [id number] LUBNAJu PATIENT [employer] PRESCRIPT ION Oct 01, 2014 NO GROUP NUMBER [id number] CALVOJu CORRALES PATIENT [facility] M[facility] Oct 01, 2014 [id number] Ju CALVO PATIENT Selected Encounter This section includes the information on record at [place] for the Encounter. Date/Time Encounter Type Encounter Description Reason Provider Source Mar 26, 2024 11:53 AM CASE MANAGEMENT ADMIN PAT ACTIVTIES (MASNONCT) AMEE PITTS Brenden Encounter Template Text not used by [place] Plan of Treatment: Future Appointments (+ 6 months) and Future Tests (+/- 45 days) The Plan of Treatment section includes future care activities for the patient from [facility] [place] [facility]. This section includes future appointments and future orders which are active, pending or scheduled. Future Appointments This section includes appointments that were scheduled to occur 6 months from the date of the Encounter, up to a maximum of 20 appointments. The data comes from all [facility]. Appointment Date/Time Appointment Type Appointme nt Facility Name Apr 16, 2024 07:00 AM AMBULATORY - [place]ATRY [place] [facility] [place] [facility] May 07, 2024 07:00 AM AMBULATORY PS[place]CHIATRY [place] [facility] [place] [facility] Jun 18, 2024 07:00 AM AMBULATORY - PS[place]CHIATRY [place] [facility] [place] [facility] Jul 09, 2024 07:00 AM AMBULATORY PS[place]CHIATRY [place] [facility] [place] [facility] July 23, 2024 07:00 AM AMBULATORY PS[place]CHIATRY [place] [facility] [place] [facility] August 03, 2024 10:30 AM AMBULATORY - MEDICINE [place] [facility] [place] [facility] August 13, 2024 07:00 AM AMBULATORY PS[place]CHIATRY [place] [facility] [place] [facility] Sep 01, 2024 10:30 AM AMBULATORY - NEUROLOGY [facility] Sep 02, 2024 08:30 AM AMBULATORY - PS[place]CHIATRY [place] [facility] [place] [facility] Sep 03, 2024 11:00 AM AMBULATORY - MEDICINE [place] [facility] [place] [facility] Active, Pending, and Scheduled Orders This section includes a listing of several types of active, pending, and scheduled orders, including clinic medications orders, diagnostic test orders, procedure orders and consult orders; where the start date of the order is 45 days before the date of the Encounter or 45 days after the date of theEncounter. The data comes from all [place] treatment [facility]. Test Date/Time Test Type Test Details Facility Name Apr 15, 2024 10:49 AM Consult Order COMMUNITY CARE-NEUROLOGY Cons Deputy Juvenile Officer's Choice [facility] Social History: Smoking Status (Most current) and Tobacco Use (All prior to encounter date) This section includes the most current, and the historical, smoking and tobacco- related health factors from the [place] facility where the Encounter took place. Current Smoking Status This section includes the most current smoking, or tobacco-related health factor, from the [place] facility where the Encounter took place. Date/Time Current Smoking Status Comment Yeimi robertson Jun 13, 2023 07:00 AM VA-TOBACCO FORMER USER [facility] [place] [facility] Tobacco Use History This section includes a history of the smoking, or tobacco-related health factors, that were collected on or before the date of the Encounter. The data comes from the [place] facility where the Encounter took place. Date/Time Smoking Status/Tobac co Use Comment Facility Jun 13, 2023 07:00 AM VA-TOBACCO QUIT 15 YRS OR MORE [facility] [place] [facility] Jul 12, 2022 07:00 AM VA-TOBACCO FORMER USER [facility] [place] [facility] Jul 12, 2022 07:00 AM VA-TOBACCO QUIT 15 YRS OR MORE [facility] [place] [facility] August 03, 2021 07:00 AM VA-TOBACCO FORMER USER [facility] [place] [facility] August 03, 2021 07:00 AM VA-TOBACCO QUIT 5 TO < 15 YRS [facility] [place] [facility] August 03, 2020 07:00 AM VA-TOBACCO FORMER USER [facility] [place] [facility] August 03, 2020 07:00 AM VA-TOBACCO QUIT 15 YRS OR MORE [facility] [place] [facility] August 18, 2019 12:47 PM VA-TOBACCO FORMER USER [facility] [place] [facility] August 18, 2019 12:47 PM VA-TOBACCO QUIT 15 YRS OR MORE [facility] [place] [facility] Jul 08, 2018 11:08 AM VA-TOBACCO FORMER USER [facility] [place] [facility] Jul 08, 2018 11:08 AM VA-TOBACCO QUIT 15 YRS OR MORE [facility] [place] [facility] Jul 16, 2017 08:53 AM LIFETIME NON-TOBACCO USER [facility] [place] [facility] Jul 10, 2016 10:25 AM QUIT TOBACCO USE > 7 YEARS AGO [place] [facility] [place] [facility] Mar 11, 2015 08:33 AM QUIT TOBACCO USE > 7 YEARS AGO [place] [facility] [place] [facility] Jun 26, 2012 08:26 AM LIFETIME NON-TOBACCO USER [place] [facility] [place] [facility] Aug 30, 2010 09:04 AM QUIT TOBACCO USE 1-7 YEARS AGO [place] [facility] [place] [facility] August 19, 2009 08:25 AM QUIT TOBACCO USE 1-7 YEARS AGO 1 + [facility] [place] [facility] Jul 01, 2008 03:42 PM QUIT TOBACCO USE IN PAST YEAR [place] [facility] [place] [facility] Jul 01, 2008 02:29 PM QUIT TOBACCO USE IN PAST YEAR QUIT 2007 [facility] [place] [facility] Mar 20, 2001 09:17 AM CURRENT SMOKER not able to quit [facility] Encounter Notes: All associated encounter notes This section contains the clinical notes associated to the Encounter. Date/Time Encounter Note(s) Provider Source Mar 26, 2024 11:53 AM NURSING NOTE: LOCAL TITLE: TRAVELING COORDINATOR NOTE STANDARD TITLE: NURSING NOTE DATE OF NOTE: MAR 26, 2024@11:53 ENTRY DATE: MAR 26, 2024@11:53:31 AUTHOR: AMEE PITTS EXP COSIGNER: URGENCY: STATUS: COMPLETED Received traveling [place] consult for specialty care in [place]. seen at [facility] in 2019. Consult sent to [facility] for assistance as essential tremors have intensified. /es/ Amee Pitts MSN,RN,[facility] TRANSFER/TRAVELING COORDINATOR Signed: 03/26/2024 11:55 AMEE PITTS [facility]
--- OUTSIDE RECORDS SUMMARY | 2024-08-11 11:31 | XMS_ITS ---
Author Name [facility] [place] Address [address] [place] [address] Care Team Providers Care Cementer Helper Name Role Phone PAULETTE MIRZA [facility] Insurance Providers: All historical and current [...] Galeano's Name Patient's Relationship to Policy Galeano [facility] (WNR) MEDICARE ADVANTAGE [place] PPOD VALUE DB DS Mar 25, 2017 [id number] Ju CALVO PATIENT [facility] (WNR) MEDICARE ADVANTAGE [facility] (WNR) Mar 25, 2017 [id number] [phone] LUBNAJu BASIM PATIENT [facility] HIGH DEDUCTIBL E HEALTH PLAN [employer] HDHP Oct 01, 2014 PPO [id number] Ju CALVO PATIENT [employer] PRESCRIPT ION Oct 01, 2014 NO GROUP NUMBER [id number] [phone] LUBNAJu BASIM PATIENT [facility] Oct 01, 2014 [id number] [phone] Ju CALVO PATIENT Selected Encounter This section includes the information on record at [place] for the Encounter. Date/Time Encounter Type Encounter Description Reason Provider Source Dec 05, 2023 10:00 AM CONFORMITY EVALUATION AUDIOLOGY ICD-10-CM Z46.1 Encounter for fitting and adjustment of hearing aid EUGENIA ALDANA Brenden IHE Encounter Template Text not used by [place] Assessments - Encounter Diagnoses This section includes the primary and secondary diagnoses documented for the Encounter. Date/Time Primary/Secondary Diagnosis Diagnosis Name Provider Source Dec 05, 2023 10:50 AM PRIMARY Encounter for fitting and adjustment of hearing aid PHILIP ALDAANA E [place] [facility] [facility] Dec 05, 2023 10:50 AM SECONDARY Sensorineural hearing loss, bilateral CAMINISUNILEUGENIA E [place] [facility] [place] [facility] Plan of Treatment: Future Appointments (+ 6 months) and Future Tests (+/- 45 days) The Plan of Treatment section includes future care activities for the patient [facility] [place] [facility] This section includes future appointments and future orders which are active, pending or scheduled. Future Appointments This section includes appointments that were scheduled to occur 6 months from the date of the Encounter, up to a maximum of 20 appointments. The data comes from all [place] treatment facilities. Appointment Date/Time Appointment Type Appointme nt Facility Name Dec 12, 2023 07:00 AM AMBULATORY - PSYCHIATRY [place] [facility] [facility] Jan 02, 2024 07:00 AM AMBULATORY - PSYCHIATRY [facility] [place] [facility] Jan 23, 2024 07:00 AM AMBULATORY - PSYCHIATRY [facility] [place] [facility] Feb 13, 2024 07:00 AM AMBULATORY - PSYCHIATRY [facility] [place] [facility] Mar 05, 2024 07:00 AM AMBULATORY - PSYCHIATRY [facility] [place] [facility] Mar 26, 2024 07:00 AM AMBULATORY - PSYCHIATRY [facility] [place] [facility] Apr 16, 2024 07:00 AM AMBULATORY - PSYCHIATRY [facility] [place] [facility] May 07, 2024 07:00 AM AMBULATORY - PSYCHIATRY [facility] [place] [facility] Active, Pending, and Scheduled Orders This section includes a listing of several types of active, pending, and scheduled orders, including clinic medications orders, diagnostic test orders, procedure orders and consult orders; where the start date of the order is 45 days before the date of the Encounter or 45 days after the date of theEncounter. The data comes from all [place] treatment facilities. Test Date/Time Test Type Test Details Facility Name Nov 04, 2023 03:12 PM Consult Order DERMATOLOG Y/NHM (OUTPT) Cons Collective Bargaining Specialist's Choice [place] [facility] [facility] Social History: Smoking Status (Most current) and Tobacco Use (All prior to encounter date) This section includes the most current, and the historical, smoking and tobacco- related health factors from the [place] facility where the Encounter took place. Current Smoking Status This section includes the most current smoking, or tobacco-related health factor, from the [place] facility where the Encounter took place. Date/Time Current Smoking Status Comment [facility] Jun 13, 2023 07:00 AM VA-TOBACCO [facility] [place] [facility] Tobacco Use History This section includes a history of the smoking, or tobacco-related health factors, that were collected on or before the date of the Encounter. The data comes from the [place] facility where the Encounter took place. Date/Time Smoking Status/Tobac co Use Comment Facility Jun 13, 2023 07:00 AM VA-TOBACCO QUIT 15 YRS OR MORE [place] [facility] [facility] Jul 12, 2022 07:00 AM VA-TOBACCO FORMER USER [place] [facility] [facility] Jul 12, 2022 07:00 AM VA-TOBACCO QUIT 15 YRS OR MORE [place] [facility] [facility] August 03, 2021 07:00 AM VA-TOBACCO FORMER USER [place] [facility] [place] [facility] August 03, 2021 07:00 AM VA-TOBACCO QUIT 5 TO < 15 YRS [place] [facility] [place] [facility] August 03, 2020 07:00 AM VA-TOBACCO FORMER USER [place] [facility] [place] [facility] August 03, 2020 07:00 AM VA-TOBACCO QUIT 15 YRS OR MORE [facility] [facility] August 18, 2019 12:47 PM VA-TOBACCO FORMER USER [place] [facility] [facility] August 18, 2019 12:47 PM VA-TOBACCO QUIT 15 YRS OR MORE [facility] [facility] Jul 08, 2018 11:08 AM VA-TOBACCO FORMER USER [place] [facility] [facility] Jul 08, 2018 11:08 AM VA-TOBACCO QUIT 15 YRS OR MORE [facility] [facility] Jul 16, 2017 08:53 AM LIFETIME NON-TOBACCO USER [place] [facility] [place] [facility] Jul 10, 2016 10:25 AM QUIT TOBACCO USE > 7 YEARS AGO [facility] [place] [facility] Mar 11, 2015 08:33 AM QUIT TOBACCO USE > 7 YEARS AGO [facility] [facility] Jun 26, 2012 08:26 AM LIFETIME NON-TOBACCO USER [place] [facility] [place] [facility] Aug 30, 2010 09:04 AM QUIT TOBACCO USE 1-7 YEARS AGO [facility] [facility] August 19, 2009 08:25 AM QUIT TOBACCO USE 1-7 YEARS AGO 1 + years ago [facility] [facility] Jul 01, 2008 03:42 PM QUIT TOBACCO USE IN PAST YEAR [place] [facility] [place] [facility] Jul 01, 2008 02:29 PM QUIT TOBACCO USE IN PAST YEAR QUIT 2007 [facility] [place] [facility] Mar 20, 2001 09:17 AM CURRENT SMOKER not able to quit [place] [facility] [place] [facility] Encounter Notes: All associated encounter notes This section contains the clinical notes associated to the Encounter. Date/Time Encounter Note(s) Provider Source Dec 05, 2023 10:01 AM AUDIOLOGY E & M NO TE: [facility] TITLE: AUDIOLOGY CLINIC STANDARD TITLE: AUDIOLOGY E & M NOTE DATE OF NOTE: DEC 05, 2023@10:01 ENTRY DATE: DEC 05, 2023@10:02:02 AUTHOR: EUGENIA ALDANA COSIGNER: URGENCY: STATUS: COMPLETED Diagnosis: bilateral sensorineural hearing loss Hearing Aid Fitting: SUBJECTIVE (S): The [place] was seen for hearing aid fitting and issuance. S/He had previously been evaluated and found to exhibit significant hearing loss for which amplification was recommended. How does the patient/client best learn? verbal instruction, demonstration Does the patient/client have any cultural and gnosticism beliefs, emotional barriers, physical or cognitive limitations, and communication barriers which may impact his/her ability to learn? no Desire and motivation to learn? Good OBJECTIVE (O): Physical fit of earmolds/receivers and domes/hearing aids was good. [place] verified comfort. Verification of an appropriate acoustic response was obtained using Real Ear measurements (speech mapping) and NAL-NL2 targets. The reported good subjective benefit as well. Feedback conference planning manager was run. Hearing aids were found to be meeting targets adequately and MPO was not exceeding estimated UCL. Settings stored in HALEY. ASSESSMENT (A): The following device(s) was/were issued: Make: Oticon Model: Intent1 miniRITE R Serial Numbers:[id number] Battery size: RECHARGEABLE Trial Period ends: 2-3-25 Domes/wax guards, etc.: 8mm double vent domes/prowax minifit Earmold Information: n/a Stock Digger size/power: 3/85 detect Program Settings (VC, Programs, Buttons): right raise/left lower Fitting Formula: NAL-NL2 Remote programming: capable Counseling was completed today throughout todays appointment using a standardized curriculum that includes but is not limited to; realistic expectations with amplification in adverse listening environments, acclimatization to own voice and environmental sounds (following real-ear measurements), the importance of consistent use of amplification, proper insertion/removal, care and maintenance (including wax guards/domes if applicable), signal and alerts of devices, and charging/batteries. The was provided the opportunity to practice in office and reports confidence/understanding in all items reviewed. was given written reference materials today. The was informed of and agreed to [place] policy on hearing aid issuance: Users are responsible for the maintenance and security of their devices. Determination of need to replace a hearing aid is made by the [place] bilingual loan processor. Hearing aids will not be replaced in cases of neglect, abuse, or excessive loss. Items issued are for personal use only. Prognosis for successful hearing aid use is good. PLAN (P): 1. Contact clinic with any problems/concerns. 2. The International Outcome Inventory-Hearing Aids (IOI-VÁSQUEZ) will be mailed to the in four weeks. He/she was asked to mail back to clinic after completion. Patient Education Education provided on the following topics: hearing aid management Education provided to: P Response to Education: RAY, RD, PI [place] Patient P Family F Significant Other SO Verbalizes Understanding VU Returns Demonstration RD Performs Independently PI Lacks Comprehension LC Refused Education RE Not Applicable NA /deborah/ Campbell ROPER, [facility]-A STAFF BUMPER MACHINE OPERATOR Signed: 12/05/2023 10:51 EUGENIA ALDANA [facility] [facility]
--- OUTSIDE RECORDS SUMMARY | 2024-08-11 11:31 | XMS_ITS | Encounter Summary ---
Author Name [facility] [place] Address [address] [place] [address] Care Team Providers Care Toy Department Manager Name Role Phone PAULETTE MIRZA Primary Care Provider Unavaila [facility] Insurance Providers: All historical and [...] Galeano's Name Patient's Relationship to Policy Galeano [facility] (WNR) MEDICARE ADVANTAGE [place] PPOD VALUE DB DS Mar 25, 2017 [id number] LUBNAJu STALL[place]TH PATIENT [facility] (WNR) MEDICARE ADVANTAGE [facility] (WNR) Mar 25, 2017 [id number] LUBNAJuMARIOLA PATIENT [facility] HIGH DEDUCTIBL E HEALTH PLAN [employer] HDHP Oct 01, 2014 PPO [id number] LUBNAJuMARIOLA PATIENT [employer] video SYSTEMS PRESCRIPT ION Oct 01, 2014 NO GROUP NUMBER [id number] LUBNAJuMARIOLA PATIENT [facility] Oct 01, 2014 [id number] [phone] CALVOJu CORRALESMARIOLA PATIENT Selected Encounter This section includes the information on record at [place] for the Encounter. Date/Time Encounter Type Encounter Description Reason Provider Source May 07, 2024 07:00 AM PSYTX W PT 45 MINUTES MENTAL HEALTH CLINIC - IND ICD-10-CM G25.0 Essential tremor ADDISON ALONZO [facility] Encounter Template Text not used by [place] Assessments - Encounter Diagnoses This section includes the primary and secondary diagnoses documented for the Encounter. Date/Time Primary/Secondary Diagnosis Diagnosis Name Provider Source May 07, 2024 07:49 AM PRIMARY Essential tremor ADDISON ALONZO [place] [facility] [place] [facility] May 07, 2024 07:49 AM SECONDARY Post-traumatic stress disorder, chronic ADDISON ALONZO [place] [facility] [place] [facility] Plan of Treatment: Future Appointments (+ 6 months) and Future Tests (+/- 45 days) The Plan of Treatment section includes future care activities for the patient from all [place] treatmentfacilities. This section includes future appointments and future orders which are active, pending or scheduled. Future Appointments This section includes appointments that were scheduled to occur 6 months from the date of the Encounter, up to a maximum of 20 appointments. The data comes from all [place] treatment facilities. Appointment Date/Time Appointment Type Appointme nt Facility Name Jun 18, 2024 07:00 AM AMBULATORY - PSYCHIATRY [place] [facility] [facility] Jul 09, 2024 07:00 AM AMBULATORY - PSYCHIATRY [place] [facility] [place] [facility] July 23, 2024 07:00 AM AMBULATORY - PSYCHIATRY [place] [facility] [place] [facility] August 03, 2024 10:30 AM AMBULATORY - MEDICINE LA C [facility] [place] [facility] August 13, 2024 07:00 AM AMBULATORY - PSYCHIATRY [place] [facility] [place] [facility] Sep 01, 2024 10:30 AM AMBULATORY - NEUROLOGY [facility] Sep 02, 2024 08:30 AM AMBULATORY - PSYCHIATRY [place] [facility] [place] [facility] Sep 03, 2024 11:00 AM AMBULATORY - MEDICINE LA C [facility] [place] [facility] Oct 02, 2024 11:00 AM AMBULATORY - MEDICINE LA C [facility] [place] [facility] Oct 06, 2024 10:00 AM AMBULATORY - PSYCHIATRY [place] [facility] [facility] Oct 29, 2024 07:00 AM [facility] [place] [facility] Active, Pending, and Scheduled Orders This section includes a listing of several types of active, pending, and scheduled orders, including clinic medications orders, diagnostic test orders, procedure orders and consult orders; where the start date of the order is 45 days before the date of the Encounter or 45 days after the date of theEncounter. The data comes from all [place] treatment facilities. Test Date/Time Test Type Test Details Facility Name Apr 15, 2024 10:49 AM Consult Order COMMUNITY CARE-NEUROLOGY Cons Binder Cutter Hand's Choice [facility] May 12, 2024 07:27 AM Consult Order NEUROLOGY CLINIC [facility] Binder Cutter Hand's Choice [facility] [place] [facility] Social History: Smoking Status (Most current) and Tobacco Use (All prior to encounter date) This section includes the most current, and the historical, smoking and tobacco- related health factors from the [place] facility where the Encounter took place. Current Smoking Status This section includes the most current smoking, or tobacco-related health factor, from the [place] facility where the Encounter took place. Date/Time Current Smoking Status Comment [facility] Jun 13, 2023 07:00 AM VA-TOBACCO FORMER USER [facility] Tobacco Use History This section includes a history of the smoking, or tobacco-related health factors, that were collected on or before the date of the Encounter. The data comes from the [place] facility where the Encounter took place. Date/Time Smoking Status/Tobac co Use Comment Facility Jun 13, 2023 07:00 AM VA-TOBACCO QUIT 15 YRS OR MORE [place] [facility] [facility] Jul 12, 2022 07:00 AM VA-TOBACCO FORMER USER [place] [facility] [facility] Jul 12, 2022 07:00 AM VA-TOBACCO QUIT 15 YRS OR MORE [place] [facility] [place] [facility] August 03, 2021 07:00 AM VA-TOBACCO FORMER USER [place] [facility] [facility] August 03, 2021 07:00 AM VA-TOBACCO QUIT 5 TO < 15 YRS [place] [facility] [facility] August 03, 2020 07:00 AM VA-TOBACCO FORMER USER [place] [facility] [facility] August 03, 2020 07:00 AM VA-TOBACCO QUIT 15 YRS OR MORE [place] [facility] [place] [facility] August 18, 2019 12:47 PM VA-TOBACCO FORMER USER [facility] [facility] August 18, 2019 12:47 PM VA-TOBACCO QUIT 15 YRS OR MORE [place] [facility] [facility] Jul 08, 2018 11:08 AM VA-TOBACCO FORMER USER [place] [facility] [facility] Jul 08, 2018 11:08 AM VA-TOBACCO QUIT 15 YRS OR MORE [facility] [place] [facility] Jul 16, 2017 08:53 AM LIFETIME NON-TOBACCO USER [place] [facility] [facility] Jul 10, 2016 10:25 AM QUIT TOBACCO USE > 7 YEARS AGO [place] [facility] [facility] Mar 11, 2015 08:33 AM QUIT TOBACCO USE > 7 YEARS AGO [place] [facility] [facility] Jun 26, 2012 08:26 AM LIFETIME NON-TOBACCO USER [place] [facility] [facility] Aug 30, 2010 09:04 AM QUIT TOBACCO USE 1-7 YEARS AGO [place] [facility] [facility] August 19, 2009 08:25 AM QUIT TOBACCO USE 1-7 YEARS AGO 1 + years ago [place] [facility] [facility] Jul 01, 2008 03:42 PM QUIT TOBACCO USE IN PAST YEAR [place] [facility] [facility] Jul 01, 2008 02:29 PM QUIT TOBACCO USE IN PAST YEAR QUIT 2007 [place] [facility] [facility] Mar 20, 2001 09:17 AM CURRENT SMOKER not able to quit [place] [facility] [facility] Encounter Notes: All associated encounter notes This section contains the clinical notes associated to the Encounter. Date/Time Encounter Note(s) Provider Source May 07, 2024 06:57 AM TELEHEALTH NOTE: LOCAL TITLE: [place] VIDEO CONNECT PSYCHOLOGY NOTE STANDARD TITLE: TELEHEALTH NOTE DATE OF NOTE: MAY 07, 2024@06:57 ENTRY DATE: MAY 07, 2024@06:57:06 AUTHOR: ADDISON ALONZO COSIGNER: URGENCY: STATUS: COMPLETED A Video Connect (VVC) Standard Documentation VVC Clinician Resources Only: E911 (Emergency Call Relay Center): [phone] National Veterans Crisis Line - (7-465-956-KRDU) press #1. ROGERAbelardo Suicide Coordinator [phone], Ext. [phone]; Back-up Ext. [phone] Seedling Sorter of the Day(AOD), ISAIAS Aleksandra [phone], Ext. [phone] Introduction: Visit is being conducted by [place] datapine Connect. [place] identified with 2 identifiers: [X] Full Name [X] Date of [ ] VA ID Card Emergency Plan: [place] confirmed and/or provided the following information in case of emergency or technology failure. PATIENT PHONE - PHONE NUMBER [CELLULAR] - Is patient phone number correct, if not, enter below: 's phone number: VELASQUEZ CALVO [phone] [place] [address] 's present location and address for appointment: [address] [place] [address] 's emergency contact name and phone number: Cally Leon [phone] Lac[place]be reported that location is private and safe: Yes Informed Consent: informed of the risks and benefits of Telehealth video care. [place]be has the right to refuse video services. If refuses video visit, a [id number] visit will be scheduled. [place] verbalized consent for this video visit: Yes provided consent for any other persons present for visit: N/A If yes, who and relationship to patient: Secure visit: Visit was locked for security and privacy: Yes VISIT DURATION 45 minutes DIAGNOSES: PTSD, Chronic; Features of OCPD Essential Tremor PRESENTING PROBLEMS: Lacombe presented on time and we resumed treatment as usual, covering updates to his neurology consult, and other psychosocial stressors. SESSION FOCUS: Some time was spent checking on his mood, which showed a mild increase in depression last session. He shared that they have been able to get to their pool more and this has helped his mood. Lacombe spoke however about his frustration with his tremor which caused him to spill his coffee prior to our meeting. It occurs in both sides of his body both at rest and with intention. He denied any muscle rigidity, stiffness, slow movement, or problems with balance, but noted that his and family members are commenting on his tremor. My can feel me vibrating when I'm lying in bed. Empathy was given and we talked about how he is managing it and if he can start avoiding using certain tools which could now be more dangerous for him. He shared updates on the latest progress of his Neurology consult. They contacted him but didn't have an appointment until October, however that will be when he is back in [place]. So instead of that he pushed it to be in December, when he will be back to [place] again next. In the meantime, he would like to revisit a possible sooner appointment in [place], [place] if possible. This provider followed up with a contact in community care to inquire about this possibility. In [place]: will be back in [place] from August 06, 2024- January 06, 2025. He is going to keep his December [place] appointment, but would like to go back to see if he can get a sooner appointment in [place] between July and December. [place], [place] would be ideal, but [place] could work if needed. ASSESSMENT: BRIEF ASSESSMENT OF MENTAL [...] current suicidal/homicidal ideation FREQUENCY: every 3 weeks [facility] @ 7am Leave for [place] in July 2024 /deborah/ Addison Alonzo PsyD Staff Psychologist Signed: 05/07/2024 07:50 ADDISON ALONZO [place] [facility]
--- OUTSIDE RECORDS SUMMARY | 2024-08-11 11:31 | XMS_ITS | Encounter Summary ---
Author Name [facility] [place] Organization [place] Address [address] [place] [address] Care Team Providers Care Insurance Sales Agent Name Role Phone PAULETTE MIRZA Primary Care Provider [facility] Insurance Providers: All historical and [...] Patient's Relationship to Policy Galeano [facility] (WNR) MEDICARE ADVANTAGE [place] PPOD VALUE DB DS Mar 25, 2017 [id number] LUBNAJuMARIOLA PATIENT [facility] (WNR) MEDICARE ADVANTAGE [facility] (WNR) Mar 25, 2017 [id number] LUBNAJu PATIENT [facility] HIGH DEDUCTIBL E HEALTH PLAN [employer] HDHP Oct 01, 2014 PPO [id number] LUBNAJu PATIENT [employer] PRESCRIPT ION Oct 01, 2014 NO GROUP NUMBER [id number] [phone] CALVOJu CORRALES PATIENT [facility] Oct 01, 2014 [id number] Ju CALVO PATIENT Selected Encounter This section includes the information on record at [place] for the Encounter. Date/Time Encounter Type Encounter Description Reason Pro vider Source May 07, 2024 01:40 PM Outpatient Encounter ADMIN PAT ACTIVTIES (MASNONCT) IHE Encounter Template Text not used by [facility] Plan of Treatment: Future Appointments (+ 6 months) and Future Tests (+/- 45 days) The Plan of Treatment section includes future care activities for the patient from all [place] [facility]. This section includes future appointments and future orders which are active, pending or scheduled. Future Appointments This section includes appointments that were scheduled to occur 6 months from the date of the Encounter, up to a maximum of 20 appointments. The data comes from all [place] treatment facilities. Appointment Date/Time Appointment Type Appointme nt Facility Name Jun 18, 2024 07:00 AM AMBULATORY - PSYCHIATRY [place] [facility] [place] [facility] Jul 09, 2024 07:00 AM AMBULATORY - PSYCHIATRY [place] [facility] [place] [facility] July 23, 2024 07:00 AM AMBULATORY - PSYCHIATRY [place] [facility] [place] [facility] August 03, 2024 10:30 AM AMBULATORY - MEDICINE ID C [facility] [facility] August 13, 2024 07:00 AM AMBULATORY - PSYCHIATRY [place] [facility] [place] [facility] Sep 01, 2024 10:30 AM AMBULATORY - NEUROLOGY [facility] Sep 02, 2024 08:30 AM AMBULATORY - PSYCHIATRY [place] [facility] [place] [facility] Sep 03, 2024 11:00 AM AMBULATORY - MEDICINE ID C [facility] [place] [facility] Oct 02, 2024 11:00 AM AMBULATORY - MEDICINE ID C [facility] [place] [facility] Oct 06, 2024 10:00 AM AMBULATORY - PSYCHIATRY [place] [facility] [place] [facility] Oct 29, 2024 07:00 AM AMBULATORY - PSYCHIATRY [place] [facility] [place] [facility] Active, Pending, and Scheduled Orders This section includes a listing of several types of active, pending, and scheduled orders, including clinic medications orders, diagnostic test orders, procedure orders and consult orders; where the start date of the order is 45 days before the date of the Encounter or 45 days after the date of theEncounter. The data comes from all [place] treatment facilities. Test Date/Time Test Type Test Details Facility Name Apr 15, 2024 10:49 AM Consult Order COMMUNITY CARE-NEUROLOGY Cons Felt Checker's Choice [facility] May 12, 2024 07:27 AM Consult Order NEUROLOGY CLINIC IF NEWT Cons Felt [facility] Choice [facility] [place] [facility] Encounter Notes: All associated encounter notes This section contains the clinical notes associated to the Encounter. Date/Time Encounter Note(s) Provider Source May 07, 2024 01:40 PM BRANCH LIBRARY CLERK CONSU LT: LOCAL TITLE: TRV CONSULT NOTE STANDARD TITLE: BRANCH LIBRARY CLERK CONSULT DATE OF NOTE: MAY 07, 2024@13:40 ENTRY DATE: MAY 07, 2024@13:41:05 AUTHOR: KAYLIE JOHNSON COSIGNER: URGENCY: STATUS: COMPLETED SCHEDULED 04/17/24 16:00 DODIE RAMOS KIMB COM CARE-NEUROLOGY Consult Appt. on 01/11/25 @ 10:00 HSRM, CONSULT [id number] PID=APR [id number], 2024 PER CONSULT, PROVIDER PILO CASTRO ADDED COMMENT 04/17/24 16:03 SERENE ROWE KIMB FUV-Follow up communication with provider/vendor to check on status FUD-Community Care Appointment scheduled/rescheduled. ASD-Community Care Appointment scheduled date: 01/11/[address] [facility] User Role: Plasma Table Operator COM-Additional Comments: Referral Number: [id number] Priority: Routine Referral Issue Date: 2024-04-16 Expiration Date: 2025-07-10 First Appointment Date: 2025-01-11 COM /deborah/ KAYLIE JOHNSON Registered Nurse Signed: 05/07/2024 13:41 KAYLIE JOHNSON [facility]
--- OUTSIDE RECORDS SUMMARY | 2024-08-11 11:31 | XMS_ITS | Encounter Summary ---
Author Name [place] Address [address] [place] [address] Care Team Providers Care Asset Protection Detective Name Role Phone PAULETTE MIRZA Primary Care [...] Galeano's Name Patient's Relationship to Policy Galeano [facility] (WNR) MEDICARE ADVANTAGE [place] PPOD VALUE DB DS Mar 25, 2017 [id number] LUBNAJu [place] PATIENT [facility] (WNR) MEDICARE ADVANTAGE [facility] (WNR) Mar 25, 2017 [id number] [phone] LUBNAJuMARIOLA PATIENT [facility] HIGH DEDUCTIBL E HEALTH PLAN [employer] Oct 01, 2014 PPO [id number] LUBNAJuMARIOLA PATIENT [employer] PRESCRIPT ION Oct 01, 2014 NO GROUP NUMBER [id number] LUBNAJuMARIOLA PATIENT [facility] Oct 01, 2014 [id number] LUBNAJu BASIM PATIENT Selected Encounter This section includes the information on record at [place] for the Encounter. Date/Time Encounter Type Encounter Description Reason Provider Source Dec 12, 2023 07:00 AM PSYTX W PT 45 MINUTES MENTAL [facility] CLINIC - IND ICD-10-CM F43.12 Post-traumatic stress disorder, chronic ADDISON ALONZO E Encounter Template Text not used by [place] Assessments - Encounter Diagnoses This section includes the primary and secondary diagnoses documented for the Encounter. Date/Time Primary/Secondary Diagnosis Diagnosis Name Provider Source Dec 12, 2023 07:47 AM PRIMARY Post-traumatic stress disorder, chronic ADDISON ALONZO [facility] Plan of Treatment: Future Appointments (+ 6 months) and Future Tests (+/- 45 days) The Plan of Treatment section includes future care activities for the patient from all [place] [facility]. This section includes future appointments and future orders which are active, pending or scheduled. Future Appointments This section includes appointments that were scheduled to occur 6 months from the date of the Encounter, up to a maximum of 20 appointments. The data comes from all [facility]. Appointment Date/Time Appointment Type Appointme nt Facility Name Jan 02, 2024 07:00 AM [facility] Jan 23, 2024 07:00 AM [facility] [place] [facility] Feb 13, 2024 07:00 AM AMBULATORY PS[place]CHIATRY [place] [facility] [place] [facility] Mar 05, 2024 07:00 AM [facility] [place] [facility] Mar 26, 2024 07:00 AM AMBULATORY PS[place]CHIATRY [place] [facility] [place] [facility] Apr 16, 2024 07:00 AM AMBULATORY [facility] [place] [facility] May 07, 2024 07:00 AM AMBULATORY [facility]IATRY [facility] Active, Pending, and Scheduled Orders This [...] PM Consult Order DERMATOLOG Y/NHM (OUTPT) Cons Piano Instructor's Choice [place] [facility] [place] [facility] Social History: Smoking Status (Most current) and Tobacco Use (All prior to encounter date) This section includes the most current, and the historical, smoking and tobacco- related health factors from the [place] facility where the Encounter took place. Current Smoking Status This section includes the most current smoking, or tobacco-related health factor, from the [place] facility where the Encounter took place. Date/Time Current Smoking Status Comment [facility] it Jun 13, 2023 07:00 AM VA-TOBACCO FORMER USER [place] [facility] [place] [facility] Tobacco Use History This section includes a history of the smoking, or tobacco-related health factors, that were collected on or before the date of the Encounter. The data comes from the [place] facility where the Encounter took place. Date/Time Smoking Status/Tobac co Use Comment Facility Jun 13, 2023 07:00 AM VA-TOBACCO QUIT 15 YRS OR MORE [place] [facility] [place] [facility] Jul 12, 2022 07:00 AM VA-TOBACCO FORMER USER [place] [facility] [place] [facility] Jul 12, 2022 07:00 AM VA-TOBACCO QUIT 15 YRS OR MORE [place] [facility] [place] [facility] August 03, 2021 07:00 AM VA-TOBACCO FORMER USER [place] [facility] [facility] August 03, 2021 07:00 AM VA-TOBACCO QUIT 5 TO < 15 YRS [place] [facility] [place] [facility] August 03, 2020 07:00 AM VA-TOBACCO FORMER USER [place] [facility] [place] [facility] August 03, 2020 07:00 AM VA-TOBACCO QUIT 15 YRS OR MORE [place] [facility] [place] [facility] August 18, 2019 12:47 PM VA-TOBACCO FORMER USER [place] [facility] [facility] August 18, 2019 12:47 PM VA-TOBACCO QUIT 15 YRS OR MORE [place] [facility] [place] [facility] Jul 08, 2018 11:08 AM VA-TOBACCO FORMER USER [place] [facility] [facility] Jul 08, 2018 11:08 AM VA-TOBACCO QUIT 15 YRS OR MORE [place] [facility] [place] [facility] Jul 16, 2017 08:53 AM LIFETIME NON-TOBACCO USER [place] [facility] [facility] Jul 10, 2016 10:25 AM QUIT TOBACCO USE > 7 YEARS AGO [place] [facility] [place] [facility] Mar 11, 2015 08:33 AM QUIT TOBACCO USE > 7 YEARS AGO [place] [facility] [place] [facility] Jun 26, 2012 08:26 AM LIFETIME NON-TOBACCO USER [place] [facility] [facility] Aug 30, 2010 09:04 AM QUIT TOBACCO USE 1-7 YEARS AGO [place] [facility] [place] [facility] August 19, 2009 08:25 AM QUIT TOBACCO USE 1-7 YEARS AGO 1 + years ago [place] [facility] [place] [facility] Jul 01, 2008 03:42 PM QUIT TOBACCO USE IN PAST YEAR [place] [facility] [place] [facility] Jul 01, 2008 02:29 PM QUIT TOBACCO USE IN PAST YEAR QUIT 2007 [facility] [place] [facility] Mar 20, 2001 09:17 AM CURRENT SMOKER not able to quit [facility] Encounter Notes: All associated encounter notes This section contains the clinical notes associated to the Encounter. Date/Time Encounter Note(s) Provider Source Dec 12, 2023 07:01 AM TELEHEALTH NOTE: LOCAL TITLE: [place] VIDEO CONNECT PSYCHOLOGY NOTE STANDARD TITLE: TELEHEALTH NOTE DATE OF NOTE: DEC 12, 2023@07:01 ENTRY DATE: DEC 12, 2023@07:01:49 AUTHOR: ADDISON ALONZO COSIGNER: URGENCY: STATUS: COMPLETED [facility] Video Connect (VVC) Standard Documentation VVC Clinician Resources Only: E911 (Emergency Call Relay Center): [phone] National Veterans Crisis Line - (4-978-159-SCXD) press #1. ISAIAS Suicide Coordinator [phone], Ext. [phone]; Back-up Ext. [phone] Research Biologist of the Day(AOD), Aleksandra ESPARZA [phone], Ext. [phone] Introduction: Visit is being conducted by [place] Monitor. Rosebud identified with 2 identifiers: [X] Full Name [X] Date of [ ] VA ID Card Emergency Plan: Rosebud confirmed and/or provided the following information in case of emergency or technology failure. PATIENT PHONE - PHONE NUMBER [CELLULAR] - Is patient phone number correct, if not, enter below: 's phone number: VELASQUEZ CALVO [address] [facility] [address] [place] [address] Rosebud's present location and address for appointment: [address] [place] [address] [address] [place] [address] Rosebud's emergency contact name and phone number: Cally Leon [phone] Rosebud reported that location is private and safe: Yes Informed Consent: Rosebud informed of the risks and benefits of Telehealth video care. Rosebud has the right to refuse video services. If refuses video visit, a [id number] visit will be scheduled. Rosebud verbalized consent for this video visit: Yes Rosebud provided consent for any other persons present for visit: N/A If yes, who and relationship to patient: Secure visit: Visit was locked for security and privacy: Yes VISIT DURATION 43 minutes DIAGNOSES: PTSD, Chronic; Features of OCPD PRESENTING PROBLEMS: Sary presented on time to today's session and we resumed treatment as usual and reporting that he has been not good when asked. We spent the session talking through a series of recent setbacks that have happened to him and his . SESSION FOCUS: elaborated on what was wrong and reported that we had to section 35 our son-in-law. The son-in-law reportedly completed to residential detox programs, but then went home and tried chugging a bottle of vodka . He explained that this has caused stress throughout the family, and Rosebud's worry about how his daughter and granddaughter are doing. Anger was reported as the most prominent feeling that Sary is experiencing around this. We processed the lack of control that he has in this situation and how he can work on letting go of the urge to control it. Sary also reported that his shared that she is having some financial stressors with managing her own money. She reportedly found out that she only has enough finances to last her 5 years. We discussed this and clarified that they have other money that will provide them stability, and so this is not as big of a concern as it initially felt like for him. Lastly, he said that his 's brother only has 6 months left to live. As a result we process this news and explored how he and his are doing throughout these issues. was happy to report that he will be heading back down to [place] soon, which we discussed as being a help with all of this. They will reportedly be driving less, have less medical appointments, and be occupied with more enjoyable activities/socialization. He was encouraged to continue his stretching and mindfulness routines, and he asked about how he can get a copy of some yoga poses that he got from PT in the past. He was encouraged to search for them through secure messaging system and reach out to request a copy. ASSESSMENT: BRIEF ASSESSMENT OF MENTAL STATUS: 1. [...] FREQUENCY: every 3 weeks VVC @ 7am January 08 arriving in [place]. /deborah/ Addison Alonzo PsyD Staff Psychologist Signed: 12/12/2023 07:47 ADDISON ALONZO [place] [facility]
--- OUTSIDE RECORDS SUMMARY | 2024-08-11 11:31 | XMS_ITS | Continuity of Care Document ---
Author Name [facility] Organization [facility] Care Team Providers Care Spd Tech Name Role Phone [facility] Unavailable Unavailable Problems Combined list of problems from Department of Defense and Veterans Affairs facilities. It does not include entries that were removed or entered in error. Problem Status Onset Date Problem Type Date of Resolution Comments Source Adult screening status Active Condition Apr 23, 2018 Entered By: JAKUB BRYANT Comment: AAA screen- NegJan 2018 Entered By: JAKUB BRYANT Comment: 04/16/2018 07:38 SERUM 0.90 [facility] Allergic rhinitis Active Condition [facility] Allergy test positive Active Condition July 24, 2018 Entered By: JAKUB BRYANT Comment: Annie Nuts ( 03/2018) [facility] Backache Active Condition Apr 10 Entered By: GAYATHRI AGUILAR Comment: 03/2017: Severe L4-5 and L5-S1 disc space narrowing and endplate changes. [facility] Carotid artery stenosis Active Condition May 27, 2017 Entered By: GAYATHRI AGUILAR Comment: R carotid stenosis 50-69 % on doppler . vascular referral done 05/27/17, Plavix and ASA requested to start -pharmacy NF [facility] Chronic Low Back Pain Active Condition [facility] Colonic polyp (SNOMED CT 25144814) Active Condition Jul 01, 2008 Entered By: PAULETTE FLORES Comment: -- by colonoscopy 03/01 at [facility] 11/03Fe2017 Entered By: GAYATHRI AGUILAR Comment: normal colonoscopy at [facility] orderd by [facility] repeat July 2016-->normal,n o polyps this time ,so repeat due in 7 yrs (July 2026) [facility] Erectile dysfunction (SNOMED CT 944080601) Active Condition [facility] Essential hypertension Active Condition [facility] Essential tremor Active Condition [facility] Hip pain Active Condition Jan 28 Entered By: GAYATHRI AGUILAR Comment: since early 2016 ,no trauma, normal xray ,right lower leg pain withit- r/o referred pain [facility] History of hormone replacement Active Condition Mar 04, 2018 Entered By: JAKUB BRYANT Comment: TESTOSTERONE- per [facility] provider [facility] Hyperlipidemia Active Condition [facility] Hyponatremia (SNOMED CT 26385796) Active Condition [facility] Inappropriate ADH Syndrome Active Condition [facility] Insomnia Active Condition [facility] Loss of weight Active Condition [facility] Pain in lower limb Active Condition Feb 26, 2017 Entered By: GAYATHRI AGUILAR Comment: since early 2016-lateral upper section of the right lower leg . x-ray 01-28-2017 calcificatins on the soft tissue .Feb 26, 2017 Entered By: GAYATHRI AGUILAR Comment: MRI of the right Tibia and fibula 02/10/2017 -normal [facility] Personal History of Alcoholism Active Condition Jul 01, 2008 Entered By: PAULETTE FLORES Comment: -- in remission since 1998 [facility] Posttraumatic stress disorder Active Condition Oct 29, 2013 Entered By: NEIDA MATTHEWS Comment: Assessed on 10/19/13 with CAPS for DSM-5 [facility] Tobacco dependence in remission Active Condition May 14, 2017 Entered By: GAYATHRI AGUILAR Comment: 1ppd for 30 yrs . 04/2017 reports in remission now x 10 y [facility] Under care of multiple providers Active Condition Jul 17, 2017 Entered By: JAKUB BRYANT Comment: vascular surgeon - [facility] ENCOUNTER-VOC THERAPY Inactive Condition 07/01/2008 [facility] OTHER SPECIFIED COUNSELING Inactive Condition 07/01/2008 [facility] PRESBYOPIA Inactive Condition 07/01/2008 [facility] TOBACCO USE DISORDER Inactive Condition 07/28/2008 [facility] Diagnosis: ICD-10-CM M72.0 Palmar fascial fibromatosis [Dupuytren] Active Diagnosis [facility] Diagnosis: ICD-10-CM Z71.89 Other specified counseling Active Diagnosis [facility] Diagnosis: ICD-10-CM F43.12 Post-traumatic stress disorder, chronic Active Diagnosis [facility] Diagnosis: ICD-10-CM G25.0 Essential tremor Active Diagnosis [facility] Diagnosis: ICD-10-CM Z46.1 Encounter for fitting and adjustment of hearing aid Active Diagnosis [facility] Diagnosis: ICD-10-CM L30.8 Other specified dermatitis Active Diagnosis [facility] Diagnosis: ICD-10-CM Z13.89 Encounter for screening for other disorder Active Diagnosis [facility] Diagnosis: ICD-10-CM H90.3 Sensorineural hearing loss, bilateral Active Diagnosis [facility] Diagnosis: ICD-10-CM I65.29 Occlusion and stenosis of unspecified carotid artery Active Diagnosis [facility] Medications Combined list of outpatient medications from Department of Defense and Veterans Affairs facilities.Medications provided include 1) outpatient medications from the last 15 months, and 2) patient-reported medications. Medication Details Route Status Patient Instructions Prescription Expires Prescription Number Last Dispense Date Ordering Provider Order Date Order Qty Source AMLODIPINE BESYLATE 10MG TAB TAKE ONE TABLET BY MOUTH ONCE DAILY FOR BLOOD PRESSURE /HEART, DO NOT TAKE WITH GRAPEFRU IT JUICE ORAL ACTIVE 10/03/2024 [id number] RA DEYA DUBOIS 2023 90 [facility] AMLODIPINE BESYLATE 10MG TAB TAKE ONE TABLET BY MOUTH ONCE DAILY FOR BLOOD PRESSURE /HEART, DO NOT TAKE WITH GRAPEFRU IT JUICE ORAL DISCONT INUED 11/30/2023 [id number] PAULETTE MIRZA 2022 90 [facility] ATORVASTATI N CA 20MG TAB TAKE ONE-HALF TABLET BY MOUTH ONCE DAILY FOR HIGH CHOLESTE ROL ORAL ACTIVE 10/03/2024 [id number] RA DEYA DUBOIS 2023 45 [facility] CETIRIZINE HCL 10MG TAB TAKE ONE TABLET BY MOUTH ONCE DAILY ORAL ACTIVE PAULETTE MIRZA 2020 [facility] EPINEPHRINE (EQV-EPI-PE N) 0.3MG/0.3ML INJECTOR INJECT DIRECTED INTRAMUS CULARLY NEEDED FOR LIFE THREATEN ING ALLERGIC REACTION GO TO ER LUCIEN SCHMID AFTER USE--MISAEL L 911 INTRAM USCULA R ACTIVE 10/03/2024 [id number] RA DEYA DUBOIS 2023 2 [facility] ESZOPICLONE 3MG TAB TAKE ONE TABLET BY MOUTH ORAL ACTIVE MELISSA DENISE 2014 [facility] MULTIVITAMI N W/MINERAL TAB TAKE BY MOUTH ORAL ACTIVE CUTKAYLEY ARTEAGA LLIAM S 2008 [facility] OTHER CAP/TAB RUTIN 450 MG oral DAILY ACTIVE CUTLERKAYLEY LLIAM S 2012 [facility] TADALAFIL 20MG TAB TAKE ONE TABLET BY MOUTH ONCE DAILY NEEDED TAKE 1 HOUR PRIOR TO SEXUAL ACTIVITY ORAL ACTIVE 10/03/2024 [id number] RA DEYA DUBOIS 2023 6 [facility] TADALAFIL 20MG TAB TAKE ONE TABLET BY MOUTH ONCE DAILY NEEDED TAKE 1 HOUR PRIOR TO SEXUAL ACTIVITY ORAL DISCONT INUED 10/02/2023 [id number] PAULETTE MIRZA 2022 6 [facility] TESTOSTERON E 2MG/24HRS PATCH APPLY 1 PATCH TO SKIN TRANSD ERMAL ACTIVE Merlin BRYANT UANNBrenden 2018 [facility] TRIAMCINOLO NE ACETONIDE 0.1% CREAM,TOP APPLY A THIN LAYER TOPICALL Y TWICE DAILY NEEDED FOR ITCHING DO NOT USE FOR MORE THAN 14 CONSECUT LICO DAYS. DO NOT APPLY TO FACE OR GROIN DO NOT USE FOR MORE THAN 14 CONSECUT LICO DAYS. DO NOT APPLY TO FACE OR GROIN ROZ Barrientos 12/04/2023 [id number] RA DE[facility] DUBOIS 2023 80 [facility] Allergies, Adverse Reactions, Alerts Combined list of allergies from Department of Defense and Veterans Affairs facilities. It does not include entries that were removed or entered in error. Substance Category Reaction Severity Reaction type Status Date Reported Comments Source AMOXICILLIN Propensity to adverse reactions to drug (finding) Eruption active 3 [facility] [place] [facility] [place] Propensity to adverse reactions to food (finding) Eruption active 9 [facility] [place] [facility] SILDENAFIL Propensity to adverse reactions to drug (finding) Blurring of visual image active 2 [facility] [place] [facility] Immunizations Combined list of available immunizations from the Department of Defense and Veterans Affairs facilities. Immunization Series Date Given Administered By Site Reaction Lot Number CVX Code Drug Cant Hooker Status Comments Source INFLUENZA, UNSPECIFIED FORMULATION 2022 88 complet ed Booster for Series, HISTORICA L INFORMATI ON - FROM OTHER PROVIDER, [facility] COVID-19 (MODERNA), MRNA, LNP-S, PF, 100 MCG/0.5 ML DOSE 2 2020 207 complet ed [facility] COVID-19 (MODERNA), MRNA, LNP-S, PF, 100 MCG/0.5 ML DOSE 1 2020 207 complet ed [facility] INFLUENZA, INJECTABLE, QUADRIVALENT, PRESERVATIVE FREE 2019 150 complet ed [facility] INFLUENZA, SEASONAL, INJECTABLE 2018 141 complet ed [facility] PNEUMOCOCCAL POLYSACCHARID E PPV23 2018 33 complet ed [facility] ZOSTER RECOMBINANT 1 2018 187 complet ed [facility] INFLUENZA, SEASONAL, INJECTABLE 2017 141 complet ed Site: Left Deltoid [facility] INFLUENZA, SEASONAL, INJECTABLE 2016 141 complet ed [facility] FLU,3 YRS (HISTORICAL) 2015 88 complet ed community [facility] FLU,3 YRS (HISTORICAL) 2012 88 complet ed [place] FLU,3 YRS (HISTORICAL) 2012 88 complet ed [facility] FLU,3 YRS (HISTORICAL) 2010 88 complet ed [facility] DTAP, UNSPECIFIED FORMULATION 2010 DIONISIO OCAMPO 107 complet ed [facility] PNEUMOCOCCAL, UNSPECIFIED FORMULATION 2010 109 complet ed [facility] TDAP 2010 115 complet ed [facility] FLU,3 YRS (HISTORICAL) 2009 88 complet ed [facility] FLU,3 YRS (HISTORICAL) 2009 88 complet ed [facility] FLU,3 YRS (HISTORICAL) 2008 88 complet ed Site: Left Deltoid [facility] FLU,3 YRS (HISTORICAL) 2007 88 complet ed [facility] Results Combined list of recent chemistry, hematology and other laboratory results from Department of Defense and Veterans Affairs, ranging from 15 months to all on record, depending upon the facility. Order Name Results Value Reference Range Date Interpretation Specimen Comments Source LIPID PANEL, NON FASTING CHOLESTEROL [MASS/VOLUM E] IN SERUM OR PLASMA 136 mg/dL 09/29 Specimen Type: SERUM No comment entered. Ordering Provider: KAYLEY MIRZA Report Released Date/Time: Sep 18, 2023 11:50 AM Reporting Lab: [facility] [address] [address] Performing Lab: [facility] [address] [address] [facility] LIPID PANEL, NON FASTING TRIGLYCERID E [MASS/VOLUM E] IN SERUM OR PLASMA 25 mg/dL 0 - 150 09/29 Specimen Type: SERUM No comment entered. Ordering Provider: KAYLEY MIRZA Report Released Date/Time: Sep 18, 2023 11:50 AM Reporting Lab: [facility] [address] [address] Performing Lab: [facility] [address] [address] [facility] LIPID PANEL, NON FASTING CHOLESTEROL IN LDL [MASS/VOLUM E] IN SERUM OR PLASMA BY CALCULATION 56 mg/dL 0 - 129 09/29 Specimen Type: SERUM No comment entered. Ordering Provider: KAYLEY MIRZA Report Released Date/Time: Sep 18, 2023 11:50 AM Reporting Lab: [facility] [place] [facility] [address] [facility] [address] Performing Lab: [facility] [address] [address] [facility] LIPID PANEL, NON FASTING CHOLESTEROL .TOTAL/CHOL ESTEROL IN HDL [MASS RATIO] IN SERUM OR PLASMA 1.8 09/29 Specimen Type: SERUM No comment entered. Ordering Provider: KAYLEY MIRZA Report Released Date/Time: Sep 18, 2023 11:50 AM Reporting Lab: [facility] [place] [facility] [address] [facility] [address] Performing Lab: [facility] [place] [facility] [address] [facility] [address] [facility] [facility] LIPID PANEL, NON FASTING CHOLESTEROL IN HDL [MASS/VOLUM E] IN SERUM OR PLASMA 75 mg/dL 40 - 60 09/29 H Specimen Type: SERUM No comment entered. Ordering Provider: KAYLEY MIRZA Report Released Date/Time: Sep 18, 2023 11:50 AM Reporting Lab: [facility] [place] [facility] [address] [facility] [address] Performing Lab: [facility] [address] [facility] [address] [facility] LIVER FUNCTION PROTEIN [MASS/VOLUM E] IN SERUM OR PLASMA 6.6 g/dL 6.0 - 8.3 09/29 Specimen Type: SERUM No comment entered. Ordering Provider: KAYLEY MIRZA Report Released Date/Time: Sep 18, 2023 11:50 AM Reporting Lab: [facility] [place] [facility] [address] [facility] [address] Performing Lab: [facility] [address] [facility] [address] [facility] LIVER FUNCTION ALBUMIN [MASS/VOLUM E] IN SERUM OR PLASMA 4.0 g/dL 3.5 - 5.0 09/29 Specimen Type: SERUM No comment entered. Ordering Provider: KAYLEY MIRZA Report Released Date/Time: Sep 18, 2023 11:50 AM Reporting Lab: [facility] [place] [facility] [address] [facility] [address] Performing Lab: [facility]N [facility] [address] [address] [facility] LIVER FUNCTION ALKALINE PHOSPHATASE [ENZYMATIC ACTIVITY/VO LUME] IN SERUM OR PLASMA 76 U/L 40 - 150 09/29 Specimen Type: SERUM No comment entered. Ordering Provider: KAYLEY MIRZA Report Released Date/Time: Sep 18, 2023 11:50 AM Reporting Lab: [facility] [address] [facility] [address] Performing Lab: [facility] [address] [facility] [address] [facility] LIVER FUNCTION ASPARTATE AMINOTRANSF ERASE [ENZYMATIC ACTIVITY/VO LUME] IN SERUM OR PLASMA 33 U/L 5 - 34 09/29 Specimen Type: SERUM No comment entered. Ordering Provider: KAYLEY MIRZA Report Released Date/Time: Sep 18, 2023 11:50 AM Reporting Lab: [facility] [address] [facility] [address] Performing Lab: [facility] [address] [facility] [address] [facility] [facility] LIVER FUNCTION ALANINE AMINOTRANSF ERASE [ENZYMATIC ACTIVITY/VO LUME] IN SERUM OR PLASMA 23 U/L 09/29 Specimen Type: SERUM No comment entered. Ordering Provider: KAYLEY MIRZA Report Released Date/Time: Sep 18, 2023 11:50 AM Reporting Lab: [facility] [address] [facility] [address] Performing Lab: [facility] [address] [facility] [address] [place] [facility] [place] [facility] LIVER FUNCTION BILIRUBIN.T OTAL [MASS/VOLUM E] IN SERUM OR PLASMA 0.6 mg/dL 0.2 - 1.2 09/29 Specimen Type: SERUM No comment entered. Ordering Provider: KAYLEY MIRZA Report Released Date/Time: Sep 18, 2023 11:50 AM Reporting Lab: [facility] [address] [facility] [address] Performing Lab: [facility] [address] [facility] [address] [facility] [facility] BASIC METABOLIC PANEL (non-fast ing) UREA NITROGEN [MASS/VOLUM E] IN SERUM OR PLASMA 17 mg/dL 7 - 25 09/29 Specimen Type: SERUM No comment entered. Ordering Provider: KAYLEY MIRZA Report Released Date/Time: Sep 18, 2023 11:50 AM Reporting Lab: [facility] [address] [address] Performing Lab: [address] [address] [facility] BASIC METABOLIC PANEL (non-fast ing) GLUCOSE [MASS/VOLUM E] IN SERUM OR PLASMA 100 mg/dL 65 - 100 09/29 Specimen Type: SERUM No comment entered. Ordering Provider: KAYLEY MIRZA Report Released Date/Time: Sep 18, 2023 11:50 AM Reporting Lab: [address] [address] Performing Lab: [address] [address] [facility] BASIC METABOLIC PANEL (non-fast ing) SODIUM [MOLES/VOLU ME] IN SERUM OR PLASMA 132 mmol/L 135 - 145 09/29 L Specimen Type: SERUM No comment entered. Ordering Provider: KAYLEY MIRZA Report Released Date/Time: Sep 18, 2023 11:50 AM Reporting Lab: [address] [address] Performing Lab: [facility] [address] [address] [facility] BASIC METABOLIC PANEL (non-fast ing) POTASSIUM [MOLES/VOLU ME] IN SERUM OR PLASMA 4.3 mmol/L 3.5 - 5.0 09/29 Specimen Type: SERUM No comment entered. Ordering Provider: KAYLEY MIRZA Report Released Date/Time: Sep 18, 2023 11:50 AM Reporting Lab: [address] [address] Performing Lab: [facility] [address] [facility] [address] [facility] BASIC METABOLIC PANEL (non-fast ing) CHLORIDE [MOLES/VOLU ME] IN SERUM OR PLASMA 102 mmol/L 100 - 110 09/29 Specimen Type: SERUM No comment entered. Ordering Provider: KAYLEY MIRZA Report Released Date/Time: Sep 18, 2023 11:50 AM Reporting Lab: [facility]N [facility] [address] [facility] [address] Performing Lab: [facility] [address] [facility] [address] [facility] BASIC METABOLIC PANEL (non-fast ing) CARBON DIOXIDE, TOTAL [MOLES/VOLU ME] IN SERUM OR PLASMA 19 meq/L 20 - 30 09/29 L Specimen Type: SERUM No comment entered. Ordering Provider: KAYLEY MIRZA Report Released Date/Time: Sep 18, 2023 11:50 AM Reporting Lab: [facility] [address] [facility] [address] Performing Lab: [facility] [address] [address] [facility] BASIC METABOLIC PANEL (non-fast ing) CREATININE [MASS/VOLUM E] IN SERUM OR PLASMA 1.01 mg/dL 0.50 - 1.40 09/29 Specimen Type: SERUM No comment entered. Ordering Provider: KAYLEY MIRZA Report Released Date/Time: Sep 18, 2023 11:50 AM Reporting Lab: [facility] [address] [facility] [address] Performing Lab: [facility] [address] [address] [facility] BASIC METABOLIC PANEL (non-fast ing) GLOMERULAR FILTRATION RATE/1.73 SQ M.PREDICTED [VOLUME RATE/AREA] IN SERUM, PLASMA OR BLOOD BY CREATININE- BASED FORMULA (CKD-EPI 2020) 78 mL/min 60 09/29 Specimen Type: SERUM No comment entered. Ordering Provider: KAYLEY MIRZA Report Released Date/Time: Sep 18, 2023 11:50 AM Reporting Lab: [facility] [address] [facility] [address] Performing Lab: [facility] [place] [facility] [address] [facility] [address] [facility] CBC LEUKOCYTES [#/VOLUME] IN BLOOD BY AUTOMATED COUNT 6.94 10*3/u L 4.50 - 11.00 09/29 Specimen Type: BLOOD No comment entered. Ordering Provider: KAYLEY MIRZA Report Released Date/Time: Sep 18, 2023 11:50 AM Reporting Lab: [facility] [place] [address] [facility] [address] Performing Lab: [facility] [place] [address] [place] [address] [facility] [facility] CBC ERYTHROCYTE S [#/VOLUME] IN BLOOD BY AUTOMATED COUNT 4.39 10*6/u L 4.23 - 5.66 09/29 Specimen Type: BLOOD No comment entered. Ordering Provider: KAYLEY MIRZA Report Released Date/Time: Sep 18, 2023 11:50 AM Reporting Lab: [facility] [place] [address] [place] [phone] Performing Lab: [facility] [place] [facility] [address] [facility] [address] [facility] [place] [facility] CBC HEMOGLOBIN [MASS/VOLUM E] IN BLOOD 14.6 g/dL 12.8 - 17 09/29 Specimen Type: BLOOD No comment entered. Ordering Provider: KAYLEY MIRZA Report Released Date/Time: Sep 18, 2023 11:50 AM Reporting Lab: [facility] [place] [facility] [address] [facility] [address] Performing Lab: [facility] [place] [facility] [address] [place] [address] [facility] [place] [facility] CBC HEMATOCRIT [VOLUME FRACTION] OF BLOOD BY AUTOMATED COUNT 40.7 39.2 - 50.4 09/29 Specimen Type: BLOOD No comment entered. Ordering Provider: KAYLEY MIRZA Report Released Date/Time: Sep 18, 2023 11:50 AM Reporting Lab: [facility] [place] [facility] [address] [facility] [address] Performing Lab: [facility] [place] [facility] [address] [facility] [address] [facility] CBC MCV [ENTITIC VOLUME] BY AUTOMATED COUNT 92.7 fL 82 - 99 09/29 Specimen Type: BLOOD No comment entered. Ordering Provider: KAYLEY MIRZA Report Released Date/Time: Sep 18, 2023 11:50 AM Reporting Lab: [facility] [place] [address] [phone] Performing Lab: [facility] [place] [address] [address] [facility] CBC MCHC [MASS/VOLUM E] BY AUTOMATED COUNT 35.9 g/dL 30.8 - 35.1 09/29 H Specimen Type: BLOOD No comment entered. Ordering Provider: KAYLEY MIRZA Report Released Date/Time: Sep 18, 2023 11:50 AM Reporting Lab: [facility] [place] [address] [phone] Performing Lab: [facility] [place] [address] [phone] [facility] [place] [facility] CBC PLATELETS [#/VOLUME] IN BLOOD BY AUTOMATED COUNT 268 10*3/u L 140 - 360 09/29 Specimen Type: BLOOD No comment entered. Ordering Provider: KAYLEY MIRZA Report Released Date/Time: Sep 18, 2023 11:50 AM Reporting Lab: [facility] [address] [address] Performing Lab: [facility] [address] [address] [facility] CBC ERYTHROCYTE DISTRIBUTIO N WIDTH [RATIO] BY AUTOMATED COUNT 11.9 12.0 - 16.0 09/29 L Specimen Type: BLOOD No comment entered. Ordering Provider: KAYLEY MIRZA Report Released Date/Time: Sep 18, 2023 11:50 AM Reporting Lab: [facility] [address] [facility] [address] Performing Lab: [facility] [address] [facility] [address] [facility] CBC MCH [ENTITIC MASS] BY AUTOMATED COUNT 33.3 pg 26.2 - 32.6 09/29 H Specimen Type: BLOOD No comment entered. Ordering Provider: KAYLEY MIRZA Report Released Date/Time: Sep 18, 2023 11:50 AM Reporting Lab: [facility] [address] [facility] [address] Performing Lab: [facility] [place] [facility] [address] [facility] [address] [facility] Vital Signs Combined list of inpatient and outpatient Vital Signs from Department of Defense and Veterans Affairs, ranging from 12 months to all on record, depending upon the facility. Vital Sign Value Date Comments Source SYSTOLIC BLOOD PRESSURE 138 08/04/19 25 10:18:41 [facility] DIASTOLIC BLOOD PRESSURE 62 025 10:18:41 [facility] PAIN 2 08/03/2024 10:18:41 [facility] TEMPERATURE 97.9 08/03/2024 10:18:41 [facility] PULSE 63 08/03/2024 10:18:41 [facility] RESPIRATION 16 08/03/2024 10:18:41 [facility] SYSTOLIC BLOOD PRESSURE 139 10/03/19 24 11:03:03 [facility] DIASTOLIC BLOOD PRESSURE 65 024 11:03:03 [facility] PULSE OXIMETRY 96 10/03/2023 11:03:03 [facility] WEIGHT 138 10/03/2023 11:03:03 [facility] BMI 22 kg/m2 10/03/2023 11:03:03 [facility] PAIN 0 10/03/2023 11:03:03 [facility] HEIGHT 66 10/03/2023 11:03:03 [facility] TEMPERATURE 98.3 10/03/2023 11:03:03 [facility] PULSE 61 10/03/2023 11:03:03 [facility] RESPIRATION 20 10/03/2023 11:03:03 [facility] Encounters Combined list of: 1) Encounters from Department of Veterans Affairs facilities going backup to the last 18 months, not all VA inpatient encounters are included; 2) Encounters from the Department of Defense facilities going backup to 280 months. Location Location Details Encounter Type Encounter Number Reason For Visit Attending Provider ADM Date DC Date Status Disposition Source Prabhjot [facility]GER [facility] TARGETED CASE MANAGEMENT [id number] DANAE SANCHEZ 02/18 [facility]hjot [facility] PSYTX W PT 45 MINUTES [id number] Diagnos is: ICD-10- CM F43.12 Post-tr aumatic stress disorde r, chronic CONI SANTOS 02/21 [facility]hjot [facility] Outpatient Encounter [id number] 03/05 [facility]hjot [facility] PSYTX W PT 45 MINUTES [id number] Diagnos is: ICD-10- CM F43.12 Post-tr aumatic stress disorde r, chronic CONI SANTOS A 03/07 [facility] PSYTX W PT 45 MINUTES [id number] Diagnos is: ICD-10- CM F43.12 Post-tr aumatic stress disorde r, chronic CONI SANTOS A 04/04 [facility] PSYTX W PT 45 MINUTES [id number] Diagnos is: ICD-10- CM F43.12 Post-tr aumatic stress disorde r, chronic DANIELLERYANN A 04/25 [facility] Outpatient Encounter [id number] MALACHI LASHON 04/25 [facility] Outpatient Encounter [id number] 05/22 [facility] PSYTX W PT 45 MINUTES [id number] Diagnos is: ICD-10- CM F43.12 Post-tr aumatic stress disorde r, chronic CONI SANTOS A 06/12 [facility] Out[facility] Encounter [id number] 06/19 [facility] Out[facility] Encounter [id number] GEETA FAYE ISTOPHER E 06/26 [facility] PSYTX W PT 45 MINUTES [id number] Diagnos is: ICD-10- CM F43.12 Post-tr aumatic stress disorde r, chronic DANIELLECONI A 07/10 [facility] PSYTX W PT 45 MINUTES [id number] Diagnos is: ICD-10- CM F43.12 Post-tr aumatic stress disorde r, chronic CONI SANTOS A 07/24 [facility] Out[facility] Encounter [id number] 08/11 [facility] PSYTX W PT 45 MINUTES [id number] Diagnos is: ICD-10- CM F43.12 Post-tr aumatic stress disorde r, chronic CONI SANTOS A 08/14 [facility] Outpatient Encounter [id number] 09/23 [facility] OFFICE O/P EST MOD 30 MIN [id number] Diagnos is: ICD-10- CM I65.29 Occlusi on and stenosi s of unspeci fied carotid artery DOUG DUBOIS 10/02 [facility] HEARING AID EXAM BOTH EARS [id number] Diagnos is: ICD-10- CM H90.3 Sensori neural hearing loss, bilater al Tejas ALDANA 10/29 [facility] UNLISTED SPEC DERM SVC/PX [id number] Diagnos is: ICD-10- CM Z13.89 Encount er for screeni ng for other disorde r MITCH FIELDS A 10/29 [facility] PSYTX W PT 45 MINUTES [id number] Diagnos is: ICD-10- CM F43.12 Post-tr aumatic stress disorde r, CONI Serna 10/30 [facility] OFFICE O/P EST LOW 20 MIN [id number] Diagnos is: ICD-10- CM L30.8 Other specifi ed dermati MATTHEW Meyer PH J 10/31 [facility] Outpatient Encounter [id number] 10/31 [facility] Outpatient Encounter [id number] DOUG DUBOIS 11/03 [facility] PSYTX W PT 45 MINUTES [id number] Diagnos is: ICD-10- CM F43.12 Post-tr aumatic stress disorde r, CONI Serna 11/20 [facility] CONFORMITY EVALUATION [id number] Diagnos is: ICD-10- CM Z46.1 Encount er for fitting and adjustm ent of hearing aid Tejas ALDANA 12/04 [facility] PSYTX W PT 45 MINUTES [id number] Diagnos is: ICD-10- CM F43.12 Post-tr aumatic stress disorde r, CONI Serna 12/11 [facility] PSYTX W PT 45 MINUTES [id number] 1. Diagnos is: ICD-10- CM F43.12 Post-tr aumatic stress disorde r, chronic DANIELLERYANN A 01/01 [facility] PSYTX W PT 45 MINUTES [id number] 1. Diagnos is: ICD-10- CM F43.12 Post-tr aumatic stress disorde r, chronic DANIELLECONI A 01/22 [facility] PSYTX W PT 45 MINUTES [id number] 1. Diagnos is: ICD-10- CM F43.12 Post-tr aumatic stress disorde r, chronic DANIELLECONI A 02/12 [facility] PSYTX W PT 45 MINUTES [id number] Diagnos is: ICD-10- CM F43.12 Post-tr aumatic stress disorde r, chronic DANIELLERYANN A 03/05 [facility] [place] [place] Outpatient Encounter [id number] KASSIE PARRA 03/24 [facility] PSYTX W PT 45 MINUTES [id number] Diagnos is: ICD-10- CM F43.12 Post-tr aumatic stress disorde r, chronic CONI SANTOS A 03/26 [facility] CASE MANAGEMENT [id number] PAUL NATION 03/26 [facility] [place] Prabhjot [facility] CASE MANAGEMENT [id number] CALLY MORALES 03/26 [facility]ot [facility]jot [facility] Outpatient Encounter [id number] 04/07 Prabhjot [facility] CASE MANAGEMENT [id number] BACKHURSTKAYLIE 04/14 [facility] CASE MANAGEMENT [id number] BACKHURST, KAYLIE L 04/15 [facility] [place] PSYTX W PT 45 MINUTES [id number] Diagnos is: ICD-10- CM F43.12 Post-tr aumatic stress disorde r, chronic CONI SANTOS 04/16 [facility] [place] [facility] [place] [facility] Outpatient Encounter [id number] OCNI SANTOS 04/16 [facility] [place] [facility] Tejas.Anne Marie [facility] Outpatient Encounter [id number] 04/16 [facility]hjot [facility] [place] PSYTX W PT 45 MINUTES [id number] Diagnos is: ICD-10- CM G25.0 Essenti al tremor CONI SANTOS 05/07 [facility] [place] [facility] Outpatient Encounter [id number] 05/07 [facility] [place] PSYTX W PT 45 MINUTES [id number] Diagnos is: ICD-10- CM F43.12 Post-tr aumatic stress disorde r, chronic CONI SANTOS 06/18 [facility] Outpatient Encounter [id number] 06/26 [facility] PSYTX W PT 45 MINUTES [id number] Diagnos is: ICD-10- CM F43.12 Post-tr aumatic stress disorde r, chronic DANIELLE,CONI A 07/09 [facility] PSYTX W PT 45 MINUTES [id number] Diagnos is: ICD-10- CM F43.12 Post-tr aumatic stress disorde r, chronic DANIELLE,CONI A 07/23 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 Social History Combined list of available smoking, tobacco, and other social history from Department of Defense and Veterans Affairs facilities. Social History Type Response Date Comment Source Tobacco smoking status SCIS VA-TOBACCO USE FORMER CIGARETTES 06/18/2024 [facility] [place] [facility] History of tobacco use VA-TOBACCO NEVER USED OTHER TYPE 06/18/2024 [facility] [place] [facility] History of tobacco use VA-TOBACCO FORMER USER 06/13/2023 [facility] [place] [facility] History of tobacco use AK-TOBACCO QUIT 15 YRS OR MORE 07/12/2022 [facility] [place] [facility] History of tobacco use AK-TOBACCO FORMER USER 08/03/2021 [facility] [place] [facility] History of tobacco use AK-TOBACCO FORMER USER 08/03/2020 [facility] [place] [facility] History of tobacco use AK-TOBACCO QUIT 15 YRS OR MORE 08/18/2019 [facility] [place] [facility] History of tobacco use AK-TOBACCO FORMER USER 07/08/2018 [facility] [place] [facility] History of tobacco use LIFETIME NON-TOBACCO USER 07/16/2017 [facility] [place] [facility] History of tobacco use QUIT TOBACCO USE > 7 YEARS AGO 07/10/2016 [facility] [place] [facility] History of tobacco use QUIT TOBACCO USE > 7 YEARS AGO 03/11/2015 [facility] [place] [facility] History of tobacco use LIFETIME NON-TOBACCO USER 06/26/2012 [facility] [place] [facility] History of tobacco use QUIT TOBACCO USE 1-7 YEARS AGO 08/30/2010 [facility] [place] [facility] History of tobacco use QUIT TOBACCO USE 1-7 YEARS AGO 08/19/2009 1 + years ago [facility] [place] [facility] History of tobacco use QUIT TOBACCO USE IN PAST YEAR 07/01/2008 [facility] [place] [facility] History of tobacco use QUIT TOBACCO USE IN PAST YEAR 07/01/2008 QUIT 2007 [facility] [place] [facility] History of tobacco use CURRENT SMOKER 03/20/2001 not able to quit [facility] [place] [facility] Plan of Care List of future care activities from Department of Veterans Affairs facilities. Additional future care activities may be listed in the Assessment and Plan section. Date/Time Care Activity Care Activity Detail Yeimii ty 08/13/2024 AMBULATORY - PSYCHIATRY AMBULATORY - PSYC HIATRY [facility] [place] [facility]
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
--- OUTSIDE RECORDS SUMMARY | 2024-08-11 11:32 | XMS_ITS | Encounter Summary ---
Author Name [facility] [place] [facility] [place] [facility] [facility] [place] Address [address] [place] [address] Care Team Providers Care Hardener Helper Name Role Phone PAULETTE MIRZA Primary Care Provider [facility] Insurance Providers: All historical and [...] Galeano's Name Patient's Relationship to Policy Galeano [facility] (WNR) [place] PPOD VALUE DB DS Mar 25, 2017 [id number] [phone] LUBNAJu STALLWORTH PATIENT [facility] (WNR) MEDICARE ADVANTAGE [facility] (WNR) Mar 25, 2017 [id number] [phone] LUBNAJuMARIOLA PATIENT [facility] HIGH DEDUCTIBL E HEALTH PLAN [employer] Oct 01, 2014 PPO [id number] LUBNAJuMARIOLA PATIENT [facility] PRESCRIPT ION Oct 01, 2014 NO GROUP NUMBER [id number] LUBNAJuMARIOLA PATIENT [facility] MENT[facility] Oct 01, 2014 [id number] Ju CALVO PATIENT Selected Encounter This section includes the information on record at [place] for the Encounter. Date/Time Encounter Type Encounter Description Reason Provider Source Jun 18, 2024 07:00 AM PSYTX W PT 45 MINUTES [facility]IC - IND ICD-10-CM F43.12 Post-traumatic stress disorder, chronic CONI ALONZO [facility] Encounter Template Text not used by [place] Assessments - Encounter Diagnoses This section includes the primary and secondary diagnoses documented for the Encounter. Date/Time Primary/Secondary Diagnosis Diagnosis Name Provider Source Jun 18, 2024 07:51 AM PRIMARY Post-traumatic stress disorder, chronic CONI ALONZO [facility] [place] [facility] Jun 18, 2024 07:51 AM SECONDARY Essential tremor CONI ALONZO [facility] [place] [facility] Plan of Treatment: Future Appointments (+ 6 months) and Future Tests (+/- 45 days) The Plan of Treatment section includes future care activities for the patient from all [place] [facility]. This section includes future appointments and future orders which are active, pending or scheduled. Future Appointments This section includes appointments that were scheduled to occur 6 months from the date of the Encounter, up to a maximum of 20 appointments. The data comes from all [place] treatment facilities. Appointment Date/Time Appointment Type Appointme nt Facility Name Jul 09, 2024 07:00 AM AMBULATORY - PSYCHIATRY [facility] [place] [facility] July 23, 2024 07:00 AM AMBULATORY - PSYCHIATRY [facility] [place] [facility] August 03, 2024 10:30 AM AMBULATORY - MEDICINE [facility] [place] [facility] August 13, 2024 07:00 AM AMBULATORY - PS[facility]CHIATRY [facility] [place] [facility] Sep 01, 2024 10:30 AM AMBULATORY - NEUROLOGY [facility] Sep 02, 2024 08:30 AM AMBULATORY - PSYCHIATRY [facility] [place] [facility] Sep 03, 2024 11:00 AM AMBULATORY - MEDICINE [facility] [place] [facility] Oct 02, 2024 11:00 AM AMBULATORY - MEDICINE [facility] [place] [facility] Oct 06, 2024 10:00 AM AMBULATORY - PSYCHIATRY [facility] [place] [facility] Oct 29, 2024 07:00 AM AMBULATORY - PSYCHIATRY [facility] [place] [facility] Nov 19, 2024 07:00 AM AMBULATORY - PSYCHIATRY [facility] [place] [facility] Dec 10, 2024 07:00 AM [facility] Active, Pending, and Scheduled Orders This section includes a listing of several types of active, pending, and scheduled orders, including clinic medications orders, diagnostic test orders, procedure orders and consult orders; where the start date of the order is 45 days before the date of the Encounter or 45 days after the date of theEncounter. The data comes from all [place] treatment facilities. Test Date/Time Test Type Test Details Facility Name May 12, 2024 07:27 AM Consult [facility] Telescope Maintenance's Choice [facility] Social History: Smoking Status (Most current) and Tobacco Use (All prior to encounter date) This section includes the most current, and the historical, smoking and tobacco- related health factors from the [place] facility where the Encounter took place. Current Smoking Status This section includes the most current smoking, or tobacco-related health factor, from the [facility] facility where the Encounter took place. Date/Time Current Smoking Status Comment Yeimi it Jun 18, 2024 07:00 AM VA-TOBACCO USE FOR ANA CIGARETTES [facility] Tobacco Use History This section includes a history of the smoking, or tobacco-related health factors, that were collected on or before the date of the Encounter. The data comes from the [place] facility where the Encounter took place. Date/Time Smoking Status/Tobac co Use Comment Facility Jun 18, 2024 07:00 AM VA-TOBACCO USE FORMER CIGARETTES [facility] [place] [facility] Jun 13, 2023 07:00 AM VA-TOBACCO FORMER USER [facility] [place] [facility] Jun 13, 2023 07:00 AM VA-TOBACCO QUIT 15 YRS OR MORE [facility] [place] [facility] Jul 12, 2022 07:00 AM VA-TOBACCO FORMER USER [facility] [place] [facility] Jul 12, 2022 07:00 AM VA-TOBACCO QUIT 15 YRS OR MORE [facility] [place] [facility] August 03, 2021 07:00 AM VA-TOBACCO FORMER USER [facility] [place] [facility] August 03, 2021 07:00 AM VA-TOBACCO QUIT 5 TO < 15 YRS [facility] [place] [facility] August 03, 2020 07:00 AM VA-TOBACCO FORMER USER [facility] [place] [facility] August 03, 2020 07:00 AM VA-TOBACCO QUIT 15 YRS OR MORE [facility] [place] [facility] August 18, 2019 12:47 PM VA-TOBACCO FORMER USER [facility] [place] [facility] August 18, 2019 12:47 PM VA-TOBACCO QUIT 15 YRS OR MORE [facility] [place] [facility] Jul 08, 2018 11:08 AM VA-TOBACCO FORMER USER [facility] [place] [facility] Jul 08, 2018 11:08 AM VA-TOBACCO QUIT 15 YRS OR MORE [facility] [place] [facility] Jul 16, 2017 08:53 AM LIFETIME NON-TOBACCO USER [facility] [place] [facility] Jul 10, 2016 10:25 AM QUIT TOBACCO USE > 7 YEARS AGO [facility] [place] [facility] Mar 11, 2015 08:33 AM QUIT TOBACCO USE > 7 YEARS AGO [facility] [place] [facility] Jun 26, 2012 08:26 AM LIFETIME NON-TOBACCO USER [facility] [place] [facility] Aug 30, 2010 09:04 AM QUIT TOBACCO USE 1-7 YEARS AGO [facility] [place] [facility] August 19, 2009 08:25 AM QUIT TOBACCO USE 1-7 YEARS AGO 1 + years ago [facility] [place] [facility] Jul 01, 2008 03:42 PM QUIT TOBACCO USE IN PAST YEAR [facility] [place] [facility] Jul 01, 2008 02:29 PM QUIT TOBACCO USE IN PAST YEAR QUIT 2007 [facility] [place] [facility] Mar 20, 2001 09:17 AM CURRENT SMOKER not able to quit [facility] [place] [facility] Encounter Notes: All associated encounter notes This section contains the clinical notes associated to the Encounter. Date/Time Encounter Note(s) Provider Source Jun 18, 2024 07:09 AM MENTAL HEALTH SAPNA TMENT PLAN NOTE: LOCAL TITLE: MH TREATMENT PLAN STANDARD TITLE: MENTAL HEALTH TREATMENT PLAN NOTE DATE OF NOTE: JUN 18, 2024@07:09:02 ENTRY DATE: JUN 18, 2024@07:09:16 AUTHOR: CONI ALONZO EXP COSIGNER: URGENCY: STATUS: COMPLETED TREATMENT PLAN - May, @ 07:09AM Visit Date: May, @ 07:00 - [facility] PSYLG 2 AM CUSTOMER ENGAGEMENT ANALYST: CONI ALONZO / JANETT Paez TREATMENT PLAN: Problem: has been experiencing the following post-traumatic stress symptoms: intrusive images, trauma reminders, avoidance, hypervigilance. Status: ACTIVE Goal: wants to work on decreasing symptoms of PTSD. Status: ACTIVE Objective: Through a triphasic model of trauma treatment, will work towards reducing distress caused by -related trauma. Status: ACTIVE Intervention: Individual Psychotherapy: Integrative trauma treatment (skills acquisition, exposure treatment, reconnection, etc.). CBT for anxiety, increase in cognitive flexibility. Status: ACTIVE Discipline: Mental Health Clinic Time Frame: Two times per month for 1 year Providers: CONI ALONZO: PSYCHOLOGIST Problem: Hardwick is experiencing a preoccupation with control, cognitive rigidity, and perfectionism that is causing increased anxiety and irritability. Status: ACTIVE Goal: These times make me pretty tight I need to calm down. Status: ACTIVE Objective: Hardwick will learn ways to increase flexibility, improve anger management, and better manage his anxiety around environmental demands. Status: ACTIVE Projected Target: 09/01/2020 Intervention: Individual psychotherapy Status: ACTIVE Discipline: Mental Health Clinic Time Frame: Two times per month for 1 year Providers: CONI ALONZO: PSYCHOLOGIST DISCIPLINE: Mental Health Clinic Entered Treatment: 09/20/2017 @ 10:00AM Review Date: 06/23/2025 Anticipated Discharge: None PATIENT ACTION: PATIENT AGREED TO PLAN DISCUSSED. FAMILY ACTION: PATIENT'S FAMILY NOT AVAILABLE. INTERDISCIPLINARY TEAM: CONI ALONZO: PSYCHOLOGIST COMMUNICATION: Relevant treatment options, including evidence-based interventions, were considered and discussed with the Hardwick. NO A copy of the treatment plan was given to the Hardwick. NO Risks, benefits, and potential complications were discussed with the Hardwick. LOUISA /deborah/ Coni Alonzo PsyD Staff Psychologist Signed: 06/18/2024 07:09 CONI ALONZO [facility] [place] [facility] Jun 18, 2024 06:49 AM TELEHEALTH NOTE: LOCAL TITLE: CO VIDEO CONNECT PSYCHOLOGY NOTE STANDARD TITLE: TELEHEALTH NOTE DATE OF NOTE: JUN 18, 2024@06:49 ENTRY DATE: JUN 18, 2024@06:51:36 AUTHOR: CONI ALONZO EXP COSIGNER: URGENCY: STATUS: COMPLETED A Video Connect (VVC) Standard Documentation VVC Clinician Resources Only: E911 (Emergency Call Relay Center): [phone] [place] [facility] Crisis Line - ([phone]-KTVS) press #1. [facility] Suicide Coordinator [phone], Ext. [phone]; Back-up Ext. [phone] Solution Mixer of the Day(AOD), Janett ESPARZA [phone], Ext. [phone] Introduction: Visit is being conducted by CO Sebacia. Hardwick identified with 2 identifiers: [X] Full Name [X] Date of [ ] VA ID Card Emergency Plan: confirmed and/or provided the following information in case of emergency or technology failure. PATIENT PHONE - PHONE NUMBER [CELLULAR] - Is patient phone number correct, if not, enter below: Hardwick's phone number: VELASQUEZ CALVO [phone] [place] [address] Hardwick's present location and address for appointment: [address] [place] [address] Hardwick's emergency contact name and phone number: Irene Leon [phone] Hardwick reported that location is private and safe: Yes Informed Consent: informed of the risks and benefits of Telehealth video care. has the right to refuse video services. If refuses video visit, a aamb-gf-wrzu visit will be scheduled. Hardwick verbalized consent for this video visit: Yes Hardwick provided consent for any other persons present for visit: N/A If yes, who and relationship to patient: Secure visit: Visit was locked for security and privacy: Yes VISIT DURATION 45 minutes DIAGNOSES: PTSD, Chronic; Features of OCPD Essential Tremor PRESENTING PROBLEMS: Sary presented on time and we resumed treatment as usual, covering updates to his neurology consult, and a recent family loss. SESSION FOCUS: Sary completed clinical reminders, and provided an update to his neurology appointment which was made for 09/01/24 in [place]. This is in line with his hopes, since he didn't get one in [place] until December. The remainder of today's session was focused on a recent stressor, with his step daughter in [place]. Sary shared that he was recently was updated by her that his son-in-law (with recent alcohol/legal troubles) due to his heavy drinking. Sary talked about the strong mixed feelings he is having about the situation. Validation, empathy, and psychoeducation about complicated grief was given. Sary expressed frustration and impatience with his daughter in law who he described as falling in love with him again and becoming overcome with grief. Sary spoke to his fears of her falling apart and not moving on to take care of the many tasks which need to get done now (i.e. de-cluttering all of his stuff, getting help, etc.). Sary is happy that his granddaughter is getting therapy however. Sary was encouraged to give his daughter time, highlighting the normative grieving period, and the likely denial which is taking place. Sary was also encouraged to understand his own grief which will likely come in various stages. He is currently experiencing relief about him no longer causing her so many problems, and frustration about the situation. ASSESSMENT: BRIEF ASSESSMENT OF MENTAL STATUS: 1. [...] current suicidal/homicidal ideation FREQUENCY: every [address] [facility] @ 7am Leave for [place] in July 2024 Tobacco Use Screening: The patient is a former cigarette smoker. The patient has never used other types of tobacco. Alcohol Use Screen (AUDIT-C): Alcohol Screen: SCREEN FOR ALCOHOL (AUDIT-C) An alcohol screening test (AUDIT-C) was negative (score=4). 1. How often did you have a drink containing alcohol in the past year? Consider a drink to be a 12 ounce can or bottle of regular beer, 8 ounces of malt liquor, a 5 ounce glass of table wine, or a 1.5 ounce shot of liquor (like scotch, gin, or vodka). Two to three times per week 2. How many drinks containing alcohol did you have on a typical day when you were drinking in the past year? Three or four drinks 3. How often did you have six or more drinks on one occasion in the past year? Never Depression Screening: Perform PHQ-2 A PHQ-2 screen was performed. The score was 1 which is a negative screen for depression. Over the past two weeks, how often have you been bothered by the following problems? 1. Little interest or pleasure in doing things Not at all 2. Feeling down, depressed, or hopeless Several days /es/ Coni Alonzo PsyD Staff Psychologist Signed: 06/18/2024 07:51 CONI ALONZO [facility]
== END 2024-08-11 10:19 | disposition home or self-care (01) ==
LOC: HO.US 10:18
PROVIDERS: PCP Internal Medicine; Visit Provider Surgery Vascular Surgery
DX: I65.21 Occlusion and stenosis of right carotid artery (principal)
CPT/HCPCS: 93880

== ENCOUNTER → 2024-08-11 10:22 | Outpatient (BNV) | payer MEDICARE, SELFPAY | PROVIDERS: PCP Internal Medicine; Visit Provider Radiology Diagnostic Radiology | DX: I65.23 Occlusion and stenosis of bilateral carotid arteries (principal) | CPT/HCPCS: 93880 ==

== ENCOUNTER 2024-08-14 08:48 | Outpatient (REF) | payer MEDICARE, SELFPAY ==
[2024-08-14 11:19] LABS: MANUAL DIFF FLAG NO
[2024-08-14 11:36] LABS: Basophils Absolute Auto 0.1 X10*3/uL (0.0-0.2); Basophils Percent Auto 0.9 % (0-2); Eosinophils Absolute Auto 0.3 X10*3/uL (0.0-0.4); Eosinophils Percent Auto 5.3 % (0-4); Hematocrit 45.5 % (42.0-52.0); Hemoglobin 16.1 g/dl (14.0-18.0); Imm Gran Abs Auto 0.02 X10*3/uL (0.00-0.03); Imm Gran Pct Auto 0.4 % (0.0-0.4); Lymphocytes Absolute Auto 1.3 X10*3/uL (1.2-4.9); Lymphocytes Percent Auto 23.9 % (20-40); Mean Corpuscular HGB Conc 35.4 g/dl (31.0-36.0); Mean Corpuscular Hemoglobin 33.4 pg (27.0-33.0); Mean Corpuscular Volume 94.4 fL (80.0-98.0); Monocytes Absolute Auto 0.6 X10*3/uL (0.1-1.2); Monocytes Percent Auto 11.2 % (2-11); Neutrophils Absolute Auto 3.1 x10*3/uL (2.0-8.3); Neutrophils Percent Auto 58.3 % (45-73); Platelet Count 268 X10*3/uL (160-400); Red Blood Count 4.82 X10*6/uL (4.60-5.80); Red Cell Distribution Width 12.2 % (11.0-16.0); White Blood Count 5.3 X10*3/uL (4.8-10.8)
[2024-08-14 11:59] LABS: Alanine Aminotransferase 29 U/L (0-40); Albumin Level 4.9 g/dL (3.5-5.0); Alkaline Phosphatase 75 U/L (39-117); Anion Gap 11 (12-20); Aspartate Amino Transferase 34 U/L (5-37); Bilirubin Total 0.9 mg/dL (0.0-1.0); Blood Urea Nitrogen 15 mg/dL (9-16); Calcium 9.7 mg/dL (8.4-10.2); Carbon Dioxide 25 mmol/L (22-29); Chloride 104 mmol/L (96-108); Cholesterol 162 mg/dL (<200); Estimated Glomerular Filt Rate > 60; Glucose Random 86 mg/dL (60-115); HDL Cholesterol 79 mg/dL (>40); LDL Cholesterol Calculated 71 mg/dL (<100); Magnesium 2.2 mg/dL (1.6-2.6); Potassium 4.1 mmol/L (3.3-5.1); Sodium 136 mmol/L (135-145); Total Protein 7.5 g/dL (6.5-8.0); Triglycerides 62 mg/dL (<150)
[2024-08-14 12:18] LABS: Free T4 (Free Thyroxine) 1.03 ng/dL (0.71-1.85); Thyroid Stimulating Hormone 1.44 uIU/mL (0.32-4.0)
[2024-08-14 12:28] LABS: Folate 14.1 ng/mL (> or = 4.0); Prostate Specific Antigen Scr 2.83 ng/mL (<0.05-4.0); Vitamin B12 747 pg/mL (200-900)
[2024-08-14 14:31] LABS: Appearance Urine Clear; Color Urine Dark Yellow; Glucose Urine UA Negative (Negative); Leukocyte Esterase Urine Trace (Negative); Nitrite Urine Negative (Negative); PH 6.5 (5.0-9.0); UMIC TRIGGER UACC YES; Urine Blood Negative (Negative); Urine Ketones Trace mg/dL (Negative); Urine Protein Negative (Neg-Trace)
[2024-08-14 14:35] LABS: Bacteria Urine None Seen (None Seen); Hyaline Casts Urine 0-2 /LPF (0-2); RBC Urine 0-2 /HPF (0-2); Squamous Epithelial Cell Urine 0-2 /HPF (0-2); WBC Urine 0-5 /HPF (0-5)
== END 2024-08-14 08:49 | disposition home or self-care (01) ==
LOC: HO.WFDLDS 08:48
PROVIDERS: Visit Provider Internal Medicine
DX: E78.00 Pure hypercholesterolemia, unspecified (principal); Z12.5 Encounter for screening for malignant neoplasm of prostate
CPT/HCPCS: 36415; 80053; 80061; 81001; 82607; 82746; 83735; 84153; 84439; 84443; 85025

== ENCOUNTER 2024-08-25 10:54 | Outpatient (AMB) | payer MEDICARE, SELFPAY ==
--- NOTE | 2024-08-25 10:59 | A.OFFVIS_ITS ---
Intake Visit Reasons: 1y follow s/p Carotid US 07/2024 Intake Note: Patient presents for one year follow up carotid US. He has no complaints. Accompanied by: Self / Same As Patient Allergies lobster Allergy (Severe, Verified 08/25/24 11:01) Anaphylaxis amoxicillin Allergy (Mild, Verified 08/25/24 11:01) Itching Seasonal Allergies Allergy (Mild, Verified 08/25/24 11:01) Itchy Eyes hazelnut Allergy (Unknown, Verified 08/25/24 11:01) Unknown HPI HPI 1y follow s/p Carotid US 07/2024: Details: The patient is a 74-year-old male presenting with a history of carotid artery stenosis managed with a right carotid endarterectomy performed on August 27, 2022. He has had no complications since the procedure, and today?s visit is part of routine post-operative surveillance. The intervention has been effective, and the carotid arteries appear clear with no signs of restenosis. Additionally, the patient uses an alternating daily regimen of low-dose aspirin to manage potential clotting risks while minimizing adverse effects like bruising. He remains quite active and continues to golf. He just returned from [place] after golfing. He now presents for routine carotid surveillance. [facility] Medical History History of 2019 novel coronavirus disease (COVID-19) GERD (gastroesophageal reflux disease) PTSD (post-traumatic stress disorder) Stenosis of right carotid artery Hypercholesterolemia Hypogonadism Erectile dysfunction Hypertension Surgical History H/O carotid endarterectomy (08/27/22) History of ankle surgery History of appendectomy History of tonsillectomy Family History Father CVD (cardiovascular disease) Mother Lung cancer Maternal Aunt Colon cancer Social History Household Members: Spouse Housing: Other Housing Other:: [place] [employer] trailer Are you a primary child care development specialist to a significant other at home: No Do you presently have visiting nurse or other home services: No Alcohol intake: current Alcohol intake frequency: a few times a week Comment: aware of trip hazard 1-2 beer a day Patient Tobacco Use Status: Former Tobacco user Tobacco use type: Cigarette Cigarettes Per Day: 5 Years Smoked: 25 - quit 01/2007 e-Cigarette/Vaping Use: Never Used Second Hand Smoke Exposure: No Substance Use Type: Marijuana and Caffiene service: No Current occupational status: retired Cognitive needs: No Hearing needs: No Vision needs: Yes (Glasses) Review of Systems Const All systems reviewed & are unremarkable except as noted in HPI and below Reports no additional complaints ENT Reports Normal hearing present Card Denies chest pain, Denies chest pain at rest, Denies chest pain with activity and Denies pedal edema Resp Denies cough GI Denies abdominal pain Musc Denies abnormal gait, Denies muscle cramps and Denies radiating pain into limb Skin/Breast Denies skin ulcer and Denies wounds Neuro Reports Normal hearing present and Denies abnormal gait Psych Reports no additional complaints Physical Exam Const General: cooperative, healthy appearing and comfortable Orientation/consciousness: oriented to person, oriented to place and oriented to time HEENT Head: Yes normal to inspection Neck Neck: Yes normal visual inspection Carotids: no bruits Chest Chest palpation & inspection: normal inspection of the chest Resp Effort & Inspection: normal respiratory effort and able to speak in complete sentences Auscultation: clear to auscultation bilaterally, no crackles, no rales, no rhonchi and no wheezes Cardio Rate: regular rate Rhythm: regular rhythm Heart sounds: S1 normal heart sound present and S2 normal heart sound present Bruits: no carotid bruits Peripheral pulses: Peripheral pulses 2+ throughout GI Inspection: Yes normal to inspection Skin Wounds: no wounds Hair: normal Neuro General: oriented to person, oriented to place and oriented to time Cranial nerves: Yes CN's II-XII intact bilaterally and Yes Normal hearing present Cognition (Neuro): normal cognition Motor exam (neuro): 5/5 motor strength present throughout Extrem Other: venous exam: No significant superficial varicosities or spider telangiectasias, minimal edema General: No clubbing, No cyanosis and No edema Psych Appearance: grossly normal Mental Status: mental status grossly normal Speech and movement: Normal speech and movement present Results Reviewed Results Reviewed: Carotid testing dated 08/11/2024 demonstrates bilateral 0-49% stenosis. Written report and images were reviewed. Assessment & Plan Assessment & Plan (1) Stenosis of right carotid artery: Comment: 08/27/2022 - right carotid endarterectomy Code(s): I65.21 - Occlusion and stenosis of right carotid artery Category: Medical Plan: In short patient has asymptomatic carotid disease. We have reviewed signs and symptoms of a stroke. We also discussed risk factor modification inclusive a healthy diet low in cholesterol. The patient will follow up with us with surveillance ultrasound of the carotids 1 year. Should there be any changes or signs or symptoms of a stroke we will be happy to see them back sooner. Thank you for allowing us to participate in this patient's care. If there are any questions or concerns please do not hesitate to contact us. Plan Patient was informed and verbally consented to the use of an ambient scribe for clinic note documentation during this visit. Orders: Orders US carotid duplex BI 1 Year I65.21 - Occlusion and stenosis of right carotid artery Patient Instructions: - Continue taking low-dose aspirin and statin as prescribed. - Adhere to prescribed medications diligently. - Attend regular follow-up appointments for carotid surveillance. - Consult with an computer support specialist instructor regarding finger arthritis. - Maintain a safe level of physical activity, focusing on cardiovascular health. - Report any new or worsening symptoms immediately. Coding Level of Care Code Est Pt Level 4 (25598) Complex EM visit Add On G2211 Diagnoses Stenosis of right carotid artery I65.21
== END 2024-08-25 11:31 | disposition home or self-care (01) ==
LOC: HO.HVS 10:57
PROVIDERS: PCP Internal Medicine; Visit Provider Surgery Vascular Surgery
DX: I65.21 Occlusion and stenosis of right carotid artery (principal)
CPT/HCPCS: 99214; G2211

== ENCOUNTER → 2024-08-25 10:54 | Outpatient (BNVA) | payer MEDICARE, SELFPAY | PROVIDERS: PCP Internal Medicine; Visit Provider Surgery Vascular Surgery | DX: I65.21 Occlusion and stenosis of right carotid artery (principal) | CPT/HCPCS: 99212 ==

== ENCOUNTER 2024-08-31 10:50 | Outpatient (AMB) | payer MEDICARE, SELFPAY ==
[2024-08-31 11:05] VITALS: BP 144/62; PULSE 63; TEMP 36.2; O2SAT 94; BMI 21.8
--- NOTE | 2024-08-31 11:05 | MHC.PC.OV ---
Vital Signs 08/31/24 11:05 Height 5 ft 7 in Weight 139 lb 6 oz BMI 21.8 BP 144/62 H Blood Pressure Location Lt brachial Position Sitting Pulse 63 Pulse Source Pulse Oximeter Temp 97.1 F Temp Source Temporal Artery Scan Pulse Oximetry (%) 94 Oxygen Delivery Method Room Air Intake Visit Reasons: 5 month f/u Allergies lobster Allergy (Severe, Verified 08/31/24 11:05) Anaphylaxis amoxicillin Allergy (Mild, Verified 08/31/24 11:05) Itching Seasonal Allergies Allergy (Mild, Verified 08/31/24 11:05) Itchy Eyes hazelnut Allergy (Unknown, Verified 08/31/24 11:05) Unknown Tobacco use date assessed: 08/31/24 Fall risk assessment: No Falls in past year Last assessed Fall Risk: 08/31/24 Dental Screening Dental Screen Date: 08/31/24 Did you have a dental visit in the last 12 months?: Yes Did you have a dental problem in the last 6 months where you did not have access to dental care?: No Was dental information given to patient?: Patient has dentist HPI 5 month f/u HPI Details BP at home is good as per patient. will be seeing ortho 09/05/2024 for the tendon on the L hand. has a rash on the back for years [facility] Medical History History of 2019 novel coronavirus disease (COVID-19) GERD (gastroesophageal reflux disease) PTSD (post-traumatic stress disorder) Stenosis of right carotid artery Hypercholesterolemia Hypogonadism Erectile dysfunction Hypertension Surgical History H/O carotid endarterectomy (08/27/22) History of ankle surgery History of appendectomy History of tonsillectomy Family History Father CVD (cardiovascular disease) Mother Lung cancer Maternal Aunt Colon cancer Social History Household Members: Spouse Housing: Other Housing Other:: [employer] trailer Are you a primary human services care specialist to a significant other at home: No Do you presently have visiting nurse or other home services: No Alcohol intake: current Alcohol intake frequency: a few times a week Comment: aware of trip hazard 1-2 beer a day Patient Tobacco Use Status: Former Tobacco user Tobacco use type: Cigarette Cigarettes Per Day: 5 Years Smoked: 25 - quit 01/2007 e-Cigarette/Vaping Use: Never Used Second Hand Smoke Exposure: No Substance Use Type: Marijuana and Caffiene service: No Current occupational status: retired Cognitive needs: No Hearing needs: No Vision needs: Yes (Glasses) Questionnaire PHQ-9 Over the last 2 weeks, how often have you been bothered by any of the following problems? 1. Little interest or pleasure in doing things: not at all 2. Feeling down, depressed, or hopeless: not at all 3. Trouble falling or staying asleep, or sleeping too much: not at all 4. Feeling tired or having little energy: not at all 5. Poor appetite or overeating: not at all 6. Feeling bad about yourself - or that you are a failure or have let yourself or your family down: not at all 7. Trouble concentrating on things, such as reading the newspaper or watching television: not at all 8. Moving or speaking so slowly that other people could have noticed. Or the opposite - being so fidgety or restless that you have been moving around a lot more than usual: not at all 9. Thoughts that you would be better off or of hurting yourself in some way: not at all Total score: 0 Depression Screening Interpretation: Negative Depression Screening Done: Yes Source: Developed by Drs. Zacarias Muñoz, Jeannie Peñaloza, Thomas Arizmendi and colleagues, with an educational madyson from [employer]. Thrive Questionnaire Date Thrive assessed: 08/24/24 I am a: Patient What is your living situation today?: I have a steady place to live Within the past 12 months, did the food you bought not last and you didn't have the money to get more?: Never true Within the past 12 months, did you worry whether your food would run out before you got money to buy more?: Never true Do you have trouble paying for medicines?: No Do you have trouble getting transportation to medical appointments?: No Do you have trouble paying your heating and electricity bill?: No Do you have trouble taking care of your child, family member or friend?: No Do you have trouble with day-to-day activities such as bathing, preparing meals, shopping, managing finances, etc.?: No Are you currently unemployed and looking for a job?: No Are you interested in more education?: No Please select the resources that you would like help with: None Currently or been in a relationship where the following occur: No concerns reported THRIVE Score: 0 AUDIT C Alcohol Use Questionnaire (AUDIT-C) 1. How often do you have a drink containing alcohol?: 2-3 times a week 2. How many drinks containing alcohol do you have on a typical day when you are drinking?: 1 or 2 3. How often do you have six or more drinks on one occasion?: Never Total Score: 3 FELICIA-7 AMB Questionnaire FELICIA-7 Date FELICIA - 7 assessed: 08/31/24 Feeling nervous, anxious, or on edge: 1 = Several days Not being able to stop or control worryin = Several days Worrying too much about different things: 1 = Several days Trouble relaxin = Several days Being so restless that it is hard to sit still: 1 = Several days Becoming easily annoyed or irritable: 1 = Several days Feeling afraid as if something awful might happen: 1 = Several days Total FELICIA-7 score (0-4 normal; 5-9 mild; 10-14 moderate; 15-21 severe): 7 Source: Developed by Drs. Zacarias Muñoz, Jeannie Peñaloza, Thomas Arizmendi and colleagues, with an educational madyson from [employer]. Physical exam (Primary Care) Vital Signs: Last Vital Signs Temp 97.1 F 08/31/24 11:05 Pulse 63 08/31/24 11:05 BP 144/62 H 08/31/24 11:05 Pulse Ox 94 08/31/24 11:05 Oxygen Delivery Method Room Air 08/31/24 11:05 BMI result Body Mass Index 21.8 Tobacco/Smoking Status: Tobacco use Status Tobacco use date assessed 08/31/24 08/31/24 11:06 Patient Tobacco Use Status Former Tobacco user 08/31/24 11:06 Tobacco use type Cigarette 08/31/24 11:06 e-Cigarette/Vaping Use Never Used 08/31/24 11:06 PHQ-9: PHQ-9 Score PHQ-9: Total score 0 08/31/24 11:45 Depression Screening Interpretation: Negative Thrive Assessment: Date of Thrive Assessment Date Thrive assessed 08/24/24 08/31/24 11:06 Currently or been in a relationship where the following occur: No concerns reported Const General: alert; No acute distress Eyes Conjunctivae: conjunctivae normal Resp Auscultation: clear to auscultation bilaterally Cardio Rate: regular rate Rhythm: regular rhythm GI Inspection: Yes normal to inspection Extrem General: Yes normal to inspection and No edema Immunizations Tenivac (PF) 5 Lf unit-2 Lf unit/0.5 mL intramuscular syringe Performing Provider: Ezra Vargas MD [facility] Administered by: Yina Denise CMA on 08/31/24 11:45 Dose Route Admin Location Dispensed Lot Number Expiration Date NDC Herbicide Sprayer 0.5 mL IM Left Tricep 0.5 mL [id number] 06/22/26 [id number] [employer] VIS Given Date VIS Provided VIS Publication Date 08/31/24 Single Vaccine 20 Eligibility Eligibility Date Funding Source Not [employer] Eligible 08/31/24 Private Coding Level of Care Code Est Pt Level 4 (84245) Complex EM visit Add On G2211 Diagnoses Status post carotid endarterectomy Z98.890 Essential hypertension I10 Hypertension type: essential hypertension Hypercholesterolemia E78.00 Gastroesophageal reflux disease without esophagitis K21.9 Esophagitis presence: without esophagitis Generalized anxiety disorder F41.1 Assessment & Plan Assessment & Plan (1) Status post carotid endarterectomy: Comment: 08/27/2022 Code(s): Z98.890 - Other specified postprocedural states Category: Surgical Plan: July 2024 last ultrasound of the carotid 0-49% bilateral mild follows up with vascular surgeon (2) Hypertension: Code(s): I10 - Essential (primary) hypertension Category: Medical Qualifiers: Hypertension type: essential hypertension Qualified Code(s): I10 - Essential (primary) hypertension Plan: Continue with blood pressure medication. Decrease salt intake and exercise patient is on amlodipine 10 mg at bedtime (3) Hypercholesterolemia: Code(s): E78.00 - Pure hypercholesterolemia, unspecified Category: Medical Plan: Avoid fried foods, chicken skin, eggs, butter margarine, pastries and meat. Be it pork or beef they have a lot of cholesterol LDL goal of less than 70 on atorvastatin 10 mg at bedtime (4) GERD (gastroesophageal reflux disease): Code(s): K21.9 - Gastro-esophageal reflux disease without esophagitis Category: Medical Qualifiers: Esophagitis presence: without esophagitis Qualified Code(s): K21.9 - Gastro-esophageal reflux disease without esophagitis Plan: Avoid the foods that causes that usually spicy foods, tomato products, juices, coffee, soda and foods that your sensitive to. After eating do not lie down, allow 3-4 hours before in lie down. And keep the head of bed above 30 degrees to avoid the acid from going up. (5) Generalized anxiety disorder: Comment: [facility] (11/2021) Code(s): F41.1 - Generalized anxiety disorder Category: Medical Plan: Continue with counseling and therapy on alprazolam as needed Plan History of Present Illness The patient is a 74-year-old male presenting for follow-up concerning the management of multiple chronic conditions, including essential hypertension, hyperlipidemia, hypogonadism, GERD, and generalized anxiety disorder, as well as monitoring health maintenance post-carotid endarterectomy in 2022. He routinely undergoes carotid ultrasounds and follows up with his vascular surgeon. Surveillance imaging in July 2024 revealed mild plaques with a stenosis degree of 0 to 49%. In terms of his medications, he is prescribed amlodipine 10 mg for hypertension and atorvastatin 10 mg for cholesterol management, presently with an LDL of 71. His last blood workup in July highlighted normal results across several parameters with a reminder for maintaining optimal LDL levels. He reports adequate dietary and exercise routines with satisfactory weight management. The patient also has a history of allergies, linked potentially to elevated eosinophil counts, and a chronic rash on his back since treatment for a previous infection two years ago. This condition has shown some improvement with the use of regular lotions. Additionally, orthopedic consultation is pending for a hand-related issue affecting his golfing activities. Health Maintenance - Routine carotid ultrasound monitoring scheduled with vascular surgery follow-up. - Vaccination review indicated need for tetanus shot; patient received second shingles vaccine despite initial adverse reaction, decided against further shingles vaccination due to side effects but acknowledges its optional nature. - Routine blood pressure monitoring discussed, with emphasis on maintaining levels within the target range of 120-130 mmHg. - Recommended increased water intake up to 6-8 glasses daily for hydration purposes. - Encouraged ongoing lifestyle management, including dietary adjustments, reducing intake of red meats, and regular cardiovascular exercise. Social History - Engages in regular physical exercise, including golfing. - Experiences difficulties with hand movements due to orthopedic conditions, affecting his ability to play golf. - Recently traveled to [place] and developed a rash post-travel; noted potential triggers related to antibiotic use. - Regular use of sun protective measures while outdoors, especially in golfing environments. Review of Systems - Cardiovascular: Denies any new chest pain or dyspnea. - Respiratory: Denies any chronic cough or wheezing. - Gastrointestinal: Denies any persistent abdominal pain or significant changes in bowel habits; reports management of GERD. - Dermatological: Reports chronic rash on the back. - Neurological: Denies any new symptoms related to anxiety disorder; no dizziness reported. - Musculoskeletal: Reports issues with hand function affecting golfing. Physical Exam Results - Labs: Blood work completed in July 2024 with normal blood count, electrolytes, renal function, liver enzymes, PSA, B12, folic acid, and thyroid tests. - Tests and Imaging: Carotid ultrasound from July 2024 indicating mild plaque with 0 to 49% stenosis bilaterally. Plan Management of this patient's conditions involves continuation of current pharmacological therapy for hypertension and hyperlipidemia, with adjustments based on home blood pressure monitoring and lab assessments. The dermatological condition is kept in check with appropriate lotions, with proactive advice for specialist review if necessary. Updated vaccination status maintains preventative care standards. Close monitoring of carotid health through scheduled imaging and surgical follow-ups remains vital. Furthermore, patient education on maintaining optimal health through controlled dietary practices and consistent exercise was reinforced collectively with the management plan. Patient was informed and verbally consented to the use of an ambient scribe for clinic note documentation during this visit. Discussion Notes I discussed the various elements of the patient's health care, emphasizing the importance of managing chronic conditions through medication adherence and lifestyle modifications. We talked about the need for blood pressure control using amlodipine and for lipid management with atorvastatin, ensuring continuity in treatment to mitigate cardiovascular risks. The discussion covered the rationale for further dermatological evaluation if the chronic rash worsens. Vaccination updates, specifically tetanus, were completed today, while patient choice was respected regarding optional shingles vaccination, considering prior adverse reactions. A further orthopedic referral was initiated for his hand condition. I provided anticipatory guidance on hydration and exercise as means to maintain overall health and stressed the significance of regular follow-up with supervisory geographer for carotid artery status. Patient Instructions - Continue taking all prescribed medications as directed. - Maintain blood pressure monitoring at home; aim for levels below 130/80 mmHg. - Use moisturizers regularly for the rash and monitor any changes. - Stay up to date with all vaccinations; received tetanus today. - Stay hydrated by drinking 6-8 glasses of water daily. - Engage in regular exercise and be mindful of dietary intake. - Follow-up with vascular surgery and orthopedics as scheduled. - Return for any significant changes in symptoms or concerns. Orders: Orders Td Immunization Today Z23 - Encounter for immunization
== END 2024-08-31 11:46 | disposition home or self-care (01) ==
LOC: HO.HMCH 10:51
PROVIDERS: PCP Internal Medicine; Visit Provider Internal Medicine
DX: Z98.890 Other specified postprocedural states (principal); I10 Essential (primary) hypertension; E78.00 Pure hypercholesterolemia, unspecified; K21.9 Gastro-esophageal reflux disease without esophagitis; F41.1 Generalized anxiety disorder; Z23 Encounter for immunization

== ENCOUNTER → 2024-08-31 10:50 | Outpatient (BNVA) | payer MEDICARE, SELFPAY | PROVIDERS: PCP Internal Medicine; Visit Provider Internal Medicine | DX: I10 Essential (primary) hypertension (principal); Z23 Encounter for immunization; E78.00 Pure hypercholesterolemia, unspecified; K21.9 Gastro-esophageal reflux disease without esophagitis; F41.1 Generalized anxiety disorder; Z79.899 Other long term (current) drug therapy; Z98.890 Other specified postprocedural states; Z13.31 Encounter for screening for depression; Z13.30 Encounter for screening examination for mental health and behavioral disorders, unspecified | CPT/HCPCS: 90471; 90714; 99212 ==

== ENCOUNTER 2024-12-28 10:57 | Outpatient (AMB) | payer MEDICARE, SELFPAY ==
[2024-12-28 11:02] VITALS: BP 138/62; PULSE 77; TEMP 36.4; O2SAT 99; BMI 21.3
--- NOTE | 2024-12-28 11:02 | A.OFFPC_ITS ---
Vital Signs 12/28/24 11:02 Height 5 ft 7 in Weight 136 lb BMI 21.3 BP 138/62 Blood Pressure Location Lt brachial Position Sitting Pulse 77 Pulse Source Pulse Oximeter Temp 97.5 F Temp Source Temporal Artery Scan Pulse Oximetry (%) 99 Oxygen Delivery Method Room Air Intake Visit Reasons: Follow Up Allergies lobster Allergy (Severe, Verified 12/28/24 11:05) Anaphylaxis amoxicillin Allergy (Mild, Verified 12/28/24 11:05) Itching Seasonal Allergies Allergy (Mild, Verified 12/28/24 11:05) Itchy Eyes hazelnut Allergy (Unknown, Verified 12/28/24 11:05) Unknown Medication List - Last Reconciled 12/28/24 by Ezra Vargas MD alprazolam 0.25 mg PO BEDTIME PRN amlodipine 10 mg PO BEDTIME aspirin (Adult Aspirin Regimen) 81 mg PO DAILY atorvastatin 10 mg PO DAILY cetirizine (Zyrtec) 10 mg PO DAILY PRN dicyclomine 10 mg PO TID PRN 90 days epinephrine (EpiPen 2-Ortiz) 0.3 mg (0.3 mL) IM Q4H PRN eszopiclone 3 mg PO BEDTIME 90 days hydrocortisone 2.5% (Proctosol HC) 1 appl TN BID-QID PRN hydroxyzine HCl 25 mg PO BEDTIME sildenafil (Viagra) 50 mg PO DAILY PRN Tobacco use date assessed: 12/28/24 Fall risk assessment: No Falls in past year Last assessed Fall Risk: 12/28/24 Dental Screening Dental Screen Date: 12/28/24 Did you have a dental visit in the last 12 months?: Yes Did you have a dental problem in the last 6 months where you did not have access to dental care?: No Was dental information given to patient?: Patient has dentist [facility] Medical History (Updated 12/28/24 @ 11:06 by Ezra Vargas MD) History of 2019 novel coronavirus disease (COVID-19) GERD (gastroesophageal reflux disease) PTSD (post-traumatic stress disorder) Stenosis of right carotid artery Hypercholesterolemia Hypogonadism Erectile dysfunction Hypertension Surgical History H/O carotid endarterectomy (08/27/22) History of ankle surgery History of appendectomy History of tonsillectomy Family History Father CVD (cardiovascular disease) Mother Lung cancer Maternal Aunt Colon cancer Social History Household Members: Spouse Housing: Other Housing Other:: [place] Are you a primary transitions rn care coordinator to a significant other at home: No Do you presently have visiting nurse or other home services: No Alcohol intake: current Alcohol intake frequency: a few times a week Comment: aware of trip hazard 1-2 beer a day Patient Tobacco Use Status: Former Tobacco user Tobacco use type: Cigarette Cigarettes Per Day: 5 Years Smoked: 25 - quit 01/2007 e-Cigarette/Vaping Use: Never Used Second Hand Smoke Exposure: No Substance Use Type: Marijuana and Caffiene service: No Current occupational status: retired Cognitive needs: No Hearing needs: No Vision needs: Yes (Glasses) Questionnaire PHQ-9 Over the last 2 weeks, how often have you been bothered by any of the following problems? 1. Little interest or pleasure in doing things: not at all 2. Feeling down, depressed, or hopeless: not at all 3. Trouble falling or staying asleep, or sleeping too much: not at all 4. Feeling tired or having little energy: not at all 5. Poor appetite or overeating: not at all 6. Feeling bad about yourself - or that you are a failure or have let yourself or your family down: not at all 7. Trouble concentrating on things, such as reading the newspaper or watching television: not at all 8. Moving or speaking so slowly that other people could have noticed. Or the opposite - being so fidgety or restless that you have been moving around a lot more than usual: not at all 9. Thoughts that you would be better off or of hurting yourself in some way: not at all Total score: 0 Depression Screening Interpretation: Negative Depression Screening Done: Yes Source: Developed by Drs. Zacarias Muñoz, Jeannie Peñaloza, Thomas Arizmendi and colleagues, with an educational madyson from [employer]. Thrive Questionnaire Date Thrive assessed: 08/24/24 I am a: Patient What is your living situation today?: I have a steady place to live Within the past 12 months, did the food you bought not last and you didn't have the money to get more?: Never true Within the past 12 months, did you worry whether your food would run out before you got money to buy more?: Never true Do you have trouble paying for medicines?: No Do you have trouble getting transportation to medical appointments?: No Do you have trouble paying your heating and electricity bill?: No Do you have trouble taking care of your child, family member or friend?: No Do you have trouble with day-to-day activities such as bathing, preparing meals, shopping, managing finances, etc.?: No Are you currently unemployed and looking for a job?: No Are you interested in more education?: No Please select the resources that you would like help with: None Currently or been in a relationship where the following occur: No concerns reported THRIVE Score: 0 AUDIT C Alcohol Use Questionnaire (AUDIT-C) 1. How often do you have a drink containing alcohol?: 2-3 times a week 2. How many drinks containing alcohol do you have on a typical day when you are drinking?: 1 or 2 3. How often do you have six or more drinks on one occasion?: Never Total Score: 3 FELICIA-7 AMB Questionnaire FELICIA-7 Date FELICIA - 7 assessed: 08/31/24 Feeling nervous, anxious, or on edge: 1 = Several days Not being able to stop or control worryin = Several days Worrying too much about different things: 1 = Several days Trouble relaxin = Several days Being so restless that it is hard to sit still: 1 = Several days Becoming easily annoyed or irritable: 1 = Several days Feeling afraid as if something awful might happen: 1 = Several days Total FELICIA-7 score (0-4 normal; 5-9 mild; 10-14 moderate; 15-21 severe): 7 Source: Developed by Drs. Zacarias Muñoz, Jeannie Peñaloza, Thomas Arizmendi and colleagues, with an educational madyson from [employer]. Physical exam (Primary Care) Vital Signs: Last Vital Signs Temp 97.5 F 12/28/24 11:02 Pulse 77 12/28/24 11:02 BP 138/62 12/28/24 11:02 Pulse Ox 99 12/28/24 11:02 Oxygen Delivery Method Room Air 12/28/24 11:02 BMI result Body Mass Index 21.3 Tobacco/Smoking Status: Tobacco use Status Tobacco use date assessed 12/28/24 12/28/24 11:06 Patient Tobacco Use Status Former Tobacco user 12/28/24 11:06 Tobacco use type Cigarette 12/28/24 11:06 e-Cigarette/Vaping Use Never Used 12/28/24 11:06 PHQ-9: PHQ-9 Score PHQ-9: Total score 0 12/28/24 11:06 Depression Screening Interpretation: Negative Thrive Assessment: Date of Thrive Assessment Date Thrive assessed 08/24/24 12/28/24 11:06 Currently or been in a relationship where the following occur: No concerns reported Const General: alert; No acute distress Eyes Conjunctivae: conjunctivae normal Resp Auscultation: clear to auscultation bilaterally Cardio Rate: regular rate Rhythm: regular rhythm GI Inspection: Yes normal to inspection Extrem General: Yes normal to inspection and No edema Coding Level of Care Code Est Pt Level 4 (54751) Complex EM visit Add On G2211 Diagnoses Essential hypertension I10 Hypertension type: essential hypertension Stenosis of right carotid artery I65.21 Hypercholesterolemia E78.00 Gastroesophageal reflux disease without esophagitis K21.9 Esophagitis presence: without esophagitis Assessment & Plan Assessment & Plan (1) Hypertension: Code(s): I10 - Essential (primary) hypertension Category: Medical Qualifiers: Hypertension type: essential hypertension Qualified Code(s): I10 - Essential (primary) hypertension Plan: Continue with blood pressure medication. Decrease salt intake and exercise patient on amlodipine 10 mg once a day (2) Stenosis of right carotid artery: Comment: 08/27/2022 - right carotid endarterectomy, ultrasound July 2024 Code(s): I65.21 - Occlusion and stenosis of right carotid artery Category: Medical Plan: Up-to-date with follow-up carotid ultrasound (3) Hypercholesterolemia: Code(s): E78.00 - Pure hypercholesterolemia, unspecified Category: Medical Plan: Avoid fried foods, chicken skin, eggs, butter margarine, pastries and meat. Be it pork or beef they have a lot of cholesterol on atorvastatin 10 mg once a day with last blood work in July 2024 (4) GERD (gastroesophageal reflux disease): Code(s): K21.9 - Gastro-esophageal reflux disease without esophagitis Category: Medical Qualifiers: Esophagitis presence: without esophagitis Qualified Code(s): K21.9 - Gastro-esophageal reflux disease without esophagitis Plan: Avoid the foods that causes that usually spicy foods, tomato products, juices, coffee, soda and foods that your sensitive to. After eating do not lie down, allow 3-4 hours before in lie down. And keep the head of bed above 30 degrees to avoid the acid from going up. Plan History of Present Illness The patient is a 74-year-old male presenting for a follow-up visit. The patient has a history of hypertension, managed with amlodipine 10 mg once daily, and reports stable blood pressure readings. He is also managing hypercholesterolemia with atorvastatin 10 mg once daily, with an LDL cholesterol level of 71 mg/dL. His medical history includes hypogonadism and gastroesophageal reflux disease (GERD), both under medication management. The patient experiences insomnia, treated with Lunesta, and reports short-term memory issues as a side effect. He has generalized anxiety disorder, with Xanax prescribed, though he is currently not seeking a refill. A rash on his back is being managed with hydroxyzine, with dermatology advising it should resolve independently. The patient has an essential tremor, confirmed by a neurologist, and prefers non-pharmacological interventions like meditation and yoga. Preventative care is up to date, including a colonoscopy in October 2023 and recent blood work showing normal results. A coronary ultrasound in July 2024 indicated mild plaque without significant changes. 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 - He engages in regular reading and has read approximately 10 books this year. - Plans to move to [place] and engage in physical activities like golf and walking. - Prefers non-pharmacological approaches for managing essential tremor, including meditation and yoga. Review of Systems - General: Reports unintentional weight loss. - Dermatological: Reports rash on back. - Neurological: Reports short-term memory impairment, essential tremor. - Psychiatric: Reports generalized anxiety disorder, insomnia. Physical Exam Results - Labs: Blood work in July 2024 showed normal blood count, electrolytes, renal function, blood sugar, liver function, LDL of 71 mg/dL, normal prostate number, vitamin B12, and thyroid levels. - Tests: Coronary ultrasound in July 2024 showed mild plaque, 0 to 49% on both sides, with no change since previous evaluation. Plan Patient was informed and verbally consented to the use of an ambient scribe for clinic note documentation during this visit. 1. Hypertension The patient is currently on amlodipine 10 mg once daily for hypertension management, with stable blood pressure readings reported. 2. Hypercholesterolemia Hypercholesterolemia is managed with atorvastatin 10 mg once daily, with recent labs showing an LDL level of 71 mg/dL. 3. Hypogonadism Hypogonadism is being managed with medication, though specific details of the treatment were not discussed. 4. Gastroesophageal Reflux Disease (Gerd) GERD is being managed with medication, though specific details of the treatment were not discussed. 5. Insomnia Insomnia is treated with Lunesta, though the patient reports short-term memory impairment as a side effect. 6. Generalized Anxiety Disorder Generalized anxiety disorder is managed with Xanax, though the patient is currently not seeking a refill. 7. Rash The patient uses hydroxyzine for a rash on his back, with dermatology advising it should resolve on its own. 8. Essential Tremor Essential tremor is confirmed by a neurologist, with the patient opting for non- pharmacological management such as meditation and yoga. Discussion Notes During the visit, we discussed the management of hypertension with amlodipine and hypercholesterolemia with atorvastatin, both showing good control. The patient expressed concerns about short-term memory issues related to Lunesta, an d we discussed its known side effects. For the rash, hydroxyzine was recommended, and dermatology's advice was to allow it to resolve naturally. We also talked about the essential tremor, with a preference for non- pharmacological management. Preventative care, including vaccinations for flu and COVID-19, was also discussed. Patient Instructions - Continue taking amlodipine and atorvastatin as prescribed. - Use hydroxyzine for the rash as needed, and allow it to resolve naturally. - Be aware of Lunesta's side effects, particularly on memory, and discuss any concerns. - Engage in meditation and yoga for managing essential tremor. - Consider getting flu and COVID-19 vaccinations. Medications: Refilled dicyclomine 10 mg PO TID PRN 90 caps 0RF stomach upset 90 days hydroxyzine HCl 25 mg PO BEDTIME 30 tabs 0RF L23.9 - Allergic contact dermatitis, unspecified cause dicyclomine 10 mg PO TID 90 days PRN 90 caps 0RF stomach upset testosterone 10 mg/0.5 gram /actuation apply evenly over front and inner area of EACH thigh; avoid water for >=2 hrs 2 pumps transdermal QAM 60 grams 0RF
--- OUTSIDE RECORDS SUMMARY | 2024-12-28 13:20 | XMS_ITS | Patient Health Record ---
Author Organization [facility] Address [address] [place] [id number] Care Team Providers Care Shipfitter Helper Name Role Phone Zacarias Morales Unavailable [phone] Reason For Referral No Information Plan Of Treatment No Information
== END 2024-12-28 11:23 | disposition home or self-care (01) ==
LOC: HO.HMCH 10:58
PROVIDERS: PCP Internal Medicine; Visit Provider Internal Medicine
DX: I10 Essential (primary) hypertension (principal); I65.21 Occlusion and stenosis of right carotid artery; E78.00 Pure hypercholesterolemia, unspecified; K21.9 Gastro-esophageal reflux disease without esophagitis

== ENCOUNTER → 2024-12-28 10:57 | Outpatient (BNVA) | payer MEDICARE, SELFPAY | PROVIDERS: PCP Internal Medicine; Visit Provider Internal Medicine | DX: I10 Essential (primary) hypertension (principal); I65.21 Occlusion and stenosis of right carotid artery; K21.9 Gastro-esophageal reflux disease without esophagitis; E29.1 Testicular hypofunction; G47.00 Insomnia, unspecified; F41.9 Anxiety disorder, unspecified; R21 Rash and other nonspecific skin eruption; R25.1 Tremor, unspecified; L23.9 Allergic contact dermatitis, unspecified cause; Z79.899 Other long term (current) drug therapy | CPT/HCPCS: 96127; 99212 ==